=== PATIENT | male | born 1940 | race Caucasian/White ===

== ENCOUNTER 2018-01-20 12:30 | Outpatient (RCR) | payer MEDICARE, OTHER, SELFPAY ==
--- NOTE | 2018-01-05 12:58 | HP.PTEVAL_ITS ---
Patient's Visit Information REBECCA BAUTISTA is a 77 year old M referred to Physical Therapy by Suha Mujica MD with a diagnosis of Gait abnormality, Parkinsonism,. Date of Evaluation: 01/05/18 Physical Therapist: Priyanka Garcia - Visit Plan Frequency: 2x /Week Duration: 6 Weeks Plan: 2X/ week for 4-6 weeks for BIG movements, high level balance activities, LE strengthening, functional activities with HEP to do at home during PT. - Subjective Subjective: Pt reports that he is showing signs of PD and Dr thinks that PT might help. His signs of PD are trembling in R hand and sometimes in the L hand. He is wobbly on his feet. He also has LB discomfort and they have tried some approaches on that and have not worked and gives him trouble standing or sitting for long periods of time. The gait prevents him doing long walking. He had a broken ankle and sirgery on the L foot a few years ago and feels that interferes with his gait and hip limps on that side and anticipation of it hurting. No falls. Stairs: gets SOB but does ok with a railing and alternating. He might have some trouble getting out of low chairs. He feels more out of shape and weak in general. He has age related macular degeneration (always a dark shadow over L shoulder....sometimes he can read and some times he can not read). tHEY HAVE NOT NOTICED A DIFFERENCE WITH SINEMENT. He is more sleepy on the meds. - Objective Gait: Walks with a normal gait pattern with decreased arm swing on the R. Normal stride length with some veering to the R with gait. Stairs: up and down stairs recip with 1 handrail ascending and 2 hand rails descending. LE MMT : B hip flex 4/5, B knee ext 4/5, B knee flexion 4/5, B hip abd 4/5, 1/2 normal ROM bridge. FGA: 22. Tight gastroc complex B - Balance Scores Functional Gait Assessment Score: 22 % Disability: 26.6700 - Goals Goal 1:: I HEP and check into Silver Sneakers. Goal Time Frame: 4-6 Weeks Goal 2:: Increase FGA by 5 points to decrease fall risk (at eval score was 22). Goal Time Frame: 4-6 Weeks Goal 3:: Be able to sit to stand X 10 with no UE support and no LOB Goal Time Frame: 4-6 Weeks - Rehabilitation Potential Rehabilitation Potential: Good - Anticipated Interventions Patient/Client Instruction: Educate patient on: Condition For the Purpose of:: To improve muscle performance and motor function, To improve ability to perform ADL's, To increase tolerance to activity/condition/ position, To improve performance and independence with ADL's, To improve ability of physical actions for home/community/work/leisure, To improve gait and locomotor functions, To improve health of tissue, To improve endurance, To improve balance, To improve safety with gait Therapeutic Exercise to Include: Strength training, Endurance training, Balance training, Postural training, Gait and locomotor training, Active ROM, Dynamic Lumbar Stabilization For the Purpose of:: To improve nutrient delivery to tissue, To improve muscle performance and motor function, To improve ability to perform ADL's, To increase tolerance to activity/condition/position, To improve performance and independence with ADL's, To decrease level of supervision to perform tasks, To improve ability of physical actions for home/community/work/leisure, To improve gait and locomotor functions, To improve endurance, To improve balance, To improve safety with gait Functional Training to Include: Gait training For the Purpose of:: To improve gait and locomotor functions, To improve safety with gait Thank you for the opportunity to evaluate your patient. For Medicare and Medicare HMO plans, please review the plan of care and approve it. It will need to be FAXED BACK to us at [phone] for Medicare purposes. Please let me know if there are questions or concerns regarding this plan of care. Physician Signature: Date:
--- NOTE | 2018-03-25 08:09 | HP.PTDCNRP_ITS ---
HP - Discharge Summary (1) - Patient Information REBECCA BAUTISTA was seen in my office for initial evaluation on 01/05/18. The following Plan of Care was established for this patient: Initial Frequency: 2x /Week Initial Duration: 6 Weeks - Anticipated Interventions Patient/Client Instruction: Educate patient on: Condition For the Purpose of:: To improve muscle performance and motor function, To improve ability to perform ADL's, To increase tolerance to activity/condition/ position, To improve performance and independence with ADL's, To improve ability of physical actions for home/community/work/leisure, To improve gait and locomotor functions, To improve health of tissue, To improve endurance, To improve balance, To improve safety with gait Therapeutic Exercise to Include: Strength training, Endurance training, Balance training, Postural training, Gait and locomotor training, Active ROM, Dynamic Lumbar Stabilization For the Purpose of:: To improve nutrient delivery to tissue, To improve muscle performance and motor function, To improve ability to perform ADL's, To increase tolerance to activity/condition/position, To improve performance and independence with ADL's, To decrease level of supervision to perform tasks, To improve ability of physical actions for home/community/work/leisure, To improve gait and locomotor functions, To improve endurance, To improve balance, To improve safety with gait Functional Training to Include: Gait training For the Purpose of:: To improve gait and locomotor functions, To improve safety with gait This patient was last seen in our office 01/20/18. Pertinent comments regarding their Physical therapy will appear below: Pt's stopped in and said that pt is now home bound and will need home health and would like his chart to be discharged. DC PT. At this point I will be discontinuing this patient from physical therapy. I would be happy to see this patient again in the future if found appropriate by the physician. Thank you! Priyanka Garcia
== END 2018-01-20 19:00 | disposition home or self-care (01) ==
LOC: PT 12:30
PROVIDERS: Family Provider Internal Medicine; PCP Internal Medicine; Visit Provider Psychiatry & Neurology Neurology
DX: G20 Parkinson's disease (principal); R26.9 Unspecified abnormalities of gait and mobility
CPT/HCPCS: 97110; 97161

== ENCOUNTER 2018-09-07 18:23 | Emergency (ER) | payer MEDICARE, OTHER, SELFPAY ==
[2018-09-07 18:28] VITALS: BP 202/120; PULSE 66; RESP 14; TEMP 36.8; O2SAT 97; BMI 32.8
[2018-09-07 19:49] LABS: Absolute Lymphocyte Count 2.03 X10^3/ul (0.83-4.51); Absolute Neutrophil Count 3.1 X10^3/uL (2.0-7.7); Basophil# 0.03 X10^3/uL; Basophil% 0.5 % (0-1); Eosinophil# 0.19 X10^3/uL; Eosinophils% 3.2 % (0-5); Hemoglobin 13.6 g/dl (13.0-16.5); Lymphocyte # 2.03 X10^3/ul (4.0); Lymphocyte % 33.8 % (19-41); Mean Corp Hgb Conc 33.2 g/gl (32-36); Mean Corpuscular Hgb 28.5 pg (27.0-32.0); Mean Corpuscular Volume 85.8 fL (80-94); Mean Platelet Vol. 10.2 fl (6.2-12.0); Monocyte# 0.64 X10^3/uL; Monocyte% 10.6 % (0-10); Neutrophil # 3.12 X10^3/uL (2.7-7.7); Neutrophil % 51.9 % (47-70); Platelet Count 126 K/mm3 (150-450); RBC Distribution Width CV 12.3 % (11.6-14.6); RBC Distribution Width SD 38.7 fl (35.1-43.9); Red Blood Count 4.78 M/mm3 (4.6-6.2)
[2018-09-07 19:50] LABS: POSITIVE COUNT NO; POSITIVE DIFFERENTIAL NO; POSITIVE MORPHOLOGY NO
[2018-09-07] MEDS: 0.9% Normal Saline 1,000 ML 150 ML IV (19:50)
[2018-09-07] MEDS: cloNIDine HCl 0.1 MG Tablet PO (19:55)
[2018-09-07 19:57] LABS: Anion Gap 6 (5-15); BUN 32 mg/dL (7-18); BUN/Creat Ratio 39.8 RATIO (10-20); Calcium,Total 8.6 mg/dL (8.5-10.1); Chloride 108 mmol/L (98-107); EST Glomerular Filtration Rate 98 mL/min (>60); Est Glom Filt Rate - Afr Amer 119 mL/min (>60); Estimated Creatinine Clearance 68.85 ml/min; Glucose 76 mg/dL (74-106); Sodium Level 143 mmol/L (136-145)
[2018-09-07 20:30] VITALS: BP 172/99; PULSE 61; RESP 14; O2SAT 96
--- NOTE | 2018-09-07 21:12 | ED.RN ---
PT WITH CONTINUED HYPERTENSION. DR. MICHEL INFORMED. PER DR. MICHEL PT TO BE OBSERVED. PT AND FAMILY INFORMED. WILL CONTINUE TO MONITOR. NO NEW ORDERS AT THIS TIME.
[2018-09-07 21:19] VITALS: BP 170/88; PULSE 61; RESP 18; O2SAT 97
--- NOTE | 2018-09-07 21:34 | ED.DCSUM_ITS ---
- ER Visit Summary Date of Service: 09/07/18 Chief Complaint: Swelling to the face and hand History of Present Illness: The patient is a 78 M who states he had the above symptoms that started an hour ago. He states they are now gone. His blood pressure was elevated at home. This happened after he took his afternoon medications which includes his Sinemet. He states his tongue felt swollen and that affected his speech. He started no new medications. He had no new foods. He denies chest pain or shortness of breath. He takes atenolol for his blood pressure. He had no weakness of his arms or legs. Physical Examination: Vital signs reviewed. HEENT exam unremarkable. Heart is regular rate and rhythm without murmurs. Lungs are clear to auscultation. Abdomen is soft and nontender. Extremities reveal no edema. Skin exam normal. Neurologic exam normal. He does have a parkinsonian twitch. NIH is 0 Test Results: Laboratory studies unremarkable. Emergency Department Course and Treatment: Patient was given oral clonidine. Repeat blood pressure was 140/80 at 2133. He has no signs of allergic reaction at this point. It is definitely possible that he did have an allergic reaction. However, it is unknown what this was caused by. He has no signs of a stroke. I do not feel that this is a TIA as he felt that everything was swollen. He is now back to his baseline. Family is comfortable taking him home. They do have Benadryl if this returns. He will take his nightly medications and will follow up with his PCP. He will continue to monitor his blood pressure. Treatment Plan: [] Disposition: Discharge Impression: Allergic reaction, etiology unknown Hypertension This note was generated with [employer] software. It may contain incorrect words, spelling, and punctuation that were not noted in review of the chart prior to signing ED Disposition - Plan for ED Patient: Disposition: Home or Assisted Living Chief Complaint: General Illness Instructions: ED HTN Established Referrals: Scotty Hernández MD [Primary Care Provider] -
--- NOTE | 2018-09-07 21:34 | ED.DEP ---
ED Disposition - Plan for ED Patient: Disposition: Home or Assisted Living Chief Complaint: General Illness Instructions: ED Allergic Reaction General Other Referrals: Scotty Hernández MD [Primary Care Provider] -
[2018-09-07 22:11] VITALS: BP 181/96; PULSE 60; RESP 13; O2SAT 97
== END 2018-09-07 22:13 | disposition home or self-care (01) ==
PROVIDERS: Emergency Provider Emergency Medicine; Family Provider Internal Medicine; PCP Internal Medicine
DX: T78.40XA Allergy, unspecified, initial encounter (principal); X58.XXXA Exposure to other specified factors, initial encounter; I10 Essential (primary) hypertension; G20 Parkinson's disease; Z79.82 Long term (current) use of aspirin; Z79.899 Other long term (current) drug therapy
CPT/HCPCS: 80048; 85025; 96360; 96361; 99285; J7030; A4216

== ENCOUNTER → 2019-01-13 10:00 | Outpatient (CLI) | payer MEDICARE, OTHER, SELFPAY | PROVIDERS: Family Provider Internal Medicine; PCP Internal Medicine; Referring Provider Internal Medicine; Visit Provider Internal Medicine | DX: R03.0 Elevated blood-pressure reading, without diagnosis of hypertension (principal); G90.3 Multi-system degeneration of the autonomic nervous system; I95.1 Orthostatic hypotension; G20 Parkinson's disease; R42 Dizziness and giddiness; R55 Syncope and collapse | CPT/HCPCS: 93788 ==

== ENCOUNTER → 2019-03-21 | Outpatient (CLI) | payer MEDICARE, OTHER, SELFPAY | END | disposition home or self-care (01) | PROVIDERS: Family Provider Internal Medicine; PCP Internal Medicine; Referring Provider Internal Medicine; Visit Provider Internal Medicine | DX: R03.0 Elevated blood-pressure reading, without diagnosis of hypertension (principal) | CPT/HCPCS: 93788 ==

== ENCOUNTER 2020-10-03 11:00 | Outpatient (RCR) | payer MEDICARE, SELFPAY | END 2020-10-03 23:59 | LOC: IMMUN 11:00 | PROVIDERS: PCP Internal Medicine; Visit Provider Family Medicine | DX: Z23 Encounter for immunization (principal) | CPT/HCPCS: 0011A; 0012A; 91301 ==

== ENCOUNTER → 2021-05-16 08:15 | Outpatient (REF) | payer MEDICARE, SELFPAY ==
[2021-05-17 10:09] LABS: Color, Urine Yellow (Yellow); Glucose, Dipstick Normal (Normal); Ketone-Dipstick Negative (Negative); Leukocyte Esterase-Dipstick 100 /ul (Negative); Nitrite-Dipstick Negative (Negative); Occult Blood-Urine 250 /ul (Negative); Protein-Dipstick 30 mg/dl (Negative); Specific Gravity, Urine 1.015 (1.002-1.030); Urine Bilirubin Dipstick Negative (Negative); Urine Clarity Sl. Cloudy (Clear); Urine Urobilinogen Normal (Normal)
== END ==
LOC: OLS.DANBUR 08:15
PROVIDERS: PCP Internal Medicine; Visit Provider Internal Medicine
DX: R35.0 Frequency of micturition (principal)
CPT/HCPCS: 81002; 87086

== ENCOUNTER → 2021-07-03 05:00 | Outpatient (REF) | payer MEDICARE, SELFPAY ==
[2021-07-03 08:50] LABS: Absolute Lymphocyte Count 1.37 X10^3/uL (0.83-4.51); Basophil# 0.03 X10^3/uL; Basophil% 0.6 % (0-1); Eosinophil# 0.18 X10^3/uL; Eosinophils% 3.5 % (0-5); Hematocrit 33.3 % (40-54); Hemoglobin 10.6 g/dL (13.0-16.5); Lymphocyte # 1.37 X10^3/ul (0.83-4.51); Lymphocyte % 26.3 % (19-41); Mean Corp Hgb Conc 31.8 g/dL (32-36); Mean Corpuscular Hgb 29.3 pg (27.0-32.0); Mean Platelet Vol. 10.7 fl (6.2-12.0); Monocyte# 0.62 X10^3/uL; Monocyte% 11.9 % (0-10); NRBC Flagged by Analyzer 0 % (0-5); Neutrophil # 2.98 X10^3/uL (2.7-7.7); Neutrophil % 57.3 % (47-70); Platelet Count 174 K/mm3 (150-450); RBC Distribution Width CV 12.7 % (11.6-14.6); Red Blood Count 3.62 M/mm3 (4.6-6.2); White Blood Count 5.2 K/mm3 (4.4-11.0)
[2021-07-03 09:10] LABS: AST(SGOT) 28 U/L (15-37); Alanine Aminotransfer ALT/SGPT 17 U/L (16-61); Albumin, Serum 2.9 g/dL (3.2-5.0); Alkaline Phosphatase 50 U/L (45-117); Anion Gap 5 (5-15); BUN 26 mg/dL (7-18); BUN/Creat Ratio 32.5 RATIO (10-20); Calcium,Total 8.7 mg/dL (8.5-10.1); Chloride 109 mmol/L (98-107); Cholesterol 93 mg/dL (200); EST Glomerular Filtration Rate 98 mL/min (>60); Est Glom Filt Rate - Afr Amer 119 mL/min (>60); Globulin 2.9 g/dL (2.2-4.2); Glucose 88 mg/dL (74-106); High Density Lipoprotein 45 mg/dL; Potassium 3.8 mmol/L (3.5-5.1); Protein, Total 5.8 g/dL (6.4-8.2); Sodium Level 142 mmol/L (136-145); Triglycerides 61 mg/dL; Very Low Density Lipoprotein 12 mg/dL (5-40)
== END ==
LOC: OLS.DANBUR 05:00
PROVIDERS: PCP Internal Medicine; Visit Provider Internal Medicine
DX: F03.90 Unspecified dementia, unspecified severity, without behavioral disturbance, psychotic disturbance, mood disturbance, and anxiety (principal); I10 Essential (primary) hypertension; E78.5 Hyperlipidemia, unspecified; E03.9 Hypothyroidism, unspecified; G20 Parkinson's disease; I25.10 Atherosclerotic heart disease of native coronary artery without angina pectoris
CPT/HCPCS: 36415; 80053; 80061; 85025

== ENCOUNTER → 2021-07-31 05:00 | Outpatient (REF) | payer MEDICARE, SELFPAY ==
[2021-07-31 09:18] LABS: Hemoglobin 11.9 g/dL (13.0-16.5); Mean Corp Hgb Conc 31.3 g/dL (32-36); Mean Corpuscular Hgb 28.5 pg (27.0-32.0); Mean Corpuscular Volume 90.9 fL (80-94); Mean Platelet Vol. 10.6 fl (6.2-12.0); Platelet Count 156 K/mm3 (150-450); RBC Distribution Width CV 12.5 % (11.6-14.6); RBC Distribution Width SD 41.2 fl (35.1-43.9); Red Blood Count 4.18 M/mm3 (4.6-6.2); White Blood Count 5.1 K/mm3 (4.4-11.0)
== END ==
LOC: OLS.DANBUR 05:00
PROVIDERS: PCP Internal Medicine; Visit Provider Internal Medicine
DX: I10 Essential (primary) hypertension (principal); E78.5 Hyperlipidemia, unspecified
CPT/HCPCS: 36415; 85027

== ENCOUNTER 2021-08-27 23:23 | Emergency (ER) | payer MEDICARE, SELFPAY ==
[2021-08-27 23:23] VITALS: BP 252/151; PULSE 78; RESP 10; TEMP 36.5; O2SAT 100; BMI 26.7
--- NOTE | 2021-08-27 23:55 | EKG12_ITS ---
Test Reason : Blood Pressure : / mmHG Vent. Rate : 073 BPM Atrial Rate : 073 BPM P-R Int : 156 ms QRS Dur : 104 ms QT Int : 408 ms P-R-T Axes : 055 -07 039 degrees QTc Int : 449 ms Normal sinus rhythm Normal ECG Confirmed by THANH MELCHOR, MARY JO ([id number]), website/blog editor CATHY ANDERSON ([id number]) on 08/29/2021 10:44:37 AM Referred By: BRIAN Confirmed By:MARY JO LAW MD
[2021-08-28 00:04] LABS: Absolute Lymphocyte Count 1.94 X10^3/uL (0.83-4.51); Absolute Neutrophil Count 2.4 X10^3/uL (2.0-7.7); Basophil# 0.05 X10^3/uL; Basophil% 0.9 % (0-1); Eosinophils% 3.8 % (0-5); Hematocrit 39.6 % (40-54); Hemoglobin 12.7 g/dL (13.0-16.5); Lymphocyte # 1.94 X10^3/ul (0.83-4.51); Lymphocyte % 36.5 % (19-41); Mean Corp Hgb Conc 32.1 g/dL (32-36); Mean Corpuscular Hgb 28.7 pg (27.0-32.0); Mean Corpuscular Volume 89.4 fL (80-94); Mean Platelet Vol. 10.7 fl (6.2-12.0); Monocyte% 13.2 % (0-10); NRBC Flagged by Analyzer 0 % (0-5); Neutrophil # 2.42 X10^3/uL (2.7-7.7); Neutrophil % 45.4 % (47-70); Platelet Count 153 K/mm3 (150-450); RBC Distribution Width SD 39.3 fl (35.1-43.9); Red Blood Count 4.43 M/mm3 (4.6-6.2); White Blood Count 5.3 K/mm3 (4.4-11.0)
[2021-08-28] MEDS: cloNIDine HCl 0.2 MG Tablet PO (00:10)
[2021-08-28] MEDS: Labetalol (Prefilled) 20 MG/4 ML IV (00:10)
[2021-08-28 00:16] LABS: Anion Gap 2 (5-15); BUN 33 mg/dL (7-18); BUN/Creat Ratio 30.3 RATIO (10-20); Calcium,Total 9.4 mg/dL (8.5-10.1); Chloride 109 mmol/L (98-107); Creatinine, Serum 1.09 mg/dL (0.70-1.30); EST Glomerular Filtration Rate 69 mL/min (>60); Est Glom Filt Rate - Afr Amer 83 mL/min (>60); Estimated Creatinine Clearance 48.01 ml/min; Glucose 88 mg/dL (74-106); Potassium 3.9 mmol/L (3.5-5.1); Sodium Level 141 mmol/L (136-145); Troponin-I HS 6 pg/mL (3.0-78.0)
[2021-08-28 00:54] VITALS: BP 198/115; PULSE 70; RESP 12; O2SAT 98
[2021-08-28 01:31] VITALS: BP 177/98
--- NOTE | 2021-08-28 01:38 | EDS_ITS ---
HPI History of Present Illness Chief Complaint: Hypertension Narrative Narrative: Patient is a 81-year-old male with past medical history of Parkinson's. He has previous history of hypertension and nursing reports that they took his blood pressure this evening and it was elevated and secondary to this sent the patient to the hospital. The patient denies any complaints at this time such as headache or change in vision chest pain or shortness of breath. He does state that his Myrbetriq was recently doubled in dose to 50 mg but otherwise denies any new or different medications or stimulant use. However based on the high blood pressure the skilled nursing was concerned and sent him to the hospital for evaluation [facility] Medical History (Updated 08/28/21 @ 01:[address] Shine Garcia, DO) Actinic keratosis Atherosclerotic heart disease of lime coronary artery without angina pectoris Basal cell carcinoma of skin, unspecified Dementia in other diseases classified elsewhere without behavioral disturbance Eczema intertrigo Essential (primary) hypertension Hyperlipidemia, unspecified Impaired fasting glucose Orthostatic hypotension Parkinson's disease Personal history of colonic polyps Spondylosis without myelopathy or radiculopathy, lumbar region Thrombocytopenia, unspecified Unspecified abnormalities of gait and mobility Unspecified urinary incontinence Home Medications aspirin 81 mg PO DAILY 09/07/18 [History Last Taken Unknown] carbidopa-levodopa 1.5 tab PO TIDAC 09/07/18 [History Last Taken Unknown] meloxicam [Mobic] 15 mg PO DAILY PRN 09/07/18 [History Last Taken Unknown] pravastatin 40 mg PO QHS 09/07/18 [History Last Taken Unknown] vitamins A,C,V-ldwr-[id number] [Preservision Areds Tablet] 1 ea PO BID 09/07/18 [History Last Taken Unknown] cholecalciferol (vitamin D3) [Vitamin D3] 25 mcg PO DAILY 08/27/21 [History Last Taken Unknown] docusate sodium 100 mg PO BID 08/27/21 [History Last Taken Unknown] gabapentin 100 mg PO DAILY 08/27/21 [History Last Taken Unknown] menthol-zinc oxide [Calmoseptine] 1 applic TOPICAL DAILY 08/27/21 [History Last Taken Unknown] metoprolol tartrate 12.5 mg PO DAILY 08/27/21 [History Last Taken Unknown] mirabegron [Myrbetriq] 50 mg PO DAILY 08/27/21 [History Last Taken Unknown] mometasone [Elocon] 1 applic TOPICAL DAILY 08/27/21 [History Last Taken Unknown] nitroglycerin 0.4 mg SUBLINGUAL PRN PRN 08/27/21 [History Last Taken Unknown] Allergy/AdvReac Type Severity Reaction Status Date / Time Penicillins Allergy Hives Verified 08/27/21 23:26 Social History Smoking Status: Former smoker ROS ROS ED Constitutional Constitutional ED: Denies chills or fever(s) ENT ENT ED: Denies sore throat Cardiovascular Cardiovascular: Denies chest pain Respiratory/Chest Respiratory/Chest: Denies cough or dyspnea Gastrointestinal Gastrointestinal: Denies abdominal pain, diarrhea, nausea or vomiting Genitourinary Genitourinary ED: Denies dysuria Musculoskeletal Musculoskeletal: Denies myalgias Integumentary Denies rash Neurologic Neurologic: Denies headache(s) Hematologic/Lymphatic Hematologic/Lymphatic: Denies easy bleeding or easy bruising EXAM Physical Exam Const Vital Signs: 08/27/21 23:23 08/28/21 00:15 08/28/21 00:54 Temperature 97.7 F L Temperature Source Temporal Pulse Rate 78 70 Respiratory Rate 10 L 12 Respiratory Effort Normal Respiratory Pattern Normal Blood Pressure 252/151 H 198/115 H Blood Pressure Mean 184 142 Pulse Ox 100 98 Oxygen Delivery Method Room Air Room Air 08/28/21 01:31 Temperature Temperature Source Pulse Rate Respiratory Rate Respiratory Effort Respiratory Pattern Blood Pressure 177/98 H Blood Pressure Mean 124 Pulse Ox Oxygen Delivery Method Positive well nourished and well developed General Appearance ED: well developed HEENT Reports moist mucous membranes Eyes PERRL and EOMs intact bilaterally Neck supple Resp normal respiratory effort and clear to auscultation bilaterally Cardio regular rate and regular rhythm Cardio Narrative: Radial pulses are +2-4 bilaterally they are equal and symmetric GI non-tender and non-distended GI Narrative: No voluntary guarding or rigidity no pulsatile mass Auscultation: normoactive bowel sounds Palpation: soft Extremity normal to inspection Neuro oriented x3, CN's II-XII intact bilaterally and moves all extremities Sensorium / Orientation: alert Psych mental status grossly normal Skin no rashes or lesions noted MDM MDM MDM Narrative Medical decision making narrative: Patient presented to the ER hypertensive but otherwise was awake and alert with normal neurologic exam no chest pain shortness of breath or abdominal pain. By exam he has no signs of endorgan damage and his history is consistent with the increased dose of Myrbetriq leading to the hypertension. Chart review does confirm that approximately 10% of people with underlying hypertension will have worsening blood pressure issues with the medication. As the patient had a normal neurologic exam and no headache I felt no need for a CT of his head but did elect to perform EKG and basic blood work. EKG was sinus rhythm and blood work revealed no clinically significant findings. Patient was treated in the ER with labetalol and clonidine and did have a reduction of approximately 25% and his blood pressure. On reevaluation he remains awake and alert with no focal neurologic deficit. Therefore at this time with no signs of endorgan damage by exam or work-up and improvement of his blood pressure he does not need to be kept in the hospital and will be discharged back to the skilled nursing. Lab Data Attestation: I reviewed the patient's lab results. Labs: Laboratory Results - last 24 hr 08/27/21 08/27/21 23:12 23:12 WBC 5.3 RBC 4.43 L Hgb 12.7 L Hct 39.6 L MCV 89.4 MCH 28.7 MCHC 32.1 RDW Std Deviation 39.3 RDW Coeff of Buck 12.0 Plt Count 153 MPV 10.7 Immature Gran % (Auto) 0.200 Neut % (Auto) 45.4 L Lymph % (Auto) 36.5 [place] % (Auto) 13.2 H Eos % (Auto) 3.8 Baso % (Auto) 0.9 Absolute Neuts (auto) 2.4 Absolute Lymphs (auto) 1.94 Nucleated RBC % 0 Sodium 141 Potassium 3.9 Chloride 109 H Carbon Dioxide 30.0 Anion Gap 2 L BUN 33 H Creatinine 1.09 Estim Creat Clear Calc 48.01 Est GFR (MDRD) Af Amer 83 Est GFR (MDRD) Non-Af 69 BUN/Creatinine Ratio 30.3 H Glucose 88 Calcium 9.4 Troponin I High Sens 6 Discharge Plan Triage Chief Complaint: Hypertension ED Provider: Shine Garcia Dx/Rx/DC Orders Clinical Impression: Accelerated hypertension Instructions: Hypertension Dc Prescriptions: No Action meloxicam [Mobic] 15 MG tablet 15 mg PO DAILY PRN (Reason: arthritis ) RF: 0 pravastatin 80 MG tablet 40 mg PO QHS RF: 0 aspirin 81 MG tablet,chewable 81 mg PO DAILY RF: 0 carbidopa-levodopa 1 TABLET tablet 1.5 tab PO TIDAC RF: 0 PreserVision AREDS 1 EACH tablet 1 ea PO BID RF: 0 nitroglycerin 0.4 mg tablet, sublingual 0.4 mg sublingual PRN PRN (Reason: Chest Pain) RF: 0 docusate sodium 100 mg Capsule 100 mg PO BID RF: 0 gabapentin 100 mg capsule 100 mg PO DAILY RF: 0 mometasone [Elocon] 0.1 % Cream 1 applic TOPICAL DAILY RF: 0 cholecalciferol (vitamin D3) [Vitamin D3] 25 mcg (1,000 unit) Capsule 25 mcg PO DAILY RF: 0 metoprolol tartrate 25 mg Tablet 12.5 mg PO DAILY RF: 0 menthol-zinc oxide [Calmoseptine] 0.44-20.6 % Ointment 1 applic TOPICAL DAILY RF: 0 Myrbetriq 25 mg Tablet Extended Release 24 Hr 50 mg PO DAILY RF: 0 Primary Care Provider: Scotty Hernández Referrals: Scotty Hernández MD [Primary Care Provider] - Activity Restrictions/Additional Instructions: Please discuss with your doctor returning to the 25 mg of Myrbetriq because I believe the double dose is contributing to your hypertension Disposition Disposition: Home, Self Care
[2021-08-28 02:28] VITALS: BP 164/92; PULSE 64; RESP 13; O2SAT 96
--- NOTE | 2021-08-28 02:29 | ED.RN ---
Verbal report given to Rosalie at [facility] who took report from Sandra.
== END 2021-08-28 02:29 | disposition home or self-care (01) ==
PROVIDERS: Emergency Provider Emergency Medicine; PCP Internal Medicine
DX: I10 Essential (primary) hypertension (principal); G20 Parkinson's disease; E78.5 Hyperlipidemia, unspecified; I25.10 Atherosclerotic heart disease of native coronary artery without angina pectoris; M47.816 Spondylosis without myelopathy or radiculopathy, lumbar region; Z79.82 Long term (current) use of aspirin; Z79.899 Other long term (current) drug therapy; Z87.891 Personal history of nicotine dependence
CPT/HCPCS: 80048; 84484; 85025; 93005; 96374; 99285

== ENCOUNTER 2021-09-03 07:18 | Emergency (ER) | payer MEDICARE, SELFPAY ==
[2021-09-03 07:19] VITALS: BP 187/102; PULSE 63; RESP 17; TEMP 36.5; O2SAT 98; BMI 26.1
--- NOTE | 2021-09-03 07:27 | EDS_ITS ---
HPI History of Present Illness Chief Complaint: Hypertension Detail of Chief Complaint: Elevated blood pressure reading at nursing facility Informant: patient and SNF (Collin inform me that his blood pressure reading was too high for him to stay at the facility) Onset/Context/Timing Onset: Today and - (He was seen approximate 2 weeks ago for elevated blood pressure of 252 systolic) Context: Sudden Onset (Presumed) Timing: Intermittent Quality: Patient is asymptomatic Location: Cardiovascular Current Severity: Elevated blood pressure reading this morning at nursing facility Maximum Severity: Mild Associated Symptoms Associated Symptoms: None Narrative Narrative: Patient is an elderly male who is alert oriented who has absolutely no complaints. He states he was sent here because his blood pressure reading was elevated. He was seen earlier this month. That note was reviewed. He is on a bladder medication that has an 11% incident of elevated blood pressure. Apparently his blood pressure readings became elevated after the dose was doubled. He denies headache, double vision, blurred vision loss of vision. He denies ringing his ears or decreased hearing. He denies trouble with speech or swallowing. He denies chest pain or back pain. He denies shortness of breath. He denies abdominal pain, nausea, vomiting or any abdominal symptoms. He denies paresthesia, anesthesia or motor works. He denies problems with balance from baseline. He does have history of Parkinson's disease. Prior similar symptoms: Yes Recent Illness/Hospitalization: Yes Tetanus Immunization: Unknown [facility] Medical History Actinic keratosis Atherosclerotic heart disease of [place] coronary artery without angina pectoris Basal cell carcinoma of skin, unspecified Dementia in other diseases classified elsewhere without behavioral disturbance Eczema intertrigo Essential (primary) hypertension Hyperlipidemia, unspecified Impaired fasting glucose Orthostatic hypotension Parkinson's disease Personal history of colonic polyps Spondylosis without myelopathy or radiculopathy, lumbar region Thrombocytopenia, unspecified Unspecified abnormalities of gait and mobility Unspecified urinary incontinence Home Medications aspirin 81 mg PO DAILY 09/07/18 [History Last Taken Unknown] carbidopa-levodopa 1.5 tab PO TIDAC 09/07/18 [History Last Taken Unknown] meloxicam [Mobic] 15 mg PO DAILY PRN 09/07/18 [History Last Taken Unknown] pravastatin 40 mg PO QHS 09/07/18 [History Last Taken Unknown] vitamins A,C,T-puga-[id number] [Preservision Areds Tablet] 1 ea PO BID 09/07/18 [History Last Taken Unknown] cholecalciferol (vitamin D3) [Vitamin D3] 25 mcg PO DAILY 08/27/21 [History Last Taken Unknown] docusate sodium 100 mg PO BID 08/27/21 [History Last Taken Unknown] gabapentin 100 mg PO DAILY 08/27/21 [History Last Taken Unknown] menthol-zinc oxide [Calmoseptine] 1 applic TOPICAL DAILY 08/27/21 [History Last Taken Unknown] metoprolol tartrate 12.5 mg PO DAILY 08/27/21 [History Last Taken Unknown] mirabegron [Myrbetriq] 25 mg PO DAILY 08/27/21 [History Last Taken Unknown] mometasone [Elocon] 1 applic TOPICAL DAILY 08/27/21 [History Last Taken Unknown] nitroglycerin 0.4 mg SUBLINGUAL PRN PRN 08/27/21 [History Last Taken Unknown] hydrochlorothiazide 12.5 mg PO DAILY #30 tab 09/03/21 [Rx Last Taken Unknown] Allergy/AdvReac Type Severity Reaction Status Date / Time Penicillins Allergy Hives Verified 09/03/21 07:18 Social History (Updated 09/03/21 @ 09:[address] Jr Segundo MD) household members: spouse housing: group home Smoking Status: Former smoker substance use type: does not use ROS ROS ED Constitutional Constitutional ED: Reports as per HPI Eyes Eyes: Denies acute decrease in peripheral vision, bloody eye, blurry vision, floaters, loss of central vision, loss of vision, nystagmus or other visual disturbances ENT ENT ED: Denies abnormal hearing, bleeding gums, bloody eye, change in voice, disequillibrium, dizziness, dysphagia, headache(s), neck pain or sore throat Cardiovascular Cardiovascular: Reports none; Denies abdominal bloating, chest pain, chest pain at rest, chest pain with activity, diaphoresis, dizziness, dyspnea, edema, fatigue, orthopnea, racing heartbeat or weakness in extremities Respiratory/Chest Respiratory/Chest: Reports none; Denies change in mental status, chest congestion, chest tightness, cough, dyspnea on exertion, hoarseness or orthopnea Gastrointestinal Gastrointestinal: Reports none; Denies abdominal pain, anorexia, coffee ground emesis, dyspepsia, dysphagia or heartburn Genitourinary Genitourinary ED: Reports none; Denies burning urination, dysuria or hematuria Musculoskeletal Musculoskeletal: Reports none and tremors; Denies abnormal gait, arthralgias, extremity pain, joint pain, muscle cramps, muscle weakness or numbness Integumentary Reports none; Denies changing lesions, jaundice, rash or sores Neurologic Neurologic: Reports none and abnormal movements; Denies abnormal gait, abnormal hearing, abnormal speech, burning sensations, disequilibrium, frequent falls, headache(s), loss of vision, numbness or paresthesias Psychiatric Psychiatric: Reports none; Denies abnormal sleep pattern, anxiety, behavioral changes or depression Endocrine Endocrinology: Reports none; Denies deepening of the voice, fatigue, polydipsia or polyphagia Hematologic/Lymphatic Hematologic/Lymphatic: Reports none; Denies anemia or easy bleeding Allergic/Immunologic Allergic/Immunologic ED: Denies itchy eyes, lip swelling, mouth swelling or urticaria EXAM Physical Exam Const Vital Signs: 09/03/21 07:19 09/03/21 07:22 09/03/21 08:25 Temperature 97.7 F L Temperature Source Oral Pulse Rate 63 60 Respiratory Rate 17 17 Respiratory Effort Normal Non-Labored Respiratory Pattern Normal Blood Pressure 187/102 H 189/100 H Blood Pressure Mean 130 129 Pulse Ox 98 97 Oxygen Delivery Method Room Air Room Air 09/03/21 09:23 Temperature Temperature Source Pulse Rate 56 L Respiratory Rate 17 Respiratory Effort Respiratory Pattern Blood Pressure 181/98 H Blood Pressure Mean 125 Pulse Ox 98 Oxygen Delivery Method Room Air Positive well nourished, well developed, alert, oriented x3, no apparent distress, average body habitus and no limitations General Appearance ED: active, cooperative, well kempt and well developed Orientation / Consciousness: awake, oriented to person, oriented to place and oriented to time Exam Limitations: no limitations Nutritional Appearance: overweight HEENT Reports normocephalic, EAC's normal, external nose normal and nasal mucous membranes and turbinates normal normocephalic, normal to inspection and atraumatic Nose: external nose normal, nares normal and nasal mucous membranes and turbinates normal External Ear: external ears normal Throat: posterior oropharynx normal Eyes PERRL, EOMs intact bilaterally, conjunctivae normal, no scleral icterus, no papilledema and normal visual dave by confrontation General Eye ED: Yes normal appearance of both eyes and normal light reflex; Negative for pale conjunctiva or scleral icterus Neck full ROM, no lymphadenopathy, supple, no meningeal signs and no JVD General: normal visual inspection, trachea midline and anterior neck swelling Lymph Lymphatic: no lymphadenopathy noted and no lymphedema noted Chest Wall inspection of chest normal and palpation of chest normal Resp Effort and Inspection: able to speak in complete sentences, symmetric chest movement and abnormal respiratory pattern Auscultation: clear to auscultation bilaterally Cardio regular rate, regular rhythm, S1 normal heart sound, S2 normal heart sound and no murmurs GI normal to inspection, nondistended, normoactive bowel sounds, soft to palpation, non-tender, non-distended, no masses and no bruits; Negative for hepatosplenomegaly no CVA tenderness Back/Spine no CVA tenderness, normal to inspection and thoracic and lumbar spine normal to inspection Extremity normal to inspection, full ROM, normal capillary refill and no joint enlargement General Extremety ED: Yes normal exam except as noted General Extremity: normal exam except as noted Neuro oriented x3, CN's II-XII intact bilaterally, moves all extremities, no focal motor deficits, no sensory deficits noted and deep tendon reflexes 2+ bilaterally Martina Coma Scale: document GCS findings Spontaneous Obeys Commands Oriented 15 Sensorium / Orientation: awake and alert Coordination / Balance: [id number] test normal Speech: speech normal Psych mental status grossly normal and thought process normal Appearance: grossly normal Attitude: calm Speech: normal speech Mood & Affect: blunted affect Thought Process: normal thought process Thought Content: normal thought content Skin no rashes or lesions noted, no wounds, No no jaundice and no petechiae General Skin Exam: no breakdown MDM MDM MDM Narrative Medical decision making narrative: Patient presents with asymptomatic hypertension. This may be related to his bladder spasm medication. Since patient had significant work-up earlier this month and no abnormalities noted i.e. endorgan injury and blood pressure is 187/100 there is no need for urgent or emergent lowering. Will observe and start hydrochlorothiazide 12.5 mg. Patient's blood pressure is 181/95. He is asymptomatic. Suspect his elevated blood pressure is due to his bladder medicine. This was discussed with patient and . He was started on hydrochlorothiazide. Since he had blood work most recent visit with no evidence of endorgan injury and his blood pressure was markedly elevated at that time compared to today and he is asymptomatic no additional testing was done. He is to continue taking his metoprolol and will add hydrochlorothiazide to control his blood pressure. Also recommend discontinuing his bladder medication. Discharge Plan Triage Chief Complaint: Hypertension ED Provider: Jr Segundo Dx/Rx/DC Orders Clinical Impression: Asymptomatic hypertension Instructions: ED Hypertension, Established Prescriptions: New hydrochlorothiazide 12.5 mg tablet 12.5 mg PO DAILY Qty: 30 RF: 2 No Action meloxicam [Mobic] 15 MG tablet 15 mg PO DAILY PRN (Reason: arthritis ) RF: 0 pravastatin 80 MG tablet 40 mg PO QHS RF: 0 aspirin 81 MG tablet,chewable 81 mg PO DAILY RF: 0 carbidopa-levodopa 1 TABLET tablet 1.5 tab PO TIDAC RF: 0 PreserVision AREDS 1 EACH tablet 1 ea PO BID RF: 0 nitroglycerin 0.4 mg tablet, sublingual 0.4 mg sublingual PRN PRN (Reason: Chest Pain) RF: 0 docusate sodium 100 mg Capsule 100 mg PO BID RF: 0 gabapentin 100 mg capsule 100 mg PO DAILY RF: 0 mometasone [Elocon] 0.1 % Cream 1 applic TOPICAL DAILY RF: 0 cholecalciferol (vitamin D3) [Vitamin D3] 25 mcg (1,000 unit) Capsule 25 mcg PO DAILY RF: 0 metoprolol tartrate 25 mg Tablet 12.5 mg PO DAILY RF: 0 menthol-zinc oxide [Calmoseptine] 0.44-20.6 % Ointment 1 applic TOPICAL DAILY RF: 0 Myrbetriq 25 mg Tablet Extended Release 24 Hr 25 mg PO DAILY RF: 0 Primary Care Provider: Scotty Hernández Referrals: Scotty Hernández MD [Primary Care Provider] - 1-2 Weeks Activity Restrictions/Additional Instructions: There is a 7.4 to 11% incidence of elevation of blood pressure in patients with hypertension who are taking Myrbetriq. Patient to start taking hydrochlorothiazide 12.5 mg in the morning and recommend blood pressure check in 1 to 2 weeks since he is asymptomatic Recommend discontinuing the Myrbetriq and treating his bladder issues with a different medication Disposition Disposition: Home, Self Care
[2021-09-03] MEDS: hydroCHLOROthiazide 12.5mg 12.5 MG PO (08:02)
[2021-09-03 08:25] VITALS: BP 189/100; PULSE 60; RESP 17; O2SAT 97
[2021-09-03 09:23] VITALS: BP 181/98; PULSE 56; RESP 17; O2SAT 98
[2021-09-03 09:43] VITALS: BP 193/118
== END 2021-09-03 09:44 | disposition home or self-care (01) ==
PROVIDERS: Emergency Provider Emergency Medicine; PCP Internal Medicine
DX: I10 Essential (primary) hypertension (principal); E66.3 Overweight; Z68.26 Body mass index [BMI] 26.0-26.9, adult; G20 Parkinson's disease; E78.5 Hyperlipidemia, unspecified; I25.10 Atherosclerotic heart disease of native coronary artery without angina pectoris; F03.90 Unspecified dementia, unspecified severity, without behavioral disturbance, psychotic disturbance, mood disturbance, and anxiety; M47.816 Spondylosis without myelopathy or radiculopathy, lumbar region; Z86.2 Personal history of diseases of the blood and blood-forming organs and certain disorders involving the immune mechanism; Z85.828 Personal history of other malignant neoplasm of skin; Z86.010 Personal history of colon polyps; Z79.82 Long term (current) use of aspirin; Z79.899 Other long term (current) drug therapy; Z87.891 Personal history of nicotine dependence
CPT/HCPCS: 99284

== ENCOUNTER → 2021-09-11 05:00 | Outpatient (REF) | payer MEDICARE, SELFPAY ==
[2021-09-11 09:08] LABS: Thyroid Stim Hormone (TSH) 2.33 uIU/mL (0.358-3.74)
[2021-09-11 09:13] LABS: Vitamin B12 249 pg/mL (211-911)
== END ==
LOC: OLS.DANBUR 05:00
PROVIDERS: PCP Internal Medicine; Visit Provider Internal Medicine
DX: I10 Essential (primary) hypertension (principal); E78.5 Hyperlipidemia, unspecified; I25.10 Atherosclerotic heart disease of native coronary artery without angina pectoris; D69.6 Thrombocytopenia, unspecified; G20 Parkinson's disease; F02.80 Dementia in other diseases classified elsewhere, unspecified severity, without behavioral disturbance, psychotic disturbance, mood disturbance, and anxiety; R73.01 Impaired fasting glucose; E55.9 Vitamin D deficiency, unspecified
CPT/HCPCS: 36415; 82306; 82607; 82746; 84443

== ENCOUNTER 2021-10-06 06:40 | Outpatient (REF) | payer MEDICARE, SELFPAY ==
[2021-10-06 09:21] LABS: Bacteria 0 SEEN /hpf (None Seen); Mucous, Urine 0 SEEN /hpf (<or=2+); Squamous Epithelial Cells - UA 0 SEEN /hpf (0-5)
[2021-10-06 09:32] LABS: Color, Urine Red (Yellow); Glucose, Dipstick Normal (Normal); Ketone-Dipstick Negative (Negative); Leukocyte Esterase-Dipstick 25 /ul (Negative); Nitrite-Dipstick Negative (Negative); Occult Blood-Urine 250 /ul (Negative); Protein-Dipstick 100 mg/dl (Negative); Urine Bilirubin Dipstick Negative (Negative); Urine Clarity Cloudy (Clear); Urine Urobilinogen Normal (Normal)
[2021-10-06 09:54] LABS: Red Blood Cells-Urine > 100 SEEN /hpf (0-5)
[2021-10-06 09:55] LABS: White Blood Cells 0-5 SEEN /hpf (0-5)
== END 2021-10-06 23:59 | disposition home or self-care (01) ==
LOC: OLS.DANBUR 06:40
PROVIDERS: PCP Internal Medicine; Visit Provider Internal Medicine
DX: N39.0 Urinary tract infection, site not specified (principal)
CPT/HCPCS: 81001; 87086; 87088

== ENCOUNTER 2021-10-08 18:18 | Emergency (ER) | payer MEDICARE, SELFPAY ==
[2021-10-08 18:19] VITALS: BP 109/70; PULSE 62; RESP 15; TEMP 35.7; O2SAT 100; BMI 25.8
--- NOTE | 2021-10-08 18:45 | CT_ITS ---
STUDY: CT ABDOMEN AND PELVIS WITH CONTRAST REASON FOR EXAM: Male, 81 years old. Painless gross hematuria RADIATION DOSAGE (If Supplied By Facility): CTDIvol = ( 13.89 ) mGy, DLP = ( 1128.77 ) mGycm TECHNIQUE: Transaxial images were obtained from the dome of the diaphragm to the symphysis pubis without oral contrast. IV 100mL Isovue-300 was administered. Sagittal and coronal images were reconstructed. Individualized dose optimization techniques were used for this CT. COMPARISON: None. FINDINGS: The visualized lung bases are unremarkable. The visualized portions of the heart are within normal limits. Normal liver. Normal gallbladder and extrahepatic biliary system. Normal spleen. Normal pancreas. Normal bilateral adrenal glands. 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 Normal visualized stomach. Normal small intestine. Normal colon. The appendix is visualized and appears normal. There is diffuse atherosclerotic calcification of the abdominal aorta with elongation and tortuosity, but without a demonstrated aneurysm. Normal inferior vena cava. Normal retroperitoneum. Heterogeneous high attenuation material at the posterior inferior bladder. Questionable bladder wall thickening There is enlargement of the prostate gland. Normal abdominal wall. There are diffuse degenerative changes of the visualized lumbar spine. CT/Abdomen/Pelvis W IV Cont ONLY IMPRESSION: Horseshoe kidney. Heterogeneous increased attenuation within the bladder dependently which may be partially attributable to an enlarged prostate. Consider follow-up bladder ultrasound to help exclude mass lesion. Electronically Signed: Dex Whiting MD at 21:09 EST ,
[2021-10-08 19:48] LABS: Absolute Lymphocyte Count 1.78 X10^3/uL (0.83-4.51); Absolute Neutrophil Count 3.4 X10^3/uL (2.0-7.7); Basophil# 0.04 X10^3/uL; Basophil% 0.7 % (0-1); Eosinophil# 0.17 X10^3/uL; Eosinophils% 2.8 % (0-5); Hematocrit 36.9 % (40-54); Hemoglobin 11.9 g/dL (13.0-16.5); Lymphocyte # 1.78 X10^3/ul (0.83-4.51); Lymphocyte % 29.4 % (19-41); Mean Corp Hgb Conc 32.2 g/dL (32-36); Mean Corpuscular Hgb 28.5 pg (27.0-32.0); Mean Corpuscular Volume 88.5 fL (80-94); Mean Platelet Vol. 10.4 fl (6.2-12.0); Monocyte% 11.6 % (0-10); NRBC Flagged by Analyzer 0 % (0-5); Neutrophil # 3.35 X10^3/uL (2.7-7.7); Neutrophil % 55.2 % (47-70); Platelet Count 139 K/mm3 (150-450); RBC Distribution Width CV 12.6 % (11.6-14.6); RBC Distribution Width SD 41.1 fl (35.1-43.9); Red Blood Count 4.17 M/mm3 (4.6-6.2); White Blood Count 6.1 K/mm3 (4.4-11.0)
--- NOTE | 2021-10-08 19:59 | EX.ED.DYSGE1 ---
HPI History of Present Illness Chief Complaint: GI Bleed Detail of Chief Complaint: Painless gross hematuria Informant: patient and spouse/S.O. Onset/Context/Timing Onset: Days (Onset Wednesday) Context: Sudden Onset Timing: Continuous Quality: Gross painless hematuria Location: Current Severity: Moderate Maximum Severity: Moderate Worsened by: Nothing Relieved by: Nothing Associated Symptoms Associated Symptoms: No symptoms and urine culture reportedly is negative Narrative Narrative: Patient is an elderly male who presents with painless gross hematuria. He had history of prostate cancer 25 years ago. He is on a baby aspirin a day. He is not on an anticoagulant. He does report intermittent lightheadedness and intermittent dyspnea with exertion. He was unaware that he appears pale. He denies fever, chills night sweats. Denies weight gain or weight loss. Denies ocular, visual auditory symptoms. He denies black or maroon-colored stool. He denies bruising easily. He does have history of Parkinson's and has a visible tremor. Prior similar symptoms: No Recent Illness/Hospitalization: No [facility] Medical History (Updated 10/08/21 @ 20:[address] Jr Segundo MD) Actinic keratosis Atherosclerotic heart disease of [place] coronary artery without angina pectoris Basal cell carcinoma of skin, unspecified Dementia in other diseases classified elsewhere without behavioral disturbance Eczema intertrigo Essential (primary) hypertension Hyperlipidemia, unspecified Impaired fasting glucose Orthostatic hypotension Parkinson's disease Personal history of colonic polyps Prostate cancer Spondylosis without myelopathy or radiculopathy, lumbar region Thrombocytopenia, unspecified Unspecified abnormalities of gait and mobility Unspecified urinary incontinence Home Medications aspirin 81 mg PO DAILY 09/07/18 [History Last Taken Unknown] carbidopa-levodopa 1.5 tab PO TIDAC 09/07/18 [History Last Taken Unknown] meloxicam [Mobic] 15 mg PO DAILY PRN 09/07/18 [History Last Taken Unknown] pravastatin 40 mg PO QHS 09/07/18 [History Last Taken Unknown] vitamins A,C,U-sigy-pnxkib [Preservision Areds Tablet] 1 ea PO BID 09/07/18 [History Last Taken Unknown] cholecalciferol (vitamin D3) [Vitamin D3] 25 mcg PO DAILY 08/27/21 [History Last Taken Unknown] docusate sodium 100 mg PO BID 08/27/21 [History Last Taken Unknown] gabapentin 100 mg PO DAILY 08/27/21 [History Last Taken Unknown] menthol-zinc oxide [Calmoseptine] 1 applic TOPICAL DAILY 08/27/21 [History Last Taken Unknown] metoprolol tartrate 12.5 mg PO DAILY 08/27/21 [History Last Taken Unknown] nitroglycerin 0.4 mg SUBLINGUAL PRN PRN 08/27/21 [History Last Taken Unknown] acetaminophen [Tylenol Ex Str Arthritis Pain] 1,000 mg PO TID 10/08/21 [History Last Taken Unknown] amlodipine 2.5 mg PO DAILY 10/08/21 [History Last Taken Unknown] Allergy/AdvReac Type Severity Reaction Status Date / Time Penicillins Allergy Hives Verified 09/03/21 07:18 Social History household members: spouse housing: jail Smoking Status: Former smoker substance use type: does not use ROS ROS ED Constitutional Constitutional ED: Denies chills, fever(s), subjective, sweats or weight loss Eyes Eyes: Denies blurry vision, change in vision or diplopia ENT ENT ED: Denies ear pain, rhinorrhea or sore throat Cardiovascular Cardiovascular: Denies chest pain, orthopnea, palpitations or racing heartbeat Respiratory/Chest Respiratory/Chest: Reports dyspnea and dyspnea on exertion; Denies cough, orthopnea or sputum Gastrointestinal Gastrointestinal: Denies abdominal pain, diarrhea, nausea or vomiting Genitourinary Genitourinary ED: Reports hematuria; Denies dysuria or urinary frequency Musculoskeletal Musculoskeletal: Reports arthralgias, back pain, myalgias and neck pain Integumentary Denies Abrasions or rash Neurologic Neurologic: Denies headache(s) or weakness Endocrine Endocrinology: Denies polydipsia, polyphagia or polyuria Allergic/Immunologic Allergic/Immunologic ED: Reports mouth swelling and urticaria EXAM Physical Exam Const Vital Signs: 10/08/21 18:19 10/08/21 20:04 Temperature 96.2 F L Temperature Source Temporal Pulse Rate 62 55 L Respiratory Rate 15 16 Blood Pressure 109/70 173/93 H Blood Pressure Mean 83 119 Pulse Ox 100 100 Oxygen Delivery Method Room Air Room Air Positive well nourished and well developed General Appearance ED: well developed and pallor HEENT Reports TM's clear and moist mucous membranes Negative for trauma or tenderness Tympanic Membrane ED: Yes TM's clear Eyes PERRL and EOMs intact bilaterally General Eye ED: Yes pale conjunctiva; Negative for scleral icterus Neck no lymphadenopathy, supple and no JVD Chest Wall inspection of chest normal Resp normal respiratory effort and clear to auscultation bilaterally GI normal to inspection, nondistended, normoactive bowel sounds, non-tender and non-distended Palpation: soft Back/Spine no CVA tenderness Cervical Spine: Negative for cervical spine tenderness Thoracic Spine / Upper Back: Negative for thoracic spinal tenderness or paraspinal muscle tenderness Extremity normal to inspection General Extremety ED: Negative for tenderness Neuro oriented x3, CN's II-XII intact bilaterally and no sensory deficits noted Sensorium / Orientation: alert Motor Exam: strength 5/5 throughout Psych Appearance: other Patient has a masked face appearance due to Parkinson. Skin no rashes or lesions noted and no wounds General Skin Exam: pallor; Negative for jaundice MDM MDM MDM Narrative Medical decision making narrative: With history of prostate cancer painless gross hematuria need to rule out for malignancy. CBC was obtained to assess H&H since he appears pale. BMP to assess elect to lites and renal function since IV contrast is warranted to evaluate his painless gross hematuria. Lab Data Attestation: I reviewed the patient's lab results. Lab results narrative: View when to creatinine ratio was elevated, 29.8-1. H&H is baseline. White count and differential are normal. Labs: Laboratory Results - last 24 hr 10/08/21 10/08/21 10/08/21 19:40 19:40 19:40 WBC 6.1 RBC 4.17 L Hgb 11.9 L Hct 36.9 L MCV 88.5 MCH 28.5 MCHC 32.2 RDW Std Deviation 41.1 RDW Coeff of Buck 12.6 Plt Count 139 L MPV 10.4 Immature Gran % (Auto) 0.300 Neut % (Auto) 55.2 Lymph % (Auto) 29.4 Reagan % (Auto) 11.6 H Eos % (Auto) 2.8 Baso % (Auto) 0.7 Absolute Neuts (auto) 3.4 Absolute Lymphs (auto) 1.78 Nucleated RBC % 0 PT 14.5 INR 1.2 APTT 35.1 Sodium 141 Potassium 4.2 Chloride 106 Carbon Dioxide 28.0 Anion Gap 7 BUN 34 H Creatinine 1.14 Estim Creat Clear Calc 44.31 Est GFR (MDRD) Af Amer 79 Est GFR (MDRD) Non-Af 65 BUN/Creatinine Ratio 29.8 H Glucose 116 H Calcium 8.6 Urine Color Urine Clarity Urine pH Ur Specific [place] Urine Protein Urine Glucose (UA) Urine Ketones Urine Occult Blood Urine Nitrite Urine Bilirubin Urine Urobilinogen Ur Leukocyte Esterase Urine RBC Urine WBC Ur Squamous Epith Cells Urine Bacteria Urine Mucus 10/08/21 20:51 WBC RBC Hgb Hct MCV MCH MCHC RDW Std Deviation RDW Coeff of Buck Plt Count MPV Immature Gran % (Auto) Neut % (Auto) Lymph % (Auto) Reagan % (Auto) Eos % (Auto) Baso % (Auto) Absolute Neuts (auto) Absolute Lymphs (auto) Nucleated RBC % PT INR APTT Sodium Potassium Chloride Carbon Dioxide Anion Gap BUN Creatinine Estim Creat Clear Calc Est GFR (MDRD) Af Amer Est GFR (MDRD) Non-Af BUN/Creatinine Ratio Glucose Calcium Urine Color Kacie Urine Clarity Turbid Urine pH 7.0 Ur Specific [place] 1.010 Urine Protein 100 H Urine Glucose (UA) Normal Urine Ketones 5 H Urine Occult Blood 250 H Urine Nitrite Negative Urine Bilirubin Negative Urine Urobilinogen 1 H Ur Leukocyte Esterase 100 H Urine RBC > 100 SEEN Urine WBC 0-5 SEEN Ur Squamous Epith Cells 0 SEEN Urine Bacteria 0 SEEN Urine Mucus 0 SEEN Radiography Diagnostic Testing: Clinical Impression(s) from Imaging Studies Abdomen/Pelvis CT 10/08/21 18:45 IMPRESSION: Horseshoe kidney. Heterogeneous increased attenuation within the bladder dependently which may be partially attributable to an enlarged prostate. Consider follow-up bladder ultrasound to help exclude mass lesion. Electronically Signed: Dex Whiting MD at 21:09 EST , Will obtain ultrasound of bladder per recommendation of radiologist to exclude mass lesion. Discharge Plan Triage Chief Complaint: GI Bleed ED Provider: Jr Segundo Dx/Rx/DC Orders Prescriptions: No Action meloxicam [Mobic] 15 MG tablet 15 mg PO DAILY PRN (Reason: arthritis ) RF: 0 pravastatin 80 MG tablet 40 mg PO QHS RF: 0 aspirin 81 MG tablet,chewable 81 mg PO QHS RF: 0 carbidopa-levodopa 1 TABLET tablet 1.5 tab PO TIDAC RF: 0 PreserVision AREDS 1 EACH tablet 1 ea PO BID RF: 0 nitroglycerin 0.4 mg tablet, sublingual 0.4 mg sublingual PRN PRN (Reason: Chest Pain) RF: 0 docusate sodium 100 mg Capsule 100 mg PO TID RF: 0 gabapentin 100 mg capsule 100 mg PO QHS RF: 0 cholecalciferol (vitamin D3) [Vitamin D3] 25 mcg (1,000 unit) Capsule 25 mcg PO DAILY RF: 0 metoprolol tartrate 25 mg Tablet 12.5 mg PO DINNER RF: 0 menthol-zinc oxide [Calmoseptine] 0.44-20.6 % Ointment 1 applic TOPICAL DAILY RF: 0 amlodipine 2.5 mg tablet 2.5 mg PO DAILY RF: 0 acetaminophen [Tylenol Ex Str Arthritis Pain] 500 mg Tablet 1,000 mg PO TID RF: 0 Primary Care Provider: Scotty Hernández
[2021-10-08 20:02] LABS: Anion Gap 7 (5-15); BUN 34 mg/dL (7-18); BUN/Creat Ratio 29.8 RATIO (10-20); Calcium,Total 8.6 mg/dL (8.5-10.1); Chloride 106 mmol/L (98-107); Creatinine, Serum 1.14 mg/dL (0.70-1.30); EST Glomerular Filtration Rate 65 mL/min (>60); Est Glom Filt Rate - Afr Amer 79 mL/min (>60); Estimated Creatinine Clearance 44.31 ml/min; Glucose 116 mg/dL (74-106); Potassium 4.2 mmol/L (3.5-5.1); Sodium Level 141 mmol/L (136-145)
[2021-10-08 20:04] VITALS: BP 173/93; PULSE 55; RESP 16; O2SAT 100
[2021-10-08 20:57] LABS: Bacteria 0 SEEN /hpf (None Seen); Mucous, Urine 0 SEEN /hpf (<or=2+); Squamous Epithelial Cells - UA 0 SEEN /hpf (0-5)
[2021-10-08 21:01] LABS: Color, Urine Amber (Yellow); Glucose, Dipstick Normal (Normal); Ketone-Dipstick 5 mg/dl (Negative); Leukocyte Esterase-Dipstick 100 /ul (Negative); Nitrite-Dipstick Negative (Negative); Occult Blood-Urine 250 /ul (Negative); Protein-Dipstick 100 mg/dl (Negative); Urine Bilirubin Dipstick Negative (Negative); Urine Clarity Turbid (Clear); Urine Urobilinogen 1 mg/dl (Normal)
[2021-10-08 21:05] LABS: International Normalized Ratio 1.2; Prothrombin Time (Protime)PT. 14.5 SECONDS (11.7-14.9)
[2021-10-08 21:12] LABS: Partial Thromboplast Time 35.1 Seconds (24.1-36.2)
[2021-10-08 21:17] LABS: Red Blood Cells-Urine > 100 SEEN /hpf (0-5); White Blood Cells 0-5 SEEN /hpf (0-5)
--- NOTE | 2021-10-08 21:49 | US_ITS ---
STUDY: RENAL ULTRASOUND - limited. REASON FOR EXAM: Male, 81 years old. Hematuria. TECHNIQUE: Ultrasound evaluation of the kidneys was performed with real-time and static powell-scale imaging. COMPARISON: CT abdomen pelvis same date. FINDINGS: Horseshoe kidney. Both moieties have normal size and cortical thickness. No shadowing stone or hydronephrosis or concerning renal mass is evident. Small bilateral renal pelvic cysts. Right moiety 10.0 x 3.3 x 3.8 cm, cortical thickness 1.5 cm. Left moiety 11.5 x 3.7 x 4.6 cm, cortical thickness 1.2 cm. Again demonstrated is a 9 mm nodular lesion extending into the urinary bladder lumen off the base. This has soft tissue echogenicity. No other filling defects are evident. US/Kidney and Bladder IMPRESSION: 9 mm nodular lesion extending into the posterior inferior urinary bladder lumen. This could represent an exophytic nodule off the prostate gland or a urinary bladder neoplasm. Recommend urology evaluation for cystoscopy. 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 No concerning renal lesions. Electronically Signed: Tommy Shah MD at 23:06 EST Reading Location ID and State: [facility] [place] Tel , Service support ,
[2021-10-08 23:04] VITALS: BP 207/101; PULSE 65; RESP 16; O2SAT 99
[2021-10-08 23:25] VITALS: BP 189/109; PULSE 64; RESP 16; O2SAT 100
[2021-10-08] MEDS: Gabapentin 100 MG Capsule PO (23:56)
[2021-10-09 00:03] VITALS: BP 143/88; PULSE 65; RESP 16; O2SAT 100
== END 2021-10-09 00:27 | disposition home or self-care (01) ==
PROVIDERS: Emergency Provider Emergency Medicine; PCP Internal Medicine; Visit Provider Emergency Medicine
DX: R31.0 Gross hematuria (principal); G20 Parkinson's disease; F02.80 Dementia in other diseases classified elsewhere, unspecified severity, without behavioral disturbance, psychotic disturbance, mood disturbance, and anxiety; E78.5 Hyperlipidemia, unspecified; I10 Essential (primary) hypertension; I25.10 Atherosclerotic heart disease of native coronary artery without angina pectoris; Z87.891 Personal history of nicotine dependence; Z85.828 Personal history of other malignant neoplasm of skin; Z86.010 Personal history of colon polyps; Z85.46 Personal history of malignant neoplasm of prostate; Z86.2 Personal history of diseases of the blood and blood-forming organs and certain disorders involving the immune mechanism; Z79.82 Long term (current) use of aspirin; Z79.899 Other long term (current) drug therapy; M47.816 Spondylosis without myelopathy or radiculopathy, lumbar region; Q63.1 Lobulated, fused and horseshoe kidney
CPT/HCPCS: 74177; 76770; 80048; 81001; 85025; 85610; 85730; 99284; Q9967; A4216

== ENCOUNTER 2021-10-12 09:15 | Outpatient (REF) | payer MEDICARE, SELFPAY ==
[2021-10-12 09:40] LABS: Hematocrit 40.7 % (40-54); Hemoglobin 13.1 g/dL (13.0-16.5); Mean Corp Hgb Conc 32.2 g/dL (32-36); Mean Corpuscular Hgb 28.4 pg (27.0-32.0); Mean Corpuscular Volume 88.3 fL (80-94); Mean Platelet Vol. 10.5 fl (6.2-12.0); Platelet Count 149 K/mm3 (150-450); RBC Distribution Width CV 12.8 % (11.6-14.6); RBC Distribution Width SD 41.3 fl (35.1-43.9); Red Blood Count 4.61 M/mm3 (4.6-6.2); White Blood Count 5.6 K/mm3 (4.4-11.0)
== END 2021-10-12 23:59 | disposition home or self-care (01) ==
LOC: OLS.DANBUR 09:15
PROVIDERS: PCP Internal Medicine; Visit Provider Internal Medicine
DX: K13.79 Other lesions of oral mucosa (principal)
CPT/HCPCS: 36415; 85027

== ENCOUNTER 2021-10-24 13:50 | Day surgery (SDC) | payer MEDICARE, SELFPAY ==
[2021-10-24] VITALS (11 sets, daily range): BP systolic 131–204; BP diastolic 79–109; PULSE 57–84; RESP 14–18; TEMP 36.1–37.5; O2SAT 97–100; BMI 26.3; BMI 26.9
[2021-10-24] MEDS: Lactated Ringers 1,000 ML 15 ML IV (14:44)
--- NOTE | 2021-10-24 16:13 | HP.PCM_ITS ---
HPI - General HPI Narrative REBECCA BAUTISTA, is a 81 M who presents for resection of a large bladder mass in the trigone and base of the bladder and occupying the trigone and bladder neck and posterior wall and left lateral wall PFSH Medical History (Updated 10/17/21 @ 12:17 by Yoana Palacios) Actinic keratosis Anemia Arthritis Atherosclerotic heart disease of [place] coronary artery without angina pectoris Back pain Basal cell carcinoma of skin, unspecified Blood disorder Cardiology follow-up encounter Dementia in other diseases classified elsewhere without behavioral disturbance Discoloration of skin Easy bruising Eczema intertrigo Essential (primary) hypertension Former smoker History of ankle fracture History of echocardiogram History of hallucinations History of Holter monitoring History of stress test Hyperlipidemia, unspecified Impaired fasting glucose Leg cramps Legally blind Migraine headache Orthostatic hypotension Parkinson's disease Personal history of colonic polyps Prostate cancer Redness of skin Schizophrenia Spondylosis without myelopathy or radiculopathy, lumbar region Syncope Thrombocytopenia, unspecified Unspecified abnormalities of gait and mobility Unspecified urinary incontinence Uses wheelchair Home Medications PreserVision AREDS 1 ea PO BID 09/07/18 [History Last Taken Unknown] carbidopa-levodopa 1.5 tab PO TIDAC 09/07/18 [History Last Taken 10/24/21 06:00] pravastatin 40 mg PO QHS 09/07/18 [History Last Taken Unknown] cholecalciferol (vitamin D3) [Vitamin D3] 50 mcg PO 1300 08/27/21 [History Last Taken Unknown] docusate sodium 100 mg PO TID 08/27/21 [History Last Taken Unknown] gabapentin 100 mg PO QHS 08/27/21 [History Last Taken Unknown] metoprolol tartrate 12.5 mg PO 1700 08/27/21 [History Last Taken Unknown] nitroglycerin 0.4 mg SUBLINGUAL PRN PRN 08/27/21 [History Last Taken Unknown] acetaminophen 1,000 mg PO TID 10/08/21 [History Last Taken Unknown] amlodipine 2.5 mg PO DAILY 10/08/21 [History Last Taken 10/24/21 06:00] Allergy/AdvReac Type Severity Reaction Status Date / Time Penicillins Allergy Hives Verified 10/17/21 11:25 Surgical History (Updated 10/17/21 @ 12:16 by Yoana Palacios) History of cardiac catheterization Hx of colonoscopy Hx of hernia repair Hx of inguinal hernia repair Hx of inguinal hernia repair Hx of left cataract extraction Hx of right cataract extraction Social History household members: spouse housing: intermediate Smoking Status: Former smoker substance use type: does not use Vital Signs Vital Signs Vital Signs: 10/24/21 14:15 10/24/21 14:20 Temperature 99.5 F H Temperature Source Temporal Pulse Rate 60 Respiratory Rate 16 Respiratory Pattern Normal Blood Pressure 166/101 H Blood Pressure Mean 122 Blood Pressure Source Monitor Blood Pressure Position Semi-Fowlers Blood Pressure Location Right Arm Pulse Ox 97 Oxygen Delivery Method Room Air Weight Weight: 73.936 kg Body Mass Index (BMI) 26.3
--- NOTE | 2021-10-24 16:14 | PCM.DC ---
Discharge Instructions Diet Discharge Diet: No restrictions Activity Discharge Activity: Return to Normal Activity and May Not Drive (while taking narcotic pain medications.) Dressing / Incision Call your doctor if you observe: Fever of 101 or Higher Follow Up Care Please Follow Up With: Octavio Murrieta MD When: Call [phone] for an appointment Test Results: Test results from this visit will be discussed in further detail at your follow-up appointment, if applicable. Discharge Plan Admission Primary Reason for Your Visit: resection of large bladder tumor Attending Provider: Octavio Murrieta Primary Care Provider: Scotty Hernández Instructions Patient Instructions: Discharge Instructions for ... Discharge Orders/Prescriptions Prescriptions: Continued pravastatin 80 MG tablet 40 mg PO QHS RF: 0 carbidopa-levodopa 1 TABLET tablet 1.5 tab PO TIDAC RF: 0 PreserVision AREDS 1 EACH tablet 1 ea PO BID RF: 0 nitroglycerin 0.4 mg tablet, sublingual 0.4 mg sublingual PRN PRN (Reason: Chest Pain) RF: 0 docusate sodium 100 mg Capsule 100 mg PO TID RF: 0 gabapentin 100 mg capsule 100 mg PO QHS RF: 0 cholecalciferol (vitamin D3) [Vitamin D3] 25 mcg (1,000 unit) Capsule 50 mcg PO 1300 RF: 0 metoprolol tartrate 25 mg Tablet 12.5 mg PO 1700 RF: 0 amlodipine 2.5 mg tablet 2.5 mg PO DAILY RF: 0 acetaminophen 500 mg Tablet 1,000 mg PO TID RF: 0 Discontinued aspirin 81 MG tablet,chewable 81 mg PO QHS RF: 0 Referrals / Follow Up: Octavio Murrieta MD [STAFF PHYSICIAN] - Scotty Hernández MD [Primary Care Provider] - Disposition Disposition (needs filled in before D/C Order can be placed): Home, Self Care
--- NOTE | 2021-10-24 16:14 | PCM.OPRPT ---
Report of Operation Date of Procedure: 10/24/21 Pre-Operative Diagnosis: Large about bladder mass in multiple locations Post-Operative Diagnosis: Same Surgery/Procedure Performed:: Transurethral resection of a large bladder tumor Description of Surgical Findings:: 81-year-old male had gross hematuria and cystoscopy was found to have a tumor in multiple location of the bladder presents today for resection of these tumors and initial diagnosis of bladder tumor cancer Patient was taken back to the operating room at the smooth duction of general anesthesia, the penis and testicles were prepped and draped in usual sterile fashion, went in the bladder with a 24 Serbian noncontinuous flow bipolar resectoscope I first got into the bladder there was multiple tumors within the bladder involving the bladder neck involving the trigone involving the posterior wall and involving some of the right lateral wall after all the tumors were identified then I was switched over to the resectoscope with a large loop I resected all these tumors this was a fairly large tumor greater than 5 cm in area was resected after the large tumor was removed then there was a lot of bleeding mostly from the bladder neck so because of this I put a 22 Serbian catheter in the bladder and continuous bladder irrigation, the left and right ureteral orifice were not injured during the resection or involved with tumor, all visible tumors were resected patient anesthetic was reversed and we remove the specimen and they were sent off and little tiny pieces. And the patient want to stay in the hospital from the bleeding from the bladder neck. Surgeon: ryan Type of Anesthesia: General Drains: 22fr 3 way Admit VTE Documentation VTE Present on Admission: No VTE Mechan Device Prophylaxis: SCD's VTE Pharm Prophylaxis ordered?: No
[2021-10-24] MEDS: Metoprolol Tartrate 25 MG Tablet 12.5 MG PO (21:43)
[2021-10-24] MEDS: Gabapentin 100 MG Capsule PO (21:43)
[2021-10-24] MEDS: Acetaminophen 500 MG Tablet 1000 MG PO (21:43)
[2021-10-24] MEDS: Pravastatin 40 MG Tablet PO (21:43)
[2021-10-25 02:02] VITALS: BP 124/75; PULSE 63; RESP 14; TEMP 36.9; O2SAT 96
[2021-10-25 05:26] VITALS: BP 147/90; PULSE 70; RESP 18; TEMP 36.7; O2SAT 96
[2021-10-25] MEDS: Acetaminophen 500 MG Tablet 1000 MG PO ×3 (06:50→22:00)
[2021-10-25] MEDS: Docusate Sodium 100 MG Capsule PO ×2 (06:50→13:50)
--- NOTE | 2021-10-25 08:10 | PCM.PN.GU ---
Subjective Subjective Status post resection of a large bladder tumor at the bladder neck still has bleeding irrigation still going were at the continue with irrigation hopefully the bleeding will stop by tomorrow and we may remove the catheter tomorrow for voiding trial Objective Data Objective Data Vital Signs: Vital Signs Temp Pulse Resp BP Pulse Ox 98.1 F 70 18 147/90 H 96 10/25/21 05:26 10/25/21 05:26 10/25/21 05:26 10/25/21 05:26 10/25/21 05:26 Oxygen Delivery Method Room Air Weight: 75.75 kg Body Mass Index (BMI) 26.9 Intake & Output: Intake and Output for Last 24 Hours 10/23/21 10/24/21 10/25/21 23:59 23:59 23:59 Intake Total 960 / 960 400 / 400 Output Total 7600 / 7600 550 / 550 Balance -6640 / -6640 -150 / -150
[2021-10-25 08:16] VITALS: BP 105/56; PULSE 65; RESP 18; TEMP 37.2; O2SAT 97
[2021-10-25] MEDS: Carbidopa/Levodopa 25/100 Tablet PO ×3 (08:18→16:50)
[2021-10-25] MEDS: Multivitamin (Healthy Eyes) Capsule 1 CAP PO ×2 (08:18→16:50)
[2021-10-25] MEDS: Cholecalciferol (VIT D3) 25 MCG TABLET (1,000 UNITS) 50 MCG PO (13:50)
[2021-10-25 14:39] VITALS: BP 138/75; PULSE 74; RESP 16; TEMP 36.5; O2SAT 97
[2021-10-25 16:51] VITALS: PULSE 77
[2021-10-25] MEDS: Metoprolol Tartrate 25 MG Tablet 12.5 MG PO (16:51)
[2021-10-25 20:40] VITALS: BP 174/102; PULSE 76; RESP 18; TEMP 37.2; O2SAT 96
[2021-10-25] MEDS: Pravastatin 40 MG Tablet PO (22:00)
[2021-10-25] MEDS: Gabapentin 100 MG Capsule PO (22:00)
[2021-10-26] VITALS: BP 158/94; PULSE 72; RESP 18; TEMP 37.1; O2SAT 96
--- NOTE | 2021-10-26 | BLB_PTH ---
PATIENT: REBECCA BAUTISTA LOC: [facility] [place] U#:[id number] AGE/SX: 81/M ROOM: RE10/24/[address]: Dr. Octavio Murrieta MD : [id number] BED: DIS: 10/26/2021 SPEC #: [id number] RECD: 10/27/21 07:37 STATUS: GREGG SANDOVAL #: [id number] JUANA: 10/26/21 00:[address]: Octavio Murrieta DEPT: SURGICAL PATHOLOGY RECD BY: Max Cao ENTERED: 10/27/21 11:26 SP TYPE: TURB OTHR DR: Dr. Scotty Hernández MD Tissues: Urinary bladder, NOS Procedures: Surgery Specimen Level V HEADER OPERATION: Cysto, transurethral resection bladder tumor PRE-OP DIAGNOSIS: Neoplasm of bladder, urge incontinence TISSUE SUBMITTED: Bladder tumor MICROSCOPIC DIAGNOSIS Bladder tumor, TUR: Invasive papillary urothelial carcinoma. See cancer summary in the comment section. LENA:timo 10/28/2021 COMMENT BLADDER CANCER (TUR) SUMMARY Procedure: Transurethral resection of bladder (TURBT) Tumor site: Not specified Histologic type: Papillary urothelial carcinoma, invasive Histologic grade: High grade (2-3) Tumor configuration: Papillary and invasive Muscularis propria presence: Muscularis propria (detrusor muscle) present and involved by tumor. Lymphvascular invasion: Not identified Tumor extension: Tumor invades muscularis propria. Additional pathologic findings: Chronic inflammation. The above summary is in compliance with [employer] [place] [employer] (CAP) Cancer Protocols Checklist and [place] [employer] Committee on Cancer (AJCC), Staging Manual, 8th Ed. Case has been reviewed in consultation with Dr. Ricardo who concurs with the above diagnosis. IDC:AM MICROSCOPIC DESCRIPTION Slides are reviewed. GROSS DESCRIPTION Received in fixative is one container labeled with the patient's name and designated bladder tumor. The specimen consists of multiple irregular fragments of bowens, indurated tissue mixed with blood clot that in aggregate measure 5 x 3 x 0.3 cm. The entire specimen is submitted in two cassettes. / LENA:rg 10/27/2021 TC:0 CPT: 82117 ADDENDUM ADDENDUM ADDENDUM ADDENDUM ADDENDUM ADDENDUM ADDENDUM ADDENDUM ADDENDUM ADDENDUM ADDENDUM ADDENDUM ADDENDUM 12/10/2021 10:09 ADDENDUM 12/10/2021 10:09 ADDENDUM 12/10/2021 10:09 ADDENDUM 12/10/2021 10:09 ADDENDUM 12/10/2021 10:09 This addendum is added to incorporate an outside pathology consultation report. The case was examined at [facility] (#[id number]) and the following diagnosis was rendered. 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 The neoplasm invades into the muscularis propria. Angiolymphatic invasion is not present. Please see complete above mentioned consultation report in EMR
[2021-10-26 06:00] VITALS: BP 156/98; PULSE 68; RESP 18; TEMP 37; O2SAT 96
[2021-10-26] MEDS: Carbidopa/Levodopa 25/100 Tablet PO ×3 (06:58→16:19)
[2021-10-26] MEDS: Docusate Sodium 100 MG Capsule PO ×2 (06:58→15:00)
[2021-10-26] MEDS: Acetaminophen 500 MG Tablet 1000 MG PO ×2 (06:58→15:00)
[2021-10-26 09:18] VITALS: BP 173/101; PULSE 72; RESP 18; TEMP 36.9; O2SAT 97
[2021-10-26] MEDS: amLODIPine 2.5 MG Tablet PO (09:21)
[2021-10-26] MEDS: Multivitamin (Healthy Eyes) Capsule 1 CAP PO ×2 (09:21→16:19)
--- NOTE | 2021-10-26 10:22 | NURSING ---
Pressley removed at 0900.
--- NOTE | 2021-10-26 11:23 | NURSING ---
Message left for Jos to call this RN back regarding patient and whether or not he can come back with a castro catheter or not.
[2021-10-26] MEDS: Cholecalciferol (VIT D3) 25 MCG TABLET (1,000 UNITS) 50 MCG PO (11:37)
--- NOTE | 2021-10-26 14:16 | NURSING ---
Patient was found sitting on EOB and was agitated with staff stating that he is in an embarrassing situation and he wants to get out of the restaurant. This RN attempted to reorient patient. BOWL TOPPER called to bedside to help assist patient back to bed. He was incontinent of urine and a blood clot was noticed in his brief. Dr. Murrieta paged to notify of urine results and patient's mentation.
[2021-10-26 14:57] VITALS: BP 118/73; PULSE 80; RESP 18; TEMP 37.4; O2SAT 97
[2021-10-26 16:20] VITALS: PULSE 80
[2021-10-26] MEDS: Metoprolol Tartrate 25 MG Tablet 12.5 MG PO (16:20)
--- NOTE | 2021-10-26 17:00 | NURSING ---
This RN called [facility] and spoke with the nurse Paola regarding Andre. Informed her that the patient seemed a bit agitated and confused this afternoon. He also was needing assistance of two people to get out of the chair or the bed but after he got standing he was able to ambulate pretty good on his own. He was able to hold is own weight and had his typical slow/shuffling gait. She was also informed that the patient has been voiding on his own, however he has been incontinent. His urine is pink/red. There was a small clot noted in his brief. This RN asked her if she would be comfortable with the patient returning to [facility] and she states she is ok with this. The patient's (Yelitza) was also involved with the POC for the patient and also made aware of all of the above. Yelitza states she thinks it would be best for the patient to get back into his own environment and she feel he will return to his baseline once he gets to a familiar place.
== END 2021-10-26 18:10 | disposition home or self-care (01) ==
LOC: SDC 13:58 → AC 14:00 → MS3 10-26 14:52
PROVIDERS: PCP Internal Medicine; Referring Provider Urology; Visit Provider Urology
PROC: 0TBB8ZZ Excision of Bladder, Via Natural or Artificial Opening Endoscopic (ICD-10-PCS; CPT 52240; principal; 2021-10-24 15:40)
DX: C67.9 Malignant neoplasm of bladder, unspecified (principal); G20 Parkinson's disease; F20.9 Schizophrenia, unspecified; F02.80 Dementia in other diseases classified elsewhere, unspecified severity, without behavioral disturbance, psychotic disturbance, mood disturbance, and anxiety; I25.10 Atherosclerotic heart disease of native coronary artery without angina pectoris; E78.5 Hyperlipidemia, unspecified; I10 Essential (primary) hypertension; Z87.891 Personal history of nicotine dependence; Z85.828 Personal history of other malignant neoplasm of skin; M19.90 Unspecified osteoarthritis, unspecified site; Z85.46 Personal history of malignant neoplasm of prostate; Z86.010 Personal history of colon polyps; Z86.2 Personal history of diseases of the blood and blood-forming organs and certain disorders involving the immune mechanism; H54.8 Legal blindness, as defined in USA; Z79.899 Other long term (current) drug therapy
CPT/HCPCS: 52240; 88307; J7120; J2405

== ENCOUNTER 2021-10-29 20:09 | Observation (INO) | payer MEDICARE, SELFPAY ==
[2021-10-29 20:11] VITALS: BP 160/57; PULSE 64; RESP 18; TEMP 37; O2SAT 99; BMI 25.8
[2021-10-29 21:56] LABS: Absolute Lymphocyte Count 1.32 X10^3/uL (0.83-4.51); Absolute Neutrophil Count 4.9 X10^3/uL (2.0-7.7); Basophil# 0.04 X10^3/uL; Basophil% 0.5 % (0-1); Eosinophil# 0.21 X10^3/uL; Eosinophils% 2.8 % (0-5); Hematocrit 31.1 % (40-54); Hemoglobin 10.7 g/dL (13.0-16.5); Lymphocyte # 1.32 X10^3/ul (0.83-4.51); Lymphocyte % 17.6 % (19-41); Mean Corp Hgb Conc 34.4 g/dL (32-36); Mean Corpuscular Hgb 29.1 pg (27.0-32.0); Mean Corpuscular Volume 84.5 fL (80-94); Mean Platelet Vol. 10.2 fl (6.2-12.0); Monocyte# 0.99 X10^3/uL; Monocyte% 13.2 % (0-10); NRBC Flagged by Analyzer 0 % (0-5); Neutrophil # 4.92 X10^3/uL (2.7-7.7); Neutrophil % 65.6 % (47-70); Platelet Count 161 K/mm3 (150-450); RBC Distribution Width CV 12.6 % (11.6-14.6); RBC Distribution Width SD 38.6 fl (35.1-43.9); Red Blood Count 3.68 M/mm3 (4.6-6.2); White Blood Count 7.5 K/mm3 (4.4-11.0)
--- NOTE | 2021-10-29 22:00 | ED.RN ---
Pt. castro is draining and Dr. Best said bladder does not need irrigated.
[2021-10-29 22:09] LABS: Anion Gap 3 (5-15); BUN 27 mg/dL (7-18); BUN/Creat Ratio 23.9 RATIO (10-20); Calcium,Total 8.5 mg/dL (8.5-10.1); Chloride 105 mmol/L (98-107); Creatinine, Serum 1.13 mg/dL (0.70-1.30); EST Glomerular Filtration Rate 66 mL/min (>60); Est Glom Filt Rate - Afr Amer 80 mL/min (>60); Glucose 109 mg/dL (74-106); Potassium 3.7 mmol/L (3.5-5.1); Sodium Level 140 mmol/L (136-145)
[2021-10-29 22:11] LABS: Mucous, Urine 0 SEEN /hpf (<or=2+); Squamous Epithelial Cells - UA 0 SEEN /hpf (0-5)
[2021-10-29 22:25] LABS: Color, Urine Red (Yellow); Glucose, Dipstick Normal (Normal); Ketone-Dipstick 5 mg/dl (Negative); Leukocyte Esterase-Dipstick 500 /ul (Negative); Nitrite-Dipstick Negative (Negative); Occult Blood-Urine 250 /ul (Negative); Protein-Dipstick 100 mg/dl (Negative); Urine Bilirubin Dipstick Negative (Negative); Urine Clarity Cloudy (Clear); Urine Urobilinogen Normal (Normal)
[2021-10-29 22:33] LABS: Red Blood Cells-Urine > 100 SEEN /hpf (0-5)
[2021-10-29 22:34] LABS: White Blood Cells 10-25 SEEN /hpf (0-5)
[2021-10-29 22:35] LABS: Bacteria 1+ /hpf (None Seen)
--- NOTE | 2021-10-29 22:35 | EX.ED.GUMALE ---
HPI History of Present Illness Chief Complaint: Complaint Narrative Narrative: 81-year-old male presenting with intermittent bladder spasms as well as hematuria. Patient had surgery on his bladder on Wednesday by Dr. Murrieta and apparently had a tumor removed. He states initially he did not have any problem but developed bladder spasms today. He was noted to not be able to urinate at the [facility]. Apparently Dr. Chavira had been called multiple times and eventually patient was sent to the emergency room to have him evaluated. Here he has blood in the Pressley catheter bag. There is pinkish urine in the tubing and there are no clots appreciated. Patient had complained of pain in his bladder and his penis earlier but was not having any pain currently. He denied fever, chills. He has no constipation or diarrhea. Patient not anticoagulated. [facility] Medical History Actinic keratosis Anemia Arthritis Atherosclerotic heart disease of [place] coronary artery without angina pectoris Back pain Basal cell carcinoma of skin, unspecified Blood disorder Cardiology follow-up encounter Dementia in other diseases classified elsewhere without behavioral disturbance Discoloration of skin Easy bruising Eczema intertrigo Essential (primary) hypertension Former smoker History of ankle fracture History of echocardiogram History of hallucinations History of Holter monitoring History of stress test Hyperlipidemia, unspecified Impaired fasting glucose Leg cramps Legally blind Migraine headache Orthostatic hypotension Parkinson's disease Personal history of colonic polyps Prostate cancer Redness of skin Schizophrenia Spondylosis without myelopathy or radiculopathy, lumbar region Syncope Thrombocytopenia, unspecified Unspecified abnormalities of gait and mobility Unspecified urinary incontinence Uses wheelchair Home Medications PreserVision AREDS 1 ea PO BID 09/07/18 [History Last Taken Unknown] carbidopa-levodopa 1.5 tab PO TIDAC 09/07/18 [History Last Taken 10/24/21 06:00] pravastatin 40 mg PO QHS 09/07/18 [History Last Taken Unknown] cholecalciferol (vitamin D3) [Vitamin D3] 50 mcg PO 1300 08/27/21 [History Last Taken Unknown] docusate sodium 100 mg PO TID 08/27/21 [History Last Taken Unknown] gabapentin 100 mg PO QHS 08/27/21 [History Last Taken Unknown] metoprolol tartrate 12.5 mg PO 1700 08/27/21 [History Last Taken Unknown] nitroglycerin 0.4 mg SUBLINGUAL PRN PRN 08/27/21 [History Last Taken Unknown] acetaminophen 1,000 mg PO TID 10/08/21 [History Last Taken Unknown] amlodipine 2.5 mg PO DAILY 10/08/21 [History Last Taken 10/24/21 06:00] ciprofloxacin HCl [Cipro] 500 mg PO BID #10 tab 10/24/21 [Rx Last Taken Unknown] Allergy/AdvReac Type Severity Reaction Status Date / Time Penicillins Allergy Hives Verified 10/29/21 20:16 Surgical History History of cardiac catheterization Hx of colonoscopy Hx of hernia repair Hx of inguinal hernia repair Hx of inguinal hernia repair Hx of left cataract extraction Hx of right cataract extraction Social History household members: spouse housing: [facility] Smoking Status: Former smoker substance use type: does not use ROS ROS ED Constitutional Constitutional ED: Denies chills or fever(s) Eyes Eyes: Denies blurry vision or other ENT ENT ED: Denies rhinorrhea or sore throat Cardiovascular Cardiovascular: Denies chest pain or palpitations Respiratory/Chest Respiratory/Chest: Denies cough or dyspnea Gastrointestinal Gastrointestinal: Reports abdominal pain; Denies diarrhea, nausea or vomiting Genitourinary Genitourinary ED: Reports hematuria and other Details: Inability to urinate Musculoskeletal Musculoskeletal: Denies arthralgias or myalgias Integumentary Denies rash Neurologic Neurologic: Denies headache(s) EXAM Physical Exam Const Vital Signs: 10/29/21 20:11 Temperature 98.6 F Temperature Source Temporal Pulse Rate 64 Respiratory Rate 18 Blood Pressure 160/57 H Blood Pressure Mean 91 Pulse Ox 99 Oxygen Delivery Method Room Air Positive well nourished General Appearance ED: NAD; Negative for pallor HEENT Reports moist mucous membranes normocephalic and atraumatic Eyes PERRL and EOMs intact bilaterally General Eye ED: Negative for pale conjunctiva Resp normal respiratory effort and clear to auscultation bilaterally Cardio regular rate and regular rhythm GI non-tender and non-distended Palpation: soft no CVA tenderness Penis: normal penis; Negative for edematous, erythema or mass Scrotum: testes descended bilaterally Testes: testicular lie normal Neuro oriented x3 and CN's II-XII intact bilaterally Sensorium / Orientation: alert Psych mental status grossly normal Skin General Skin Exam: Negative for jaundice or pallor MDM MDM MDM Narrative Medical decision making narrative: Patient presenting with intermittent bladder spasms and pain that he states is in his penis that is not currently present on examination. His urine is becoming more clear over time although he does have some blood in the Pressley catheter bag. Urinalysis does not appear to be consistent with infection. CBC shows a slight drop in his hemoglobin to 10.7 however he just recently had surgery and does have hematuria. He is not hypotensive or tachycardic. Platelets are normal at 161. Renal function and electrolytes are unremarkable. Patient was discussed with Dr. Murrieta. Patient's biggest concern is that he has the bladder spasms which are not controlled. Dr. Murrieta agreed to admit the patient for observation. Impression: 1. Hematuria 2. Urinary outlet obstruction 3. Anemia Lab Data Attestation: I reviewed the patient's lab results. Labs: Laboratory Results - last 24 hr 10/29/21 10/29/21 10/29/21 21:50 21:50 22:05 WBC 7.5 RBC 3.68 L Hgb 10.7 L Hct 31.1 L MCV 84.5 MCH 29.1 MCHC 34.4 RDW Std Deviation 38.6 RDW Coeff of Buck 12.6 Plt Count 161 MPV 10.2 Immature Gran % (Auto) 0.300 Neut % (Auto) 65.6 Lymph % (Auto) 17.6 L [place] % (Auto) 13.2 H Eos % (Auto) 2.8 Baso % (Auto) 0.5 Absolute Neuts (auto) 4.9 Absolute Lymphs (auto) 1.32 Nucleated RBC % 0 Sodium 140 Potassium 3.7 Chloride 105 Carbon Dioxide 32.0 Anion Gap 3 L BUN 27 H Creatinine 1.13 Estim Creat Clear Calc 44.70 Est GFR (MDRD) Af Amer 80 Est GFR (MDRD) Non-Af 66 BUN/Creatinine Ratio 23.9 H Glucose 109 H Calcium 8.5 Urine Color Red Urine Clarity Cloudy Urine pH 7.0 Ur Specific [place] 1.010 Urine Protein 100 H Urine Glucose (UA) Normal Urine Ketones 5 H Urine Occult Blood 250 H Urine Nitrite Negative Urine Bilirubin Negative Urine Urobilinogen Normal Ur Leukocyte Esterase 500 H Urine RBC > 100 SEEN Urine WBC 10-25 SEEN Ur Squamous Epith Cells 0 SEEN Urine Bacteria 1+ Urine Mucus 0 SEEN Discharge Plan Triage Chief Complaint: Complaint ED Provider: Alexander Best Dx/Rx/DC Orders Prescriptions: No Action pravastatin 80 MG tablet 40 mg PO QHS RF: 0 carbidopa-levodopa 1 TABLET tablet 1.5 tab PO TIDAC RF: 0 PreserVision AREDS 1 EACH tablet 1 ea PO BID RF: 0 nitroglycerin 0.4 mg tablet, sublingual 0.4 mg sublingual PRN PRN (Reason: Chest Pain) RF: 0 docusate sodium 100 mg Capsule 100 mg PO TID RF: 0 gabapentin 100 mg capsule 100 mg PO QHS RF: 0 cholecalciferol (vitamin D3) [Vitamin D3] 25 mcg (1,000 unit) Capsule 50 mcg PO 1300 RF: 0 metoprolol tartrate 25 mg Tablet 12.5 mg PO 1700 RF: 0 amlodipine 2.5 mg tablet 2.5 mg PO DAILY RF: 0 acetaminophen 500 mg Tablet 1,000 mg PO TID RF: 0 ciprofloxacin HCl [Cipro] 500 mg tablet 500 mg PO BID Qty: 10 RF: 0 Primary Care Provider: Scotty Hernández Referrals: Scotty Hernández MD [Primary Care Provider] -
[2021-10-29 22:49] VITALS: BP 175/100; PULSE 78; RESP 18; TEMP 36.1; O2SAT 98
[2021-10-29 23:08] VITALS: BP 175/110; PULSE 79; RESP 18; TEMP 36.7; O2SAT 100; BMI 26.2
[2021-10-29] MEDS: 0.9% Normal Saline 1,000 ML 150 ML IV (23:25)
[2021-10-29] MEDS: 0.9% Saline Lock 10 ML Syringe IV (23:25)
[2021-10-30] MEDS: Cefazolin 1 GM/50 ML BAG IV ×2 (00:28→05:22)
[2021-10-30 00:30] VITALS: BP 145/89; PULSE 72; RESP 18; TEMP 36.8; O2SAT 99
[2021-10-30] MEDS: 0.9% Normal Saline 1,000 ML 150 ML IV ×2 (05:22→12:45)
[2021-10-30 05:26] VITALS: BP 156/98; PULSE 77; RESP 18; TEMP 36.4; O2SAT 96
--- NOTE | 2021-10-30 07:35 | PCM.HP.STD ---
HPI - General General Date of Admission: 10/29/21 HPI Narrative REBECCA BAUTISTA, is a 81 M who presents For gross hematuria and retention of urine last night Pressley catheter was placed in the emergency room and we kept him overnight the urine now is draining crystal-clear urine patient is at his baseline confusion he does know where he is he does not know where he lives he will be discharged back to the detention for further care [facility] Medical History Actinic keratosis Anemia Arthritis Atherosclerotic heart disease of [place] coronary artery without angina pectoris Back pain Basal cell carcinoma of skin, unspecified Blood disorder Cardiology follow-up encounter Dementia in other diseases classified elsewhere without behavioral disturbance Discoloration of skin Easy bruising Eczema intertrigo Essential (primary) hypertension Former smoker History of ankle fracture History of echocardiogram History of hallucinations History of Holter monitoring History of stress test Hyperlipidemia, unspecified Impaired fasting glucose Leg cramps Legally blind Migraine headache Orthostatic hypotension Parkinson's disease Personal history of colonic polyps Prostate cancer Redness of skin Schizophrenia Spondylosis without myelopathy or radiculopathy, lumbar region Syncope Thrombocytopenia, unspecified Unspecified abnormalities of gait and mobility Unspecified urinary incontinence Uses wheelchair Home Medications PreserVision AREDS 1 ea PO BID 09/07/18 [History Last Taken Unknown] carbidopa-levodopa 1.5 tab PO TIDAC 09/07/18 [History Last Taken 10/24/21 06:00] pravastatin 40 mg PO QHS 09/07/18 [History Last Taken Unknown] cholecalciferol (vitamin D3) [Vitamin D3] 50 mcg PO 1300 08/27/21 [History Last Taken Unknown] docusate sodium 100 mg PO TID 08/27/21 [History Last Taken Unknown] gabapentin 100 mg PO QHS 08/27/21 [History Last Taken Unknown] metoprolol tartrate 12.5 mg PO 1700 08/27/21 [History Last Taken Unknown] nitroglycerin 0.4 mg SUBLINGUAL PRN PRN 08/27/21 [History Last Taken Unknown] acetaminophen 1,000 mg PO TID 10/08/21 [History Last Taken Unknown] amlodipine 2.5 mg PO DAILY 10/08/21 [History Last Taken 10/24/21 06:00] ciprofloxacin HCl [Cipro] 500 mg PO BID #10 tab 10/24/21 [Rx Last Taken Unknown] Allergy/AdvReac Type Severity Reaction Status Date / Time Penicillins Allergy Hives Verified 10/29/21 20:16 Surgical History History of cardiac catheterization Hx of colonoscopy Hx of hernia repair Hx of inguinal hernia repair Hx of inguinal hernia repair Hx of left cataract extraction Hx of right cataract extraction Social History household members: spouse housing: detention Smoking Status: Former smoker substance use type: does not use ROS Constitutional Constitutional: Denies chills, fever(s) or malaise Eyes Eyes: Denies blurry vision or change in vision ENT HEENT: Reports none Cardiovascular Cardiovascular: Denies chest pain or palpitations Respiratory/Chest Respiratory/Chest: Denies cough or shortness of breath with exertion Gastrointestinal Gastrointestinal: Denies abdominal pain, constipation or diarrhea Musculoskeletal Musculoskeletal: Denies back pain, joint stiffness or joint swelling Integumentary Integumentary: Denies dry skin, jaundice, lesions or rash Neurologic Neurologic: Denies confusion, syncope or weakness Psychiatric Psychiatric: Reports none; Denies anxiety or depression Endocrine Endocrinology: Denies excessive sweating, fatigue or flushing Hematologic/Lymphatic Hematologic/Lymphatic: Denies anemia, easy bleeding or easy bruising Vital Signs Vital Signs Vital Signs: 10/29/21 20:11 10/29/21 22:49 10/29/21 23:08 Temperature 98.6 F 97.0 F L 98.0 F Temperature Source Temporal Temporal Oral Pulse Rate 64 78 79 Respiratory Rate 18 18 18 Blood Pressure 160/57 H 175/100 H 175/110 H Blood Pressure Mean 91 125 131 Blood Pressure Source Monitor Blood Pressure Position Semi-Fowlers Blood Pressure Location Left Arm Pulse Ox 99 98 100 Oxygen Delivery Method Room Air Room Air Room Air 10/30/21 00:30 10/30/21 05:08 10/30/21 05:26 Temperature 98.2 F 97.6 F L Temperature Source Oral Oral Pulse Rate 72 77 Respiratory Rate 18 18 Blood Pressure 145/89 H 156/98 H Blood Pressure Mean 107 117 Blood Pressure Source Monitor Monitor Blood Pressure Position Semi-Fowlers Semi-Fowlers Blood Pressure Location Left Arm Left Arm Pulse Ox 99 96 Oxygen Delivery Method Room Air Room Air Room Air Weight Weight: 73.799 kg Body Mass Index (BMI) 26.2 Physical Exam Const alert and oriented x3 General Appearance: cooperative HEENT normocephalic, head/scalp atraumatic, EAC's normal and TM's normal bilaterally Eyes PERRL and EOMs intact bilaterally Pupil: sluggish Neck no lymphadenopathy, supple and no JVD General: trachea midline Lymph Lymphatic: no lymphadenopathy noted, lymphedema and lymphadenopathy Resp normal respiratory effort, normal air movement and clear to auscultation bilaterally Cardio regular rate, regular rhythm and peripheral pulses 2+ throughout GI soft to palpation, non-tender and non-distended Extremity normal capillary refill and no clubbing, cyanosis or edema General Extremity: no tenderness to palpation of joints or extremities Skin no rashes or lesions noted General Skin Exam: turgor normal Lesions: no lesions Rashes: no rashes Neuro CN's II-XII intact bilaterally Speech: speech normal Motor Exam: strength 5/5 throughout; Negative for general weakness Psych thought process normal, cooperative and affect normal Appearance: appropriate Results Lab / Micro Data Result Diagrams: 10/29/21 21:50 10/29/21 21:50 Labs: Laboratory Results - last 24 hr 10/29/21 21:50: WBC 7.5, RBC 3.68 L, Hgb 10.7 L, Hct 31.1 L, MCV 84.5, MCH 29.1, MCHC 34.4, RDW Std Deviation 38.6, RDW Coeff of Buck 12.6, Plt Count 161, MPV 10.2, Immature Gran % (Auto) 0.300, Neut % (Auto) 65.6, Lymph % (Auto) 17.6 L, [place] % (Auto) 13.2 H, Eos % (Auto) 2.8, Baso % (Auto) 0.5, Absolute Neuts (auto) 4.9, Absolute Lymphs (auto) 1.32, Nucleated RBC % 0 10/29/21 21:50: Sodium 140, Potassium 3.7, Chloride 105, Carbon Dioxide 32.0, Anion Gap 3 L, BUN 27 H, Creatinine 1.13, Estim Creat Clear Calc 44.70, Est GFR (MDRD) Af Amer 80, Est GFR (MDRD) Non-Af 66, BUN/Creatinine Ratio 23.9 H, Glucose 109 H, Calcium 8.5 10/29/21 22:05: Urine Color Red, Urine Clarity Cloudy, Urine pH 7.0, Ur Specific [place] 1.010, Urine Protein 100 H, Urine Glucose (UA) Normal, Urine Ketones 5 H, Urine Occult Blood 250 H, Urine Nitrite Negative, Urine Bilirubin Negative, Urine Urobilinogen Normal, Ur Leukocyte Esterase 500 H, Urine RBC > 100 SEEN, Urine WBC 10-25 SEEN, Ur Squamous Epith Cells 0 SEEN, Urine Bacteria 1+, Urine Mucus 0 SEEN Assessment & Plan Assessment/Plan (1) Bladder cancer:
--- NOTE | 2021-10-30 07:37 | DCINST_ITS ---
Discharge Instructions Diet Discharge Diet: No restrictions Activity Discharge Activity: Return to Normal Activity and May Not Drive (while taking narcotic pain medications.) Dressing / Incision Call your doctor if you observe: Fever of 101 or Higher Catheter: Pressley to leg bag and Pressley to large bag Drain: [place] Follow Up Care Please Follow Up With: Octavio Murrieta MD When: Call [phone] for an appointment Test Results: Test results from this visit will be discussed in further detail at your follow-up appointment, if applicable. Discharge Plan Admission Admit Date/Time: 10/29/21 22:26 Attending Provider: Octavio Murrieta Primary Care Provider: Scotty Hernández Discharge Orders/Prescriptions Prescriptions: No Action pravastatin 80 MG tablet 40 mg PO QHS RF: 0 carbidopa-levodopa 1 TABLET tablet 1.5 tab PO TIDAC RF: 0 PreserVision AREDS 1 EACH tablet 1 ea PO BID RF: 0 nitroglycerin 0.4 mg tablet, sublingual 0.4 mg sublingual PRN PRN (Reason: Chest Pain) RF: 0 docusate sodium 100 mg Capsule 100 mg PO TID RF: 0 gabapentin 100 mg capsule 100 mg PO QHS RF: 0 cholecalciferol (vitamin D3) [Vitamin D3] 25 mcg (1,000 unit) Capsule 50 mcg PO 1300 RF: 0 metoprolol tartrate 25 mg Tablet 12.5 mg PO 1700 RF: 0 amlodipine 2.5 mg tablet 2.5 mg PO DAILY RF: 0 acetaminophen 500 mg Tablet 1,000 mg PO TID RF: 0 ciprofloxacin HCl [Cipro] 500 mg tablet 500 mg PO BID Qty: 10 RF: 0 Referrals / Follow Up: Scotty Hernández MD [Primary Care Provider] -
[2021-10-30 08:14] VITALS: BP 168/97; PULSE 72; RESP 16; TEMP 36.7; O2SAT 96
[2021-10-30] MEDS: Docusate Sodium 100 MG Capsule PO (10:05)
--- NOTE | 2021-10-30 11:46 | CASEMGMT ---
Social Work Note CHINEDU reviewed chart. Pt is from [facility]. SW in to speak with pt. Pt is alert and orientated to person only. Pt doesn't know time or place. Pt does confirm that he came from [facility] and plan is to return. SW asked pt if this worker could call his Yelitza and pt gave permission. SW placed a call to pt's Yelitza. SW introduced self and role at [facility]. Yelitza states she is not sure why a SW is involved in pt's case. CHINEDU informed Yelitza that since pt is from [facility] then this worker works with pt while he is at [facility]. Yelitza states that pt was just at [facility] over the weekend and no SW was involved in his case then. SW informed Yelitza that a SW should've seen pt Wednesday but no SW are at [facility] on Wednesday. SW informed Yelitza that this worker just wants to make sure the plan is for pt to return to [facility]. Yelitza with many medical questions wanting to know what caused pt the pain he was having, what medications he is on, what medications he will be on for pain, what they need to do if something like this happens again, etc. SW informed Yelitza that this worker cannot discuss medical questions as it is not in this worker's scope of practice. SW informed Yelitza that medical questions need to be directed towards pt's RN. SW informed Yelitza that this worker will update pt's RN to call her for medical update. Yelitza again with continued medical questions and also about discharge instructions. SW informed Yelitza that this worker will ask RN to call her. SW asked Yelitza about transportation back to [place]. Yelitza states that over the weekend her and her daughter transported pt back to [place]. SW infrommed Yelitza that they can transport pt again back to [place] or transportation can be arranged via cot or w/c van but informed Yelitza that pt may get a bill if transportation is arranged. Yelitza states understanding. Yelitza states she would like to speak to RN regarding medical update and then states her daughter doesn't get off work until 5:30pm and can then transport pt back to [facility]. CHINEDU updated RN. RN states pt can safely transport via private vehicle. SW faxed discharge paperwork to [facility]. Plan: Return to [facility] today Nga Gonzalez PRODUCT DEVELOPER, DECOMMISSIONING WELL SITE MANAGER
--- NOTE | 2021-10-30 12:40 | CASEMGMT ---
Social Work Note CHINEDU received call from pt's Yelitza stating she will be at [facility] between 2:00-3:00pm to transport pt. Yelitza states she has not heard from RN yet. CHINEDU handed RN phone to talk with pt's Yelitza. CHINEDU overheard RN stating pt will discharge back to [place] with a castro. CHINEDU placed a call to [facility] and spoke with Aster. Aster states that [facility] can accommodate castro. CHINEDU informed Aster that pt will be discharged back to [facility] today with pt's family transporting pt between 2:00-3:00pm. Aster states understanding. CHINEDU placed another call to [facility] and spoke with Johanna who states pt doesn't need COVID test to return. CHINEDU updated RN. Plan: Return to [facility] today with pt's family transporting pt between 2:00-3:00pm Nga Gonzalez SENIOR HARDWARE DESIGN ENGINEER, GROUP LEADER SEMICONDUCTOR PROCESSING
[2021-10-30 14:04] VITALS: BP 155/86; PULSE 74; RESP 18; TEMP 37.3; O2SAT 95
[2021-10-30] MEDS: Carbidopa/Levodopa 25/100 Tablet PO (14:08)
[2021-10-30] MEDS: Acetaminophen 500 MG Tablet 1000 MG PO (14:09)
[2021-10-30] MEDS: Cholecalciferol (VIT D3) 25 MCG TABLET (1,000 UNITS) 50 MCG PO (14:09)
[2021-10-30] MEDS: amLODIPine 2.5 MG Tablet PO (14:09)
== END 2021-10-30 14:50 | disposition home or self-care (01) ==
LOC: ED 21:18 → MS3 22:55
PROVIDERS: Admitting Provider Urology; Emergency Provider Student in an Organized Health Care Education/Training Program; PCP Internal Medicine; Referring Provider Urology; Visit Provider Urology
DX: C67.9 Malignant neoplasm of bladder, unspecified (principal); G20 Parkinson's disease; F02.80 Dementia in other diseases classified elsewhere, unspecified severity, without behavioral disturbance, psychotic disturbance, mood disturbance, and anxiety; D69.6 Thrombocytopenia, unspecified; R31.9 Hematuria, unspecified; I25.10 Atherosclerotic heart disease of native coronary artery without angina pectoris; N32.89 Other specified disorders of bladder; D64.9 Anemia, unspecified; I10 Essential (primary) hypertension; N13.9 Obstructive and reflux uropathy, unspecified; E78.5 Hyperlipidemia, unspecified; N48.89 Other specified disorders of penis; Z87.891 Personal history of nicotine dependence; Z79.899 Other long term (current) drug therapy; Z98.890 Other specified postprocedural states
CPT/HCPCS: 80048; 81001; 85025; 96361; 96365; 96366; 99218; 99283; J7030; A4216; G0378

== ENCOUNTER 2021-11-01 15:03 | Outpatient (REF) | payer MEDICARE, SELFPAY | END 2021-11-01 23:59 | disposition home or self-care (01) | LOC: OLS.DANBUR 15:03 | PROVIDERS: PCP Internal Medicine; Referring Provider Internal Medicine; Visit Provider Internal Medicine | DX: N40.0 Benign prostatic hyperplasia without lower urinary tract symptoms (principal); N39.0 Urinary tract infection, site not specified | CPT/HCPCS: 87086 ==

== ENCOUNTER → 2022-01-29 | Outpatient (REF) | payer MEDICARE, SELFPAY ==
[2022-01-29 08:46] LABS: Hematocrit 39.6 % (40-54); Hemoglobin 12.8 g/dL (13.0-16.5); Mean Corp Hgb Conc 32.3 g/dL (32-36); Mean Corpuscular Hgb 29.2 pg (27.0-32.0); Mean Corpuscular Volume 90.4 fL (80-94); Mean Platelet Vol. 11.4 fl (6.2-12.0); Platelet Count 158 K/mm3 (150-450); RBC Distribution Width CV 12.8 % (11.6-14.6); RBC Distribution Width SD 42.5 fl (35.1-43.9); Red Blood Count 4.38 M/mm3 (4.6-6.2); White Blood Count 6.2 K/mm3 (4.4-11.0)
[2022-01-29 09:01] LABS: Anion Gap 6 (5-15); BUN 27 mg/dL (7-18); BUN/Creat Ratio 29.8 RATIO (10-20); Calcium,Total 9.3 mg/dL (8.5-10.1); Chloride 108 mmol/L (98-107); Cholesterol 121 mg/dL (200); Creatinine, Serum 0.91 mg/dL (0.70-1.30); EST Glomerular Filtration Rate 85 mL/min (>60); Est Glom Filt Rate - Afr Amer 103 mL/min (>60); Glucose 80 mg/dL (74-106); High Density Lipoprotein 54 mg/dL; Potassium 3.9 mmol/L (3.5-5.1); Sodium Level 141 mmol/L (136-145); Triglycerides 87 mg/dL; Very Low Density Lipoprotein 17 mg/dL (5-40)
== END | disposition home or self-care (01) ==
LOC: OLS.DANBUR 05:00
PROVIDERS: PCP Internal Medicine; Referring Provider Internal Medicine; Visit Provider Internal Medicine
DX: I10 Essential (primary) hypertension (principal); E78.5 Hyperlipidemia, unspecified
CPT/HCPCS: 36415; 80048; 80061; 85027

== ENCOUNTER → 2022-02-13 | Outpatient (REF) | payer MEDICARE, SELFPAY ==
[2022-02-15 19:50] LABS: Mucous, Urine 0 SEEN /hpf (<or=2+); Squamous Epithelial Cells - UA 0 SEEN /hpf (0-5)
[2022-02-15 19:55] LABS: Color, Urine Amber (Yellow); Glucose, Dipstick Normal (Normal); Ketone-Dipstick 15 mg/dl (Negative); Leukocyte Esterase-Dipstick 500 /ul (Negative); Nitrite-Dipstick Positive (Negative); Occult Blood-Urine 150 /ul (Negative); Protein-Dipstick 100 mg/dl (Negative); Urine Clarity Cloudy (Clear); Urine Urobilinogen 4 mg/dl (Normal)
[2022-02-15 20:18] LABS: Urine Bilirubin Dipstick 3 mg/dL (Negative)
[2022-02-15 20:19] LABS: Bacteria 1+ /hpf (None Seen); Calcium Oxalate Crystals Ur 1+ /hpf (<or=2+); Red Blood Cells-Urine 10-25 SEEN /hpf (0-5); White Blood Cells 25-50 SEEN /hpf (0-5)
== END | disposition home or self-care (01) ==
LOC: OLS.DANBUR 17:30
PROVIDERS: PCP Internal Medicine; Referring Provider Internal Medicine; Visit Provider Internal Medicine
DX: R30.9 Painful micturition, unspecified (principal); R41.82 Altered mental status, unspecified; R35.0 Frequency of micturition
CPT/HCPCS: 81001; 87086; 87088

== ENCOUNTER → 2022-02-15 | Outpatient (CLI) | payer MEDICARE, SELFPAY | END | disposition home or self-care (01) | LOC: LABSPEC 19:45 | PROVIDERS: PCP Internal Medicine; Visit Provider Internal Medicine | DX: Z00.00 Encounter for general adult medical examination without abnormal findings (principal) ==

== ENCOUNTER → 2022-03-05 | Outpatient (REF) | payer MEDICARE, SELFPAY ==
[2022-03-05 07:43] LABS: Bacteria 0 SEEN /hpf (None Seen); Mucous, Urine 0 SEEN /hpf (<or=2+); Red Blood Cells-Urine 0 SEEN /hpf (0-5); Squamous Epithelial Cells - UA 0 SEEN /hpf (0-5); White Blood Cells 0 SEEN /hpf (0-5)
[2022-03-05 08:55] LABS: Color, Urine Yellow (Yellow); Glucose, Dipstick Normal (Normal); Ketone-Dipstick Negative (Negative); Leukocyte Esterase-Dipstick Negative /ul (Negative); Nitrite-Dipstick Negative (Negative); Occult Blood-Urine Negative /ul (Negative); Protein-Dipstick Negative (Negative); Specific Gravity, Urine 1.005 (1.002-1.030); Urine Bilirubin Dipstick Negative (Negative); Urine Clarity Clear (Clear); Urine Urobilinogen Normal (Normal)
== END | disposition home or self-care (01) ==
LOC: OLS.DANBUR 03:00
PROVIDERS: PCP Internal Medicine; Visit Provider Internal Medicine
DX: N39.0 Urinary tract infection, site not specified (principal)
CPT/HCPCS: 81001; 87086; 87088

== ENCOUNTER 2022-04-09 20:55 | Observation (INO) | payer MEDICARE, SELFPAY ==
[2022-04-09 20:56] VITALS: BP 172/107; PULSE 93; RESP 16; TEMP 37.4; O2SAT 97; BMI 26.4
[2022-04-09 21:33] VITALS: TEMP 38.5
--- NOTE | 2022-04-09 21:33 | EKG12_ITS ---
Test Reason : DYSRHYTHMIA Blood Pressure : / mmHG Vent. Rate : 091 BPM Atrial Rate : 091 BPM P-R Int : 128 ms QRS Dur : 096 ms QT Int : 376 ms P-R-T Axes : 047 -02 032 degrees QTc Int : 462 ms Normal sinus rhythm Normal ECG Confirmed by MELISSA MELCHOR, AUBRIE ([id number]), commissioning editor CATHY ANDERSON ([id number]) on 04/13/2022 11:28:39 AM Referred By: RANJITH Confirmed By:MARCELLO TORRES MD
--- NOTE | 2022-04-09 21:33 | RAD_ITS ---
INDICATION: Trauma EXAMINATION/TECHNIQUE: X-RAY - RIGHT XR Forearm 2 Views 2 VIEWS COMPARISON: None. FINDINGS: SOFT TISSUES: No soft tissue swelling or gas. No radiopaque foreign body. Abnormal soft tissue calcification distal to the distal ulna. Soft tissue calcification anterior to the scaphoid. BONES/JOINTS: Questionable osseous fragment dorsal proximal wrist. No appreciable donor site. Preservation of the elbow joint space and no degenerative bony proliferative changes. There is decreased radiocarpal joint space. Lytic lesion seen in the base of the fifth metacarpal, 3 mm in diameter. RAD/Forearm 2 Views IMPRESSION: Intact radius and ulna. Abnormal appearance of the wrist with soft tissue calcifications questionable dorsal wrist fracture fragment. 3 mm lytic lesion is of the fifth metacarpal. Correlation with wrist x-rays is recommended. Electronically Signed: Xu Patricia DO at 22:56 EDT ,
--- NOTE | 2022-04-09 21:35 | CT_ITS ---
INDICATION: Mental Status Change EXAMINATION: CT BRAIN - CT Head or Brain W/O Contrast Injection TECHNIQUE: Multiple axial images were obtained of the head without intravenous contrast. A radiation dose optimization technique was used for this scan. IV Contrast dosage and agent: None. COMPARISON: None. FINDINGS: BRAIN PARENCHYMA: No intra- or extra-axial hemorrhage. No intracranial mass or mass effect. Vázquez/white matter differentiation is maintained and there is no blurring of the basal ganglia. There is no hyperdense vessel. Posterior fossa structures are unremarkable. CSF SPACES: Appropriate for age. No hydrocephalus. Basal cisterns are patent. CALVARIUM, SKULL BASE, PARANASAL SINUSES AND MASTOID AIR CELLS: Clear. No discrete lytic or blastic abnormalities. ORBITS: Both globes, extraocular muscles, optic nerves and retrobulbar fat appear unremarkable. ASPECTS Score for Acute Strokes: 10 CT/Brain/Head without Contrast IMPRESSION: Negative Brain CT without contrast. Electronically Signed: Xu Patricia DO at 22:33 EDT ,
--- NOTE | 2022-04-09 21:36 | EX.ED.DYSGE1 ---
HPI History of Present Illness Chief Complaint: Fever Narrative Narrative: History and physical is limited secondary to Parkinson's and mild dementia. According to the patient's daughter, patient lives at [facility]. He had a fall on Wednesday, approximately 6 days ago. He had redness to his right forearm which seems to be getting worse. She states that he does not take blood thinners, and his condition was improving. He had appeared slightly confused after his fall. They did a urine dipstick on Wednesday which was negative for infection. He was visited by his family a few times this week, but today, he appeared more confused. It was reported by EMS that he had a temperature elevated at 103?F. He did not receive any antipyretics. Daughter is concerned regarding the patient's increased confusion. She states that while he may have mild dementia with his Parkinson's, he has never this confused and he always knows his name but does not today. [facility] Medical History Actinic keratosis Anemia Arthritis Atherosclerotic heart disease of [place] coronary artery without angina pectoris Back pain Basal cell carcinoma of skin, unspecified Blood disorder Cardiology follow-up encounter Dementia in other diseases classified elsewhere without behavioral disturbance Discoloration of skin Easy bruising Eczema intertrigo Essential (primary) hypertension Former smoker History of ankle fracture History of echocardiogram History of hallucinations History of Holter monitoring History of stress test Hyperlipidemia, unspecified Impaired fasting glucose Leg cramps Legally blind Migraine headache Orthostatic hypotension Parkinson's disease Personal history of colonic polyps Prostate cancer Redness of skin Schizophrenia Spondylosis without myelopathy or radiculopathy, lumbar region Syncope Thrombocytopenia, unspecified Unspecified abnormalities of gait and mobility Unspecified urinary incontinence Uses wheelchair Home Medications carbidopa 25 mg-levodopa 100 mg tablet 1.5 tab PO TIDAC 09/07/18 [History Last Taken 10/24/21 06:00] pravastatin 80 mg tablet 40 mg PO QHS 09/07/18 [History Last Taken Unknown] vitamins A,C,[id number]-[id number] 2,148 mcg-113 mg-45 mg-17.4 mg tablet (PreserVision AREDS) 1 ea PO BID 09/07/18 [History Last Taken Unknown] cholecalciferol (vitamin D3) 25 mcg (1,000 unit) capsule (Vitamin D3) 50 mcg PO 1300 08/27/21 [History Last Taken Unknown] docusate sodium 100 mg capsule 100 mg PO TID 08/27/21 [History Last Taken Unknown] gabapentin 100 mg capsule 100 mg PO QHS 08/27/21 [History Last Taken Unknown] metoprolol tartrate 25 mg tablet 12.5 mg PO 1700 08/27/21 [History Last Taken Unknown] nitroglycerin 0.4 mg sublingual tablet 0.4 mg sublingual PRN PRN Chest Pain 08/27/21 [History Last Taken Unknown] acetaminophen 500 mg tablet 1,000 mg PO TID 10/08/21 [History Last Taken Unknown] Allergy/AdvReac Type Severity Reaction Status Date / Time Penicillins Allergy Hives Verified 10/29/21 20:16 Surgical History History of cardiac catheterization Hx of colonoscopy Hx of hernia repair Hx of inguinal hernia repair Hx of inguinal hernia repair Hx of left cataract extraction Hx of right cataract extraction Social History household members: spouse housing: skilled nursing Smoking Status: Former smoker substance use type: does not use ROS ROS ED ROS Narrative Mildly limited secondary to dementia/Parkinson's Constitutional: Positive fever, no chills. HEENT: No sore throat. No neck pain. No loss of vision. No rhinorrhea. Cardiovascular: No chest pain. No palpitations. No pedal edema. Respiratory: No cough, no shortness of breath. Abdominal: No abdominal pain. No nausea. No vomiting. Genitourinary: No dysuria. No hematuria. Musculoskeletal: No myalgias. No arthralgias. Neurologic: No headaches. No dizziness. No lightheadedness. Positive mental status change. Skin: No rash. No change in color. Psychiatric: No depression. No anxiety. Increased confusion. EXAM Physical Exam Narrative Exam Narrative: Afebrile. Temperature 99.3 ?F. Vital signs noted. HEENT: Normocephalic. Atraumatic. PERRL, EOMI. Neck soft and supple. No point tenderness or step off. Cardiovascular: Regular rate and rhythm. No murmurs, rubs, or gallops appreciated. Respiratory: No tachypnea. Lungs clear to auscultation bilaterally. Gastrointestinal: Abdomen soft, nontender, with normoactive bowel sounds. No rebound or guarding. Neurological: Awake. Alert. Nonfocal, nonlateralizing. Appears mildly confused. Skin: No rash. Normal color. No pallor. Musculoskeletal: No pedal edema. Full range of motion extremities. Generalized weakness of lower extremities. Positive erythema and tenderness with mild swelling of right proximal forearm. Full range of motion of joints at wrist and elbow. Const Vital Signs: 04/09/22 20:56 04/09/22 21:33 04/09/22 21:33 Temperature 99.3 F H 101.3 F H Temperature Source Oral Oral Pulse Rate 93 Respiratory Rate 16 Blood Pressure 172/107 H Blood Pressure Mean 128 Pulse Ox 97 Oxygen Delivery Method Room Air Room Air 04/09/22 22:33 04/09/22 22:33 04/09/22 23:51 Temperature 100.6 F H Temperature Source Oral Pulse Rate 92 Respiratory Rate 25 H Blood Pressure 186/167 H 178/103 H Blood Pressure Mean 173 128 Pulse Ox 96 Oxygen Delivery Method Room Air MDM MDM MDM Narrative Medical decision making narrative: Sepsis work-up was pursued. He is not febrile here currently, but I will repeat his temperature and make sure that he does not spike a fever here. It did rise above 100.4 degrees, so he was administered Tylenol orally. He has normal white count of 8.9, hemoglobin stable 11.9, platelet count low at 135 consistent with thrombocytopenia. He has had this intermittently in the past. His coagulation studies are negative. Electrolyte panel is grossly unremarkable except for BUN of 29 with creatinine 1.09. Glucose elevated appropriately at 130 with a normal anion gap of 6. High-sensitivity troponin normal at 8. My interpretation of his EKG demonstrates normal sinus rhythm at 91 bpm without ectopy or acute ST changes. Lactic acid is normal at 1.2. Urinalysis is negative for infection although there are 10-20 RBCs. Blood and urine cultures are currently pending. CT of the brain shows no acute process, no hemorrhage or mass. My interpretation of his chest x-ray shows no acute process, no pneumonia or pneumothorax. My interpretation of his right forearm x-ray shows soft tissue swelling but no evidence of fracture. Radiology did read questionable lytic lesion of the fifth metacarpal, and possible dorsal distal radius fragments because of soft tissue calcifications. They requested wrist x-rays which are pending. However, given the patient's redness and tenderness of his right proximal forearm, he will be treated as a cellulitis. I do feel that this may be the source of his fever. I did swab him for COVID and influenza. The swab was negative. He was started on Levaquin given a severe allergy of hives to penicillins documented in his chart. This will cover any urinary pathogens also. At this point in time, I will discuss the patient with the hospitalist, Dr. Richardson, for admission for his febrile illness and cellulitis along with alteration in his mental status. Lab Data Attestation: I reviewed the patient's lab results. Labs: Laboratory Results - last 24 hr 04/09/22 04/09/22 04/09/22 22:00 22:00 22:00 WBC 8.9 RBC 4.11 L Hgb 11.9 L Hct 35.8 L MCV 87.1 MCH 29.0 MCHC 33.2 RDW Std Deviation 42.5 RDW Coeff of Buck 13.4 Plt Count 135 L MPV 10.5 Immature Gran % (Auto) 0.500 Neut % (Auto) 89.0 H Lymph % (Auto) 3.9 L [place] % (Auto) 6.4 Eos % (Auto) 0.1 Baso % (Auto) 0.1 Absolute Neuts (auto) 7.9 H Absolute Lymphs (auto) 0.35 L Nucleated RBC % 0 Differential Comment SCANNED PT 14.1 INR 1.1 APTT 35.2 Sodium 137 Potassium 4.0 Chloride 105 Carbon Dioxide 26.0 Anion Gap 6 BUN 29 H Creatinine 1.09 Estim Creat Clear Calc 46.34 Est GFR (MDRD) Af Amer 83 Est GFR (MDRD) Non-Af 69 BUN/Creatinine Ratio 26.6 H Glucose 130 H Lactic Acid Calcium 8.7 Total Bilirubin 0.50 AST 14 L ALT 12 L Alkaline Phosphatase 65 Troponin I High Sens 8 Total Protein 6.9 Albumin 3.8 Globulin 3.1 Albumin/Globulin Ratio 1.2 Urine Color Urine Clarity Urine pH Ur Specific [place] Urine Protein Urine Glucose (UA) Urine Ketones Urine Occult Blood Urine Nitrite Urine Bilirubin Urine Urobilinogen Ur Leukocyte Esterase Urine RBC Urine WBC Ur Squamous Epith Cells Urine Bacteria Urine Mucus 04/09/22 04/09/22 22:00 23:10 WBC RBC Hgb Hct MCV MCH MCHC RDW Std Deviation RDW Coeff of Buck Plt Count MPV Immature Gran % (Auto) Neut % (Auto) Lymph % (Auto) [place] % (Auto) Eos % (Auto) Baso % (Auto) Absolute Neuts (auto) Absolute Lymphs (auto) Nucleated RBC % Differential Comment PT INR APTT Sodium Potassium Chloride Carbon Dioxide Anion Gap BUN Creatinine Estim Creat Clear Calc Est GFR (MDRD) Af Amer Est GFR (MDRD) Non-Af BUN/Creatinine Ratio Glucose Lactic Acid 1.2 Calcium Total Bilirubin AST ALT Alkaline Phosphatase Troponin I High Sens Total Protein Albumin Globulin Albumin/Globulin Ratio Urine Color Yellow Urine Clarity Clear Urine pH 6.0 Ur Specific [place] 1.010 Urine Protein 30 H Urine Glucose (UA) Normal Urine Ketones 5 H Urine Occult Blood 150 H Urine Nitrite Negative Urine Bilirubin Negative Urine Urobilinogen Normal Ur Leukocyte Esterase Negative Urine RBC 10-25 SEEN Urine WBC 0-5 SEEN Ur Squamous Epith Cells 0-5 SEEN Urine Bacteria 0 SEEN Urine Mucus 0 SEEN Radiography Diagnostic Testing: Clinical Impression(s) from Imaging Studies Forearm X-Ray 04/09/22 21:33 IMPRESSION: Intact radius and ulna. Abnormal appearance of the wrist with soft tissue calcifications questionable dorsal wrist fracture fragment. 3 mm lytic lesion is of the fifth metacarpal. Correlation with wrist x-rays is recommended. Electronically Signed: Xu Patricia DO at 22:56 EDT , Brain CT 04/09/22 21:35 IMPRESSION: Negative Brain CT without contrast. Electronically Signed: Xu Patricia DO at 22:33 EDT , Chest X-Ray 04/09/22 22:20 IMPRESSION: 1. No radiographic evidence of acute cardiopulmonary disease. Electronically Signed: Xu Patricia DO at 22:53 EDT , Discharge Plan Dx/Rx/DC Orders Clinical Impression: Fever, Acute alteration in mental status, Cellulitis of right forearm, Thrombocytopenia, Parkinson disease Disposition Disposition: Acute Care Hospital [facility]
[2022-04-09] MEDS: 0.9% Normal Saline 1,000 ML 999 ML IV (22:09)
--- NOTE | 2022-04-09 22:20 | RAD_ITS ---
INDICATION: Fever EXAMINATION/TECHNIQUE: X-RAY - XR Chest 1 View COMPARISON: None. FINDINGS: LINES/DEVICES: None. LUNGS: Symmetric normal lung volumes. No airspace opacity or abnormal interstitial pattern. No nodule or mass. No pleural effusion or pneumothorax. MEDIASTINUM AND CARDIOVASCULAR STRUCTURES: Normal size and contour of the cardiomediastinal silhouette. No evidence of pulmonary vascular congestion. BONES AND SOFT TISSUES: No fracture or focal osseous lesion. RAD/Chest 1 View (Portable) IMPRESSION: 1. No radiographic evidence of acute cardiopulmonary disease. Electronically Signed: Xu Patricia DO at 22:53 EDT ,
[2022-04-09 22:29] LABS: Absolute Lymphocyte Count 0.35 X10^3/uL (0.83-4.51); Absolute Neutrophil Count 7.9 X10^3/uL (2.0-7.7); Basophil# 0.01 X10^3/uL; Basophil% 0.1 % (0-1); Eosinophil# 0.01 X10^3/uL; Eosinophils% 0.1 % (0-5); Hematocrit 35.8 % (40-54); Hemoglobin 11.9 g/dL (13.0-16.5); Lymphocyte # 0.35 X10^3/ul (0.83-4.51); Lymphocyte % 3.9 % (19-41); Mean Corp Hgb Conc 33.2 g/dL (32-36); Mean Corpuscular Volume 87.1 fL (80-94); Mean Platelet Vol. 10.5 fl (6.2-12.0); Monocyte# 0.57 X10^3/uL; Monocyte% 6.4 % (0-10); NRBC Flagged by Analyzer 0 % (0-5); POSITIVE DIFFERENTIAL YES; Platelet Count 135 K/mm3 (150-450); RBC Distribution Width CV 13.4 % (11.6-14.6); RBC Distribution Width SD 42.5 fl (35.1-43.9); Red Blood Count 4.11 M/mm3 (4.6-6.2); White Blood Count 8.9 K/mm3 (4.4-11.0)
[2022-04-09 22:30] LABS: Differential Indicated SCAN CRITERIA MET
[2022-04-09 22:33] VITALS: BP 186/167; TEMP 38.1
[2022-04-09 22:39] LABS: International Normalized Ratio 1.1; Prothrombin Time (Protime)PT. 14.1 SECONDS (11.7-14.9)
[2022-04-09 22:40] LABS: Partial Thromboplast Time 35.2 Seconds (24.1-36.2)
[2022-04-09 22:48] LABS: Lactic Acid 1.2 mmol/L (0.4-1.9)
[2022-04-09 22:49] LABS: ALB/GLOB Ratio 1.2 RATIO (0.9-2.4); AST(SGOT) 14 U/L (15-37); Alanine Aminotransfer ALT/SGPT 12 U/L (16-61); Albumin, Serum 3.8 g/dL (3.2-5.0); Alkaline Phosphatase 65 U/L (45-117); Anion Gap 6 (5-15); BUN 29 mg/dL (7-18); BUN/Creat Ratio 26.6 RATIO (10-20); Calcium,Total 8.7 mg/dL (8.5-10.1); Chloride 105 mmol/L (98-107); Creatinine, Serum 1.09 mg/dL (0.70-1.30); EST Glomerular Filtration Rate 69 mL/min (>60); Est Glom Filt Rate - Afr Amer 83 mL/min (>60); Estimated Creatinine Clearance 46.34 ml/min; Globulin 3.1 g/dL (2.2-4.2); Glucose 130 mg/dL (74-106); Protein, Total 6.9 g/dL (6.4-8.2); Sodium Level 137 mmol/L (136-145); Troponin-I HS 8 pg/mL (3.0-78.0)
[2022-04-09 22:59] LABS: Differential Comment SCANNED
[2022-04-09 23:18] LABS: Bacteria 0 SEEN /hpf (None Seen); Mucous, Urine 0 SEEN /hpf (<or=2+)
[2022-04-09] MEDS: Acetaminophen 325 MG Tablet 650 MG PO (23:21)
[2022-04-09] MEDS: levoFLOXacin IV 750 MG/150 ML BAG 100 MG IV (23:23)
--- NOTE | 2022-04-09 23:34 | RAD_ITS ---
EXAM: XR Wrist Min 3 Views RIGHT HISTORY: Trauma. TECHNIQUE: XR Wrist Min 3 Views RIGHT COMPARISON: X-ray of the right forearm from the same day. LIMITATIONS: None. FINDINGS: No definite acute fracture. No dislocation. Radiocarpal joint space narrowing with subchondral sclerosis. Chondrocalcinosis is identified. 3 mm lucency at the base of the fifth metacarpal is better visualized on the frontal view of the forearm is nonspecific, but could represent benign cystic change. RAD/Wrist min 3 Views IMPRESSION: No definite acute fracture identified. If clinical suspicion for fracture persists, CT or MRI is recommended. Electronically Signed: Dionicio Gr MD at 0:34 EDT ,
[2022-04-09 23:46] LABS: Color, Urine Yellow (Yellow); Glucose, Dipstick Normal (Normal); Ketone-Dipstick 5 mg/dl (Negative); Leukocyte Esterase-Dipstick Negative /ul (Negative); Nitrite-Dipstick Negative (Negative); Occult Blood-Urine 150 /ul (Negative); Protein-Dipstick 30 mg/dl (Negative); Urine Bilirubin Dipstick Negative (Negative); Urine Clarity Clear (Clear); Urine Urobilinogen Normal (Normal)
[2022-04-09 23:51] VITALS: BP 178/103; PULSE 92; RESP 25; O2SAT 96
[2022-04-09 23:59] LABS: Red Blood Cells-Urine 10-25 SEEN /hpf (0-5); Squamous Epithelial Cells - UA 0-5 SEEN /hpf (0-5); White Blood Cells 0-5 SEEN /hpf (0-5)
[2022-04-10] VITALS (13 sets, daily range): BP systolic 101–179; BP diastolic 71–105; PULSE 68–92; RESP 18–24; TEMP 36.6–37.4; O2SAT 96–100; BMI 25.5
--- NOTE | 2022-04-10 00:19 | HP.PCM.HOS_ITS ---
HPI - General General Date of Admission: 04/10/22 Date of Service: 04/10/22 Chief Complaint: Confusion, recent fall with RUE redness, edema. HPI Narrative The patient is an 81 y/o M w/ PMHx: Hx Bladder CA, HTN, HLD, CAD, Former tobacco use, Chronic anemia, Schizophrenia, Parkinson's disease with associate dementia with no behavioral disturbance history, Orthostatic hypotension who presents to the [facility] ED on 04/10/22 with history of residing in [facility] assisted living with history of fall on Wednesday approximately 6 days prior with redness to his right forearm which appears to be worsening with recent facility urinalysis negative for any infection with increased confusion noted on day of presentation by family with EMS reported temperature 103 with no recent antipyretic regimen or any antibiotics with family noted concern for possible skin infection as noted RUE forearm edema, redness and discomfort prompting ED evaluation. Family reports that patient does have baseline confusion however he normally knows at least his name and is able to interact which is not the case today. Work-up in the ED included T99.3 With T increased up to 101.3, heart rate 93, BP 172/107, respiratory rate 16, 97% on room air, CBC with WC 8.9, hemoglobin 11.9, platelet 135 with left shift and lymphopenia, blood culture x2 and urine culture pending per ED, CT of the brain with no acute intracranial findings, CMP with BUN/creat 29/1.09, glucose 130, lactic acid 1.2, hepatic profile unremarkable, troponin 8, chest x-ray with no acute cardiopulmonary findings, plain film of the right forearm with an intact radius and ulna, and normal appearance of the wrist with soft tissue calcifications with questionable dorsal wrist fracture fragment, 3 mm lytic lesion of the fifth metacarpal with recommended correlate of wrist x- ray which was obtained and final read pending upon evaluation, COVID antigen negative, urinalysis with no obvious evidence of UTI. In the ED patient ministered normal saline bolus as well as Tylenol 650 mg p.o. x1, normal saline 1 L bolus as well as Levaquin 750 mg IV x1. [facility] Medical History Actinic keratosis Anemia Arthritis Atherosclerotic heart disease of [place] coronary artery without angina pectoris Back pain Basal cell carcinoma of skin, unspecified Blood disorder Cardiology follow-up encounter Dementia in other diseases classified elsewhere without behavioral disturbance Discoloration of skin Easy bruising Eczema intertrigo Essential (primary) hypertension Former smoker History of ankle fracture History of echocardiogram History of hallucinations History of Holter monitoring History of stress test Hyperlipidemia, unspecified Impaired fasting glucose Leg cramps Legally blind Migraine headache Orthostatic hypotension Parkinson's disease Personal history of colonic polyps Prostate cancer Redness of skin Schizophrenia Spondylosis without myelopathy or radiculopathy, lumbar region Syncope Thrombocytopenia, unspecified Unspecified abnormalities of gait and mobility Unspecified urinary incontinence Uses wheelchair Home Medications carbidopa 25 mg-levodopa 100 mg tablet 1.5 tab PO TIDAC 09/07/18 [History Last Taken 10/24/21 06:00] pravastatin 80 mg tablet 40 mg PO QHS 09/07/18 [History Last Taken Unknown] vitamins A,C,Z-giif-hedefe 2,148 mcg-113 mg-45 mg-17.4 mg tablet (PreserVision AREDS) 1 ea PO BID 09/07/18 [History Last Taken Unknown] cholecalciferol (vitamin D3) 25 mcg (1,000 unit) capsule (Vitamin D3) 50 mcg PO 1300 08/27/21 [History Last Taken Unknown] docusate sodium 100 mg capsule 100 mg PO TID 08/27/21 [History Last Taken Unknown] gabapentin 100 mg capsule 100 mg PO QHS 08/27/21 [History Last Taken Unknown] metoprolol tartrate 25 mg tablet 12.5 mg PO 1700 08/27/21 [History Last Taken Unknown] nitroglycerin 0.4 mg sublingual tablet 0.4 mg sublingual PRN PRN Chest Pain 08/27/21 [History Last Taken Unknown] acetaminophen 500 mg tablet 1,000 mg PO TID 10/08/21 [History Last Taken Unknown] Allergy/AdvReac Type Severity Reaction Status Date / Time Penicillins Allergy Hives Verified 10/29/21 20:16 Surgical History History of cardiac catheterization Hx of colonoscopy Hx of hernia repair Hx of inguinal hernia repair Hx of inguinal hernia repair Hx of left cataract extraction Hx of right cataract extraction Social History household members: spouse housing: intermediate Smoking Status: Former smoker substance use type: does not use ROS ROS Narrative Admission Review of Systems: CONSTITUTIONAL: No weight loss, fever, chills, + weakness or fatigue. HEENT: Eyes: No visual loss, blurred vision, double vision or yellow sclerae. Ears, Nose, Throat: No hearing loss, sneezing, congestion, runny nose or sore throat. SKIN: + RUE erythema, increased warm. CARDIOVASCULAR: No chest pain, chest pressure or chest discomfort, palpitations, edema, orthopnea, syncopal events. RESPIRATORY: No shortness of breath, cough or sputum, wheezing, hemoptysis. GASTROINTESTINAL: No anorexia, nausea, vomiting or diarrhea, abdominal pain, melena, BRBPR. GENITOURINARY: No dysuria, frequency, urgency or retention. NEUROLOGICAL: + Increased confusion above baseline, Parkinson's disease, No headache, dizziness, syncope, paralysis, numbness or tingling in the extremities, focal weakness, change in bowel or bladder control, seizure. MUSCULOSKELETAL: + muscle, back pain, joint pain or stiffness. HEMATOLOGIC: + anemia, bleeding or bruising. LYMPHATICS: No enlarged nodes. No history of splenectomy. PSYCHIATRIC: No history of depression or anxiety. ENDOCRINOLOGIC: No reports of sweating, cold or heat intolerance. No polyuria or polydipsia. ALLERGIES: No history of asthma, hives, eczema or rhinitis. Vital Signs Vital Signs Vital Signs: 04/09/22 20:56 04/09/22 21:33 04/09/22 21:33 Temperature 99.3 F H 101.3 F H Temperature Source Oral Oral Pulse Rate 93 Respiratory Rate 16 Blood Pressure 172/107 H Blood Pressure Mean 128 Pulse Ox 97 Oxygen Delivery Method Room Air Room Air 04/09/22 22:33 04/09/22 22:33 04/09/22 23:51 Temperature 100.6 F H Temperature Source Oral Pulse Rate 92 Respiratory Rate 25 H Blood Pressure 186/167 H 178/103 H Blood Pressure Mean 173 128 Pulse Ox 96 Oxygen Delivery Method Room Air Weight Weight: 164 lb 7.437 oz Body Mass Index (BMI) 26.4 Physical Exam Narrative physical Examination: General: Awake, alert, oriented to self currently, answering questions but orientation questions limited, remains cooperative and follows commands, seated upright in ED bed, fatigued. Skin: Normal color, normal turgor, no icterus, no cyanosis except occasional staged ecchymoses/abrasion and significant right upper extremity forearm near circumferential erythema with increased warmth, edema with streaking up the arm. HEENT: AT/NC, EOMI, PERRLA, moderately dry MM, no carotid bruits or JVD noted. Lungs: Mildly diminished, greater bases, appropriate effort, no rales, ronchi or wheezing. Heart: Currently regular rate and rhythm; no gallop, rub audible. Abdomen: Soft, overweight, NTTP, ND, normal BS, no HSM. Extremities: No cyanosis, no clubbing, mild bilateral ankle edema not markedly pitting, right upper extremity edematous with comparison to left upper extremity, see skin for description erythema. Neurological: Patient awake, alert, oriented as noted, cognitive function improving but still not baseline intact with underlying Parkinson's disease in the setting of acute infection as noted; pupils equally reactive to light and accommodation, cranial nerves II-XII grossly normal, moving all 4 extremities, no focal deficits, strength severely global decrease secondary to acute presentation compounded by underlying Parkinson's history. Psychiatric: Affect appears flat, fatigued, no acute evidence of depressive or anxiety feelings. Results Lab / Micro Data Result Diagrams: 04/09/22 22:00 04/09/22 22:00 Labs: Laboratory Results - last 24 hr 04/09/22 22:00: WBC 8.9, RBC 4.11 L, Hgb 11.9 L, Hct 35.8 L, MCV 87.1, MCH 29.0, MCHC 33.2, RDW Std Deviation 42.5, RDW Coeff of Buck 13.4, Plt Count 135 L, MPV 10.5, Immature Gran % (Auto) 0.500, Neut % (Auto) 89.0 H, Lymph % (Auto) 3.9 L, [place] % (Auto) 6.4, Eos % (Auto) 0.1, Baso % (Auto) 0.1, Absolute Neuts (auto) 7.9 H, Absolute Lymphs (auto) 0.35 L, Nucleated RBC % 0, Differential Comment SC ANNED 04/09/22 22:00: PT 14.1, INR 1.1, APTT 35.2 04/09/22 22:00: Sodium 137, Potassium 4.0, Chloride 105, Carbon Dioxide 26.0, Anion Gap 6, BUN 29 H, Creatinine 1.09, Estim Creat Clear Calc 46.34, Est GFR (MDRD) Af Amer 83, Est GFR (MDRD) Non-Af 69, BUN/Creatinine Ratio 26.6 H, Glucose 130 H, Calcium 8.7, Total Bilirubin 0.50, AST 14 L, ALT 12 L, Alkaline Phosphatase 65, Troponin I High Sens 8, Total Protein 6.9, Albumin 3.8, Globulin 3.1, Albumin/Globulin Ratio 1.2 04/09/22 22:00: Lactic Acid 1.2 04/09/22 23:10: Urine Color Yellow, Urine Clarity Clear, Urine pH 6.0, Ur Specific [place] 1.010, Urine Protein 30 H, Urine Glucose (UA) Normal, Urine Ket ones 5 H, Urine Occult Blood 150 H, Urine Nitrite Negative, Urine Bilirubin Negative, Urine Urobilinogen Normal, Ur Leukocyte Esterase Negative, Urine RBC 10-25 SEEN, Urine WBC 0-5 SEEN, Ur Squamous Epith Cells 0-5 SEEN, Urine Bacteria 0 SEEN, Urine Mucus 0 SEEN Micro: Microbiology 04/09/22 23:36 Nasal Secretion SARS-CoV-2 & FLU Antigen (Rapid) - Final Radiology Impression Forearm X-Ray 04/09/22 21:33 IMPRESSION: Intact radius and ulna. Abnormal appearance of the wrist with soft tissue calcifications questionable dorsal wrist fracture fragment. 3 mm lytic lesion is of the fifth metacarpal. Correlation with wrist x-rays is recommended. Electronically Signed: Xu Patricia DO at 22:56 EDT , Brain CT 04/09/22 21:35 IMPRESSION: Negative Brain CT without contrast. Electronically Signed: Xu Patricia DO at 22:33 EDT , Chest X-Ray 04/09/22 22:20 IMPRESSION: 1. No radiographic evidence of acute cardiopulmonary disease. Electronically Signed: Xu Patricia DO at 22:53 EDT , Assessment & Plan Assessment/Plan (1) Cellulitis of right forearm: PLAN: Plan The patient is an 81 y/o M w/ PMHx: Hx Bladder CA, HTN, HLD, CAD, Former tobacco use, Chronic anemia, Schizophrenia, Parkinson's disease with associate dementia with no behavioral disturbance history, Orthostatic hypotension who presents to the [facility] ED on 04/10/22 with history of residing in [facility] living with history of fall on Wednesday approximately 6 days prior with redness to his right forearm which appears to be worsening with recent facility urinalysis negative for any infection with increased confusion noted on day of presentation by family with EMS reported temperature 103 with no recent antipyretic regimen or any antibiotics with family noted concern for possible skin infection as noted RUE forearm edema, redness and discomfort prompting ED evaluation. #1. Acute Encephalopathy secondary to Acute RUE Extremity Cellulitis with mecha nical fall: Likely from abrasion with recent fall, admit to [facility], maintain on IV levaquin given allergy history, plan repeat CBC in AM, continue affected extremity elevation above heart when seated and in bed, monitor erythema outline with VS checks. PT/OT/case management consultations for discharge planning. Plain film of the right forearm with an intact radius and ulna, and normal appearance of the wrist with soft tissue calcifications with questionable dorsal wrist fracture fragment, 3 mm lytic lesion of the fifth metacarpal with recommended correlate of wrist x-ray with is pending upon evaluation therefore will maintain in sling with NWB status until obtained results. Due to duplex ultrasound right upper extremity also requested. #2. History of bladder cancer: Status post 10/24/2021 transurethral resection of large bladder tumor, following Dr. Murrieta, encourage continued outpatient follow-up. #3. Hypertension: Continue home regimen including metoprolol, amlodipine with hold parameters as needed, PRN hydralazine. #4. Hyperlipidemia: Continue home statin regimen. #5. Parkinson's disease with associated dementia with no behavioral disturbance history: Complicates presentation, maintain on fall precautions, continue patient home Sinemet regimen. #6. Schizophrenia: Noted in history, not on any medications, encourage continued close follow-up and if any concerning hallucinations that would result any self or other harm may necessitate medication addition. #7. History orthostatic hypotension: Closely monitor, encourage slow positional changes, hydrate judiciously, low threshold to hold beta-kenyon therapy as noted above. #8. CAD: We will continue patient home aspirin, statin, metoprolol regimen, not on MARIA INES inhibitor or ARB. #9. Chronic normocytic anemia: Admission hemoglobin 11.9, baseline hemoglobin primarily 11-12, continue to trend. #10. Former tobacco use: Encourage continued tobacco cessation. #11. DVT prophylaxis: SCDs, Lovenox however if duplex ultrasound with DVT confirmation would transition to therapeutic regimen. #12. CODE status: Patient HCPOA is his and living will is currently in place. Patient's daughter is currently with him upon ED presentation and notes that his is her stepmother. Discussed CODE status at length including difference between FULL code, DNR-CCA and DNR-CC status. Following discussions about the differences in these status, requested continuation Full Code but noted intention to discuss with her step-mother given his advanced age and notable comorbidities. Advanced Care Planning Face to Face Time: 16 minutes. Charges/Coding Visit Charges Inpatient E&M: 53427 Init Hosp L3 Procedures Hospitalists Procedures: 59339 Advncd Care Plan 30 Min
[2022-04-10] MEDS: 0.9% Normal Saline 1,000 ML 100 ML IV (01:42)
[2022-04-10] MEDS: hydrALAZINE 20 MG/ML Vial 10 MG IV ×2 (01:42→06:08)
[2022-04-10] MEDS: 0.9% Saline Lock 10 ML Syringe IV ×4 (01:42→23:45)
--- NOTE | 2022-04-10 05:55 | VDUE_ITS ---
Reason For Study: Pain Right Proximal Right jugular vein is spontaneous, widely patent, phasic, with no intraluminal echogenicity noted. Right subclavian vein is spontaneous, widely patent, phasic, with no intraluminal echogenicity noted. Right Lower Arm Right radial vein is compressible. Right ulnar vein is compressible. Right Arm Right axillary vein is spontaneous, patent, phasic, competent, compressible and demonstrates augmentation. Right brachial vein is compressible. Right cephalic vein is compressible. Right basilic vein is compressible. Patient Safety Preliminary report given to MS3 RN. VL/Venous Duplex US, Unilateral Interpretation Summary No evidence for acute deep venous thrombosis[right] upper extremity with patent and compressible cephalic and basilic veins. Ordering Physician: Ashley Richardson Referring Physician: Scotty Hernández M.D. Performed By: Nga Gonzalez RVT ?
[2022-04-10 05:58] LABS: Absolute Lymphocyte Count 0.67 X10^3/uL (0.83-4.51); Absolute Neutrophil Count 8.2 X10^3/uL (2.0-7.7); Basophil# 0.02 X10^3/uL; Basophil% 0.2 % (0-1); Eosinophil# 0.01 X10^3/uL; Eosinophils% 0.1 % (0-5); Hematocrit 34.8 % (40-54); Hemoglobin 11.5 g/dL (13.0-16.5); Lymphocyte # 0.67 X10^3/ul (0.83-4.51); Lymphocyte % 6.9 % (19-41); Mean Corpuscular Hgb 28.9 pg (27.0-32.0); Mean Corpuscular Volume 87.4 fL (80-94); Mean Platelet Vol. 10.4 fl (6.2-12.0); Monocyte# 0.76 X10^3/uL; Monocyte% 7.8 % (0-10); NRBC Flagged by Analyzer 0 % (0-5); Neutrophil # 8.18 X10^3/uL (2.7-7.7); Neutrophil % 84.3 % (47-70); Platelet Count 121 K/mm3 (150-450); RBC Distribution Width CV 13.2 % (11.6-14.6); Red Blood Count 3.98 M/mm3 (4.6-6.2); White Blood Count 9.7 K/mm3 (4.4-11.0)
[2022-04-10] MEDS: Menthol/Lanolin/Calamine/Znox 113 GM Tube 1 APPLIC TOPICAL ×2 (06:08→23:28)
[2022-04-10] MEDS: Docusate Sodium 100 MG Capsule PO ×2 (06:08→23:29)
[2022-04-10] MEDS: Acetaminophen 325 MG Tablet 650 MG PO ×3 (06:08→19:25)
[2022-04-10] MEDS: Carbidopa/Levodopa 25/100 Tablet PO ×3 (06:08→15:51)
[2022-04-10 06:30] LABS: ALB/GLOB Ratio 1.1 RATIO (0.9-2.4); AST(SGOT) 15 U/L (15-37); Alanine Aminotransfer ALT/SGPT 16 U/L (16-61); Albumin, Serum 3.3 g/dL (3.2-5.0); Alkaline Phosphatase 52 U/L (45-117); Anion Gap 7 (5-15); BUN 21 mg/dL (7-18); BUN/Creat Ratio 24.9 RATIO (10-20); Calcium,Total 8.7 mg/dL (8.5-10.1); Chloride 109 mmol/L (98-107); Creatinine, Serum 0.84 mg/dL (0.70-1.30); EST Glomerular Filtration Rate 92 mL/min (>60); Est Glom Filt Rate - Afr Amer 112 mL/min (>60); Estimated Creatinine Clearance 60.13 ml/min; Glucose 113 mg/dL (74-106); Potassium 3.7 mmol/L (3.5-5.1); Protein, Total 6.3 g/dL (6.4-8.2); Sodium Level 139 mmol/L (136-145)
[2022-04-10] MEDS: levoFLOXacin IV 750 MG/150 ML BAG 100 MG IV (11:05)
[2022-04-10] MEDS: Multivitamin (Healthy Eyes) Capsule 1 CAP PO ×2 (11:05→23:30)
[2022-04-10] MEDS: Enoxaparin 40 MG/0.4 ML Syringe SC (11:05)
--- NOTE | 2022-04-10 12:08 | CASEMGMT ---
Addendum entered by Nga Gonzalez 04/10/22 12:31: SW received call from pt's Yelitza. Yelitza confirms that pt is from [facility] and the plan is to return. Yelitza asked for pt's room number and nurses station number. CHINEDU provided the numbers. Addendum entered by Nga Gonzalez 04/10/22 12:22: SW has not received a call back from pt's so SW placed a call to pt's daughter Laura. Laura confirms the plan is for pt to discharge back to [facility]. CHINEDU faxed updated clinicals to [facility]. CHINEDU placed Green sheet, transportation forms, COVID tool on pt's chart. Plan: Return to [facility] when medically cleared. Original Note: Social Work Note CHINEDU reviewed chart, pt is listed as being from [facility]. CHINEDU placed a call to pt's Yelitza, both numbers listed, and left message regarding pt. SW waiting for call back. CHINEDU placed a call to [facility] and spoke with Laura. Laura confirms pt is able to return to [facility] at discharge and will need a COVID test on day of discharge. Plan: Return to [facility] when medically cleared Nga Gonzalez TAIL BOARD WORKER, PARENT TRAINER
[2022-04-10] MEDS: Finasteride 5 MG Tablet PO (12:10)
[2022-04-10] MEDS: Cholecalciferol (VIT D3) 25 MCG TABLET (1,000 UNITS) 50 MCG PO (13:54)
--- NOTE | 2022-04-10 15:49 | PN.HOSP_ITS ---
Hospitalist Note Patient was seen and examined briefly today, he underwent a venous duplex scan of his right arm which was negative for thrombus. Patient remains confused but he is not agitated. According to case management, physical therapy is recommending the patient have additional skilled therapy, he will not be able to return to [facility] living and he will need to be placed in a fpc facility at least short-term. Continue PT and OT at this point, I have decided to administer 1 dose of Ancef to the patient to see if he can tolerate a cephalosporin for his cellulitis. I have made pharmacy aware of my order for the Ancef.
[2022-04-10] MEDS: Metoprolol Tartrate 25 MG Tablet 12.5 MG PO (15:58)
[2022-04-10] MEDS: Cefazolin 1 GM/50 ML BAG IV (16:22)
--- NOTE | 2022-04-10 18:43 | CASEMGMT ---
Addendum entered by Nga Gonzalez 04/10/22 20:12: Green sheet was taken off pt's chart as the plan is now TCU pending pre-cert. Original Note: Social Work Note PT/OT spoke with this worker and asked about pt going to Rehab Unit at discharge. PT/OT states pt is able to follow commands and has required more assistance lately and would benefit from RU. CHINEDU reviewed chart, pt has [employer] insurance which will not approve RU. CHINEDU asked PT/OT if pt could return to [facility] with [facility] and PT/OT states pt would benefit from SNF. SW in to speak with pt's daughter Laura. Patient was provided a list of SNF providers including quality and resource use data and consistent with the patient?s preferred geographic region, medical needs, and insurance network. Laura states she would prefer [facility] but states she will call pt's Yelitza to confirm. CHINEDU informed Laura that this worker will go ahead and call TCU and provide referral. Laura states understanding. CHINEDU placed a call to Katherine with TCU and provided referral. TCU is able to accept pt and will submit for pre-cert. Laura requesting to speak to this worker. CHINEDU in to speak with Laura. Laura states she spoke with Yelitza and all are in agreement to pt going to [facility]. CHINEDU informed Laura that TCU is able to accept pt and will submit for pre-cert. Pt will be at [facility] through the weekend for pre-cert. Laura states understanding. CHINEDU placed a call to pt's Yelitza and updated her that the plan is [facility] pending pre-cert. Yelitza states she is aware of the plan and is agreeable. SW answered many of Yelitza's questions. CHINEDU informed Yelitza that pt will be at [facility] through the weekend waiting for pre-cert. Yelitza states understanding. Plan: TCU pending pre-cert Nga Gonzalez SHIP LINER, WINDOWS DEPLOYMENT TECHNICIAN
[2022-04-10] MEDS: Pravastatin 40 MG Tablet PO (23:30)
[2022-04-10] MEDS: Tamsulosin HCl 0.4 MG Capsule PO (23:31)
[2022-04-10] MEDS: Gabapentin 100 MG Capsule PO (23:35)
[2022-04-11] VITALS (7 sets, daily range): BP systolic 134–182; BP diastolic 72–109; PULSE 64–92; RESP 18–20; TEMP 36.6–37; O2SAT 94–99
[2022-04-11] MEDS: hydrALAZINE 20 MG/ML Vial 10 MG IV (03:50)
[2022-04-11] MEDS: 0.9% Saline Lock 10 ML Syringe IV ×2 (03:55→13:40)
[2022-04-11] MEDS: Carbidopa/Levodopa 25/100 Tablet PO ×3 (06:14→17:18)
[2022-04-11] MEDS: Cefazolin 1 GM/50 ML BAG IV ×3 (06:14→21:16)
--- NOTE | 2022-04-11 07:39 | PCM.PN.HOSP ---
Subjective Subjective Patient was seen and examined today, I changed his antibiotics yesterday to Ancef, he does not appear to have a reaction from Ancef. Patient answers simple questions appropriately Objective Data Objective Data Vital Signs: Vital Signs Temp Pulse Resp BP Pulse Ox O2 Del Method 98.1 F 92 20 H 182/100 H 94 Room Air 04/11/22 03:42 04/11/22 03:50 04/11/22 03:42 04/11/22 03:50 04/11/22 03:42 04/11/22 03:42 Oxygen Delivery Method Room Air Weight: 74.1 kg Body Mass Index (BMI) 25.5 Intake & Output: Intake and Output for Last 24 Hours 04/09/22 04/10/22 04/11/22 23:59 23:59 23:59 Intake Total 3116.67 / 3116.67 Balance 3116.67 / 3116.67 Lab / Micro Data Result Diagrams: 04/10/22 05:48 04/10/22 05:48 Micro: Microbiology 04/09/22 23:36 Nasal Secretion SARS-CoV-2 & FLU Antigen (Rapid) - Final Radiography Diagnostic Testing: Radiology Impression Venous Doppler Study 04/10/22 05:55 Interpretation Summary No evidence for acute deep venous thrombosis[right] upper extremity with patent and compressible cephalic and basilic veins. Ordering Physician: Ashley Richardson Referring Physician: Scotty Hernández M.D. Performed By: Nga Gonzalez RVT ? Physical Exam Const alert and no apparent distress General Appearance: cooperative, well kempt and well developed Orientation / Consciousness: awake HEENT normocephalic, head/scalp atraumatic and moist oral mucous membranes Eyes PERRL, EOMs intact bilaterally and conjunctivae normal Neck supple, no JVD and thyroid normal General: trachea midline Resp normal respiratory effort, no retractions, no use of accessory muscles and clear to auscultation bilaterally Auscultation: Negative for rales, rhonchi or wheezes Cardio regular rate, regular rhythm, S1 normal heart sound, S2 normal heart sound, no murmurs, no rub and no gallops GI normal to inspection, nondistended, normoactive bowel sounds, soft to palpation, non-tender and non-distended Extremity Extremity Narrative: There are some redness to the right arm around the elbow area along with some mild edema of the right lower arm. Skin Skin Narrative: There is some redness noted over the area near the elbow on the right arm General Skin Exam: no breakdown Neuro CN's II-XII intact bilaterally, moves all extremities, no focal motor deficits and no sensory deficits noted Sensorium / Orientation: awake and alert Speech: speech normal Psych Psych Narrative: Flat affect Assessment & Plan Assessment/Plan (1) Cellulitis of right forearm: PLAN: Plan 1. Cellulitis of the right forearm and elbow area-continue Ancef for now, patient appears to be improving medically #2 acute debility-he continues to be seen by PT and OT, he will need at least temporary placement in a detention facility. #3 Parkinson's disease-patient will remain on his current medications #4 hyperlipidemia-patient is on a statin #5 BPH-patient is on Flomax and Proscar #6 Dementia-complicates recovery, care, and management Charges/Coding Visit Charges Inpatient E&M: 98786 Subs Hosp L2
[2022-04-11] MEDS: Docusate Sodium 100 MG Capsule PO ×2 (10:05→21:17)
[2022-04-11] MEDS: Enoxaparin 40 MG/0.4 ML Syringe SC (10:06)
[2022-04-11] MEDS: Finasteride 5 MG Tablet PO (10:06)
[2022-04-11] MEDS: Menthol/Lanolin/Calamine/Znox 113 GM Tube 1 APPLIC TOPICAL ×2 (10:06→21:15)
[2022-04-11] MEDS: Multivitamin (Healthy Eyes) Capsule 1 CAP PO ×2 (10:07→21:17)
[2022-04-11] MEDS: Acetaminophen 325 MG Tablet 650 MG PO (13:36)
[2022-04-11] MEDS: Cholecalciferol (VIT D3) 25 MCG TABLET (1,000 UNITS) 50 MCG PO (13:40)
[2022-04-11] MEDS: Metoprolol Tartrate 25 MG Tablet 12.5 MG PO (17:18)
[2022-04-11] MEDS: Pravastatin 40 MG Tablet PO (21:17)
[2022-04-11] MEDS: Gabapentin 100 MG Capsule PO (21:17)
[2022-04-11] MEDS: MELATONIN 3 MG TABLET PO (21:18)
[2022-04-11] MEDS: Tamsulosin HCl 0.4 MG Capsule PO (21:18)
[2022-04-12] VITALS (8 sets, daily range): BP systolic 105–185; BP diastolic 64–102; PULSE 68–79; RESP 18–20; TEMP 36.6–37; O2SAT 97–100
[2022-04-12] MEDS: hydrALAZINE 20 MG/ML Vial 10 MG IV (03:20)
[2022-04-12] MEDS: 0.9% Saline Lock 10 ML Syringe IV (03:20)
[2022-04-12] MEDS: Cefazolin 1 GM/50 ML BAG IV ×3 (05:05→21:21)
[2022-04-12 06:08] LABS: Absolute Lymphocyte Count 0.39 X10^3/uL (0.83-4.51); Absolute Neutrophil Count 6.5 X10^3/uL (2.0-7.7); Basophil# 0.02 X10^3/uL; Basophil% 0.3 % (0-1); Eosinophil# 0.19 X10^3/uL; Eosinophils% 2.4 % (0-5); Hemoglobin 10.4 g/dL (13.0-16.5); Lymphocyte # 0.39 X10^3/ul (0.83-4.51); Mean Corp Hgb Conc 33.5 g/dL (32-36); Mean Corpuscular Hgb 29.5 pg (27.0-32.0); Mean Corpuscular Volume 88.1 fL (80-94); Mean Platelet Vol. 10.4 fl (6.2-12.0); Monocyte# 0.67 X10^3/uL; Monocyte% 8.6 % (0-10); NRBC Flagged by Analyzer 0 % (0-5); Neutrophil # 6.48 X10^3/uL (2.7-7.7); Neutrophil % 83.3 % (47-70); POSITIVE DIFFERENTIAL YES; Platelet Count 111 K/mm3 (150-450); RBC Distribution Width CV 13.4 % (11.6-14.6); RBC Distribution Width SD 43.5 fl (35.1-43.9); Red Blood Count 3.52 M/mm3 (4.6-6.2); White Blood Count 7.8 K/mm3 (4.4-11.0)
[2022-04-12 06:12] LABS: Differential Indicated SCAN CRITERIA MET
[2022-04-12 06:49] LABS: Platelet Estimate SLT DEC (ADEQ)
[2022-04-12] MEDS: Carbidopa/Levodopa 25/100 Tablet PO ×3 (07:01→18:03)
[2022-04-12] MEDS: Finasteride 5 MG Tablet PO (09:56)
[2022-04-12] MEDS: Acetaminophen 325 MG Tablet 650 MG PO (09:56)
[2022-04-12] MEDS: Menthol/Lanolin/Calamine/Znox 113 GM Tube 1 APPLIC TOPICAL ×2 (09:56→21:21)
[2022-04-12] MEDS: Enoxaparin 40 MG/0.4 ML Syringe SC (09:57)
[2022-04-12] MEDS: Docusate Sodium 100 MG Capsule PO ×2 (09:57→21:22)
[2022-04-12] MEDS: Multivitamin (Healthy Eyes) Capsule 1 CAP PO ×2 (09:58→21:21)
--- NOTE | 2022-04-12 10:42 | PN.HOSP_ITS ---
Subjective Subjective Patient was seen and examined today, he remains confused but directable at times, patient still has redness in the right elbow area and right forearm extending part way into the right upper arm. This does not appear to be any worse than yesterday, there is also edema associated with this redness which was present yesterday. Patient has been afebrile, his white count remains normal today at 7.8. Objective Data Objective Data Vital Signs: Vital Signs Temp Pulse Resp BP Pulse Ox O2 Del Method 98.2 F 76 18 105/70 97 Room Air 04/12/22 09:50 04/12/22 09:50 04/12/22 09:50 04/12/22 09:50 04/12/22 09:50 04/12/22 10:05 Oxygen Delivery Method Room Air Weight: 74.1 kg Body Mass Index (BMI) 25.5 Intake & Output: Intake and Output for Last 24 Hours 04/10/22 04/11/22 04/12/22 23:59 23:59 23:59 Intake Total 3116.67 / 3116.67 1050 / 1050 250 / 250 Balance 3116.67 / 3116.67 1050 / 1050 250 / 250 Lab / Micro Data Result Diagrams: 04/12/22 06:00 04/10/22 05:48 Labs: Laboratory Results - last 24 hr 04/12/22 06:00: WBC 7.8, RBC 3.52 L, Hgb 10.4 L, Hct 31.0 L, MCV 88.1, MCH 29.5, MCHC 33.5, RDW Std Deviation 43.5, RDW Coeff of Buck 13.4, Plt Count 111 L, MPV 10.4, Immature Gran % (Auto) 0.400, Neut % (Auto) 83.3 H, Lymph % (Auto) 5.0 L, [place] % (Auto) 8.6, Eos % (Auto) 2.4, Baso % (Auto) 0.3, Absolute Neuts (auto) 6.5, Absolute Lymphs (auto) 0.39 L, Nucleated RBC % 0, Platelet Estimate SLT DEC Micro: Microbiology 04/09/22 23:10 Urine Catheter - Catheter Urine Culture - Preliminary Alpha Hemolytic Streptococcus 04/09/22 23:36 Nasal Secretion SARS-CoV-2 & FLU Antigen (Rapid) - Final Physical Exam Narrative alert and no apparent distress General Appearance: cooperative, well kempt and well developed Orientation / Consciousness: awake, confused, patient knows he is in the hospital HEENT normocephalic, head/scalp atraumatic and moist oral mucous membranes Eyes PERRL, EOMs intact bilaterally and conjunctivae normal Neck supple, no JVD and thyroid normal General: trachea midline Resp normal respiratory effort, no retractions, no use of accessory muscles and clear to auscultation bilaterally Auscultation: Negative for rales, rhonchi or wheezes Cardio regular rate, regular rhythm, S1 normal heart sound, S2 normal heart sound, no murmurs, no rub and no gallops GI normal to inspection, nondistended, normoactive bowel sounds, soft to palpation, non-tender and non-distended Extremity Extremity Narrative: There are some redness to the right arm around the elbow area along with some mild edema of the right lower arm. Skin Skin Narrative: There is some redness noted over the area near the elbow on the right arm, there is also some redness and swelling in the right upper forearm and right upper arm. This area is also slightly tender to palpation. General Skin Exam: no breakdown Neuro CN's II-XII intact bilaterally, moves all extremities, no focal motor deficits and no sensory deficits noted Sensorium / Orientation: awake and alert Speech: speech normal, patient is confused Psych Psych Narrative: Flat affect, confused Const alert and no apparent distress General Appearance: cooperative, well kempt and well developed Orientation / Consciousness: awake HEENT normocephalic, head/scalp atraumatic and moist oral mucous membranes Eyes PERRL, EOMs intact bilaterally and conjunctivae normal Neck supple, no JVD and thyroid normal General: trachea midline Resp normal respiratory effort, no retractions, no use of accessory muscles and clear to auscultation bilaterally Auscultation: Negative for rales, rhonchi or wheezes Cardio regular rate, regular rhythm, S1 normal heart sound, S2 normal heart sound, no murmurs, no rub and no gallops GI normal to inspection, nondistended, normoactive bowel sounds, soft to palpation, non-tender and non-distended Extremity Extremity Narrative: There are some redness to the right arm around the elbow area along with some mi ld edema of the right lower arm. Skin Skin Narrative: There is some redness noted over the area near the elbow on the right arm General Skin Exam: no breakdown Neuro CN's II-XII intact bilaterally, moves all extremities, no focal motor deficits and no sensory deficits noted Sensorium / Orientation: awake and alert Speech: speech normal Psych Psych Narrative: Flat affect Assessment & Plan Assessment/Plan (1) Cellulitis of right forearm: PLAN: Plan 1. Cellulitis of the right forearm and elbow area-continue Ancef for now, patient appears to be improving medically although slowly #2 acute debility-he continues to be seen by PT and OT, he will need at least temporary placement in a group home facility. #3 Parkinson's disease-patient will remain on his current medications #4 hyperlipidemia-patient is on a statin #5 BPH-patient is on Flomax and Proscar #6 Dementia-complicates recovery, care, and management Charges/Coding Visit Charges Inpatient E&M: 53924 Subs Hosp L2
[2022-04-12] MEDS: Cholecalciferol (VIT D3) 25 MCG TABLET (1,000 UNITS) 50 MCG PO (12:50)
[2022-04-12] MEDS: Metoprolol Tartrate 25 MG Tablet 12.5 MG PO (18:14)
[2022-04-12] MEDS: MELATONIN 3 MG TABLET PO (21:21)
[2022-04-12] MEDS: Pravastatin 40 MG Tablet PO (21:21)
[2022-04-12] MEDS: Gabapentin 100 MG Capsule PO (21:21)
[2022-04-12] MEDS: Tamsulosin HCl 0.4 MG Capsule PO (21:21)
[2022-04-13] VITALS (9 sets, daily range): BP systolic 112–161; BP diastolic 71–98; PULSE 68–82; RESP 18; TEMP 36.8–37.7; O2SAT 95–99
[2022-04-13] MEDS: 0.9% Saline Lock 10 ML Syringe IV (03:42)
[2022-04-13] MEDS: hydrALAZINE 20 MG/ML Vial 10 MG IV (03:42)
[2022-04-13] MEDS: Carbidopa/Levodopa 25/100 Tablet PO ×3 (05:57→15:53)
[2022-04-13] MEDS: Cefazolin 1 GM/50 ML BAG IV (05:57)
[2022-04-13] MEDS: Multivitamin (Healthy Eyes) Capsule 1 CAP PO ×2 (09:31→22:07)
[2022-04-13] MEDS: Docusate Sodium 100 MG Capsule PO ×2 (09:31→22:07)
[2022-04-13] MEDS: Finasteride 5 MG Tablet PO (09:31)
[2022-04-13] MEDS: Menthol/Lanolin/Calamine/Znox 113 GM Tube 1 APPLIC TOPICAL ×2 (09:31→22:12)
[2022-04-13] MEDS: Enoxaparin 40 MG/0.4 ML Syringe SC (09:32)
--- NOTE | 2022-04-13 10:17 | PCM.PN.HOSP ---
Subjective Subjective Doing well, feels little better than yesterday. Still has some redness and an area of fluctuance on his right elbow Objective Data Objective Data Vital Signs: Vital Signs Temp Pulse Resp BP Pulse Ox O2 Del Method 98.8 F 82 18 131/71 H 96 Room Air 04/13/22 07:50 04/13/22 07:50 04/13/22 07:50 04/13/22 07:50 04/13/22 07:57 04/13/22 07:57 Oxygen Delivery Method Room Air Weight: 161 lb 9.581 oz Body Mass Index (BMI) 25.5 Intake & Output: Intake and Output for Last 24 Hours 04/12/22 04/13/22 04/14/22 03:59 03:59 03:59 Intake Total 1050 / 1050 1100 / 1100 50 / 50 Output Total 350 / 350 Balance 1050 / 1050 750 / 750 50 / 50 Lab / Micro Data Result Diagrams: 04/12/22 06:00 04/10/22 05:48 Micro: Microbiology 04/09/22 22:15 Blood Culture (Wb) - Arm Left Blood Culture - Preliminary No growth in 48 hours. 04/09/22 22:00 Blood Culture (Wb) - Arm Left Blood Culture - Preliminary No growth in 48 hours. 04/09/22 23:10 Urine Catheter - Catheter Urine Culture - Preliminary Alpha Hemolytic Streptococcus 04/09/22 23:36 Nasal Secretion SARS-CoV-2 & FLU Antigen (Rapid) - Final Physical Exam Narrative General: Alert, Oriented x2, he thinks he is in [place], Cooperative, No apparent distress HEENT: Atraumatic, PERRLA, EOMI, Normocephalic Oral: Moist Mucosa Neck: Supple, No JVD Lungs: Clear to auscultation, Normal air movement, No rhonchi, No wheeze, No rales Cardiovascular: Regular rate, Regular Rhythm, Normal S1, Normal S2, No murmurs Abdomen: Soft, Non Tender, Non-Distended, No Hepato-splenomegaly Extremities: No edema, Capillary Refill Less than 3 Seconds Skin: Redness from his right wrist to a little bit past his elbow. There is also an area of fluctuance on the lateral aspect of his right elbow, with edema Musculoskeletal: No Tenderness to Palpation of Joints or Extremities Neurological: Cranial nerves II-XII grossly intact, Motor Exam 5/5 strength throughout, Sensory exam intact to light touch and pain Psych/Mental Status: Normal Affect, Appropriate Assessment & Plan Assessment/Plan (1) Cellulitis of right forearm: PLAN: Plan 1. Right forearm and elbow area with an area of fluctuance/debility/Parkinson's disease ? Given the fact that he has been on 3 days of IV antibiotics and he still has some redness, and given the fluctuance we will transition him from Keflex to clindamycin ? We will repeat CBC and BMP in the morning ? PT/OT for his debility and possible placement ? We will continue with his home Parkinson's medications 2. HTN/HLD ? Blood pressures are stable ? Continue with his metoprolol and his Ativan 3. BPH ? Stable ? Continue with Proscar and Flomax 4. Dementia ? Complicates care DVT: Lovenox Charges/Coding Visit Charges Inpatient E&M: 22108 Subs Hosp L2
[2022-04-13] MEDS: Cholecalciferol (VIT D3) 25 MCG TABLET (1,000 UNITS) 50 MCG PO (13:45)
[2022-04-13] MEDS: Clindamycin 600 MG/50 ML BAG 100 MG IV ×2 (13:49→22:07)
--- NOTE | 2022-04-13 14:53 | CASEMGMT ---
Addendum entered by Linette Kincaid 04/13/22 14:56: Call placed to Federica at [facility] [place] informing that pt will not be coming back at discharge but will be going to TCU prior to return to [facility] [place]. ROBERT Reece Original Note: Social Work Precert has been obtained for pt to go to TCU. Precert is good through 04/15. Physician updated and pt is not ready for discharge today. SW met with pt and informed that TCU can accept and pt is agreeable. Phone call to pt Yelitza and informed of the same. Questions answered and Yelitza agreeable to TCU. Plan: TCU, when medically ready ROBERT Reece
[2022-04-13] MEDS: Metoprolol Tartrate 25 MG Tablet 12.5 MG PO (17:01)
[2022-04-13] MEDS: Acetaminophen 325 MG Tablet 650 MG PO (22:06)
[2022-04-13] MEDS: Gabapentin 100 MG Capsule PO (22:07)
[2022-04-13] MEDS: MELATONIN 3 MG TABLET PO (22:07)
[2022-04-13] MEDS: Tamsulosin HCl 0.4 MG Capsule PO (22:07)
[2022-04-13] MEDS: Pravastatin 40 MG Tablet PO (22:08)
[2022-04-14 04:18] VITALS: BP 132/68; PULSE 75; RESP 16; TEMP 37.2; O2SAT 98
[2022-04-14 05:50] LABS: Absolute Neutrophil Count 3.9 X10^3/uL (2.0-7.7); Basophil# 0.02 X10^3/uL; Basophil% 0.4 % (0-1); Differential Indicated SCAN CRITERIA MET; Eosinophil# 0.25 X10^3/uL; Eosinophils% 4.6 % (0-5); Hematocrit 29.8 % (40-54); Lymphocyte % 9.1 % (19-41); Mean Corp Hgb Conc 33.6 g/dL (32-36); Mean Corpuscular Hgb 29.7 pg (27.0-32.0); Mean Corpuscular Volume 88.4 fL (80-94); Mean Platelet Vol. 10.3 fl (6.2-12.0); Monocyte# 0.77 X10^3/uL; NRBC Flagged by Analyzer 0 % (0-5); Neutrophil # 3.92 X10^3/uL (2.7-7.7); Neutrophil % 71.4 % (47-70); POSITIVE DIFFERENTIAL YES; Platelet Count 135 K/mm3 (150-450); RBC Distribution Width CV 13.5 % (11.6-14.6); RBC Distribution Width SD 43.8 fl (35.1-43.9); Red Blood Count 3.37 M/mm3 (4.6-6.2); White Blood Count 5.5 K/mm3 (4.4-11.0)
[2022-04-14] MEDS: Clindamycin 600 MG/50 ML BAG 100 MG IV (05:55)
[2022-04-14] MEDS: Carbidopa/Levodopa 25/100 Tablet PO ×2 (05:57→14:13)
[2022-04-14 06:07] LABS: Differential Comment SCANNED
[2022-04-14 06:09] LABS: Anion Gap 1 (5-15); BUN 25 mg/dL (7-18); BUN/Creat Ratio 33.9 RATIO (10-20); Calcium,Total 8.8 mg/dL (8.5-10.1); Chloride 109 mmol/L (98-107); Creatinine, Serum 0.74 mg/dL (0.70-1.30); EST Glomerular Filtration Rate 108 mL/min (>60); Est Glom Filt Rate - Afr Amer 130 mL/min (>60); Estimated Creatinine Clearance 50.51 ml/min; Glucose 105 mg/dL (74-106); Potassium 3.8 mmol/L (3.5-5.1); Sodium Level 140 mmol/L (136-145)
[2022-04-14 07:18] VITALS: BP 151/84; PULSE 68; RESP 18; TEMP 36.8; O2SAT 96
[2022-04-14 07:26] VITALS: O2SAT 97
[2022-04-14] MEDS: Menthol/Lanolin/Calamine/Znox 113 GM Tube 1 APPLIC TOPICAL (09:38)
[2022-04-14] MEDS: Finasteride 5 MG Tablet PO (09:39)
[2022-04-14] MEDS: Multivitamin (Healthy Eyes) Capsule 1 CAP PO (09:39)
[2022-04-14] MEDS: Enoxaparin 40 MG/0.4 ML Syringe SC (09:39)
[2022-04-14] MEDS: Docusate Sodium 100 MG Capsule PO (09:39)
--- NOTE | 2022-04-14 10:27 | TREXTCAR_ITS ---
Diet Diet Order/Speech Therapy: 04/10/22 13:35 Diet: Regular - General Is pt able to select menu?: No Wound(s) right elbow: Wound Type: Abrasion Therapies Weight Bearing: Non weight bearing Physical Therapy: Eval and Treat Occupational Therapy: Eval and Treat Problem/Diagnosis (1) Cellulitis of right forearm: Status: Acute Code(s): L03.113 - Cellulitis of right upper limb Plan 1. Right forearm and elbow area with an area of fluctuance/debility/Parkinson's disease ? Given the fact that he has been on 3 days of IV antibiotics and he still has some redness, and given the fluctuance we will transition him from Keflex to clindamycin ? We will repeat CBC and BMP in the morning ? PT/OT for his debility and possible placement ? We will continue with his home Parkinson's medications 2. HTN/HLD ? Blood pressures are stable ? Continue with his metoprolol and his Ativan 3. BPH ? Stable ? Continue with Proscar and Flomax 4. Dementia ? Complicates care DVT: Lovenox Allergies/Procedures Done in Hospital Allergies Penicillins Allergy (Verified 10/29/21 20:16) Hives Procedures: None Type of Care/Length of Stay Estimated LOS: Convalescent Care Less Than 30 days Type of Care Needed: Skilled Rehab Potential: Good Prognosis: Good Additional Orders/Day of Discharge Day of Discharge: 04/14/22 Dietary and Speech Recommendations Dietitian Recommendations/Changes: Will liberalize diet to Regular per pt/family request Will order ensure enlive 4x/day w/ medpass Discharge Plan Admission Admit Date/Time: 04/10/22 00:13 Attending Provider: Abdulaziz Spann Primary Care Provider: Scotty Hernández Consulting Providers: Ashley Richardson ; Marquis Rose Discharge Orders/Prescriptions Prescriptions: New clindamycin HCl 300 mg capsule 600 mg PO Q8H Qty: 60 0RF Continued pravastatin 80 MG tablet 40 mg PO QHS carbidopa-levodopa 1 TABLET tablet 1.5 tab PO TIDAC Rx Instructions: 25/100 PreserVision AREDS 1 EACH tablet 1 ea PO BID nitroglycerin 0.4 mg tablet, sublingual 0.4 mg sublingual PRN PRN (Reason: Chest Pain) docusate sodium 100 mg Capsule 100 mg PO BID gabapentin 100 mg capsule 100 mg PO QHS cholecalciferol (vitamin D3) [Vitamin D3] 25 mcg (1,000 unit) Capsule 50 mcg PO 1300 metoprolol tartrate 25 mg Tablet 12.5 mg PO 1700 Rx Instructions: hold if sbp<100 acetaminophen 500 mg Tablet 1,000 mg PO TID tamsulosin [Flomax] 0.4 mg Capsule 0.4 mg PO QHS finasteride 5 mg Tablet 5 mg PO 0900 Referrals / Follow Up: Scotty Hernández MD [Primary Care Provider] - Disposition Disposition (needs filled in before D/C Order can be placed): Assisted Facility
--- NOTE | 2022-04-14 10:36 | DS.PCM_ITS ---
Providers Date of Admission: 04/10/22 Primary Care Physician: Dr. Scotty Hernández MD Reason For Visit: ENCEPHALOPATHY, CELLULITIS Diagnosis Discharge Diagnosis (1) Cellulitis of right forearm: Status: Acute Code(s): L03.113 - Cellulitis of right upper limb Plan 1. Right forearm and elbow area with an area of fluctuance/debility/Parkinson's disease ? Given the fact that he has been on 3 days of IV antibiotics and he still has some redness, and given the fluctuance we will transition him from Keflex to clindamycin ? We will repeat CBC and BMP in the morning ? PT/OT for his debility and possible placement ? We will continue with his home Parkinson's medications 2. HTN/HLD ? Blood pressures are stable ? Continue with his metoprolol and his Ativan 3. BPH ? Stable ? Continue with Proscar and Flomax 4. Dementia ? Complicates care DVT: Lovenox Medications at Discharge Home Medications carbidopa 25 mg-levodopa 100 mg tablet 1.5 tab PO TIDAC 09/07/18 pravastatin 80 mg tablet 40 mg PO QHS 09/07/18 vitamins A,C,B-ffgf-bmfahf 2,148 mcg-113 mg-45 mg-17.4 mg tablet (PreserVision AREDS) 1 ea PO BID 09/07/18 cholecalciferol (vitamin D3) 25 mcg (1,000 unit) capsule (Vitamin D3) 50 mcg PO 1300 08/27/21 docusate sodium 100 mg capsule 100 mg PO BID stool softener 08/27/21 gabapentin 100 mg capsule 100 mg PO QHS 08/27/21 metoprolol tartrate 25 mg tablet 12.5 mg PO 1700 08/27/21 nitroglycerin 0.4 mg sublingual tablet 0.4 mg sublingual PRN PRN Chest Pain 08/27/21 acetaminophen 500 mg tablet 1,000 mg PO TID 10/08/21 finasteride 5 mg tablet 5 mg PO 0900 prostate 04/10/22 tamsulosin 0.4 mg capsule (Flomax) 0.4 mg PO QHS prostate 04/10/22 clindamycin HCl 300 mg capsule 600 mg PO Q8H #60 caps 04/14/22 Hospital Course Operations None Procedures None Summary of Care Provided Minutes Spent on Discharge: 38 Hospital Course: Per HPI: The patient is an 81 y/o M w/ PMHx: Hx Bladder CA, HTN, HLD, CAD, Former tobacco use, Chronic anemia, Schizophrenia, Parkinson's disease with associate dementia with no behavioral disturbance history, Orthostatic hypot ension who presents to the [facility] ED on 04/10/22 with history of residing in [place] assisted living with history of fall on Wednesday approximately 6 days prior with redness to his right forearm which appears to be worsening with recent facility urinalysis negative for any infection with increased confusion noted on day of presentation by family with EMS reported temperature 103 with no recent antipyr etic regimen or any antibiotics with family noted concern for possible skin infection as noted RUE forearm edema, redness and discomfort prompting ED evaluation.? Family reports that patient does have baseline confusion however he normally knows at least his name and is able to interact which is not the case today. Work-up in the ED included T99.3 With T increased up to 101.3, heart rate 93, BP 172/107, respiratory rate 16, 97% on room air, CBC with WC 8.9, hemoglobin 11.9, platelet 135 with left shift and lymphopenia, blood culture x2 and urine culture pending per ED, CT of the brain with no acute intracranial findings, CMP with BUN/creat 29/1.09, glucose 130, lactic acid 1.2, hepatic profile unremarkable, troponin 8, chest x-ray with no acute cardiopulmonary findings, plain film of the right forearm with an intact radius and ulna, and normal appearance of the wrist with soft tissue calcifications with questionable dorsal wrist fracture fragment, 3 mm lytic lesion of the fifth metacarpal with recommended correlate of wrist x-ray which was obtained and final read pending upon evaluation, COVID antigen negative, urinalysis with no obvious evidence of UTI.? In the ED patient ministered normal saline bolus as well as Tylenol 650 mg p.o. x1, normal saline 1 L bolus as well as Levaquin 750 mg IV x1.? Hospital Course: 1. Right forearm and elbow area with an area of fluctuance and cellulitis/debility/Parkinson's disease?81-year-old [facility] metabolic encephalopathy versus delirium in the setting of his chronic dementia. Did have some redness in his right elbow and was started on Ancef, he had a slow improvement so he was transitioned to clindamycin and has had much better improvement now. We will continue with discharge to the transitional care unit to continue with therapy and to complete a course of his oral clindamycin 600 mg p.o.3 times daily for another 10 days. I discussed with him the plan for discharge today and he did state that he is okay with going and feels a little bit better today. 2. Hypertension, hyperlipidemia, BPH, dementia are all chronic medical conditions which complicate his care. His home medications were continued where appropriate Physical Exam Narrative General: Alert, Oriented x2, he thinks he is in [place], Cooperative, No apparent distress HEENT: Atraumatic, PERRLA, EOMI, Normocephalic Oral: Moist Mucosa Neck: Supple, No JVD Lungs: Clear to auscultation, Normal air movement, No rhonchi, No wheeze, No rales Cardiovascular: Regular rate, Regular Rhythm, Normal S1, Normal S2, No murmurs Abdomen: Soft, Non Tender, Non-Distended, No Hepato-splenomegaly Extremities: No edema, Capillary Refill Less than 3 Seconds Skin: Redness from his right wrist to a little bit past his elbow.? There is also an area of fluctuance on the lateral aspect of his right elbow, with edema Musculoskeletal: No Tenderness to Palpation of Joints or Extremities Neurological: Cranial nerves II-XII grossly intact, Motor Exam 5/5 strength throughout, Sensory exam intact to light touch and pain Psych/Mental Status: Normal Affect, Appropriate Weight / BMI Weight Weight: 165 lb 5.547 oz Body Mass Index (BMI) 25.5 ABG / Lab / Microbiology Data Result Diagrams: 04/14/22 05:24 04/14/22 05:24 Laboratory: Laboratory Results - last 24 hr 04/14/22 05:24: WBC 5.5, RBC 3.37 L, Hgb 10.0 L, Hct 29.8 L, MCV 88.4, MCH 29.7, MCHC 33.6, RDW Std Deviation 43.8, RDW Coeff of Buck 13.5, Plt Count 135 L, MPV 10.3, Immature Gran % (Auto) 0.500, Neut % (Auto) 71.4 H, Lymph % (Auto) 9.1 L, [place] % (Auto) 14.0 H, Eos % (Auto) 4.6, Baso % (Auto) 0.4, Absolute Neuts (auto) 3.9, Absolute Lymphs (auto) 0.50 L, Nucleated RBC % 0, Differential Comment SCANNED 04/14/22 05:24: Sodium 140, Potassium 3.8, Chloride 109 H, Carbon Dioxide 30.0, Anion Gap 1 L, BUN 25 H, Creatinine 0.74, Estim Creat Clear Calc 50.51, Est GFR (MDRD) Af Amer 130, Est GFR (MDRD) Non-Af 108, BUN/Creatinine Ratio 33.9 H, Glucose 105, Calcium 8.8 Microbiology: Microbiology 04/09/22 23:10 Urine Catheter - Catheter Urine Culture - Final Aerococcus urinae 04/09/22 22:15 Blood Culture (Wb) - Arm Left Blood Culture - Preliminary No growth in 48 hours. 04/09/22 22:00 Blood Culture (Wb) - Arm Left Blood Culture - Preliminary No growth in 48 hours. 04/09/22 23:36 Nasal Secretion SARS-CoV-2 & FLU Antigen (Rapid) - Final Meaningful Use Info Meaningful Use Diagnoses (Choose all that apply): None applicable Discharge Plan Admission Admit Date/Time: 04/10/22 00:13 Attending Provider: Abdulaziz Spann Primary Care Provider: Scotty Hernández Consulting Providers: Ashley Richardson ; Marquis Rose Discharge Orders/Prescriptions Prescriptions: New clindamycin HCl 300 mg capsule 600 mg PO Q8H Qty: 60 0RF Continued pravastatin 80 MG tablet 40 mg PO QHS carbidopa-levodopa 1 TABLET tablet 1.5 tab PO TIDAC Rx Instructions: 25/100 PreserVision AREDS 1 EACH tablet 1 ea PO BID nitroglycerin 0.4 mg tablet, sublingual 0.4 mg sublingual PRN PRN (Reason: Chest Pain) docusate sodium 100 mg Capsule 100 mg PO BID gabapentin 100 mg capsule 100 mg PO QHS cholecalciferol (vitamin D3) [Vitamin D3] 25 mcg (1,000 unit) Capsule 50 mcg PO 1300 metoprolol tartrate 25 mg Tablet 12.5 mg PO 1700 Rx Instructions: hold if sbp<100 acetaminophen 500 mg Tablet 1,000 mg PO TID tamsulosin [Flomax] 0.4 mg Capsule 0.4 mg PO QHS finasteride 5 mg Tablet 5 mg PO 0900 Referrals / Follow Up: Scotty Hernández MD [Primary Care Provider] - Disposition Disposition (needs filled in before D/C Order can be placed): [facility] Facility Charges/Coding Visit Charges Inpatient E&M: 75369 Disch Hosp
--- NOTE | 2022-04-14 11:29 | PHA.DC.MR ---
Pharmacy Service has performed discharge medication reconciliation for this patient. The patient's discharge medication list was reviewed for discrepancies and discrepancies were resolved. Home Medications carbidopa 25 mg-levodopa 100 mg tablet 1.5 tab PO TIDAC 09/07/18 pravastatin 80 mg tablet 40 mg PO QHS 09/07/18 vitamins A,C,E-hnvs-ldawlx 2,148 mcg-113 mg-45 mg-17.4 mg tablet (PreserVision AREDS) 1 ea PO BID 09/07/18 cholecalciferol (vitamin D3) 25 mcg (1,000 unit) capsule (Vitamin D3) 50 mcg PO 1300 08/27/21 docusate sodium 100 mg capsule 100 mg PO BID stool softener 08/27/21 gabapentin 100 mg capsule 100 mg PO QHS 08/27/21 metoprolol tartrate 25 mg tablet 12.5 mg PO 1700 08/27/21 nitroglycerin 0.4 mg sublingual tablet 0.4 mg sublingual PRN PRN Chest Pain 08/27/21 acetaminophen 500 mg tablet 1,000 mg PO TID 10/08/21 finasteride 5 mg tablet 5 mg PO 0900 prostate 04/10/22 tamsulosin 0.4 mg capsule (Flomax) 0.4 mg PO QHS prostate 04/10/22 clindamycin HCl 300 mg capsule 600 mg PO Q8H #60 caps 04/14/22
--- NOTE | 2022-04-14 11:56 | CASEMGMT ---
Social Work SW faxed transfer/discharge orders to TCU, notified pt and pt's that he will be discharging to TCU today following a negative covid test. Pt and his both voiced understanding. Pt asking questions about laundry and items she needs to bring for pt while he is at TCU. SW informed her that she needs to bring clothing and shoes for pt and that she would be responsible for pt's laundry needs. discussed concerns with pt incontinence. SW assured her pt would be provided adult diapers/depends as needed. , Yelitza, understands. ROBERT Meyer
[2022-04-14] MEDS: Cholecalciferol (VIT D3) 25 MCG TABLET (1,000 UNITS) 50 MCG PO (14:13)
[2022-04-14 14:24] VITALS: BP 103/59; PULSE 78; RESP 18; TEMP 37.1; O2SAT 98
== END 2022-04-14 16:02 | disposition skilled nursing facility (03) | DRG 602 ==
LOC: ED 04-10 00:02 → MS3 04-10 06:35
PROVIDERS: Internal Medicine; Admitting Provider Family Medicine; Emergency Provider Emergency Medicine; PCP Internal Medicine; Visit Provider Family Medicine
DX: L03.113 Cellulitis of right upper limb (principal); G20 Parkinson's disease; F20.9 Schizophrenia, unspecified; F02.80 Dementia in other diseases classified elsewhere, unspecified severity, without behavioral disturbance, psychotic disturbance, mood disturbance, and anxiety; D69.6 Thrombocytopenia, unspecified; G93.41 Metabolic encephalopathy; E78.5 Hyperlipidemia, unspecified; S40.811A Abrasion of right upper arm, initial encounter; D64.9 Anemia, unspecified; I10 Essential (primary) hypertension; I25.10 Atherosclerotic heart disease of native coronary artery without angina pectoris; I95.1 Orthostatic hypotension; W19.XXXA Unspecified fall, initial encounter; Z85.828 Personal history of other malignant neoplasm of skin; Z87.891 Personal history of nicotine dependence; Z86.010 Personal history of colon polyps; Z85.46 Personal history of malignant neoplasm of prostate; Z79.899 Other long term (current) drug therapy; Z85.51 Personal history of malignant neoplasm of bladder; H54.8 Legal blindness, as defined in USA; Y92.099 Unspecified place in other non-institutional residence as the place of occurrence of the external cause; Z91.81 History of falling; N40.0 Benign prostatic hyperplasia without lower urinary tract symptoms; R53.81 Other malaise; M79.631 Pain in right forearm
CPT/HCPCS: 36415; 70450; 71045; 73090; 73110; 80048; 80053; 81001; 83605; 84484; 85025; 85610; 85730; 87040; 87077; 87086; 87088; 87426; 87428; 92526; 92610; 93005; 93971; 96361; 96365; 96366; 96367; 96372; 96375; 96376; 97110; 97162; 97166; 97530; 97535; 99221; 99285; J7030; J7050; P9612; A4216; G0378

== ENCOUNTER 2022-04-14 16:10 | Inpatient (IN) | payer MEDICARE, SELFPAY ==
[2022-04-14 16:25] VITALS: BP 137/79; PULSE 62; RESP 16; TEMP 36.2; O2SAT 97; BMI 26.5
[2022-04-14 18:04] VITALS: PULSE 62
[2022-04-14] MEDS: Metoprolol Tartrate 25 MG Tablet 12.5 MG PO (18:04)
[2022-04-14] MEDS: Docusate Sodium 100 MG Capsule PO (18:05)
--- NOTE | 2022-04-14 18:20 | NURSING ---
Called Jos REID, Patient has only been vaccinated 3x not four.
[2022-04-14] MEDS: Bisacodyl 10 MG Suppository RC (21:13)
[2022-04-14] MEDS: Gabapentin 100 MG Capsule PO (21:13)
[2022-04-14] MEDS: Tamsulosin HCl 0.4 MG Capsule PO (21:14)
[2022-04-14] MEDS: Clindamycin HCl 150 MG Capsule 600 MG PO (21:14)
[2022-04-14] MEDS: Pravastatin 40 MG Tablet PO (21:14)
[2022-04-14] MEDS: Acetaminophen 500 MG Tablet 1000 MG PO (21:14)
[2022-04-14 22:00] VITALS: PULSE 73; RESP 18; O2SAT 98
[2022-04-15] MEDS: Menthol/Lanolin/Calamine/Znox 113 GM Tube 1 APPLIC TOPICAL ×2 (04:43→16:16)
[2022-04-15] MEDS: Acetaminophen 500 MG Tablet 1000 MG PO ×3 (04:44→21:03)
[2022-04-15] MEDS: Clindamycin HCl 150 MG Capsule 600 MG PO ×3 (04:44→21:03)
[2022-04-15] MEDS: Docusate Sodium 100 MG Capsule PO ×2 (04:45→16:13)
[2022-04-15] MEDS: Carbidopa/Levodopa 25/100 Tablet PO ×3 (04:45→16:12)
[2022-04-15 05:42] LABS: Absolute Neutrophil Count 3.9 X10^3/uL (2.0-7.7); Basophil# 0.04 X10^3/uL; Basophil% 0.7 % (0-1); Eosinophil# 0.28 X10^3/uL; Eosinophils% 4.7 % (0-5); Hematocrit 29.8 % (40-54); Hemoglobin 9.5 g/dL (13.0-16.5); Lymphocyte % 11.9 % (19-41); Mean Corp Hgb Conc 31.9 g/dL (32-36); Mean Corpuscular Hgb 28.7 pg (27.0-32.0); Mean Platelet Vol. 10.1 fl (6.2-12.0); Monocyte% 15.3 % (0-10); NRBC Flagged by Analyzer 0 % (0-5); Neutrophil # 3.92 X10^3/uL (2.7-7.7); Neutrophil % 66.4 % (47-70); Platelet Count 137 K/mm3 (150-450); RBC Distribution Width CV 13.4 % (11.6-14.6); RBC Distribution Width SD 44.4 fl (35.1-43.9); Red Blood Count 3.31 M/mm3 (4.6-6.2); White Blood Count 5.9 K/mm3 (4.4-11.0)
[2022-04-15 06:17] LABS: Anion Gap 4 (5-15); BUN 25 mg/dL (7-18); BUN/Creat Ratio 32.9 RATIO (10-20); Calcium,Total 8.5 mg/dL (8.5-10.1); Chloride 105 mmol/L (98-107); Creatinine, Serum 0.76 mg/dL (0.70-1.30); EST Glomerular Filtration Rate 104 mL/min (>60); Est Glom Filt Rate - Afr Amer 126 mL/min (>60); Estimated Creatinine Clearance 50.51 ml/min; Glucose 97 mg/dL (74-106); Potassium 3.8 mmol/L (3.5-5.1); Sodium Level 138 mmol/L (136-145)
--- NOTE | 2022-04-15 06:22 | NURSING ---
Patient pleasant and cooperative. Able to answer orientation questions. Meds taken without difficulty. Patient forgot when he needed to use restroom and got up without calling. Reminded to call for help. Patient had a small very hard stool at beginning of shift. Requesting a suppository. Suppository given without difficulty, no results as of yet.
[2022-04-15] MEDS: Multivitamin (Healthy Eyes) Capsule 1 CAP PO ×2 (08:14→16:13)
[2022-04-15] MEDS: Finasteride 5 MG Tablet PO (08:15)
[2022-04-15] MEDS: Tuberculin,Purif.prot.deriv. 50 TU/ML Vial 0.1 ML ID (11:05)
--- NOTE | 2022-04-15 12:56 | PCM.HP.STD ---
[facility] - General General Date of Admission: 04/14/22 Date of Service: 04/15/22 Chief Complaint: Debility secondary to generalized weakness/Parkinson's disease/dementia. HPI Narrative REBECCA BAUTISTA, is a 81 YO M with a past medical history of bladder cancer, hypertension, hyperlipidemia, orthostatic hypotension, coronary artery disease, tobacco dependence in remission, chronic anemia, schizophrenia and Parkinson's disease with associated dementia and hx of hallucinations who presented to the ED at [facility] on 04/10/2022 with complaints of confusion and a recent fall that caused right arm redness and swelling. He resides at [facility]. He had a fall approximately 6 days prior to presenting to the emergency department. EMS reported they found his temperature to be 103 ?F. Temp in the emergency department was 101.3. WBC count was 8.9 but he had a left shift. Platelets were mildly decreased at 135,000. Plain film of the right forearm showed a questionable dorsal wrist fracture fragment and a 3 mm lytic lesion of the fifth metacarpal. He was started on Levaquin in the emergency department and then admitted to the hospitalist service. He was treated with antibiotics in the hospital but, the notes state he still has erythema and swelling of the R forearm. He was transitioned to Clindamycin from Levaquin at [place] from the hospital. Family requested SNF admission and he was transferred to TCU on 04/14/22 for strengthening and ongoing tx of cellulitis. All lab from today was personally reviewed. The white blood cell count has decreased from 9.7 on the -5.9 today. Hemoglobin is down from 1.9 at admission to 9.5 currently. Platelet count is currently 137,000 and he has had thrombocytopenia intermittently in the past. He still has a mild left shift. Sodium and potassium are within normal limits. The BUN is elevated at 25 and the creatinine is stable at 0.76. The estimated creatinine clearance is 50.51. Blood cultures were negative. [facility] Medical History (Updated 04/18/22 @ 12:[address] Aletha Soliman DO) Actinic keratosis Anemia Arthritis Atherosclerotic heart disease of [place] coronary artery without angina pectoris Back pain Basal cell carcinoma of skin, unspecified Blood disorder Cardiology follow-up encounter Discoloration of skin Easy bruising Eczema intertrigo Essential (primary) hypertension Former smoker History of ankle fracture History of echocardiogram History of hallucinations History of Holter monitoring History of stress test Hyperlipidemia, unspecified Impaired fasting glucose Leg cramps Legally blind Migraine headache Orthostatic hypotension Parkinson's disease Personal history of colonic polyps Prostate cancer Redness of skin Schizophrenia Spondylosis without myelopathy or radiculopathy, lumbar region Syncope Thrombocytopenia, unspecified Unspecified abnormalities of gait and mobility Unspecified urinary incontinence Uses wheelchair Home Medications carbidopa 25 mg-levodopa 100 mg tablet 1.5 tab PO TIDAC Check with primary doctor 09/07/18 [History Last Taken 10/24/21 06:00] pravastatin 80 mg tablet 40 mg PO QHS cholesterol 09/07/18 [History Last Taken Unknown] vitamins A,C,C-oddm-kaywcl 2,148 mcg-113 mg-45 mg-17.4 mg tablet (PreserVision AREDS) 1 ea PO BID vitamin 09/07/18 [History Last Taken Unknown] cholecalciferol (vitamin D3) 25 mcg (1,000 unit) capsule (Vitamin D3) 50 mcg PO 1300 supplement 08/27/21 [History Last Taken Unknown] docusate sodium 100 mg capsule 100 mg PO BID stool softener 08/27/21 [History Last Taken Unknown] gabapentin 100 mg capsule 100 mg PO QHS Check with primary doctor 08/27/21 [History Last Taken Unknown] metoprolol tartrate 25 mg tablet 12.5 mg PO 1700 BP 08/27/21 [History Last Taken Unknown] nitroglycerin 0.4 mg sublingual tablet 0.4 mg sublingual PRN PRN Chest Pain 08/27/21 [History Last Taken Unknown] acetaminophen 500 mg tablet 1,000 mg PO TID pain 10/08/21 [History Last Taken Unknown] finasteride 5 mg tablet 5 mg PO 0900 prostate 04/10/22 [History Last Taken Unknown] tamsulosin 0.4 mg capsule (Flomax) 0.4 mg PO QHS prostate 04/10/22 [History Last Taken Unknown] clindamycin HCl 300 mg capsule 600 mg PO Q8H Check with primary doctor 04/14/22 [History Last Taken Unknown] Allergy/AdvReac Type Severity Reaction Status Date / Time Penicillins Allergy Hives Verified 10/29/21 20:16 Family History Mother Cancer Surgical History History of cardiac catheterization Hx of colonoscopy Hx of hernia repair Hx of inguinal hernia repair Hx of inguinal hernia repair Hx of left cataract extraction Hx of right cataract extraction Social History household members: spouse housing: group home Smoking Status: Former smoker substance use type: does not use ROS Review of Systems ROS Unobtainable: other Details: limited due to dementia ; Denies due to encephalopathy, due to endotracheal tube, due to mental condition or due to mental status Constitutional Constitutional: Reports weakness Eyes Eyes: Denies blurry vision, change in vision, eye pain or loss of vision ENT HEENT: Denies headache(s), sinus pain or sore throat Cardiovascular Cardiovascular: Reports syncope; Denies chest pain, dyspnea at rest or dyspnea on exertion Respiratory/Chest Respiratory/Chest: Denies cough or dyspnea Gastrointestinal Gastrointestinal: Denies abdominal pain Genitourinary Genitourinary: Denies dysuria Musculoskeletal Musculoskeletal: Denies back pain Neurologic Neurologic: Reports confusion; Denies dizziness, headache(s) or tremor(s) Psychiatric Psychiatric: Reports other Details: He has schizophrenia and dementia with behavioral disturbances but, he denies Vital Signs Vital Signs Vital Signs: 04/14/22 16:25 04/14/22 18:04 04/14/22 22:00 Temperature 97.1 F L Temperature Source Temporal Pulse Rate 62 62 73 Pulse Rhythm Regular Pulse Strength Normal (2+) Respiratory Rate 16 18 Respiratory Effort Normal Non-Labored Respiratory Depth Normal Respiratory Pattern Normal Blood Pressure 137/79 H Blood Pressure Mean 98 Blood Pressure Source Monitor Blood Pressure Position Semi-Fowlers Blood Pressure Location Left Arm Pulse Ox 97 98 Oxygen Delivery Method Room Air Room Air Weight Weight: 164 lb 5 oz Body Mass Index (BMI) 26.5 Physical Exam Const alert and no apparent distress Constitutional Narrative: Oriented to self today. Able to follow simple commands. General Appearance: cooperative HEENT normocephalic and head/scalp atraumatic HEENT Narrative: Mucous membranes are dry. No buccal lesions. Eyes PERRL, EOMs intact bilaterally, conjunctivae normal and no scleral icterus Neck supple and no carotid bruits General: trachea midline Chest Chest: symmetrical chest wall rise Resp normal respiratory effort and clear to auscultation bilaterally Resp Narrative: Breath sounds are diminished in the bases. No crackles, wheezes or rhonchi. Cardio regular rate, regular rhythm, no gallops and no JVD GI normal to inspection, nondistended, normoactive bowel sounds, soft to palpation and non-tender GI Narrative: No guarding to palpation. Extremity no calf tenderness Extremity Narrative: Mild bilateral ankle edema Results Lab / Micro Data Result Diagrams: 04/15/22 05:26 04/15/22 05:26 Labs: Laboratory Results - last 24 hr 04/15/22 05:26: WBC 5.9, RBC 3.31 L, Hgb 9.5 L, Hct 29.8 L, MCV 90.0, MCH 28.7, MCHC 31.9 L D, RDW Std Deviation 44.4 H, RDW Coeff of Buck 13.4, Plt Count 137 L, MPV 10.1, Immature Gran % (Auto) 1.000 H, Neut % (Auto) 66.4, Lymph % (Auto) 11.9 L, Polk % (Auto) 15.3 H, Eos % (Auto) 4.7, Baso % (Auto) 0.7, Absolute Neuts (auto) 3.9, Absolute Lymphs (auto) 0.70 L, Nucleated RBC % 0 04/15/22 05:26: Sodium 138, Potassium 3.8, Chloride 105, Carbon Dioxide 29.0, Anion Gap 4 L, BUN 25 H, Creatinine 0.76, Estim Creat Clear Calc 50.51, Est GFR (MDRD) Af Amer 126, Est GFR (MDRD) Non-Af 104, BUN/Creatinine Ratio 32.9 H, Glucose 97, Calcium 8.5 Assessment & Plan Assessment/Plan (1) Dementia with behavioral disturbance: (2) History of hallucinations: (3) Bladder cancer: (4) Schizophrenia: (5) Cellulitis of right forearm: (6) Thrombocytopenia: (7) Parkinson disease: PLAN: Plan PLAN PT for gait stability OT for ADL's ST for evaluation Analgesics as needed Bowel protocol Fall precautions Assess for Anxiety/Depression GI prophylaxis-not at this time. Has no nausea, heartburn, epigastric pain or history of peptic ulcer disease. DVT prophylaxis with SCD's Follow up with PCP following DC from [facility] All lab from the hospital admission personally reviewed Start Low dose Seroquel to control behavior. He is aggressive with nursing and up at night trying to get out of bed. Charges/Coding Visit Charges Inpatient E&M: 82736 SNF Init L2
[2022-04-15] MEDS: Cholecalciferol (VIT D3) 25 MCG TABLET (1,000 UNITS) 50 MCG PO (13:06)
[2022-04-15 16:00] VITALS: BP 147/86; PULSE 56; RESP 16; TEMP 36.6; O2SAT 97
[2022-04-15 16:13] VITALS: BP 167/96; PULSE 64
[2022-04-15] MEDS: Metoprolol Tartrate 25 MG Tablet 12.5 MG PO (16:13)
--- NOTE | 2022-04-15 16:29 | CASEMGMT ---
Social Work See attached assessment for complete details. This child protective services social worker introduced self and child protective services social worker role. Patient agreeable to speak with this child protective services social worker. Patient plans to return to [facility] at time of discharge. This child protective services social worker going over MOLST form with patient, patient declining to complete MOLST form or to discuss code status. Nursing has confirmed patient code status. This child protective services social worker educated patient on insurance benefits with first update due on 04/16/2022. This child protective services social worker communicating to patient that there is no guarantee of continued stay approval and that insurance will provide a three day notice when continued stay is denied. Patient reports that spouse, Yelitza is main contact. Patient is agreeable to this child protective services social worker calling Yelitza to update on insurance information. Telephone call to Yelitza, this child protective services social worker updated Yelitza on insurance update process and no guarantee of continued stay approval. Yelitza voiced understanding. Yelitza confirms patient current code status of DNRCC-A No Intubation. Nursing staff updated. Social Work to continue to follow. Yulisa Aldana MSW, ORALIA
[2022-04-15] MEDS: Gabapentin 100 MG Capsule PO (21:03)
[2022-04-15] MEDS: Pravastatin 40 MG Tablet PO (21:03)
[2022-04-15] MEDS: Tamsulosin HCl 0.4 MG Capsule PO (21:03)
[2022-04-15 22:00] VITALS: PULSE 99; RESP 16; O2SAT 92
[2022-04-16] MEDS: Docusate Sodium 100 MG Capsule PO ×2 (06:21→17:59)
[2022-04-16] MEDS: Clindamycin HCl 150 MG Capsule 600 MG PO ×3 (06:21→21:36)
[2022-04-16] MEDS: Carbidopa/Levodopa 25/100 Tablet PO ×3 (06:22→17:53)
[2022-04-16] MEDS: Acetaminophen 500 MG Tablet 1000 MG PO ×3 (06:22→21:35)
[2022-04-16] MEDS: Menthol/Lanolin/Calamine/Znox 113 GM Tube 1 APPLIC TOPICAL ×2 (06:33→17:58)
[2022-04-16] MEDS: Multivitamin (Healthy Eyes) Capsule 1 CAP PO ×2 (08:58→17:52)
[2022-04-16] MEDS: Finasteride 5 MG Tablet PO (08:58)
--- NOTE | 2022-04-16 10:56 | CASEMGMT ---
Social Work This renal social worker speaking with patient spouse, Yelitza. Yelitza with multiple questions about self-pay if continued stay approval is denied by insurance prior to Yelitza or the team recommending discharge for patient. This renal social worker provided Yelitza with daily rate for TCU of $660 and that TCU policy is that 21 days are paid in full and if the full 21 days are not used then the remaining are reimbursed. Yelitza voiced understanding and thanked this renal social worker for the information. Yulisa WEBBER, ORALIA
[2022-04-16] MEDS: Cholecalciferol (VIT D3) 25 MCG TABLET (1,000 UNITS) 50 MCG PO (13:05)
[2022-04-16 15:20] VITALS: BP 129/75; PULSE 63; RESP 16; TEMP 35.8; O2SAT 98
[2022-04-16 17:57] VITALS: BP 129/75; PULSE 63
[2022-04-16] MEDS: Metoprolol Tartrate 25 MG Tablet 12.5 MG PO (17:57)
[2022-04-16 18:02] VITALS: PULSE 83; RESP 18; O2SAT 93
[2022-04-16] MEDS: Tamsulosin HCl 0.4 MG Capsule PO (21:36)
[2022-04-16] MEDS: Pravastatin 40 MG Tablet PO (21:36)
[2022-04-16] MEDS: Gabapentin 100 MG Capsule PO (21:36)
[2022-04-16] MEDS: QUEtiapine 25 MG Tablet PO (21:36)
[2022-04-17] MEDS: Acetaminophen 500 MG Tablet 1000 MG PO ×2 (06:52→20:47)
[2022-04-17] MEDS: Docusate Sodium 100 MG Capsule PO ×2 (06:52→16:43)
[2022-04-17] MEDS: Carbidopa/Levodopa 25/100 Tablet PO ×3 (06:52→16:42)
[2022-04-17] MEDS: Clindamycin HCl 150 MG Capsule 600 MG PO ×3 (06:53→20:47)
[2022-04-17] MEDS: Menthol/Lanolin/Calamine/Znox 113 GM Tube 1 APPLIC TOPICAL ×2 (06:53→16:52)
[2022-04-17] MEDS: Finasteride 5 MG Tablet PO (10:11)
[2022-04-17] MEDS: QUEtiapine 25 MG Tablet 12.5 MG PO (10:11)
[2022-04-17] MEDS: Multivitamin (Healthy Eyes) Capsule 1 CAP PO ×2 (10:11→16:43)
[2022-04-17] MEDS: Cholecalciferol (VIT D3) 25 MCG TABLET (1,000 UNITS) 50 MCG PO (12:47)
--- NOTE | 2022-04-17 15:18 | NURSING ---
Attempted to return call to pt's daughter Laura. No answer at this time and VM full.
[2022-04-17 15:25] VITALS: BP 98/67; PULSE 57; RESP 16; TEMP 35.9; O2SAT 96
[2022-04-17 16:40] VITALS: PULSE 57
[2022-04-17 17:01] LABS: Bedside Glucose 107 mg/dL (74-106)
--- NOTE | 2022-04-17 18:31 | NURSING ---
daughter, Laura here and requesting that pt not get Seroquel tonight, feels pt behavior is worse. note left for Dr Soliman to call daugther to discuss other options.
[2022-04-17] MEDS: Gabapentin 100 MG Capsule PO (20:47)
[2022-04-17] MEDS: Tamsulosin HCl 0.4 MG Capsule PO (20:48)
[2022-04-17] MEDS: Pravastatin 40 MG Tablet PO (20:49)
[2022-04-18] MEDS: Clindamycin HCl 150 MG Capsule 600 MG PO ×3 (06:25→21:26)
[2022-04-18] MEDS: Docusate Sodium 100 MG Capsule PO ×2 (06:25→16:45)
[2022-04-18] MEDS: Carbidopa/Levodopa 25/100 Tablet PO ×3 (06:25→16:46)
[2022-04-18] MEDS: Menthol/Lanolin/Calamine/Znox 113 GM Tube 1 APPLIC TOPICAL ×2 (06:26→16:48)
[2022-04-18] MEDS: Acetaminophen 500 MG Tablet 1000 MG PO ×3 (06:26→21:27)
[2022-04-18] MEDS: Multivitamin (Healthy Eyes) Capsule 1 CAP PO ×2 (08:45→16:45)
[2022-04-18] MEDS: Finasteride 5 MG Tablet PO (08:45)
[2022-04-18 10:00] VITALS: PULSE 64; RESP 18; O2SAT 94
[2022-04-18] MEDS: Cholecalciferol (VIT D3) 25 MCG TABLET (1,000 UNITS) 50 MCG PO (11:24)
[2022-04-18 16:00] VITALS: BP 124/70; PULSE 64; RESP 18; TEMP 36.4; O2SAT 94
[2022-04-18 16:45] VITALS: BP 124/70; PULSE 64
[2022-04-18] MEDS: Metoprolol Tartrate 25 MG Tablet 12.5 MG PO (16:45)
[2022-04-18] MEDS: Gabapentin 100 MG Capsule PO (21:26)
[2022-04-18] MEDS: Tamsulosin HCl 0.4 MG Capsule PO (21:27)
[2022-04-18] MEDS: QUEtiapine 25 MG Tablet PO (21:28)
[2022-04-18] MEDS: Pravastatin 40 MG Tablet PO (21:29)
[2022-04-19] MEDS: Docusate Sodium 100 MG Capsule PO ×2 (04:47→17:04)
[2022-04-19] MEDS: Clindamycin HCl 150 MG Capsule 600 MG PO ×3 (04:47→19:47)
[2022-04-19] MEDS: Acetaminophen 500 MG Tablet 1000 MG PO ×3 (04:47→19:46)
[2022-04-19] MEDS: Menthol/Lanolin/Calamine/Znox 113 GM Tube 1 APPLIC TOPICAL ×2 (04:47→17:08)
[2022-04-19] MEDS: Carbidopa/Levodopa 25/100 Tablet PO ×3 (04:48→17:05)
--- NOTE | 2022-04-19 06:35 | NURSING ---
patient slept through night, difficult to awaken for morning meds. One awake meds taken without difficulty and pt used urinal. No s/s of other effects noted.
[2022-04-19] MEDS: Multivitamin (Healthy Eyes) Capsule 1 CAP PO ×2 (09:10→17:05)
[2022-04-19] MEDS: QUEtiapine 25 MG Tablet 12.5 MG PO (09:10)
[2022-04-19] MEDS: Finasteride 5 MG Tablet PO (09:12)
[2022-04-19] MEDS: Cholecalciferol (VIT D3) 25 MCG TABLET (1,000 UNITS) 50 MCG PO (12:32)
[2022-04-19 15:51] VITALS: BP 126/79; PULSE 63; RESP 14; TEMP 36.8; O2SAT 93
[2022-04-19 17:04] VITALS: BP 109/61; PULSE 68
[2022-04-19] MEDS: Metoprolol Tartrate 25 MG Tablet 12.5 MG PO (17:04)
[2022-04-19] MEDS: Gabapentin 100 MG Capsule PO (19:47)
[2022-04-19] MEDS: Pravastatin 40 MG Tablet PO (19:47)
[2022-04-19] MEDS: Tamsulosin HCl 0.4 MG Capsule PO (19:47)
[2022-04-19] MEDS: QUEtiapine 25 MG Tablet PO (19:47)
[2022-04-20] MEDS: Docusate Sodium 100 MG Capsule PO ×2 (05:35→17:37)
[2022-04-20] MEDS: Clindamycin HCl 150 MG Capsule 600 MG PO ×3 (05:35→21:21)
[2022-04-20] MEDS: Carbidopa/Levodopa 25/100 Tablet PO ×3 (05:36→17:34)
[2022-04-20] MEDS: Acetaminophen 500 MG Tablet 1000 MG PO ×3 (05:36→21:22)
[2022-04-20] MEDS: Menthol/Lanolin/Calamine/Znox 113 GM Tube 1 APPLIC TOPICAL ×2 (05:36→17:36)
[2022-04-20] MEDS: Multivitamin (Healthy Eyes) Capsule 1 CAP PO ×2 (09:22→17:35)
[2022-04-20] MEDS: QUEtiapine 25 MG Tablet 12.5 MG PO (09:22)
[2022-04-20] MEDS: Finasteride 5 MG Tablet PO (09:22)
--- NOTE | 2022-04-20 09:56 | CASEMGMT ---
Social Work Brief interview for mental status (BIMS) and resident mood interview (PHQ-9) completed on this day. BIMS score . PHQ-9 score 12/07. Yulisa WEBBER, ENRICOS
[2022-04-20] MEDS: Cholecalciferol (VIT D3) 25 MCG TABLET (1,000 UNITS) 50 MCG PO (13:14)
[2022-04-20 15:26] VITALS: BP 118/70; PULSE 62; RESP 16; TEMP 36.3; O2SAT 94
[2022-04-20 17:35] VITALS: BP 118/70; PULSE 62
[2022-04-20] MEDS: Metoprolol Tartrate 25 MG Tablet 12.5 MG PO (17:35)
[2022-04-20] MEDS: Tamsulosin HCl 0.4 MG Capsule PO (21:21)
[2022-04-20] MEDS: QUEtiapine 25 MG Tablet PO (21:21)
[2022-04-20] MEDS: Pravastatin 40 MG Tablet PO (21:22)
[2022-04-20] MEDS: Gabapentin 100 MG Capsule PO (21:25)
[2022-04-21] MEDS: Docusate Sodium 100 MG Capsule PO ×2 (05:10→17:28)
[2022-04-21] MEDS: Acetaminophen 500 MG Tablet 1000 MG PO ×3 (05:10→20:40)
[2022-04-21] MEDS: Menthol/Lanolin/Calamine/Znox 113 GM Tube 1 APPLIC TOPICAL ×2 (05:10→17:29)
[2022-04-21] MEDS: Clindamycin HCl 150 MG Capsule 600 MG PO ×3 (05:10→20:41)
[2022-04-21] MEDS: Carbidopa/Levodopa 25/100 Tablet PO ×3 (05:11→17:29)
[2022-04-21] MEDS: QUEtiapine 25 MG Tablet 12.5 MG PO (08:57)
[2022-04-21] MEDS: Finasteride 5 MG Tablet PO (08:57)
[2022-04-21] MEDS: Multivitamin (Healthy Eyes) Capsule 1 CAP PO ×2 (08:58→17:29)
--- NOTE | 2022-04-21 13:30 | NURSING ---
pt with questions regarding code status and intubation vs no intubation with DNRCC-arrest option. wants to speak with Dr Muñiz regarding her thoughts on pt. Message left with dr muñiz
[2022-04-21 14:32] VITALS: BP 110/63; PULSE 65; RESP 16; TEMP 36.7; O2SAT 97
[2022-04-21] MEDS: Cholecalciferol (VIT D3) 25 MCG TABLET (1,000 UNITS) 50 MCG PO (15:15)
[2022-04-21 17:28] VITALS: PULSE 65
[2022-04-21] MEDS: Metoprolol Tartrate 25 MG Tablet 12.5 MG PO (17:28)
[2022-04-21] MEDS: Tamsulosin HCl 0.4 MG Capsule PO (20:40)
[2022-04-21] MEDS: Gabapentin 100 MG Capsule PO (20:40)
[2022-04-21] MEDS: QUEtiapine 25 MG Tablet PO (20:40)
[2022-04-21] MEDS: Pravastatin 40 MG Tablet PO (20:41)
[2022-04-21 20:51] VITALS: PULSE 67; RESP 16; O2SAT 96
[2022-04-22 05:53] LABS: Absolute Lymphocyte Count 1.27 X10^3/uL (0.83-4.51); Absolute Neutrophil Count 4.6 X10^3/uL (2.0-7.7); Basophil# 0.06 X10^3/uL; Basophil% 0.8 % (0-1); Eosinophil# 0.23 X10^3/uL; Eosinophils% 3.3 % (0-5); Hematocrit 32.2 % (40-54); Hemoglobin 10.4 g/dL (13.0-16.5); Lymphocyte # 1.27 X10^3/ul (0.83-4.51); Mean Corp Hgb Conc 32.3 g/dL (32-36); Mean Corpuscular Hgb 29.4 pg (27.0-32.0); Mean Platelet Vol. 9.8 fl (6.2-12.0); Monocyte# 0.82 X10^3/uL; Monocyte% 11.6 % (0-10); NRBC Flagged by Analyzer 0 % (0-5); Neutrophil # 4.59 X10^3/uL (2.7-7.7); Platelet Count 220 K/mm3 (150-450); RBC Distribution Width CV 13.9 % (11.6-14.6); RBC Distribution Width SD 46.2 fl (35.1-43.9); Red Blood Count 3.54 M/mm3 (4.6-6.2); White Blood Count 7.1 K/mm3 (4.4-11.0)
[2022-04-22 06:23] LABS: Anion Gap 2 (5-15); BUN 34 mg/dL (7-18); Calcium,Total 8.7 mg/dL (8.5-10.1); Chloride 109 mmol/L (98-107); EST Glomerular Filtration Rate 76 mL/min (>60); Est Glom Filt Rate - Afr Amer 92 mL/min (>60); Estimated Creatinine Clearance 50.51 ml/min; Glucose 91 mg/dL (74-106); Potassium 4.4 mmol/L (3.5-5.1); Sodium Level 142 mmol/L (136-145)
[2022-04-22] MEDS: Clindamycin HCl 150 MG Capsule 600 MG PO ×3 (06:27→19:44)
[2022-04-22] MEDS: Docusate Sodium 100 MG Capsule PO ×2 (06:28→17:28)
[2022-04-22] MEDS: Carbidopa/Levodopa 25/100 Tablet PO ×3 (06:28→17:07)
[2022-04-22] MEDS: Acetaminophen 500 MG Tablet 1000 MG PO ×3 (06:28→19:45)
[2022-04-22] MEDS: Menthol/Lanolin/Calamine/Znox 113 GM Tube 1 APPLIC TOPICAL ×2 (06:28→17:07)
[2022-04-22] MEDS: Multivitamin (Healthy Eyes) Capsule 1 CAP PO ×2 (08:35→17:08)
[2022-04-22] MEDS: Finasteride 5 MG Tablet PO (08:35)
[2022-04-22] MEDS: QUEtiapine 25 MG Tablet 12.5 MG PO (08:35)
[2022-04-22] MEDS: Tuberculin,Purif.prot.deriv. 50 TU/ML Vial 0.1 ML ID (09:38)
--- NOTE | 2022-04-22 09:38 | PHA.CONS_ITS ---
TCU RX Drug Regimen Review Subjective: TCU Admission. Presented to the ER with confusion and right arm redness/swelling secondary to fall. Admitted to hospital and treated for cellulitis. Admitted to TCU with debility for strengthening and rehabilitation. Objective: Allergies Penicillins Allergy (Verified 10/29/21 20:16) Hives Current Medications Generic Name Dose Route Start Last Admin Trade Name Freq PRN Reason Stop Dose Admin Acetaminophen 1,000 mg 04/14/22 22:00 04/22/22 06:28 Acetaminophen 500 Mg Tablet PO 1,000 mg TID MINO Administration Bisacodyl 10 mg 04/14/22 19:38 04/14/22 21:13 Bisacodyl 10 Mg Suppository RC 10 mg DAILY PRN Administration Constipation Calamine/Phenol 1 applic 04/15/22 06:00 04/22/22 06:28 Menthol/Lanolin/Calamine/Znox 113 Gm Tube TOPICAL 1 applic BID MINO Administration Protocol Carbidopa/Levodopa 1.5 tablet 04/15/22 06:45 04/22/22 06:28 Carbidopa/Levodopa 25/100 Tablet PO 1.5 tablet TIDAC MINO Administration Cholecalciferol 50 mcg 04/15/22 13:00 04/21/22 15:15 Cholecalciferol (Vit D3) 25 Mcg Tablet (1,000 Units) PO 50 mcg 1300 MINO Administration Clindamycin HCl 600 mg 04/14/22 22:00 04/22/22 06:27 Clindamycin Hcl 150 Mg Capsule PO 05/04/22 14:01 600 mg Q8 MINO Administration Docusate Sodium 100 mg 04/14/22 18:00 04/22/22 06:28 Docusate Sodium 100 Mg Capsule PO 100 mg BID MINO Administration Finasteride 5 mg 04/15/22 09:00 04/22/22 08:35 Finasteride 5 Mg Tablet PO 5 mg 0900 MINO Administration Gabapentin 100 mg 04/14/22 22:00 04/21/22 20:40 Gabapentin 100 Mg Capsule PO 100 mg QHS MINO Administration Metoprolol Tartrate 12.5 mg 04/14/22 17:00 04/21/22 17:28 Metoprolol Tartrate 25 Mg Tablet PO 12.5 mg 1700 MINO Administration Multivitamins/Minerals 1 capsule 04/15/22 08:00 04/22/22 08:35 Multivitamin (Healthy Eyes) Capsule PO 1 capsule BIDCM MINO Administration Nitroglycerin 0.4 mg 04/14/22 17:09 Nitroglycerin (Inpatient Use) 0.4 Mg Tab.Subl SL Q5M PRN Chest Pain Nutritional Formula (Lactose Free) 120 ml 04/15/22 22:00 04/22/22 06:27 Ensure Enlive 120 Ml Liquid PO 120 ml TID MINO Administration Pravastatin Sodium 40 mg 04/14/22 22:00 04/21/22 20:41 Pravastatin 40 Mg Tablet PO 40 mg QHS MINO Administration Quetiapine Fumarate 12.5 mg 04/17/22 08:00 04/22/22 08:35 Quetiapine 25 Mg Tablet PO 12.5 mg 0800 MINO Administration Quetiapine Fumarate 25 mg 04/16/22 21:00 04/21/22 20:40 Quetiapine 25 Mg Tablet PO 25 mg 2000 MINO Administration Tamsulosin HCl 0.4 mg 04/14/22 22:00 04/21/22 20:40 Tamsulosin Hcl 0.4 Mg Capsule PO 0.4 mg QHS MINO Administration Tuberculin PPD 0.1 ml 04/22/22 10:00 Tuberculin,Purif.Prot.Deriv. 50 Tu/Ml Vial ID 04/22/22 10:01 X1 ONE Problem List (Last Updated 04/18/22 @ 12:[address] Aletha Soliman DO) Schizophrenia (Chronic) Dementia with behavioral disturbance (Acute) History of hallucinations (Acute) Bladder cancer (Acute) Cellulitis of right forearm (Acute) Thrombocytopenia (Chronic) Vital Signs Temp Pulse Resp BP Pulse Ox O2 Del Method 98.0 F 67 16 110/63 96 Room Air 04/21/22 14:32 04/21/22 20:51 04/21/22 20:51 04/21/22 14:32 04/21/22 20:51 04/21/22 20:51 Oxygen Delivery Method Room Air Weight: 74.531 kg Body Mass Index (BMI) 26.5 Sodium 142 mmol/L (136-145) 04/22/22 05:34 Potassium 4.4 mmol/L (3.5-5.1) 04/22/22 05:34 Chloride 109 mmol/L (98-107) H 04/22/22 05:34 Carbon Dioxide 31.0 mmol/L (21.0-32.0) 04/22/22 05:34 Anion Gap 2 (5-15) L 04/22/22 05:34 BUN 34 mg/dL (7-18) H 04/22/22 05:34 Creatinine 1.00 mg/dL (0.70-1.30) 04/22/22 05:34 Est GFR (MDRD) Af Amer 92 mL/min (>60) 04/22/22 05:34 Est GFR (MDRD) Non-Af 76 mL/min (>60) 04/22/22 05:34 BUN/Creatinine Ratio 34.0 RATIO (10-20) H 04/22/22 05:34 Glucose 91 mg/dL (74-106) 04/22/22 05:34 Assessment/Plan: 1. Pain: acetaminophen 1000mg PO TID. Please continue to monitor for increased pain. 2. Bowel: docusate 100mg PO BID and bisacodyl 10mg RC daily PRN constipation. Resident has had 1 dose of bisacodyl and has had 1 documented bowel movement (04/16). Please continue to monitor for constipation and PRN usage. 3. Cellulitis: clindamycin 600mg PO Q8 thru 05/04/22. Typical dose for cellulitis is 300-450mg Q6. Please consider changing dose if clinically appropriate. Thanks. Please continue to monitor for S/S of worsening infection and diarrhea. 4. CAD/hypertension: metoprolol tartrate 12.5mg PO daily and nitroglycerin 0.4mg SL Q5M PRN chest pain. Please continue to monitor HR (last 67), BP (last 110/63) and for chest pain. Resident hasn't received any doses of nitroglycerin. 5. Hyperlipidemia: pravastatin 40mg PO QHS. Please continue to monitor lipid panel at least annually (last 01/29/22), AST/ALT (last 04/10/22) and for muscle pain. 6. Parkinson disease: Sinemet 25/100mg 1.5T PO TIDAC. Please continue to monitor for S/S of Parkinsons, dyskinesias and GI side effects. 7. Bladder cancer: finasteride 5mg PO daily and tamsulosin 0.4mg PO daily. Please continue to monitor BP and GI side effects. 8. Eye health: healthy eyes multivitamin 1T PO BIDCM. Please continue to monitor. Assessment/Plan for indications treated with psychotropic medications: 1. Dementia with behavioral disturbance: quetiapine 12.5mg PO 0800 and 25mg PO 2000. Please continue to monitor for dementia, drowsiness, headache. GDR not appropriate as resident was just started on these medications. Medical chart and medication regimen reviewed. The following medication irregularities or issues were identified: *1. Clindamycin 600mg PO Q8 thru 05/04/22. Typical dose for cellulitis is 300- 450mg Q6. Please consider changing dose if clinically appropriate. Thanks. *2. Gabapentin 100mg PO QHS. I did not see a documented indication for this medicaiton. Please consider adding the indication or stopping the medication if it is not indicated. Thanks. Please continue to monitor renal function, confusion and falls (BEERs criteria medication). *3. Cholecalciferol 50mcg PO 1300. I did not see a documented indication for this medicaiton. Please consider adding the indication or stopping the medication if it is not indicated. Thanks. Last vitamin D level was 09/11/21. Date of Note:: 04/22/22
[2022-04-22 10:49] VITALS: PULSE 78; RESP 14; O2SAT 96
--- NOTE | 2022-04-22 11:00 | CASEMGMT ---
Social Work IDT met with patient, , dtr and RAJESH for care plan meeting. Discussed patient's progress in PT/OT/ST/SN and dietary. Explained [employer] insurance with [employer]D 04/27 and continued stay is not guaranteed with each review. The goal is for pt to return to [facility] continuing getting their assistance. Answered questions for pt and family. expressed great appreciation for care pt is receiving and high praises for TCU staff's professionalism and high standards of care. SW thanked for praises. SW to continue to follow for DC planning. Kathryn Astudillo, CULINARY WORKER PROJECT MANAGER PROCESS DEVELOPMENT
[2022-04-22] MEDS: Cholecalciferol (VIT D3) 25 MCG TABLET (1,000 UNITS) 50 MCG PO (14:14)
[2022-04-22 15:02] VITALS: BP 90/62; PULSE 78; RESP 14; TEMP 36.7; O2SAT 92
[2022-04-22 17:08] VITALS: BP 132/77; PULSE 67
[2022-04-22] MEDS: Metoprolol Tartrate 25 MG Tablet 12.5 MG PO (17:08)
[2022-04-22] MEDS: QUEtiapine 25 MG Tablet PO (19:43)
[2022-04-22] MEDS: Pravastatin 40 MG Tablet PO (19:44)
[2022-04-22] MEDS: Tamsulosin HCl 0.4 MG Capsule PO (19:44)
[2022-04-22] MEDS: Gabapentin 100 MG Capsule PO (19:48)
[2022-04-23] MEDS: Menthol/Lanolin/Calamine/Znox 113 GM Tube 1 APPLIC TOPICAL ×2 (05:11→17:45)
[2022-04-23] MEDS: Acetaminophen 500 MG Tablet 1000 MG PO ×3 (05:11→19:41)
[2022-04-23] MEDS: Clindamycin HCl 150 MG Capsule 600 MG PO ×3 (05:11→19:39)
[2022-04-23] MEDS: Carbidopa/Levodopa 25/100 Tablet PO ×3 (05:12→17:45)
[2022-04-23] MEDS: Docusate Sodium 100 MG Capsule PO ×2 (05:12→17:45)
[2022-04-23] MEDS: Multivitamin (Healthy Eyes) Capsule 1 CAP PO ×2 (09:30→17:45)
[2022-04-23] MEDS: QUEtiapine 25 MG Tablet 12.5 MG PO (09:30)
[2022-04-23] MEDS: Finasteride 5 MG Tablet PO (09:30)
[2022-04-23] MEDS: Cholecalciferol (VIT D3) 25 MCG TABLET (1,000 UNITS) 50 MCG PO (13:53)
[2022-04-23 14:33] VITALS: BP 96/57; PULSE 67; RESP 18; TEMP 36.4; O2SAT 96
[2022-04-23 17:45] VITALS: BP 126/85; PULSE 69
[2022-04-23] MEDS: Metoprolol Tartrate 25 MG Tablet 12.5 MG PO (17:45)
[2022-04-23] MEDS: Gabapentin 100 MG Capsule PO (19:39)
[2022-04-23] MEDS: QUEtiapine 25 MG Tablet PO (19:40)
[2022-04-23] MEDS: Tamsulosin HCl 0.4 MG Capsule PO (19:40)
[2022-04-23] MEDS: Pravastatin 40 MG Tablet PO (19:41)
[2022-04-23 22:00] VITALS: PULSE 72; RESP 16; O2SAT 96
[2022-04-24] MEDS: Menthol/Lanolin/Calamine/Znox 113 GM Tube 1 APPLIC TOPICAL ×2 (05:22→17:20)
[2022-04-24] MEDS: Clindamycin HCl 150 MG Capsule 600 MG PO ×3 (05:22→22:19)
[2022-04-24] MEDS: Acetaminophen 500 MG Tablet 1000 MG PO ×3 (05:23→22:19)
[2022-04-24] MEDS: Docusate Sodium 100 MG Capsule PO ×2 (05:23→17:18)
[2022-04-24] MEDS: Carbidopa/Levodopa 25/100 Tablet PO ×3 (05:24→17:18)
[2022-04-24] MEDS: QUEtiapine 25 MG Tablet 12.5 MG PO (07:23)
[2022-04-24] MEDS: Multivitamin (Healthy Eyes) Capsule 1 CAP PO ×2 (07:24→17:18)
[2022-04-24] MEDS: Finasteride 5 MG Tablet PO (09:54)
--- NOTE | 2022-04-24 12:35 | CASEMGMT ---
Social Work Faxed updated clinicals to [place] to ensure return once insurance issues DC. Kathryn Astudillo, COPY CHASER NEW AUTOS DELIVERY DRIVER
[2022-04-24] MEDS: Cholecalciferol (VIT D3) 25 MCG TABLET (1,000 UNITS) 50 MCG PO (13:20)
[2022-04-24 15:11] VITALS: BP 121/78; PULSE 64; RESP 14; TEMP 36.3; O2SAT 96
[2022-04-24 17:18] VITALS: PULSE 64
[2022-04-24] MEDS: Metoprolol Tartrate 25 MG Tablet 12.5 MG PO (17:18)
[2022-04-24 22:00] VITALS: PULSE 73; RESP 16; O2SAT 96
[2022-04-24] MEDS: Pravastatin 40 MG Tablet PO (22:19)
[2022-04-24] MEDS: Gabapentin 100 MG Capsule PO (22:19)
[2022-04-24] MEDS: Tamsulosin HCl 0.4 MG Capsule PO (22:20)
[2022-04-24] MEDS: QUEtiapine 25 MG Tablet PO (22:20)
[2022-04-25] MEDS: Menthol/Lanolin/Calamine/Znox 113 GM Tube 1 APPLIC TOPICAL ×2 (06:41→17:27)
[2022-04-25] MEDS: Clindamycin HCl 150 MG Capsule 600 MG PO ×3 (06:42→21:26)
[2022-04-25] MEDS: Acetaminophen 500 MG Tablet 1000 MG PO ×3 (06:42→21:33)
[2022-04-25] MEDS: Docusate Sodium 100 MG Capsule PO ×2 (06:42→17:24)
[2022-04-25] MEDS: Carbidopa/Levodopa 25/100 Tablet PO ×3 (06:43→17:22)
[2022-04-25] MEDS: Multivitamin (Healthy Eyes) Capsule 1 CAP PO ×2 (08:52→17:23)
[2022-04-25] MEDS: QUEtiapine 25 MG Tablet 12.5 MG PO (08:52)
[2022-04-25] MEDS: Finasteride 5 MG Tablet PO (08:53)
[2022-04-25] MEDS: Cholecalciferol (VIT D3) 25 MCG TABLET (1,000 UNITS) 50 MCG PO (13:48)
[2022-04-25 16:00] VITALS: BP 117/64; PULSE 64; RESP 16; TEMP 37.6; O2SAT 96
[2022-04-25 17:23] VITALS: BP 117/64; PULSE 64
[2022-04-25] MEDS: Metoprolol Tartrate 25 MG Tablet 12.5 MG PO (17:23)
[2022-04-25] MEDS: Gabapentin 100 MG Capsule PO (21:26)
[2022-04-25] MEDS: QUEtiapine 25 MG Tablet PO (21:33)
[2022-04-25] MEDS: Pravastatin 40 MG Tablet PO (21:34)
[2022-04-25] MEDS: Tamsulosin HCl 0.4 MG Capsule PO (21:34)
[2022-04-26] MEDS: Acetaminophen 500 MG Tablet 1000 MG PO ×3 (06:34→21:55)
[2022-04-26] MEDS: Clindamycin HCl 150 MG Capsule 600 MG PO ×3 (06:34→21:55)
[2022-04-26] MEDS: Carbidopa/Levodopa 25/100 Tablet PO ×3 (06:34→17:07)
[2022-04-26] MEDS: Docusate Sodium 100 MG Capsule PO ×2 (06:40→17:09)
[2022-04-26] MEDS: Menthol/Lanolin/Calamine/Znox 113 GM Tube 1 APPLIC TOPICAL ×2 (06:42→17:09)
[2022-04-26] MEDS: Multivitamin (Healthy Eyes) Capsule 1 CAP PO ×2 (08:10→17:08)
[2022-04-26] MEDS: Finasteride 5 MG Tablet PO (08:10)
[2022-04-26] MEDS: Cholecalciferol (VIT D3) 25 MCG TABLET (1,000 UNITS) 50 MCG PO (12:27)
--- NOTE | 2022-04-26 12:39 | NURSING ---
pt with increased lethargy last couple days, dr chilel updated. new order to DC morning seroquel.
[2022-04-26 16:00] VITALS: BP 158/79; PULSE 58; RESP 21; TEMP 35.8; O2SAT 98
[2022-04-26 17:08] VITALS: BP 158/79; PULSE 62
[2022-04-26] MEDS: Metoprolol Tartrate 25 MG Tablet 12.5 MG PO (17:08)
--- NOTE | 2022-04-26 20:03 | NURSING ---
Patient refusing any care, medications at this time. Will attempt to administer medications later in evening.
[2022-04-26] MEDS: QUEtiapine 25 MG Tablet PO (21:54)
[2022-04-26] MEDS: Gabapentin 100 MG Capsule PO (21:55)
[2022-04-26] MEDS: Pravastatin 40 MG Tablet PO (21:57)
[2022-04-26] MEDS: Tamsulosin HCl 0.4 MG Capsule PO (21:57)
[2022-04-26 22:32] VITALS: PULSE 67; RESP 18; O2SAT 95
--- NOTE | 2022-04-26 22:40 | NURSING ---
Patient cooperative with medication administration later in evening. All Medications administered without difficulty.
[2022-04-27] MEDS: Docusate Sodium 100 MG Capsule PO ×2 (06:32→17:13)
[2022-04-27] MEDS: Clindamycin HCl 150 MG Capsule 600 MG PO ×3 (06:32→21:15)
[2022-04-27] MEDS: Carbidopa/Levodopa 25/100 Tablet PO ×3 (06:33→17:13)
[2022-04-27] MEDS: Acetaminophen 500 MG Tablet 1000 MG PO ×3 (06:33→21:17)
[2022-04-27] MEDS: Multivitamin (Healthy Eyes) Capsule 1 CAP PO ×2 (08:26→17:13)
[2022-04-27] MEDS: Finasteride 5 MG Tablet PO (08:27)
[2022-04-27 10:33] VITALS: PULSE 68; RESP 16; O2SAT 96
--- NOTE | 2022-04-27 10:51 | NURSING ---
Machine Design Teacher Note: Interview and Section F of MDS complete.
[2022-04-27] MEDS: Menthol/Lanolin/Calamine/Znox 113 GM Tube 1 APPLIC TOPICAL ×2 (10:52→17:16)
--- NOTE | 2022-04-27 10:56 | NURSING ---
Patient resistive to care at times. Transferring in room without assistance. Let staff know to check patient's room frequently for patient safety.
[2022-04-27] MEDS: Cholecalciferol (VIT D3) 25 MCG TABLET (1,000 UNITS) 50 MCG PO (12:38)
--- NOTE | 2022-04-27 12:49 | MDS.RN ---
Information for the mds was obtained from review of the clinical record, interview of resident, staff, and direct observation of resident's care.
[2022-04-27 16:00] VITALS: BP 114/63; PULSE 68; RESP 16; TEMP 36.8; O2SAT 96
[2022-04-27 17:15] VITALS: BP 114/63; PULSE 68
[2022-04-27] MEDS: Metoprolol Tartrate 25 MG Tablet 12.5 MG PO (17:15)
--- NOTE | 2022-04-27 20:29 | PCA ---
Addendum entered by Portillo Chou 04/28/22 03:54: When rounding KITCHEN HELP HANDYMAN went to check on patient and they were incontinent. patient had removed brief and sheets were wet. KITCHEN HELP HANDYMAN helped patient into the shower to get washed and shaved. bed sheets changed and patient back to bed. Original Note: KITCHEN HELP HANDYMAN got in report that family would like patient to be shaved. KITCHEN HELP HANDYMAN approached patient to help with ADLs and HS care. Offered to help patient get in the shower and shaved before bed. Patient stated I haven't been sleeping very well the past few night and i think i would like to wait until the morning. I would just like to wash my face and go to bed KITCHEN HELP HANDYMAN asked what time in the morning they would like to get showered and they said between 8 and 9 Will pass along to day shift patients preference.
[2022-04-27] MEDS: Gabapentin 100 MG Capsule PO (21:13)
[2022-04-27] MEDS: Tamsulosin HCl 0.4 MG Capsule PO (21:16)
[2022-04-27] MEDS: QUEtiapine 25 MG Tablet PO (21:17)
[2022-04-27] MEDS: Pravastatin 40 MG Tablet PO (21:17)
[2022-04-28] MEDS: Menthol/Lanolin/Calamine/Znox 113 GM Tube 1 APPLIC TOPICAL ×2 (05:13→19:49)
[2022-04-28 06:53] VITALS: BP 163/94; PULSE 69; RESP 14; TEMP 36; O2SAT 97
[2022-04-28] MEDS: Clindamycin HCl 150 MG Capsule 600 MG PO ×3 (09:07→19:55)
[2022-04-28] MEDS: Carbidopa/Levodopa 25/100 Tablet PO ×3 (09:08→19:48)
[2022-04-28] MEDS: Acetaminophen 500 MG Tablet 1000 MG PO ×3 (09:08→19:56)
[2022-04-28] MEDS: Multivitamin (Healthy Eyes) Capsule 1 CAP PO ×2 (09:09→19:49)
[2022-04-28] MEDS: Finasteride 5 MG Tablet PO (09:09)
[2022-04-28] MEDS: Docusate Sodium 100 MG Capsule PO ×2 (09:37→19:49)
[2022-04-28 10:00] VITALS: PULSE 72; RESP 19; O2SAT 95
[2022-04-28] MEDS: Cholecalciferol (VIT D3) 25 MCG TABLET (1,000 UNITS) 50 MCG PO (12:38)
--- NOTE | 2022-04-28 13:04 | CASEMGMT ---
Addendum entered by Kathryn Astudillo 04/29/22 15:48: Faxed DC paperwork to [place]. Received call from stating she has coordinated DC transport from [place] and requesting pt be at main entrance for supervisor opening and picking at 1330. SW notified IDT and contacted nurse's station to inform staff as well. Original Note: Social Work Received return fax correspondence from [place] accepting pts return at [place]. Insurance issued LCD 04/30, DC 05/01. SW spoke with to update. Explained appeal rights. denies - agrees to transport at [place]. SW explained HHC will be ordered at [place] [facility]. Offered to leave skilled HHC list with providers that are in-network with pt's insurance and can provide services at [place] [facility]. denies and prefers [facility]. SW referral made via phone to [facility] for PT/OT/ST. No DME needs. SW spoke with pt about DC date - pt agreeable and agreeable to [facility]. Plan: DC to [place] 05/01, [facility] PT/OT/ST Kathryn Astudillo, AKBAR ARCEW
[2022-04-28 14:55] VITALS: BP 114/67; PULSE 62; RESP 14; TEMP 36.6; O2SAT 98
--- NOTE | 2022-04-28 15:21 | NURSING ---
Late entry. Updated next of kin, Yelitza, that a staff member tested positive for COVID.
[2022-04-28 19:54] VITALS: BP 149/105; PULSE 69
[2022-04-28] MEDS: Metoprolol Tartrate 25 MG Tablet 12.5 MG PO (19:54)
[2022-04-28] MEDS: QUEtiapine 25 MG Tablet PO (19:55)
[2022-04-28] MEDS: Tamsulosin HCl 0.4 MG Capsule PO (19:55)
[2022-04-28] MEDS: Pravastatin 40 MG Tablet PO (19:56)
[2022-04-28] MEDS: Gabapentin 100 MG Capsule PO (19:59)
[2022-04-28 22:00] VITALS: PULSE 69; RESP 16; O2SAT 97
[2022-04-29] MEDS: Acetaminophen 500 MG Tablet 1000 MG PO ×3 (05:21→19:58)
[2022-04-29] MEDS: Menthol/Lanolin/Calamine/Znox 113 GM Tube 1 APPLIC TOPICAL ×2 (05:21→16:56)
[2022-04-29] MEDS: Carbidopa/Levodopa 25/100 Tablet PO ×3 (05:22→16:55)
[2022-04-29] MEDS: Docusate Sodium 100 MG Capsule PO ×2 (05:22→16:57)
[2022-04-29] MEDS: Clindamycin HCl 150 MG Capsule 600 MG PO ×3 (05:22→19:58)
[2022-04-29 05:30] LABS: Absolute Lymphocyte Count 1.39 X10^3/uL (0.83-4.51); Absolute Neutrophil Count 2.7 X10^3/uL (2.0-7.7); Basophil# 0.06 X10^3/uL; Basophil% 1.2 % (0-1); Eosinophil# 0.23 X10^3/uL; Eosinophils% 4.6 % (0-5); Hematocrit 32.8 % (40-54); Hemoglobin 10.4 g/dL (13.0-16.5); Lymphocyte # 1.39 X10^3/ul (0.83-4.51); Lymphocyte % 27.7 % (19-41); Mean Corp Hgb Conc 31.7 g/dL (32-36); Mean Corpuscular Hgb 28.8 pg (27.0-32.0); Mean Corpuscular Volume 90.9 fL (80-94); Monocyte# 0.65 X10^3/uL; Monocyte% 12.9 % (0-10); NRBC Flagged by Analyzer 0 % (0-5); Neutrophil # 2.67 X10^3/uL (2.7-7.7); Neutrophil % 53.2 % (47-70); Platelet Count 170 K/mm3 (150-450); RBC Distribution Width CV 13.8 % (11.6-14.6); RBC Distribution Width SD 46.5 fl (35.1-43.9); Red Blood Count 3.61 M/mm3 (4.6-6.2)
[2022-04-29 05:56] LABS: Anion Gap 2 (5-15); BUN 34 mg/dL (7-18); BUN/Creat Ratio 42.6 RATIO (10-20); Calcium,Total 8.5 mg/dL (8.5-10.1); Chloride 106 mmol/L (98-107); EST Glomerular Filtration Rate 98 mL/min (>60); Est Glom Filt Rate - Afr Amer 119 mL/min (>60); Estimated Creatinine Clearance 63.14 ml/min; Glucose 82 mg/dL (74-106); Potassium 3.9 mmol/L (3.5-5.1); Sodium Level 139 mmol/L (136-145)
--- NOTE | 2022-04-29 07:54 | PCM.DC.SUM ---
Providers Date of Admission: 04/14/22 Primary Care Physician: Dr. Scotty Hernández MD Reason For Visit: ENCEPHELOPATHY/CELLULITIS Diagnosis Discharge Diagnosis (1) Dementia with behavioral disturbance: Status: Acute Code(s): F03.91 - Unspecified dementia with behavioral disturbance (2) History of hallucinations: Status: Acute Code(s): Z87.898 - Personal history of other specified conditions (3) Bladder cancer: Status: Acute Code(s): C67.9 - Malignant neoplasm of bladder, unspecified (4) Schizophrenia: Status: Chronic Code(s): F20.9 - Schizophrenia, unspecified (5) Cellulitis of right forearm: Status: Acute Code(s): L03.113 - Cellulitis of right upper limb (6) Thrombocytopenia: Status: Chronic Code(s): D69.6 - Thrombocytopenia, unspecified (7) Parkinson disease: Status: Inactive Code(s): G20 - Parkinson's disease Medications at Discharge Home Medications carbidopa 25 mg-levodopa 100 mg tablet 1.5 tab PO TIDAC Check with primary doctor 09/07/18 pravastatin 80 mg tablet 40 mg PO QHS cholesterol 09/07/18 vitamins A,C,H-vydw-bhrfbd 2,148 mcg-113 mg-45 mg-17.4 mg tablet (PreserVision AREDS) 1 ea PO BID vitamin 09/07/18 cholecalciferol (vitamin D3) 25 mcg (1,000 unit) capsule (Vitamin D3) 50 mcg PO 1300 supplement 08/27/21 docusate sodium 100 mg capsule 100 mg PO BID stool softener 08/27/21 gabapentin 100 mg capsule 100 mg PO QHS Check with primary doctor 08/27/21 metoprolol tartrate 25 mg tablet 12.5 mg PO 1700 BP 08/27/21 nitroglycerin 0.4 mg sublingual tablet 0.4 mg sublingual PRN PRN Chest Pain 08/27/21 acetaminophen 500 mg tablet 1,000 mg PO TID pain 10/08/21 finasteride 5 mg tablet 5 mg PO 0900 prostate 04/10/22 tamsulosin 0.4 mg capsule (Flomax) 0.4 mg PO QHS prostate 04/10/22 clindamycin HCl 300 mg capsule 600 mg PO Q8H Check with primary doctor 3 days #9 caps 04/29/22 quetiapine 25 mg tablet 25 mg PO 2000 #0 tabs 04/29/22 Hospital Course Operations None Procedures None Summary of Care Provided Minutes Spent on Discharge: 35 Hospital Course: 81 year old male with below past medical history hospitalized for fall, right upper extremity cellulitis, admitted to TCU with debility, here for rehabilitation, strengthening, prior to disposition determination. On discharge, resident needs 9 more doses of Clindamycin 600mg to complete course. Discharge to [facility] 05/01/2022, [facility] PT/OT/ST. Physical Exam Const alert General Appearance: cooperative HEENT normocephalic Eyes PERRL and EOMs intact bilaterally Neck supple, no JVD and no carotid bruits Resp normal respiratory effort, normal air movement and clear to auscultation bilaterally Cardio regular rate and regular rhythm GI normal to inspection, nondistended, normoactive bowel sounds, non-tender and non-distended Extremity normal capillary refill General Extremity: Negative for edema Skin no rashes or lesions noted General Skin Exam: no breakdown Psych affect normal Appearance: appropriate Weight / BMI Weight Weight: 72.938 kg Body Mass Index (BMI) 26.5 ABG / Lab / Microbiology Data Result Diagrams: 04/29/22 05:19 04/29/22 05:19 Laboratory: Laboratory Results - last 24 hr 04/29/22 05:19: WBC 5.0, RBC 3.61 L, Hgb 10.4 L, Hct 32.8 L, MCV 90.9, MCH 28.8, MCHC 31.7 L, RDW Std Deviation 46.5 H, RDW Coeff of Buck 13.8, Plt Count 170, MPV 10.0, Immature Gran % (Auto) 0.400, Neut % (Auto) 53.2, Lymph % (Auto) 27.7, Giles % (Auto) 12.9 H, Eos % (Auto) 4.6, Baso % (Auto) 1.2 H, Absolute Neuts (auto) 2.7, Absolute Lymphs (auto) 1.39, Nucleated RBC % 0 04/29/22 05:19: Sodium 139, Potassium 3.9, Chloride 106, Carbon Dioxide 31.0, Anion Gap 2 L, BUN 34 H, Creatinine 0.80, Estim Creat Clear Calc 63.14, Est GFR (MDRD) Af Amer 119, Est GFR (MDRD) Non-Af 98, BUN/Creatinine Ratio 42.6 H, Glucose 82, Calcium 8.5 Microbiology: Microbiology 04/23/22 11:00 Nasal Secretion SARS-CoV-2 Antigen (Rapid) - Final D/C Instructions Discharge Diet: No restrictions Discharge Activity: Return to Normal Activity, May Shower and Use Walker Weight Bearing Status: Weight bearing as tolerated Call your doctor if you observe: Fever of 101 or Higher, Inability to urinate, Inability to have a bowel movement, Shortness of breath, Dizziness, Fainting spells, Swelling in the ankles, Chest pain and Uncontrolled pain Additional Instructions: Discharge to [facility] 05/01/2022, [facility] PT/OT/ST. Meaningful Use Info Meaningful Use Diagnoses (Choose all that apply): None applicable Discharge Plan Admission Admit Date/Time: 04/14/22 16:10 Primary Reason for Your Visit: Debility. Attending Provider: Aletha Soliman Primary Care Provider: Scotty Hernández Instructions Additional Instructions / Restrictions: Discharge to [facility] 05/01/2022, [facility] PT/OT/ST. Discharge Orders/Prescriptions Prescriptions: New quetiapine 25 mg Tablet 25 mg PO 1999 Qty: 0 0RF Continued pravastatin 80 MG tablet 40 mg PO QHS carbidopa-levodopa 1 TABLET tablet 1.5 tab PO TIDAC Rx Instructions: 25/100 PreserVision AREDS 1 EACH tablet 1 ea PO BID nitroglycerin 0.4 mg tablet, sublingual 0.4 mg sublingual PRN PRN (Reason: Chest Pain) docusate sodium 100 mg Capsule 100 mg PO BID gabapentin 100 mg capsule 100 mg PO QHS cholecalciferol (vitamin D3) [Vitamin D3] 25 mcg (1,000 unit) Capsule 50 mcg PO 1300 metoprolol tartrate 25 mg Tablet 12.5 mg PO 1700 Rx Instructions: hold if sbp<100 acetaminophen 500 mg Tablet 1,000 mg PO TID tamsulosin [Flomax] 0.4 mg Capsule 0.4 mg PO QHS finasteride 5 mg Tablet 5 mg PO 0900 clindamycin HCl 300 mg capsule 600 mg PO Q8H 3 Days Qty: 9 0RF Referrals / Follow Up: Scotty Hernández MD [Primary Care Provider] - Disposition Disposition (needs filled in before D/C Order can be placed): Home Health Service
[2022-04-29] MEDS: Multivitamin (Healthy Eyes) Capsule 1 CAP PO ×2 (08:13→16:55)
[2022-04-29] MEDS: Finasteride 5 MG Tablet PO (08:13)
[2022-04-29 13:42] VITALS: BP 132/61; PULSE 70; RESP 16; TEMP 36.2; O2SAT 97
[2022-04-29] MEDS: Cholecalciferol (VIT D3) 25 MCG TABLET (1,000 UNITS) 50 MCG PO (13:48)
[2022-04-29 16:55] VITALS: BP 132/61; PULSE 70
[2022-04-29] MEDS: Metoprolol Tartrate 25 MG Tablet 12.5 MG PO (16:55)
[2022-04-29] MEDS: Gabapentin 100 MG Capsule PO (19:57)
[2022-04-29] MEDS: QUEtiapine 25 MG Tablet PO (19:58)
[2022-04-29] MEDS: Pravastatin 40 MG Tablet PO (19:58)
[2022-04-29] MEDS: Tamsulosin HCl 0.4 MG Capsule PO (19:58)
[2022-04-30] MEDS: Menthol/Lanolin/Calamine/Znox 113 GM Tube 1 APPLIC TOPICAL ×2 (05:55→16:36)
[2022-04-30] MEDS: Clindamycin HCl 150 MG Capsule 600 MG PO ×3 (05:55→20:44)
[2022-04-30] MEDS: Docusate Sodium 100 MG Capsule PO ×2 (05:55→16:39)
[2022-04-30] MEDS: Acetaminophen 500 MG Tablet 1000 MG PO ×3 (05:55→20:45)
[2022-04-30] MEDS: Carbidopa/Levodopa 25/100 Tablet PO ×3 (05:56→16:38)
[2022-04-30] MEDS: Finasteride 5 MG Tablet PO (08:42)
[2022-04-30] MEDS: Multivitamin (Healthy Eyes) Capsule 1 CAP PO ×2 (08:42→16:40)
--- NOTE | 2022-04-30 10:04 | NURSING ---
Called daughter to notify of a patient on unit with positive covid test.
[2022-04-30] MEDS: Cholecalciferol (VIT D3) 25 MCG TABLET (1,000 UNITS) 50 MCG PO (11:07)
--- NOTE | 2022-04-30 11:13 | CASEMGMT ---
Social Work BIMS () and PHQ-9 (02/06) completed for MDS assessment. Score indicates mild depression. SW explored positive responses with pt. Pt reports to symptoms being related to reason for admission; denies depression or after care resources. Kathryn Astudillo, PERFORMANCE ENGINEER [employer]ATIVE [employer]S MUSIC THERAPIST
[2022-04-30 13:45] VITALS: BP 139/66; PULSE 68; RESP 16; TEMP 36.3; O2SAT 98
[2022-04-30 16:37] VITALS: PULSE 68
[2022-04-30] MEDS: Metoprolol Tartrate 25 MG Tablet 12.5 MG PO (16:37)
[2022-04-30] MEDS: Tamsulosin HCl 0.4 MG Capsule PO (20:45)
[2022-04-30] MEDS: Pravastatin 40 MG Tablet PO (20:45)
[2022-04-30] MEDS: QUEtiapine 25 MG Tablet 12.5 MG PO (20:45)
[2022-04-30 20:50] VITALS: PULSE 76; RESP 16; O2SAT 97
[2022-05-01] MEDS: Docusate Sodium 100 MG Capsule PO (06:16)
[2022-05-01] MEDS: Carbidopa/Levodopa 25/100 Tablet PO ×2 (06:16→11:21)
[2022-05-01] MEDS: Clindamycin HCl 150 MG Capsule 600 MG PO ×2 (06:16→13:06)
[2022-05-01] MEDS: Acetaminophen 500 MG Tablet 1000 MG PO ×2 (06:17→13:06)
[2022-05-01] MEDS: Menthol/Lanolin/Calamine/Znox 113 GM Tube 1 APPLIC TOPICAL (06:19)
[2022-05-01] MEDS: Multivitamin (Healthy Eyes) Capsule 1 CAP PO (09:02)
[2022-05-01] MEDS: Finasteride 5 MG Tablet PO (09:02)
[2022-05-01] MEDS: Cholecalciferol (VIT D3) 25 MCG TABLET (1,000 UNITS) 50 MCG PO (11:23)
[2022-05-01 12:44] VITALS: PULSE 64; RESP 18; O2SAT 94
[2022-05-01 13:42] VITALS: BP 70/50; PULSE 64; RESP 18; TEMP 36.5; O2SAT 94
== END 2022-05-01 13:25 | disposition home health service (06) | DRG 57 ==
PROVIDERS: Admitting Provider Internal Medicine; PCP Internal Medicine; Visit Provider Internal Medicine
DX: G20 Parkinson's disease (principal); F02.81 Dementia in other diseases classified elsewhere, unspecified severity, with behavioral disturbance; L03.113 Cellulitis of right upper limb; D69.6 Thrombocytopenia, unspecified; C67.9 Malignant neoplasm of bladder, unspecified; E78.5 Hyperlipidemia, unspecified; F02.80 Dementia in other diseases classified elsewhere, unspecified severity, without behavioral disturbance, psychotic disturbance, mood disturbance, and anxiety; F20.9 Schizophrenia, unspecified; I25.10 Atherosclerotic heart disease of native coronary artery without angina pectoris; I10 Essential (primary) hypertension; M19.90 Unspecified osteoarthritis, unspecified site; Z87.891 Personal history of nicotine dependence; Z79.899 Other long term (current) drug therapy
CPT/HCPCS: 36415; 80048; 82962; 85025; 87811; 92507; 92523; 97110; 97116; 97162; 97166; 97530; 97535; 97802

== ENCOUNTER 2022-05-24 08:19 | Emergency (ER) | payer MEDICARE, SELFPAY ==
[2022-05-24 08:21] VITALS: BP 156/83; PULSE 75; RESP 18; TEMP 36.6; O2SAT 98; BMI 25.6
--- NOTE | 2022-05-24 08:42 | EX.ED.UPPERE ---
HPI History of Present Illness HPI Narrative: Patient presents with right forearm pain that began after a fall today. Patient states she tripped while trying to ambulate today. Patient states she normally walks with a walker. Patient states she landed on his right wrist and forearm. Patient states he has pain from his wrist to his elbow. Patient describes it as a pressure. Patient states nothing makes it better nothing makes it worse. Patient denies any head injury or loss of consciousness. Patient denies any lacerations. Patient denies any other injuries. Chief Complaint: Fall Informant: patient Occured/Mechanism Mechanism/Context: Yes fall Onset/Context/Timing Onset: Today Context: Sudden Onset Timing: Continuous Quality of Pain: - (Pressure) Location: Right wrist, forearm, and elbow Worsened by: Movement Relieved by: Nothing Associated Symptoms Associated Symptoms: Negative for Parasthesia, Weakness or Loss of Funtion [facility] Medical History Actinic keratosis Anemia Arthritis Atherosclerotic heart disease of [place] coronary artery without angina pectoris Back pain Basal cell carcinoma of skin, unspecified Blood disorder Cardiology follow-up encounter Discoloration of skin Easy bruising Eczema intertrigo Essential (primary) hypertension Former smoker History of ankle fracture History of echocardiogram History of hallucinations History of Holter monitoring History of stress test Hyperlipidemia, unspecified Impaired fasting glucose Leg cramps Legally blind Migraine headache Orthostatic hypotension Parkinson disease Parkinson's disease Personal history of colonic polyps Prostate cancer Redness of skin Schizophrenia Spondylosis without myelopathy or radiculopathy, lumbar region Syncope Thrombocytopenia, unspecified Unspecified abnormalities of gait and mobility Unspecified urinary incontinence Uses wheelchair Home Medications carbidopa 25 mg-levodopa 100 mg tablet 1.5 tab PO TIDAC Check with primary doctor 09/07/18 [History Last Taken 10/24/21 06:00] pravastatin 80 mg tablet 40 mg PO QHS cholesterol 09/07/18 [History Last Taken Unknown] vitamins A,C,W-gmvv-nwpkww 2,148 mcg-113 mg-45 mg-17.4 mg tablet (PreserVision AREDS) 1 ea PO BID vitamin 09/07/18 [History Last Taken Unknown] cholecalciferol (vitamin D3) 25 mcg (1,000 unit) capsule (Vitamin D3) 50 mcg PO 1300 supplement 08/27/21 [History Last Taken Unknown] docusate sodium 100 mg capsule 100 mg PO BID stool softener 08/27/21 [History Last Taken Unknown] gabapentin 100 mg capsule 100 mg PO QHS Check with primary doctor 08/27/21 [History Last Taken Unknown] metoprolol tartrate 25 mg tablet 12.5 mg PO 1700 BP 08/27/21 [History Last Taken Unknown] nitroglycerin 0.4 mg sublingual tablet 0.4 mg sublingual PRN PRN Chest Pain 08/27/21 [History Last Taken Unknown] acetaminophen 500 mg tablet 1,000 mg PO TID pain 10/08/21 [History Last Taken Unknown] finasteride 5 mg tablet 5 mg PO 0900 prostate 04/10/22 [History Last Taken Unknown] tamsulosin 0.4 mg capsule (Flomax) 0.4 mg PO QHS prostate 04/10/22 [History Last Taken Unknown] meloxicam 15 mg tablet 15 mg PO DAILY PRN PRN Pain 05/24/22 [History Last Taken Unknown] quetiapine 25 mg tablet 12.5 mg PO QHS 05/24/22 [History Last Taken Unknown] tramadol 50 mg tablet 50 mg PO Q8H PRN Pain 05/24/22 [History Last Taken Unknown] Allergy/AdvReac Type Severity Reaction Status Date / Time Penicillins Allergy Hives Verified 05/24/22 08:29 Family History Mother Cancer Surgical History History of cardiac catheterization Hx of colonoscopy Hx of hernia repair Hx of inguinal hernia repair Hx of inguinal hernia repair Hx of left cataract extraction Hx of right cataract extraction Social History household members: spouse housing: alf Smoking Status: Former smoker substance use type: does not use ROS ROS ED Constitutional Constitutional ED: Denies chills or fever(s) Eyes Eyes: Denies blurry vision or change in vision ENT ENT ED: Denies rhinorrhea or sore throat Cardiovascular Cardiovascular: Denies chest pain or palpitations Respiratory/Chest Respiratory/Chest: Denies cough or dyspnea Gastrointestinal Gastrointestinal: Denies nausea or vomiting Genitourinary Genitourinary ED: Denies dysuria or hematuria Musculoskeletal Musculoskeletal: Denies back pain or neck pain Integumentary Denies abscess or rash Neurologic Neurologic: Denies headache(s) or weakness Allergic/Immunologic Allergic/Immunologic ED: Denies mouth swelling or urticaria EXAM Physical Exam Const Vital Signs: 05/24/22 08:21 Temperature 97.8 F Temperature Source Oral Pulse Rate 75 Respiratory Rate 18 Blood Pressure 156/83 H Blood Pressure Mean 107 Pulse Ox 98 Oxygen Delivery Method Room Air Positive well nourished and well developed General Appearance ED: well developed and NAD HEENT Reports moist mucous membranes atraumatic Eyes PERRL and EOMs intact bilaterally Neck full ROM and supple Extremity Extremity Narrative: There is tenderness over the right elbow area. There is mild tenderness over the right wrist area. There is no obvious deformity noted. Range of motion was limited in all motions of the right elbow and wrist secondary to pain. Sensation was intact to light touch in the radial, median, and ulnar areas. Strength is 5/5 in the radial, median, and ulnar areas. Radial pulses are equal bilaterally. Neuro CN's II-XII intact bilaterally, moves all extremities, no focal motor deficits and no sensory deficits noted Sensorium / Orientation: alert Motor Exam: strength 5/5 throughout Psych mental status grossly normal MDM MDM MDM Narrative Medical decision making narrative: X-rays of the right elbow were obtained. There are 3 views. On my interpretation, there is no acute fracture. There is no dislocation. There is no soft tissue swelling. Radiologist also interpreted the x-rays and agrees. X-rays of the right forearm were obtained. There are 2 views. On my interpretation, there is no acute fracture. There is no dislocation. There is no soft tissue swelling. Radiologist also interpreted the x-rays and agrees. X-rays of the right wrist were obtained. There are 3 views. On my interpretation, there is no acute fracture. There is no dislocation. There is no soft tissue swelling. Radiologist also interpreted the x-rays and agrees. Patient was advised of his findings. Patient was instructed to continue using ice to the area. Patient was instructed to take Tylenol or ibuprofen as needed for pain. Patient was instructed to follow-up with his primary care physician in 3 to 5 days. Patient understood and was agreeable with the plan. All questions were answered. Discharge Plan Triage Chief Complaint: Fall ED Provider: Abilio Lo Dx/Rx/DC Orders Clinical Impression: Contusion of right elbow and forearm, Contusion of right wrist, initial encounter Instructions: ED Contusion, Upper Extremity, ED Fall Prevention Prescriptions: No Action pravastatin 80 MG tablet 40 mg PO QHS carbidopa-levodopa 1 TABLET tablet 1.5 tab PO TIDAC Rx Instructions: PreserVision AREDS 1 EACH tablet 1 ea PO BID nitroglycerin 0.4 mg tablet, sublingual 0.4 mg sublingual PRN PRN (Reason: Chest Pain) docusate sodium 100 mg Capsule 100 mg PO BID gabapentin 100 mg capsule 100 mg PO QHS cholecalciferol (vitamin D3) [Vitamin D3] 25 mcg (1,000 unit) Capsule 50 mcg PO 1300 metoprolol tartrate 25 mg Tablet 12.5 mg PO 1700 Rx Instructions: hold if sbp<100 acetaminophen 500 mg Tablet 1,000 mg PO TID tamsulosin [Flomax] 0.4 mg Capsule 0.4 mg PO QHS finasteride 5 mg Tablet 5 mg PO 0900 meloxicam 15 mg Tablet 15 mg PO DAILY PRN PRN (Reason: Pain) tramadol 50 mg Tablet 50 mg PO Q8H PRN (Reason: Pain) quetiapine 25 mg tablet 12.5 mg PO QHS Primary Care Provider: Scotty Hernández Referrals: Scotty Hernández MD [Primary Care Provider] - 3-5 Days Disposition Disposition: Home, Self Care
--- NOTE | 2022-05-24 08:45 | RAD_ITS ---
STUDY: X-RAY - RIGHT WRIST REASON FOR EXAM: Male, 82 years old. Injury/Pain TECHNIQUE: 3 view(s) of the wrist were obtained. COMPARISON: None. FINDINGS: There is demineralization of the radius and ulna. There is degenerative arthrosis of the radiocarpal articulation. Normal distal radioulnar articulation. Normal carpal bones. There is degenerative arthrosis of the carpal articulations. Chondrocalcinosis noted in the TFCC There is degenerative arthrosis of the carpometacarpal articulation of the thumb. Normal second through fifth carpometacarpal articulations. Normal visualized metacarpal bones. The soft tissue structures are unremarkable. RAD/Wrist min 3 Views IMPRESSION: Osteopenia with degenerative arthrosis and chondrocalcinosis. No evidence of fracture. However, wrist fractures in patients of this age can be subtle, if there is strong clinical suspicion of a fracture, recommend further evaluation with CT Electronically Signed: Brandon Munson MD at 9:14 EDT ,
--- NOTE | 2022-05-24 08:45 | RAD_ITS ---
STUDY: X-RAY - RIGHT ELBOW REASON FOR EXAM: Male, 82 years old. Injury/Pain TECHNIQUE: 3 view(s) of the elbow. COMPARISON: None. FINDINGS: Normal visualized humerus, radius and ulna. Normal radiocapitellar and ulnotrochlear articulations. The soft tissue structures are unremarkable. RAD/Elbow min 3 Views IMPRESSION: Normal x-ray examination of the elbow. Electronically Signed: Brandon Munson MD at 9:13 EDT ,
--- NOTE | 2022-05-24 08:45 | RAD_ITS ---
STUDY: X-RAY - RIGHT RADIUS AND ULNA REASON FOR EXAM: Male, 82 years old. Injury/Pain TECHNIQUE: 2 view(s) of the forearm. COMPARISON: None. FINDINGS: There is no demonstrated soft tissue swelling. There is demineralization of the radius. There is demineralization of the ulna. RAD/Forearm 2 Views IMPRESSION: Osteopenic, no demonstrated fracture or suspicious osseous lesion Electronically Signed: Brandon Munson MD at 9:12 EDT ,
--- NOTE | 2022-05-24 10:09 | NURSING ---
CALLED FOR WHEELCHAIR. ETA IS 20 BY COT
[2022-05-24 10:33] VITALS: BP 186/105; PULSE 65; RESP 18; O2SAT 99
--- NOTE | 2022-05-24 10:33 | ED.RN ---
THIS RN ATTEMPTED TO CALL REPORT TO [facility] TO INFORM OF PT D/C AND TEST RESULTS. SPOKE WITH COMBATANT DIVER QUALIFIED, TRANSFERRED TO UNIT. NO ANSWER, UNABLE TO LEAVE A MESSAGE.
== END 2022-05-24 11:02 | disposition skilled nursing facility (03) ==
PROVIDERS: Emergency Provider Emergency Medicine; PCP Internal Medicine; Visit Provider Emergency Medicine
DX: S50.11XA Contusion of right forearm, initial encounter (principal); G20 Parkinson's disease; F20.9 Schizophrenia, unspecified; I25.10 Atherosclerotic heart disease of native coronary artery without angina pectoris; Z87.891 Personal history of nicotine dependence; S60.211A Contusion of right wrist, initial encounter; S50.01XA Contusion of right elbow, initial encounter; E78.5 Hyperlipidemia, unspecified; I10 Essential (primary) hypertension; W01.0XXA Fall on same level from slipping, tripping and stumbling without subsequent striking against object, initial encounter; Z85.46 Personal history of malignant neoplasm of prostate; Z86.2 Personal history of diseases of the blood and blood-forming organs and certain disorders involving the immune mechanism; Z86.010 Personal history of colon polyps; Z85.828 Personal history of other malignant neoplasm of skin; Z79.899 Other long term (current) drug therapy
CPT/HCPCS: 73080; 73090; 73110; 99284

== ENCOUNTER 2022-05-26 18:14 | Emergency (ER) | payer MEDICARE, SELFPAY ==
[2022-05-26 18:16] VITALS: BP 189/125; PULSE 81; RESP 19; TEMP 36.6; O2SAT 97; BMI 25.8
--- NOTE | 2022-05-26 18:44 | EKG12_ITS ---
Test Reason : DYSRHYTHMIA Blood Pressure : / mmHG Vent. Rate : 077 BPM Atrial Rate : 077 BPM P-R Int : 148 ms QRS Dur : 092 ms QT Int : 410 ms P-R-T Axes : 044 -13 038 degrees QTc Int : 463 ms Normal sinus rhythm Normal ECG Confirmed by DORIAN MELCHOR, ANJU ([id number]), senior editor CATHY ANDERSON ([id number]) on 05/27/2022 2:01:09 PM Referred By: PRIMITIVO Confirmed By:ANJU ALARCON MD
--- NOTE | 2022-05-26 18:44 | CT_ITS ---
STUDY: CT BRAIN WITHOUT CONTRAST REASON FOR EXAM: Male, 82 years old. confusion Individualized dose optimization techniques were used for this CT. TECHNIQUE: Transaxial CT imaging of the brain was performed without administration of intravenous contrast material. COMPARISON: None FINDINGS: There are calcifications around the carotid artery. These are noted in the cavernous carotid arteries. Normal calvarium. Normal soft tissues. There is mild cerebral atrophy with widening of the extra-axial spaces and ventricular dilatation. There are areas of decreased attenuation within the white matter tracts of the supratentorial brain, consistent with microvascular disease changes. Normal basal ganglia and thalami. Normal brainstem. There is mild cerebellar atrophy. There is no intracranial hemorrhage. There are no findings of an acute ischemic infarction. Normal visualized paranasal sinuses. ASPECTS Score for Acute Strokes: 06/22 CT/Brain/Head without Contrast IMPRESSION: There are no acute findings. Chronic involutional changes of the brain. Electronically Signed: Lico Carrillo MD at 19:19 EDT ,
--- NOTE | 2022-05-26 18:44 | CT_ITS ---
EXAM: CT SPINE - CERVICAL WITHOUT IV REASON FOR EXAM: Male, 82 years old. NECK PAIN polytrauma HISTORY: NECK PAIN polytrauma Individualized dose optimization techniques were used for this CT. TECHNIQUE: Multiplanar images were obtained of the cervical spine. IV contrast was not utilized. COMPARISON: None. FINDINGS: The vertebral bodies do maintain their height. The odontoid process is intact. No pre-vertebral soft tissue swelling is seen. The intravertebral disc height is lost. There are scattered lymph nodes in the neck. There are degenerative changes of the osseous structures. There is bilateral facet arthropathy. There are scattered levels of foraminal stenosis. There are vascular calcifications. CT/Spine Cervical without Contras IMPRESSION: Degenerative changes of the cervical spine. There are no acute findings. Electronically Signed: Lico Carrillo MD at 19:20 EDT ,
--- NOTE | 2022-05-26 18:46 | EX.ED.DYSGE1 ---
HPI History of Present Illness Chief Complaint: Confusion Informant: patient and family Narrative Narrative: Patient sent in from [facility] for evaluation concern increasing confusion. Daughter said while currently present. Patient's been there for the last 13 months ambulates with a walker. History of Parkinson's and bladder cancer. Last treatment was this past January. He was seen 2 days ago in the ED for fall right elbow injury he denied any head injuries at that time. Daughter took him to the doctor's visit that was scheduled routine yesterday. More fatigue. Denies cough denies urine symptoms denies vomiting or diarrhea. Today daughter was called reported he is more unresponsive. Currently in the room he is back to his normal baseline. He just more fatigued. He is COVID vaccinated. No COVID infections in the past. Reported did not eat all day. He is not a diabetic. [facility] Medical History Actinic keratosis Anemia Arthritis Atherosclerotic heart disease of [place] coronary artery without angina pectoris Back pain Basal cell carcinoma of skin, unspecified Blood disorder Cardiology follow-up encounter Discoloration of skin Easy bruising Eczema intertrigo Essential (primary) hypertension Former smoker History of ankle fracture History of echocardiogram History of hallucinations History of Holter monitoring History of stress test Hyperlipidemia, unspecified Impaired fasting glucose Leg cramps Legally blind Migraine headache Orthostatic hypotension Parkinson disease Parkinson's disease Personal history of colonic polyps Prostate cancer Redness of skin Schizophrenia Spondylosis without myelopathy or radiculopathy, lumbar region Syncope Thrombocytopenia, unspecified Unspecified abnormalities of gait and mobility Unspecified urinary incontinence Uses wheelchair Home Medications carbidopa 25 mg-levodopa 100 mg tablet 1.5 tab PO TIDAC Check with primary doctor 09/07/18 [History Last Taken 10/24/21 06:00] pravastatin 80 mg tablet 40 mg PO QHS cholesterol 09/07/18 [History Last Taken Unknown] vitamins A,C,N-esvf-kpysbj 2,148 mcg-113 mg-45 mg-17.4 mg tablet (PreserVision AREDS) 1 ea PO BID vitamin 09/07/18 [History Last Taken Unknown] cholecalciferol (vitamin D3) 25 mcg (1,000 unit) capsule (Vitamin D3) 50 mcg PO 1300 supplement 08/27/21 [History Last Taken Unknown] docusate sodium 100 mg capsule 100 mg PO BID stool softener 08/27/21 [History Last Taken Unknown] gabapentin 100 mg capsule 100 mg PO QHS Check with primary doctor 08/27/21 [History Last Taken Unknown] metoprolol tartrate 25 mg tablet 12.5 mg PO 1700 BP 08/27/21 [History Last Taken Unknown] nitroglycerin 0.4 mg sublingual tablet 0.4 mg sublingual PRN PRN Chest Pain 08/27/21 [History Last Taken Unknown] acetaminophen 500 mg tablet 1,000 mg PO TID pain 10/08/21 [History Last Taken Unknown] finasteride 5 mg tablet 5 mg PO 0900 prostate 04/10/22 [History Last Taken Unknown] tamsulosin 0.4 mg capsule (Flomax) 0.4 mg PO QHS prostate 04/10/22 [History Last Taken Unknown] meloxicam 15 mg tablet 15 mg PO DAILY PRN PRN Pain 05/24/22 [History Last Taken Unknown] quetiapine 25 mg tablet 12.5 mg PO QHS 05/24/22 [History Last Taken Unknown] tramadol 50 mg tablet 50 mg PO Q8H PRN Pain 05/24/22 [History Last Taken Unknown] Allergy/AdvReac Type Severity Reaction Status Date / Time Penicillins Allergy Hives Verified 05/24/22 08:29 Family History Mother Cancer Surgical History History of cardiac catheterization Hx of colonoscopy Hx of hernia repair Hx of inguinal hernia repair Hx of inguinal hernia repair Hx of left cataract extraction Hx of right cataract extraction Social History household members: spouse housing: alf Smoking Status: Former smoker substance use type: does not use ROS ROS ED Constitutional Constitutional ED: Denies chills, fever(s) or sweats Eyes Eyes: Denies change in vision ENT ENT ED: Denies dysphagia or sore throat Cardiovascular Cardiovascular: Denies chest pain, leg edema, palpitations or racing heartbeat Respiratory/Chest Respiratory/Chest: Denies cough, dyspnea or dyspnea on exertion Gastrointestinal Gastrointestinal: Denies abdominal pain, diarrhea, nausea or vomiting Genitourinary Genitourinary ED: Denies dysuria, hematuria or urinary frequency Musculoskeletal Musculoskeletal: Denies back pain, extremity pain or neck pain Integumentary Denies rash or wounds Neurologic Neurologic: Denies headache(s), paresthesias or weakness EXAM Physical Exam Const Vital Signs: 05/26/22 18:16 05/26/22 19:27 05/26/22 20:24 Temperature 97.8 F 97.6 F L Temperature Source Temporal Temporal Pulse Rate 81 81 86 Respiratory Rate 19 H 26 H Blood Pressure 189/125 H 205/119 H Blood Pressure Mean 146 147 Pulse Ox 97 98 Oxygen Delivery Method Room Air Room Air 05/26/22 21:33 Temperature Temperature Source Pulse Rate 85 Respiratory Rate 19 H Blood Pressure 185/110 H Blood Pressure Mean Pulse Ox 95 Oxygen Delivery Method Positive well nourished and well developed General Appearance ED: well developed and NAD HEENT HEENT Narrative: Mild dry mucosal membranes normocephalic and atraumatic Eyes PERRL, EOMs intact bilaterally and conjunctivae normal General Eye ED: Yes normal appearance of both eyes Neck no lymphadenopathy and supple General: Negative for tenderness Chest Wall Chest: Negative for tenderness Resp normal respiratory effort and normal air movement Effort and Inspection: symmetric chest movement; Negative for respiratory distress Cardio regular rate, regular rhythm and no murmurs Peripheral Pulses: pulses 2+ throughout GI normal to inspection, nondistended, normoactive bowel sounds and non-tender Palpation: Negative for guarding or rebound tenderness present Back/Spine no CVA tenderness and no thoracic nor lumbar tenderness Extremity normal to inspection General Extremety ED: Negative for edema or tenderness General Extremity: Negative for edema Neuro oriented x3 and no sensory deficits noted Neuro Narrative: Dyskinesia upper extremities primarily right upper extremity. Sensorium / Orientation: awake and alert Skin no rashes or lesions noted and no wounds MDM MDM MDM Narrative Medical decision making narrative: Patient currently back to baseline. Reports fatigue since yesterday. He had a fall 2 days ago. Obtain head and neck scans which were normal. Chest x-ray 2 views reviewed myself and read by radiology shows no acute process COVID-negative labs are all stable urine without infection. Patient remained stable. Family is reassured. He will be discharged back to facility. Blood pressure is elevated asymptomatic they state he is always elevated. Discharged back to facility with family. Lab Data Attestation: I reviewed the patient's lab results. Labs: Laboratory Results - last 24 hr 05/26/22 05/26/22 05/26/22 19:24 19:24 20:10 WBC 11.9 H RBC 4.56 L Hgb 13.2 Hct 40.2 MCV 88.2 MCH 28.9 MCHC 32.8 RDW Std Deviation 39.7 RDW Coeff of Buck 12.4 Plt Count 153 MPV 10.6 Immature Gran % (Auto) 0.500 Neut % (Auto) 84.5 H Lymph % (Auto) 6.5 L [place] % (Auto) 8.3 Eos % (Auto) 0.0 Baso % (Auto) 0.2 Absolute Neuts (auto) 10.1 H Absolute Lymphs (auto) 0.77 L Nucleated RBC % 0 Sodium 139 Potassium 4.5 Chloride 105 Carbon Dioxide 28.0 Anion Gap 6 BUN 27 H Creatinine 0.86 Estim Creat Clear Calc 57.70 Est GFR (MDRD) Af Amer 109 Est GFR (MDRD) Non-Af 90 BUN/Creatinine Ratio 31.5 H Glucose 131 H Calcium 9.5 Total Bilirubin 1.10 H AST 22 ALT 18 Alkaline Phosphatase 56 Total Protein 7.5 Albumin 3.9 Globulin 3.6 Albumin/Globulin Ratio 1.1 Urine Color Yellow Urine Clarity Clear Urine pH 6.0 Ur Specific [place] 1.020 Urine Protein 100 H Urine Glucose (UA) 50 H Urine Ketones 5 H Urine Occult Blood 50 H Urine Nitrite Negative Urine Bilirubin Negative Urine Urobilinogen Normal Ur Leukocyte Esterase Negative Urine RBC 0-5 SEEN Urine WBC 0-5 SEEN Ur Squamous Epith Cells 0 SEEN Urine Bacteria RARE Urine Mucus 0 SEEN Radiography Diagnostic Testing: Clinical Impression(s) from Imaging Studies Brain CT 05/26/22 18:44 IMPRESSION: There are no acute findings. Chronic involutional changes of the brain. Electronically Signed: Lico Carrillo MD at 19:19 EDT , Cervical Spine CT 05/26/22 18:44 IMPRESSION: Degenerative changes of the cervical spine. There are no acute findings. Electronically Signed: Lico Carrillo MD at 19:20 EDT , Chest X-Ray 05/26/22 19:00 IMPRESSION: There are no acute findings. Electronically Signed: Lico Carrillo MD at 19:16 EDT Reading Location ID and State: [facility]– [place] / [place] , Service support , EKG Initial EKG: Attestation: I personally reviewed and interpreted this EKG as follows: Comments: Sinus rate of 77, no ST changes. T wave flattening lead III. Nonspecific. Discharge Plan Triage Chief Complaint: Confusion ED Provider: Wili Mosquera Dx/Rx/DC Orders Clinical Impression: Confusion, Dementia with behavioral disturbance, Bladder cancer, Elevated blood pressure reading with diagnosis of hypertension Instructions: ED Confusion Prescriptions: No Action pravastatin 80 MG tablet 40 mg PO QHS carbidopa-levodopa 1 TABLET tablet 1.5 tab PO TIDAC Rx Instructions: 25/100 PreserVision AREDS 1 EACH tablet 1 ea PO BID nitroglycerin 0.4 mg tablet, sublingual 0.4 mg sublingual PRN PRN (Reason: Chest Pain) docusate sodium 100 mg Capsule 100 mg PO BID gabapentin 100 mg capsule 100 mg PO QHS cholecalciferol (vitamin D3) [Vitamin D3] 25 mcg (1,000 unit) Capsule 50 mcg PO 1300 metoprolol tartrate 25 mg Tablet 12.5 mg PO 1700 Rx Instructions: hold if sbp<100 acetaminophen 500 mg Tablet 1,000 mg PO TID tamsulosin [Flomax] 0.4 mg Capsule 0.4 mg PO QHS finasteride 5 mg Tablet 5 mg PO 0900 meloxicam 15 mg Tablet 15 mg PO DAILY PRN PRN (Reason: Pain) tramadol 50 mg Tablet 50 mg PO Q8H PRN (Reason: Pain) quetiapine 25 mg tablet 12.5 mg PO QHS Primary Care Provider: Scotty Hernández Referrals: Scotty Hernández MD [Primary Care Provider] - 2 Days Activity Restrictions/Additional Instructions: CT scan negative. Chest x-ray negative. Urine negative. Labs stable COVID-negative. Back to baseline mentally per family. Disposition Disposition: Home, Self Care Discharge Date/Time: 05/26/22 21:34
--- NOTE | 2022-05-26 19:00 | RAD_ITS ---
STUDY: X-RAY CHEST REASON FOR EXAM: Male, 82 years old. confusion TECHNIQUE: XR Chest 2 Views COMPARISON: Prior comparison studies are not available for review at this time. FINDINGS: There is no demonstrated pleural abnormality. Normal size heart. Normal mediastinum and loco. Normal visualized pulmonary arteries. There is atherosclerotic calcification of the aortic arch with tortuosity. There are diffuse degenerative changes of the visualized thoracic spine. There is degenerative osteoarthritis of the bilateral shoulders. There is no demonstrated abnormality of the visualized soft tissue structures of the upper abdomen. RAD/Chest PA and Lateral IMPRESSION: There are no acute findings. Electronically Signed: Lico Carrillo MD at 19:16 EDT ,
[2022-05-26 19:27] VITALS: BP 205/119; PULSE 81; RESP 26; TEMP 36.4; O2SAT 98
[2022-05-26] MEDS: 0.9% Normal Saline 1,000 ML 1000 ML IV (19:27)
[2022-05-26 19:34] LABS: Absolute Lymphocyte Count 0.77 X10^3/uL (0.83-4.51); Absolute Neutrophil Count 10.1 X10^3/uL (2.0-7.7); Basophil# 0.02 X10^3/uL; Basophil% 0.2 % (0-1); Hematocrit 40.2 % (40-54); Hemoglobin 13.2 g/dL (13.0-16.5); Lymphocyte # 0.77 X10^3/ul (0.83-4.51); Lymphocyte % 6.5 % (19-41); Mean Corp Hgb Conc 32.8 g/dL (32-36); Mean Corpuscular Hgb 28.9 pg (27.0-32.0); Mean Corpuscular Volume 88.2 fL (80-94); Mean Platelet Vol. 10.6 fl (6.2-12.0); Monocyte# 0.99 X10^3/uL; Monocyte% 8.3 % (0-10); NRBC Flagged by Analyzer 0 % (0-5); Neutrophil # 10.08 X10^3/uL (2.7-7.7); Neutrophil % 84.5 % (47-70); Platelet Count 153 K/mm3 (150-450); RBC Distribution Width CV 12.4 % (11.6-14.6); RBC Distribution Width SD 39.7 fl (35.1-43.9); Red Blood Count 4.56 M/mm3 (4.6-6.2); White Blood Count 11.9 K/mm3 (4.4-11.0)
[2022-05-26 19:56] LABS: ALB/GLOB Ratio 1.1 RATIO (0.9-2.4); AST(SGOT) 22 U/L (15-37); Alanine Aminotransfer ALT/SGPT 18 U/L (16-61); Albumin, Serum 3.9 g/dL (3.2-5.0); Alkaline Phosphatase 56 U/L (45-117); Anion Gap 6 (5-15); BUN 27 mg/dL (7-18); BUN/Creat Ratio 31.5 RATIO (10-20); Calcium,Total 9.5 mg/dL (8.5-10.1); Chloride 105 mmol/L (98-107); Creatinine, Serum 0.86 mg/dL (0.70-1.30); EST Glomerular Filtration Rate 90 mL/min (>60); Est Glom Filt Rate - Afr Amer 109 mL/min (>60); Globulin 3.6 g/dL (2.2-4.2); Glucose 131 mg/dL (74-106); Potassium 4.5 mmol/L (3.5-5.1); Protein, Total 7.5 g/dL (6.4-8.2); Sodium Level 139 mmol/L (136-145)
[2022-05-26 20:19] LABS: Mucous, Urine 0 SEEN /hpf (<or=2+); Squamous Epithelial Cells - UA 0 SEEN /hpf (0-5)
[2022-05-26 20:22] LABS: Color, Urine Yellow (Yellow); Glucose, Dipstick 50 mg/dl (Normal); Ketone-Dipstick 5 mg/dl (Negative); Leukocyte Esterase-Dipstick Negative /ul (Negative); Nitrite-Dipstick Negative (Negative); Occult Blood-Urine 50 /ul (Negative); Protein-Dipstick 100 mg/dl (Negative); Urine Bilirubin Dipstick Negative (Negative); Urine Clarity Clear (Clear); Urine Urobilinogen Normal (Normal)
[2022-05-26 20:24] VITALS: PULSE 86
[2022-05-26 20:31] LABS: Bacteria RARE /hpf (None Seen); Red Blood Cells-Urine 0-5 SEEN /hpf (0-5); White Blood Cells 0-5 SEEN /hpf (0-5)
[2022-05-26 21:33] VITALS: BP 185/110; PULSE 85; RESP 19; O2SAT 95
== END 2022-05-26 21:34 | disposition home or self-care (01) ==
PROVIDERS: Emergency Provider Emergency Medicine; PCP Internal Medicine; Visit Provider Emergency Medicine
DX: F03.91 Unspecified dementia, unspecified severity, with behavioral disturbance (principal); G20 Parkinson's disease; F20.9 Schizophrenia, unspecified; C67.9 Malignant neoplasm of bladder, unspecified; I25.10 Atherosclerotic heart disease of native coronary artery without angina pectoris; Z85.828 Personal history of other malignant neoplasm of skin; R03.0 Elevated blood-pressure reading, without diagnosis of hypertension; Z87.891 Personal history of nicotine dependence; E78.5 Hyperlipidemia, unspecified; Z85.46 Personal history of malignant neoplasm of prostate; H54.8 Legal blindness, as defined in USA; Z79.899 Other long term (current) drug therapy
CPT/HCPCS: 70450; 71046; 72125; 80053; 81001; 85025; 87811; 93005; 99285

== ENCOUNTER 2022-06-13 13:06 | Emergency (ER) | payer MEDICARE, SELFPAY ==
[2022-06-13 13:06] VITALS: BP 190/97; PULSE 74; RESP 22; TEMP 36.2; O2SAT 98; BMI 27.1
[2022-06-13 13:10] VITALS: O2SAT 96
--- NOTE | 2022-06-13 13:38 | EDS_ITS ---
HPI HPI - Fall History of Present Illness Chief Complaint: Fall Informant: patient Occured/Mechanism Occurred: Today Mechanism/Context: Yes same level fall Narrative: Patient presents after a fall that occurred today. Patient states he was using his walker when the wheels slipped out from under him. Patient states he fell forward and hit his head. Patient also complains of pain in his left wrist. Patient denies any loss of consciousness. Patient states his immunizations are up-to-date. Patient states his pain is aching and feels worse with movement of his wrist. Patient denies any paresthesias or weakness. Patient denies any other injuries. Usually ambulates: Walker Pain/Injury Pain Location: head and upper extremity (Bilateral wrists, left worse than right) Quality of Pain: Aching Worsened by: Movement Relieved by: Rest Associated Symptoms Associated Symptoms: Negative for Parasthesias, Weakness, Loss of function, Inability to ambulate, Loss of consciousness or Amnesia PFSH [facility] Medical History Actinic keratosis Anemia Arthritis Atherosclerotic heart disease of [place] coronary artery without angina pectoris Back pain Basal cell carcinoma of skin, unspecified Blood disorder Cardiology follow-up encounter Discoloration of skin Easy bruising Eczema intertrigo Essential (primary) hypertension Former smoker History of ankle fracture History of echocardiogram History of hallucinations History of Holter monitoring History of stress test Hyperlipidemia, unspecified Impaired fasting glucose Leg cramps Legally blind Migraine headache Orthostatic hypotension Parkinson disease Parkinson's disease Personal history of colonic polyps Prostate cancer Redness of skin Schizophrenia Spondylosis without myelopathy or radiculopathy, lumbar region Syncope Thrombocytopenia, unspecified Unspecified abnormalities of gait and mobility Unspecified urinary incontinence Uses wheelchair Home Medications carbidopa 25 mg-levodopa 100 mg tablet 1.5 tab PO TIDAC Check with primary doctor 09/07/18 [History Last Taken 10/24/21 06:00] pravastatin 80 mg tablet 40 mg PO QHS cholesterol 09/07/18 [History Last Taken Unknown] vitamins A,C,R-juzo-lqtrsu 2,148 mcg-113 mg-45 mg-17.4 mg tablet (PreserVision AREDS) 1 ea PO BID vitamin 09/07/18 [History Last Taken Unknown] cholecalciferol (vitamin D3) 25 mcg (1,000 unit) capsule (Vitamin D3) 50 mcg PO 1300 supplement 08/27/21 [History Last Taken Unknown] gabapentin 100 mg capsule 100 mg PO QHS Check with primary doctor 08/27/21 [History Last Taken Unknown] metoprolol tartrate 25 mg tablet 12.5 mg PO 1700 BP 08/27/21 [History Last Taken Unknown] nitroglycerin 0.4 mg sublingual tablet 0.4 mg sublingual PRN PRN Chest Pain 08/27/21 [History Last Taken Unknown] acetaminophen 500 mg tablet 1,000 mg PO TID pain 10/08/21 [History Last Taken Unknown] finasteride 5 mg tablet 5 mg PO 0900 prostate 04/10/22 [History Last Taken Unknown] tamsulosin 0.4 mg capsule (Flomax) 0.4 mg PO QHS prostate 04/10/22 [History Last Taken Unknown] meloxicam 15 mg tablet 15 mg PO DAILY PRN PRN Pain 05/24/22 [History Last Taken Unknown] quetiapine 25 mg tablet 12.5 mg PO QHS 05/24/22 [History Last Taken Unknown] tramadol 50 mg tablet 50 mg PO Q8H PRN Pain 05/24/22 [History Last Taken Unknown] Allergy/AdvReac Type Severity Reaction Status Date / Time Penicillins Allergy Hives Verified 05/24/22 08:29 Family History Mother Cancer Surgical History History of cardiac catheterization Hx of colonoscopy Hx of hernia repair Hx of inguinal hernia repair Hx of inguinal hernia repair Hx of left cataract extraction Hx of right cataract extraction Social History household members: spouse housing: half-way Smoking Status: Former smoker substance use type: does not use ROS ROS ED Constitutional Constitutional ED: Denies chills or fever(s) Eyes Eyes: Denies blurry vision or change in vision ENT ENT ED: Denies rhinorrhea or sore throat Cardiovascular Cardiovascular: Denies chest pain or palpitations Respiratory/Chest Respiratory/Chest: Denies cough or dyspnea Gastrointestinal Gastrointestinal: Denies nausea or vomiting Genitourinary Genitourinary ED: Denies dysuria or hematuria Musculoskeletal Musculoskeletal: Reports back pain; Denies neck pain Integumentary Denies abscess or rash Neurologic Neurologic: Denies headache(s) or weakness Allergic/Immunologic Allergic/Immunologic ED: Denies mouth swelling or urticaria EXAM Physical Exam Const Vital Signs: 06/13/22 13:06 06/13/22 13:10 06/13/22 15:09 Temperature 97.1 F L Temperature Source Temporal Pulse Rate 74 75 Respiratory Rate 22 H Respiratory Depth Normal Blood Pressure 190/97 H 185/82 H Blood Pressure Mean 128 116 Pulse Ox 98 96 Oxygen Delivery Method Room Air Room Air Positive well nourished and well developed General Appearance ED: well developed and NAD HEENT Reports normocephalic atraumatic Eyes PERRL and EOMs intact bilaterally Neck full ROM and supple Chest Wall inspection of chest normal and palpation of chest normal Resp normal respiratory effort and clear to auscultation bilaterally Cardio regular rate and regular rhythm GI non-tender and non-distended Palpation: soft Extremity Extremity Narrative: There is tenderness and edema over the left distal radius. There is no obvious deformity. There is mild tenderness over the right wrist area. There is no edema or ecchymosis over this area. Radial pulses are equal bilateral. Sensation was intact to light touch in the radial, median, and ulnar areas bilaterally. Strength is 5/5 in the radial, median, and ulnar areas bilaterally. Neuro oriented x3, CN's II-XII intact bilaterally, moves all extremities, no focal motor deficits and no sensory deficits noted Sensorium / Orientation: alert Motor Exam: strength 5/5 throughout Psych mental status grossly normal MDM MDM MDM Narrative Medical decision making narrative: CT scan of the brain was obtained. There is no acute intracranial abnormality. This was interpreted by the radiologist and reviewed by myself. X-rays of the right wrist were obtained. There are 3 views. On my interpretation, there is no acute fracture. There is no dislocation. There is no soft tissue swelling. Radiologist also interpreted the x-rays and agrees. X-rays of the left wrist were obtained. There are 3 views. On my interpretation, there is a nondisplaced fracture of the distal radius. There is no dislocation. There is some mild soft tissue swelling. Radiologist also interpreted the x-rays and agrees. Patient was placed in a well-padded custom made volar splint using Ortho-Glass. Neurovascular exam was intact before and after the procedure. Patient tolerated the procedure well. Patient was instructed to follow-up with his primary care physician in 5 to 7 days. Patient is also given referral for orthopedics. Patient and family understand and are agreeable with the plan. All questions were answered. Radiography Diagnostic Testing: Clinical Impression(s) from Imaging Studies Brain CT 06/13/22 13:42 IMPRESSION: 1. No acute intracranial abnormality. There has been no significant change from the reference examination. 2. Stable underlying senescent change with small vessel ischemia. Electronically Signed: Charan Henley MD at 14:25 EDT , Wrist X-Ray 06/13/22 13:42 IMPRESSION: Degenerative changes with mild narrowing of the radiocarpal joint space. There is no acute osseous abnormality. Electronically Signed: Charan Henley MD at 14:35 EDT , Wrist X-Ray 06/13/22 13:42 IMPRESSION: Nondisplaced fracture through the distal radius. Electronically Signed: Charan Henley MD at 14:35 EDT , Discharge Plan Triage Chief Complaint: Fall ED Provider: Abilio Lo Dx/Rx/DC Orders Clinical Impression: Closed head injury, Distal radius fracture, left Instructions: ED Head Injury (Adult) Prescriptions: No Action pravastatin 80 MG tablet 40 mg PO QHS carbidopa-levodopa 1 TABLET tablet 1.5 tab PO TIDAC Rx Instructions: 25/100 PreserVision AREDS 1 EACH tablet 1 ea PO BID nitroglycerin 0.4 mg tablet, sublingual 0.4 mg sublingual PRN PRN (Reason: Chest Pain) gabapentin 100 mg capsule 100 mg PO QHS cholecalciferol (vitamin D3) [Vitamin D3] 25 mcg (1,000 unit) Capsule 50 mcg PO 1300 metoprolol tartrate 25 mg Tablet 12.5 mg PO 1700 Rx Instructions: hold if sbp<100 acetaminophen 500 mg Tablet 1,000 mg PO TID tamsulosin [Flomax] 0.4 mg Capsule 0.4 mg PO QHS finasteride 5 mg Tablet 5 mg PO 0900 meloxicam 15 mg Tablet 15 mg PO DAILY PRN PRN (Reason: Pain) tramadol 50 mg Tablet 50 mg PO Q8H PRN (Reason: Pain) quetiapine 25 mg tablet 12.5 mg PO QHS Primary Care Provider: Scotty Hernández Referrals: Jordan Tellez MD [Med Staff - Active Staff] - 5-7 Days Scotty Hernández MD [Primary Care Provider] - 5-7 Days Disposition Disposition: [facility]it[facility] Facility Discharge Location: [facility]
--- NOTE | 2022-06-13 13:42 | RAD_ITS ---
EXAM: XR LEFT WRIST COMPLETE, 3 OR MORE VIEWS CLINICAL INDICATION: Injury/Pain TECHNIQUE: Frontal, lateral and oblique views of the left wrist. This report was created using [employer] report generation technology. COMPARISON: None. FINDINGS: BONES/JOINTS: There is a fracture through the distal radius. The carpal bones are intact. Preservation of the joint space. No sclerotic or destructive changes observed. SOFT TISSUES: Unremarkable. No soft tissue swelling or gas. No radiopaque foreign body. RAD/Wrist min 3 Views IMPRESSION: Nondisplaced fracture through the distal radius. Electronically Signed: Charan Henley MD at 14:35 EDT ,
--- NOTE | 2022-06-13 13:42 | RAD_ITS ---
EXAM: XR RIGHT WRIST COMPLETE, 3 OR MORE VIEWS CLINICAL INDICATION: Injury/Pain TECHNIQUE: Frontal, lateral and oblique views of the right wrist. This report was created using [employer] report generation technology. COMPARISON: None. FINDINGS: BONES/JOINTS: There is mild narrowing of the radiocarpal joint space. No acute fracture. No subluxation. Normal alignment. No sclerotic or destructive changes observed. SOFT TISSUES: Unremarkable. No soft tissue swelling or gas. No radiopaque foreign body. RAD/Wrist min 3 Views IMPRESSION: Degenerative changes with mild narrowing of the radiocarpal joint space. There is no acute osseous abnormality. Electronically Signed: Charan Henley MD at 14:35 EDT ,
--- NOTE | 2022-06-13 13:42 | CT_ITS ---
EXAM: CT HEAD WITHOUT INTRAVENOUS CONTRAST CLINICAL INDICATION: Injury/Pain TECHNIQUE: Multiple axial images were obtained of the head without intravenous contrast. This CT exam was performed using one or more of the following dose reduction techniques: automated exposure control, adjustment of the mA and/or kV according to patient size, and/or use of iterative reconstruction technique. This report was created using [email or web address] report generation technology. COMPARISON: 05/26/2022 FINDINGS: BRAIN AND EXTRA-AXIAL SPACES: There is enlargement of the ventricular system and cortical sulci. There is hypoattenuation in the periventricular white matter. No intra- or extra-axial hemorrhage. No evidence of acute infarct. No intracranial mass or mass effect. There is preservation of the landrum/white matter interface. Posterior fossa structures are unremarkable. Basal cisterns are patent. BONES/JOINTS: Unremarkable. No discrete lytic or blastic abnormalities. SINUSES: Unremarkable as visualized. Clear. MASTOID AIR CELLS: Unremarkable. Clear. ORBITS: Visualized globes, extraocular muscles, optic nerves and retrobulbar fat appear unremarkable. CT/Brain/Head without Contrast IMPRESSION: 1. No acute intracranial abnormality. There has been no significant change from the reference examination. 2. Stable underlying senescent change with small vessel ischemia. Electronically Signed: Charan Henley MD at 14:25 EDT ,
[2022-06-13 15:09] VITALS: BP 185/82; PULSE 75
--- NOTE | 2022-06-13 16:04 | NURSING ---
CALLED SQUAD, WITH IN THE HOUR
[2022-06-13] MEDS: traMADol 50 MG Tablet PO (16:35)
== END 2022-06-13 17:05 | disposition skilled nursing facility (03) ==
PROVIDERS: Emergency Provider Emergency Medicine; PCP Internal Medicine; Visit Provider Emergency Medicine
DX: S52.502A Unspecified fracture of the lower end of left radius, initial encounter for closed fracture (principal); G20 Parkinson's disease; F20.9 Schizophrenia, unspecified; S09.90XA Unspecified injury of head, initial encounter; W19.XXXA Unspecified fall, initial encounter; I25.10 Atherosclerotic heart disease of native coronary artery without angina pectoris; Z85.828 Personal history of other malignant neoplasm of skin; I10 Essential (primary) hypertension; Z87.891 Personal history of nicotine dependence; E78.5 Hyperlipidemia, unspecified; H54.8 Legal blindness, as defined in USA; Z85.46 Personal history of malignant neoplasm of prostate; Z79.899 Other long term (current) drug therapy
CPT/HCPCS: 29125; 70450; 73110; 99284

== ENCOUNTER → 2022-08-20 | Outpatient (REF) | payer MEDICARE, SELFPAY ==
[2022-08-20 08:03] LABS: Absolute Lymphocyte Count 1.41 X10^3/uL (0.83-4.51); Absolute Neutrophil Count 3.1 X10^3/uL (2.0-7.7); Basophil# 0.04 X10^3/uL; Basophil% 0.8 % (0-1); Eosinophil# 0.16 X10^3/uL; Hematocrit 37.5 % (40-54); Hemoglobin 11.7 g/dL (13.0-16.5); Lymphocyte # 1.41 X10^3/ul (0.83-4.51); Lymphocyte % 26.7 % (19-41); Mean Corp Hgb Conc 31.2 g/dL (32-36); Mean Corpuscular Hgb 28.3 pg (27.0-32.0); Mean Corpuscular Volume 90.6 fL (80-94); Mean Platelet Vol. 11.2 fl (6.2-12.0); Monocyte# 0.55 X10^3/uL; Monocyte% 10.4 % (0-10); NRBC Flagged by Analyzer 0 % (0-5); Neutrophil # 3.12 X10^3/uL (2.7-7.7); Neutrophil % 58.9 % (47-70); Platelet Count 152 K/mm3 (150-450); RBC Distribution Width CV 13.6 % (11.6-14.6); RBC Distribution Width SD 45.2 fl (35.1-43.9); Red Blood Count 4.14 M/mm3 (4.6-6.2); White Blood Count 5.3 K/mm3 (4.4-11.0)
[2022-08-20 08:26] LABS: ALB/GLOB Ratio 1.2 RATIO (0.9-2.4); AST(SGOT) 16 U/L (15-37); Alanine Aminotransfer ALT/SGPT 14 U/L (16-61); Albumin, Serum 3.3 g/dL (3.2-5.0); Alkaline Phosphatase 60 U/L (45-117); Anion Gap 2 (5-15); BUN 27 mg/dL (7-18); BUN/Creat Ratio 31.8 RATIO (10-20); Calcium,Total 8.7 mg/dL (8.5-10.1); Chloride 108 mmol/L (98-107); Cholesterol 112 mg/dL (200); Creatinine, Serum 0.85 mg/dL (0.70-1.30); EST Glomerular Filtration Rate 91 mL/min (>60); Est Glom Filt Rate - Afr Amer 110 mL/min (>60); Globulin 2.8 g/dL (2.2-4.2); Glucose 99 mg/dL (74-106); High Density Lipoprotein 55 mg/dL; Potassium 3.9 mmol/L (3.5-5.1); Protein, Total 6.1 g/dL (6.4-8.2); Sodium Level 142 mmol/L (136-145); Triglycerides 43 mg/dL; Very Low Density Lipoprotein 9 mg/dL (5-40)
== END ==
LOC: OLS.DANBUR 05:00
PROVIDERS: PCP Internal Medicine; Visit Provider Internal Medicine
DX: I10 Essential (primary) hypertension (principal); E78.5 Hyperlipidemia, unspecified
CPT/HCPCS: 36415; 80053; 80061; 85025

== ENCOUNTER 2022-11-21 15:04 | Emergency (ER) | payer MEDICARE, SELFPAY ==
[2022-11-21 15:05] VITALS: RESP 18; TEMP 37.1; O2SAT 100
[2022-11-21 15:07] VITALS: BP 91/60
--- NOTE | 2022-11-21 16:06 | EKG12_ITS ---
Test Reason : WEKNESS Blood Pressure : / mmHG Vent. Rate : 050 BPM Atrial Rate : 050 BPM P-R Int : 150 ms QRS Dur : 098 ms QT Int : 524 ms P-R-T Axes : 040 002 044 degrees QTc Int : 477 ms Sinus bradycardia Otherwise normal ECG When compared with ECG of 26-MAY-2022 18:51, Vent. rate has decreased BY 27 BPM Confirmed by DORIAN MELCHOR, ANJU ([id number]), videotape editor CATHY ANDERSON ([id number]) on 11/24/2022 10:56:29 AM Referred By: CARMEN Confirmed By:ANJU ALARCON MD
--- NOTE | 2022-11-21 16:14 | EDS_ITS ---
HPI History of Present Illness Chief Complaint: Weakness Informant: patient, family and SNF Onset/Context/Timing Onset: Today and Hours Context: Sudden Onset Timing: Continuous Quality: Low heart rate, high blood pressure and confusion Location: Nursing facility Current Severity: Mild Maximum Severity: Moderate Worsened by: Unknown Relieved by: Nothing Associated Symptoms Associated Symptoms: Unable to determine Narrative Narrative: Patient is an 82-year-old male with history of dementia, hallucinations, bladder cancer and Parkinson's disease. His blood pressure was noted to be low. Speaking with his daughter he apparently has autonomic dysfunction due to his Parkinson's disease and may be reason for low blood pressure since blood pressure was taken in triage when he was sitting. Patient had respiratory symptoms last weekend Wednesday, November 14 or November 15. He was seen on November 17 and tested for COVID. COVID test was positive. He was placed on Paxlovid. According to daughter there is history of prostate problems. There is no records of recent urinary tract infection. Patient had a CT of the head June [address] Abilio Ortiz in the emergency department. This revealed chronic changes. Of note there is no history of fall or head trauma. Patient is oriented to person, place and knows the year but not the month or day of the week. History is limited to what has been documented and supplemented by family members. Prior similar symptoms: No Recent Illness/Hospitalization: Yes [facility] Medical History Actinic keratosis Anemia Arthritis Atherosclerotic heart disease of [place] coronary artery without angina pectoris Back pain Basal cell carcinoma of skin, unspecified Blood disorder Cardiology follow-up encounter Discoloration of skin Easy bruising Eczema intertrigo Essential (primary) hypertension Former smoker History of ankle fracture History of echocardiogram History of hallucinations History of Holter monitoring History of stress test Hyperlipidemia, unspecified Impaired fasting glucose Leg cramps Legally blind Migraine headache Orthostatic hypotension Parkinson disease Parkinson's disease Personal history of colonic polyps Prostate cancer Redness of skin Schizophrenia Spondylosis without myelopathy or radiculopathy, lumbar region Syncope Thrombocytopenia, unspecified Unspecified abnormalities of gait and mobility Unspecified urinary incontinence Uses wheelchair Home Medications carbidopa 25 mg-levodopa 100 mg tablet 1.5 tab PO TIDAC Check with primary doctor 09/07/18 [History Last Taken 10/24/21 06:00] pravastatin 80 mg tablet 40 mg PO QHS cholesterol 09/07/18 [History Last Taken Unknown] vitamins A,C,X-ioxw-ybbdgs 2,148 mcg-113 mg-45 mg-17.4 mg tablet (PreserVision AREDS) 1 ea PO BID vitamin 09/07/18 [History Last Taken Unknown] cholecalciferol (vitamin D3) 25 mcg (1,000 unit) capsule (Vitamin D3) 50 mcg PO 1300 supplement 08/27/21 [History Last Taken Unknown] gabapentin 100 mg capsule 100 mg PO QHS Check with primary doctor 08/27/21 [History Last Taken Unknown] metoprolol tartrate 25 mg tablet 12.5 mg PO 1700 BP 08/27/21 [History Last Taken Unknown] nitroglycerin 0.4 mg sublingual tablet 0.4 mg sublingual PRN PRN Chest Pain 08/27/21 [History Last Taken Unknown] acetaminophen 500 mg tablet 1,000 mg PO TID pain 10/08/21 [History Last Taken Unknown] finasteride 5 mg tablet 5 mg PO 0900 prostate 04/10/22 [History Last Taken Unknown] tamsulosin 0.4 mg capsule (Flomax) 0.4 mg PO QHS prostate 04/10/22 [History Last Taken Unknown] meloxicam 15 mg tablet 15 mg PO DAILY PRN PRN Pain 05/24/22 [History Last Taken Unknown] quetiapine 25 mg tablet 12.5 mg PO QHS 05/24/22 [History Last Taken Unknown] tramadol 50 mg tablet 50 mg PO Q8H PRN Pain 05/24/22 [History Last Taken Unknown] docusate sodium 100 mg capsule (Colace) 100 mg PO BID 11/21/22 [History Last Taken Unknown] menthol 0.44 %-zinc oxide 20.6 % topical ointment (Calmoseptine) 1 applic topical DAILY 11/21/22 [History Last Taken Unknown] nirmatrelvir 300 mg (150 mg x2)-ritonavir 100 mg tablet,dose pack(EUA) (Paxlovid) 3 tab PO BID 11/21/22 [History Last Taken Unknown] Allergy/AdvReac Type Severity Reaction Status Date / Time Penicillins Allergy Hives Verified 11/21/22 15:08 Family History Mother Cancer Surgical History History of cardiac catheterization Hx of colonoscopy Hx of hernia repair Hx of inguinal hernia repair Hx of inguinal hernia repair Hx of left cataract extraction Hx of right cataract extraction Social History household members: spouse housing: assisted Smoking Status: Former smoker substance use type: does not use ROS ROS ED Constitutional Constitutional ED: Denies chills, fever(s), subjective or sweats Eyes Eyes: Denies blurry vision, change in vision or diplopia ENT ENT ED: Denies ear pain, rhinorrhea or sore throat Cardiovascular Cardiovascular: Denies chest pain or palpitations Respiratory/Chest Respiratory/Chest: Denies cough, dyspnea or dyspnea on exertion Gastrointestinal Gastrointestinal: Denies abdominal pain, diarrhea or vomiting Genitourinary Genitourinary ED: Denies dysuria, hematuria or urinary frequency Musculoskeletal Musculoskeletal: Denies arthralgias or myalgias Neurologic Neurologic: Reports weakness; Denies headache(s) Endocrine Endocrinology: Denies cold intolerance or heat intolerance Hematologic/Lymphatic Hematologic/Lymphatic: Reports systems reviewed and no addt'l complaints, except as documented EXAM Physical Exam Const Vital Signs: 11/21/22 15:05 11/21/22 15:07 11/21/22 16:33 Temperature 98.8 F Temperature Source Temporal Pulse Rate Respiratory Rate 18 Respiratory Pattern Blood Pressure 91/60 197/105 H Blood Pressure Mean 70 135 Pulse Ox 100 Oxygen Delivery Method Room Air 11/21/22 16:33 11/21/22 18:08 11/21/22 18:47 Temperature Temperature Source Pulse Rate 58 L Respiratory Rate Respiratory Pattern Normal Blood Pressure 207/99 H 202/107 H Blood Pressure Mean 135 138 Pulse Ox Oxygen Delivery Method Positive well nourished and well developed Constitutional Narrative: Blood pressure is low at 91/60. Mean arterial pressure 60. Patient is not febrile, tachypneic or hypoxic. Pulses pending. General Appearance ED: well developed and NAD; Negative for cyanotic, diaphoretic or pallor HEENT Reports dry mucous membranes HEENT Narrative: Head is atraumatic normocephalic. Ears are normal. Nares are patent. Posterior pharynx out erythema or exudate. Mouth ED: Yes dry mucous membranes Mouth: dry mucous membranes Eyes PERRL and EOMs intact bilaterally Eyes Narrative: There is no nystagmus. General Eye ED: Negative for pale conjunctiva or scleral icterus Neck no lymphadenopathy, supple and no JVD General: Negative for tenderness Chest Wall inspection of chest normal and palpation of chest normal Resp normal respiratory effort and No clear to auscultation bilaterally Auscultation: rales right lower Cardio regular rate, regular rhythm, S1 normal heart sound, S2 normal heart sound and no murmurs GI normal to inspection, nondistended, normoactive bowel sounds, non-tender, non- distended and no masses; Negative for hepatosplenomegaly GI Narrative: There is no palpable pulsatile mass. There is no abdominal bruit. Back/Spine no CVA tenderness Extremity normal to inspection General Extremety ED: Yes edema; Negative for tenderness General Extremity: edema Neuro No oriented x3, CN's II-XII intact bilaterally and no sensory deficits noted Neuro Narrative: There is no clonus or Babinski. DTRs are symmetric. Motor Exam: strength 5/5 throughout Psych Psych Narrative: Slow psychomotor skills. Mood & Affect: depressed Skin no rashes or lesions noted, no wounds and No skin turgor normal General Skin Exam: Negative for elasticity normal, jaundice or pallor MDM MDM MDM Narrative Medical decision making narrative: Patient presents with altered mental status. Need to evaluate for metabolic or infectious etiology. Suspect this may represent COVID encephalopathy. This also may be related to his Parkinson's disease. Will obtain UA, CBC and electrolyte panel. Because there were abnormal auscultatory findings on the right chest x-ray was obtained. Patient's repeat blood pressure was markedly elevated. He had several repeat blood pressure readings. Daughter states he did not take his antihypertensive meds prior to arrival. He was administered his antihypertensive meds. History & Record Review Discussion w/independent historian: Patient and Family Additional record(s) reviewed:: Prior outpatient record (Recent records from [facility] nurse practitioner and PCP November 17 and ), Prior ED visit (June 2022) and Prior labs Lab Data Attestation: I reviewed the patient's lab results. Lab results narrative: Patient is neutropenic due to COVID. Patient is anemic. Patient's prior labs indicate that he has been anemic in the past. Electrolyte panel is unremarkable. Creatinine is slight elevated 1.20 with a GFR of 61. Lactate is normal. Hepatic profile was unremarkable. CO2 is elevated 145 with a normal CO2 anion gap. UA is negative. Labs: Laboratory Results - last 24 hr 11/21/22 11/21/22 11/21/22 16:34 16:34 16:34 WBC 3.8 L RBC 4.27 L Hgb 12.0 L Hct 37.5 L MCV 87.8 MCH 28.1 MCHC 32.0 RDW Std Deviation 41.2 RDW Coeff of Buck 12.8 Plt Count 127 L MPV 10.6 Immature Gran % (Auto) 0.500 Neut % (Auto) 63.8 Lymph % (Auto) 22.8 [place] % (Auto) 10.8 H Eos % (Auto) 1.6 Baso % (Auto) 0.5 Absolute Neuts (auto) 2.4 Absolute Lymphs (auto) 0.86 Nucleated RBC % 0 Sodium 140 Potassium 3.7 Chloride 105 Carbon Dioxide 29.0 Anion Gap 6 BUN 34 H Creatinine 1.20 Estim Creat Clear Calc 41.35 Est GFR (MDRD) Af Amer 74 Est GFR (MDRD) Non-Af 61 BUN/Creatinine Ratio 28.3 H Glucose 145 H Lactic Acid 1.7 Calcium 8.8 Total Bilirubin 0.60 AST 14 L ALT 8 L Alkaline Phosphatase 50 Total Protein 6.7 Albumin 3.7 Globulin 3.0 Albumin/Globulin Ratio 1.2 Urine Color Urine Clarity Urine pH Ur Specific [place] Urine Protein Urine Glucose (UA) Urine Ketones Urine Occult Blood Urine Nitrite Urine Bilirubin Urine Urobilinogen Ur Leukocyte Esterase Urine RBC Urine WBC Ur Squamous Epith Cells Urine Bacteria Hyaline Casts Urine Mucus 11/21/22 17:29 WBC RBC Hgb Hct MCV MCH MCHC RDW Std Deviation RDW Coeff of [place] Plt Count MPV Immature Gran % (Auto) Neut % (Auto) Lymph % (Auto) [place] % (Auto) Eos % (Auto) Baso % (Auto) Absolute Neuts (auto) Absolute Lymphs (auto) Nucleated RBC % Sodium Potassium Chloride Carbon Dioxide Anion Gap BUN Creatinine Estim Creat Clear Calc Est GFR (MDRD) Af Amer Est GFR (MDRD) Non-Af BUN/Creatinine Ratio Glucose Lactic Acid Calcium Total Bilirubin AST ALT Alkaline Phosphatase Total Protein Albumin Globulin Albumin/Globulin Ratio Urine Color Yellow Urine Clarity Clear Urine pH 7.0 Ur Specific [place] 1.010 Urine Protein 30 H Urine Glucose (UA) Normal Urine Ketones Negative Urine Occult Blood 10 H Urine Nitrite Negative Urine Bilirubin Negative Urine Urobilinogen 1 H Ur Leukocyte Esterase Negative Urine RBC 0-5 SEEN Urine WBC 0-5 SEEN Ur Squamous Epith Cells 0-5 SEEN Urine Bacteria 0 SEEN Hyaline Casts 0-5 SEEN Urine Mucus 0 SEEN Radiography Chest X-Ray - ED: 2 View and Read by ED Physician (2 view chest x-ray independent reviewed interpreted by me at 1804 as negative for any acute process. Cardiac silhouette size unremarkable. Perihilar instructions unremarkable. There is no infiltrate, effusion or congestion noted on the x- ray. Osseous structures are unremarkable.) Diagnostic Testing: Clinical Impression(s) from Imaging Studies Chest X-Ray 11/21/22 17:45 IMPRESSION: No acute cardiopulmonary disease or major interval change. Electronically Signed: James Castellano DO at 18:10 EST Reading Location ID and State: [address] [place] [address] Tel [phone], Service support , EKG Initial EKG: Attestation: I personally reviewed and interpreted this EKG as follows: Interpretation: Sinus Bradycardia (Sinus bradycardia otherwise unremarkable. Rate is 50. CO interval is 150 ms. Cures duration 98 ms. QT duration 524 ms with a QTc of 477 ms. [place] is normal.) Treatment and Re-Evaluation :: Son and patient were informed of chest x-ray and laboratory results. He was able to produce urine specimen. Awaiting for urine results. They were informed the white count is low and due to COVID. Suspect patient had delirium due to his COVID-19 infection. Patient and family were informed of urinary results. Plan is discharged back to the assisted. His blood pressure still elevated most likely because he missed a dose of his blood pressure med today. He was just given doses. Discharge Plan Triage Chief Complaint: Weakness ED Provider: Jr Segundo Dx/Rx/DC Orders Clinical Impression: Transient confusion, Bladder cancer, Bradycardia, sinus, Hypertension, COVID-19 virus infection Instructions: ED Confusion, ED Hypertension, To Be Confirmed Prescriptions: No Action pravastatin 80 MG tablet 40 mg PO QHS carbidopa-levodopa 1 TABLET tablet 1.5 tab PO TIDAC Rx Instructions: 25/100 PreserVision AREDS 1 EACH tablet 1 ea PO BID nitroglycerin 0.4 mg tablet, sublingual 0.4 mg sublingual PRN PRN (Reason: Chest Pain) gabapentin 100 mg capsule 100 mg PO QHS cholecalciferol (vitamin D3) [Vitamin D3] 25 mcg (1,000 unit) Capsule 50 mcg PO DAILY metoprolol tartrate 25 mg Tablet 12.5 mg PO 1700 Rx Instructions: hold if sbp<100 acetaminophen 500 mg Tablet 1,000 mg PO TID tamsulosin [Flomax] 0.4 mg Capsule 0.4 mg PO QHS finasteride 5 mg Tablet 5 mg PO 0900 meloxicam 15 mg Tablet 15 mg PO DAILY PRN PRN (Reason: Pain) tramadol 50 mg Tablet 50 mg PO Q8H PRN (Reason: Pain) quetiapine 25 mg tablet 12.5 mg PO QHS docusate sodium [Colace] 100 mg capsule 100 mg PO BID menthol-zinc oxide [Calmoseptine] 0.44-20.6 % Ointment 1 applic TOPICAL DAILY Rx Instructions: apply to groin and oracio area Paxlovid (EUA) 300 mg (150 mg x 2)-100 mg tablets,dose pack 3 tab PO BID Label Comments: take 2 NIRMATRELVIR tablets with 1 RITONAVIR tablet twice a day for 5 days Primary Care Provider: Scotty Hernández Referrals: Scotty Hernández MD [Primary Care Provider] - Activity Restrictions/Additional Instructions: If Marcelino's blood pressure is still elevated at bedtime recommend giving an additional dose of metoprolol. If blood pressure is elevated after 2 to [address] Hernández or add additional antihypertensive medication if no symptoms. Disposition Disposition: Home, Self Care
[2022-11-21 16:33] VITALS: BP 197/105
[2022-11-21 16:35] VITALS: BMI 24.8
[2022-11-21 16:51] LABS: Absolute Lymphocyte Count 0.86 X10^3/uL (0.83-4.51); Absolute Neutrophil Count 2.4 X10^3/uL (2.0-7.7); Basophil# 0.02 X10^3/uL; Basophil% 0.5 % (0-1); Eosinophil# 0.06 X10^3/uL; Eosinophils% 1.6 % (0-5); Hematocrit 37.5 % (40-54); Lymphocyte # 0.86 X10^3/ul (0.83-4.51); Lymphocyte % 22.8 % (19-41); Mean Corpuscular Hgb 28.1 pg (27.0-32.0); Mean Corpuscular Volume 87.8 fL (80-94); Mean Platelet Vol. 10.6 fl (6.2-12.0); Monocyte# 0.41 X10^3/uL; Monocyte% 10.8 % (0-10); NRBC Flagged by Analyzer 0 % (0-5); Neutrophil # 2.41 X10^3/uL (2.7-7.7); Neutrophil % 63.8 % (47-70); Platelet Count 127 K/mm3 (150-450); RBC Distribution Width CV 12.8 % (11.6-14.6); RBC Distribution Width SD 41.2 fl (35.1-43.9); Red Blood Count 4.27 M/mm3 (4.6-6.2); White Blood Count 3.8 K/mm3 (4.4-11.0)
[2022-11-21 17:10] LABS: ALB/GLOB Ratio 1.2 RATIO (0.9-2.4); AST(SGOT) 14 U/L (15-37); Alanine Aminotransfer ALT/SGPT 8 U/L (16-61); Albumin, Serum 3.7 g/dL (3.2-5.0); Alkaline Phosphatase 50 U/L (45-117); Anion Gap 6 (5-15); BUN 34 mg/dL (7-18); BUN/Creat Ratio 28.3 RATIO (10-20); Calcium,Total 8.8 mg/dL (8.5-10.1); Chloride 105 mmol/L (98-107); EST Glomerular Filtration Rate 61 mL/min (>60); Est Glom Filt Rate - Afr Amer 74 mL/min (>60); Estimated Creatinine Clearance 41.35 ml/min; Glucose 145 mg/dL (74-106); Potassium 3.7 mmol/L (3.5-5.1); Protein, Total 6.7 g/dL (6.4-8.2); Sodium Level 140 mmol/L (136-145)
[2022-11-21 17:15] LABS: Lactic Acid 1.7 mmol/L (0.4-1.9)
[2022-11-21 17:35] LABS: Bacteria 0 SEEN /hpf (None Seen); Mucous, Urine 0 SEEN /hpf (<or=2+)
--- NOTE | 2022-11-21 17:45 | RAD_ITS ---
STUDY: X-RAY CHEST REASON FOR EXAM: Male, 82 years old. Rales at the right base. Positive COVID 7 days ago. Increased weakness confusion and jaundice. TECHNIQUE: PA and lateral views of the chest. COMPARISON: May 26, 2022. FINDINGS: The lungs are clear and expanded. There is no demonstrated pleural abnormality. Normal size heart. Normal mediastinum and loco. Normal visualized pulmonary arteries. Normal visualized aortic arch and descending thoracic aorta. There are diffuse degenerative changes of the visualized thoracic spine. There is degenerative osteoarthritis of the bilateral shoulders. There is no demonstrated abnormality of the visualized soft tissue structures of the upper abdomen. RAD/Chest PA and Lateral IMPRESSION: No acute cardiopulmonary disease or major interval change. Electronically Signed: James Castellano DO at 18:10 EST ,
[2022-11-21 17:57] LABS: Color, Urine Yellow (Yellow); Glucose, Dipstick Normal (Normal); Ketone-Dipstick Negative (Negative); Leukocyte Esterase-Dipstick Negative /ul (Negative); Nitrite-Dipstick Negative (Negative); Occult Blood-Urine 10 /ul (Negative); Protein-Dipstick 30 mg/dl (Negative); Urine Bilirubin Dipstick Negative (Negative); Urine Clarity Clear (Clear); Urine Urobilinogen 1 mg/dl (Normal)
[2022-11-21] MEDS: Metoprolol Tartrate 25 MG Tablet 12.5 MG PO (18:06)
[2022-11-21 18:08] VITALS: BP 207/99; PULSE 58
[2022-11-21 18:23] LABS: Hyaline Cast 0-5 SEEN /lpf (0-5); Red Blood Cells-Urine 0-5 SEEN /hpf (0-5); Squamous Epithelial Cells - UA 0-5 SEEN /hpf (0-5); White Blood Cells 0-5 SEEN /hpf (0-5)
[2022-11-21 18:47] VITALS: BP 202/107
[2022-11-21 19:19] VITALS: BP 170/132; O2SAT 98
== END 2022-11-21 19:29 | disposition home or self-care (01) ==
PROVIDERS: Emergency Provider Emergency Medicine; PCP Internal Medicine; Visit Provider Emergency Medicine
DX: R41.0 Disorientation, unspecified (principal); G20 Parkinson's disease; F03.90 Unspecified dementia, unspecified severity, without behavioral disturbance, psychotic disturbance, mood disturbance, and anxiety; C67.9 Malignant neoplasm of bladder, unspecified; U07.1 COVID-19; E78.5 Hyperlipidemia, unspecified; I25.10 Atherosclerotic heart disease of native coronary artery without angina pectoris; I10 Essential (primary) hypertension; Z87.891 Personal history of nicotine dependence; R00.1 Bradycardia, unspecified
CPT/HCPCS: 71046; 80053; 81001; 83605; 85025; 93005; 96360; 99285; J7040; J7050; A4216

== ENCOUNTER 2023-04-05 19:58 | Emergency (ER) | payer MEDICARE, SELFPAY ==
[2023-04-05 20:00] VITALS: BP 205/118; PULSE 61; RESP 14; TEMP 36.6; O2SAT 100; BMI 24.7
[2023-04-05 20:25] VITALS: BP 226/130
[2023-04-05] MEDS: cloNIDine HCl 0.2 MG Tablet 0.200000000000000011 MG PO (21:12)
[2023-04-05] MEDS: Diphth,Pertuss(Acell),Tet Vac 0.5 ML Vial IM (21:12)
--- NOTE | 2023-04-05 21:15 | EDS_ITS ---
HPI History of Present Illness Chief Complaint: Laceration Detail of Chief Complaint: Patient tripped and sustained contusion and laceration occiput Informant: patient, family, EMS and SNF Limited: dementia Onset/Context/Timing Onset: Today Mechanism/Context: Blunt Injury and Fall Quality of Pain: Dull PFSH PFS Medical History Actinic keratosis Anemia Arthritis Atherosclerotic heart disease of [place] coronary artery without angina pectoris Back pain Basal cell carcinoma of skin, unspecified Blood disorder Cardiology follow-up encounter Discoloration of skin Easy bruising Eczema intertrigo Essential (primary) hypertension Former smoker History of ankle fracture History of echocardiogram History of hallucinations History of Holter monitoring History of stress test Hyperlipidemia, unspecified Impaired fasting glucose Leg cramps Legally blind Migraine headache Orthostatic hypotension Parkinson disease Parkinson's disease Personal history of colonic polyps Prostate cancer Redness of skin Schizophrenia Spondylosis without myelopathy or radiculopathy, lumbar region Syncope Thrombocytopenia, unspecified Unspecified abnormalities of gait and mobility Unspecified urinary incontinence Uses wheelchair Home Medications carbidopa 25 mg-levodopa 100 mg tablet 1.5 tab PO TIDAC Check with primary doctor 09/07/18 [History Last Taken 10/24/21 06:00] pravastatin 80 mg tablet 40 mg PO QHS cholesterol 09/07/18 [History Last Taken Unknown] vitamins A,C,X-vcom-ummfmf 2,148 mcg-113 mg-45 mg-17.4 mg tablet (PreserVision AREDS) 1 ea PO BID vitamin 09/07/18 [History Last Taken Unknown] cholecalciferol (vitamin D3) 25 mcg (1,000 unit) capsule (Vitamin D3) 50 mcg PO DAILY supplement 08/27/21 [History Last Taken Unknown] gabapentin 100 mg capsule 100 mg PO QHS Check with primary doctor 08/27/21 [History Last Taken Unknown] metoprolol tartrate 25 mg tablet 12.5 mg PO 1700 BP 08/27/21 [History Last Taken Unknown] nitroglycerin 0.4 mg sublingual tablet 0.4 mg sublingual PRN PRN Chest Pain 08/27/21 [History Last Taken Unknown] acetaminophen 500 mg tablet 1,000 mg PO TID pain 10/08/21 [History Last Taken Unknown] finasteride 5 mg tablet 5 mg PO 0900 prostate 04/10/22 [History Last Taken Unknown] tamsulosin 0.4 mg capsule (Flomax) 0.4 mg PO QHS prostate 04/10/22 [History Last Taken Unknown] meloxicam 15 mg tablet 15 mg PO DAILY PRN PRN Pain 05/24/22 [History Last Taken Unknown] quetiapine 25 mg tablet 12.5 mg PO QHS 05/24/22 [History Last Taken Unknown] tramadol 50 mg tablet 50 mg PO Q8H PRN Pain 05/24/22 [History Last Taken Unknown] docusate sodium 100 mg capsule (Colace) 100 mg PO BID 11/21/22 [History Last Taken Unknown] menthol 0.44 %-zinc oxide 20.6 % topical ointment (Calmoseptine) 1 applic topical DAILY 11/21/22 [History Last Taken Unknown] nirmatrelvir 300 mg (150 mg x2)-ritonavir 100 mg tablet,dose pack (Paxlovid) 3 tab PO BID 11/21/22 [History Last Taken Unknown] Allergy/AdvReac Type Severity Reaction Status Date / Time Penicillins Allergy Hives Verified 04/05/23 20:00 Family History Mother Cancer Surgical History History of cardiac catheterization Hx of colonoscopy Hx of hernia repair Hx of inguinal hernia repair Hx of inguinal hernia repair Hx of left cataract extraction Hx of right cataract extraction Social History household members: spouse housing: longterm Smoking Status: Former smoker substance use type: does not use EXAM Physical Exam Const Vital Signs: 04/05/23 20:00 04/05/23 20:25 Temperature 98 F Temperature Source Temporal Pulse Rate 61 Respiratory Rate 14 Blood Pressure 205/118 H 226/130 H Blood Pressure Mean 147 162 Pulse Ox 100 Oxygen Delivery Method Room Air MDM MDM MDM Narrative Medical decision making narrative: She has a laceration which is 1 cm in length. Since patient is hospice not on anticoagulant imaging was not obtained. Patient's hypertension was treated with p.o. clonidine. Treatment and Re-Evaluation Narrative: Patient received clonidine. IV was not established since he has end-stage Parkinson in hospice. Blood pressure is less than 200. Plan is to discharge back to the facility. Discharge Plan Triage Chief Complaint: Laceration ED Provider: Jr Segundo Dx/Rx/DC Orders Clinical Impression: Laceration of scalp, Dementia with behavioral disturbance, Contusion of scalp, Injury due to fall, Parkinsons disease, Accelerated hypertension Instructions: ED Hypertension, Established, ED Laceration Scalp Stitches or Alex Prescriptions: No Action pravastatin 80 MG tablet 40 mg PO QHS carbidopa-levodopa 1 TABLET tablet 1.5 tab PO TIDAC Rx Instructions: 25/100 PreserVision AREDS 1 EACH tablet 1 ea PO BID nitroglycerin 0.4 mg tablet, sublingual 0.4 mg sublingual PRN PRN (Reason: Chest Pain) gabapentin 100 mg capsule 100 mg PO QHS cholecalciferol (vitamin D3) [Vitamin D3] 25 mcg (1,000 unit) Capsule 50 mcg PO DAILY metoprolol tartrate 25 mg Tablet 12.5 mg PO 1700 Rx Instructions: hold if sbp<100 acetaminophen 500 mg Tablet 1,000 mg PO TID tamsulosin [Flomax] 0.4 mg Capsule 0.4 mg PO QHS finasteride 5 mg Tablet 5 mg PO 0900 meloxicam 15 mg Tablet 15 mg PO DAILY PRN PRN (Reason: Pain) tramadol 50 mg Tablet 50 mg PO Q8H PRN (Reason: Pain) quetiapine 25 mg tablet 12.5 mg PO QHS docusate sodium [Colace] 100 mg capsule 100 mg PO BID menthol-zinc oxide [Calmoseptine] 0.44-20.6 % Ointment 1 applic TOPICAL DAILY Rx Instructions: apply to groin and oracio area Paxlovid 300 mg (150 mg x 2)-100 mg tablets,dose pack 3 tab PO BID Patient Comments: take 2 NIRMATRELVIR tablets with 1 RITONAVIR tablet twice a day for 5 days Primary Care Provider: Scotty Hernández Referrals: Scotty Hernández MD [Primary Care Provider] - 10 Day for suture removal Disposition Disposition: Home, Self Care
--- OUTSIDE RECORDS SUMMARY | 2023-04-05 21:17 | XMS RPT_ITS | CCD ---
Author Name Unknown Address [address] [place] [address] Organization [facility] Care Team Providers Care Labor Standards Director Name Role Phone ADRIAN, ANDRE E Unavailable Unavailable ADRIAN, ANDRE E Unavailable Unavailable ADRIAN, ANDRE Unavailable Unavailable ADRIAN, ANDRE Unavailable Unavailable Edgar Scotty Unavailable Unavailable ADRIAN, ANDRE Unavailable Unavailable ADRIAN, ANDRE Unavailable Unavailable Scotty Overton Unavailable Unavailable Scotty Overton MD Primary Care Provider Sara Mujica MD Unavailable [place], Andre E (Hist) Unavailable Fer RN, Frances Unavailable Unavailable Ander MELCHOR MD, Elsie Unavailable Adrian, Andre E (Hist) Unavailable Fer RN, Frances Unavailable Unavailable Denice Ventura RN Unavailable Unavailable William FOLEY.LINE INSPECTOR, Delmy Unavailable Scotty Overton MD Primary Care Provider Sara Mujica MD Unavailable Ander MELCHOR MD, Dareeseung Unavailable Scotty Overton MD Primary Care Provider Sara Mujica MD Unavailable Ander MELCHOR MD, Dareeseung Unavailable SCOTTY OVERTON Primary Care Unavailable SURESH, GIOVANNA Attending Unavailable SCOTTY OVERTON Attending Unavailable EDGAR, SCOTTY Primary Care Unavailable SARA MUJICA Attending Unavailable SCOTTY OVERTON Primary Care Unavailable SCOTTY OVERTON Attending Unavailable SCOTTY OVERTON Primary Care Unavailable SCOTTY OVERTON Primary Care Unavailable OLDER, GIOVANNA Attending Unavailable OLDER, GIOVANNA Referring Unavailable Allergies Allergy Classification Reported Allergen(s) Allergy Type Date of Onset Reaction(s) Facility (20 sources) Penicillins; Translations: [PENICILLINS] Propensity to adverse reactions to drug (disorder) 6 Rash [facility] Other [place] [facility] Medications Current Medications Medication Drug Class(es) Dates Sig (Normalized) Sig (Original) carbidopa 25 mg / levodopa 100 mg oral tablet (20 sources) Aromatic Amino Acid Decarboxylation Inhibitor, Aromatic Amino Acid Start: 04-23-2021 End: 05-27-2023 take 1.5 tablets by mouth three times daily carbidopa-levodopa (SINEMET 25-100) 25-100 mg per tablet Indications: parkinsonism Take 1.5 tablets by mouth three times daily. Take around mealtimes. 405 tablet 3 05/27/2022 05/27/2023 Active Completed/Discontinued Medications Medication Drug Class(es) Dates Sig (Normalized) Sig (Original) acetaminophen 500 mg oral tablet (20 sources) take 2 tablets by mouth three times daily acetaminophen (TYLENOL) 500 mg tablet Take 1,000 mg by mouth three times daily. 0 Active Problems Active Problems Problem Classification Problem Date Documented Da te Episodic/Chronic Anxiety disorders (1 source) Anxiety; Translations: [Other specified anxiety disorders] Chronic Cancer of bladder (20 sources) Malignant neoplasm, overlapping lesion of bladder; Translations: [Malignant neoplasm of overlapping sites of bladder] Onset: 11-03-2021 Chronic Coagulation and hemorrhagic disorders (20 sources) Platelet count below reference range; Translations: [Thrombocytopenia, unspecified] Onset: 02-08-2016 2016 Chronic Coronary atherosclerosis and other heart disease (20 sources) Atherosclerotic heart disease of [place] coronary artery without angina pectoris; Translations: [Coronary arteriosclerosis] Onset: 02-07-2016 02-07-2016 Chronic Disorders of lipid metabolism (20 sources) Hyperlipidemia; Translations: [Hyperlipidemia, unspecified] Onset: 02-07-2016 02-07-2016 Chronic Essential hypertension (20 sources) Essential (primary) hypertension; Translations: [Essential hypertension] Onset: 02-07-2016 09-03-2021 Chronic Genitourinary symptoms and ill-defined conditions (20 sources) Mixed urinary incontinence; Translations: [Mixed incontinence] Onset: 01-23-2021 01-23-2021 Chronic Other circulatory disease (20 sources) Orthostatic hypotension; Translations: [Orthostatic hypotension] Onset: 03-23-2018 03-23-2018 Episodic Other connective tissue disease (2 sources) Recurrent falls ; Translations: [Repeated falls] Episodic Other gastrointestinal disorders (2 sources) Constipation; Translations: [Constipation, unspecified] Episodic Other nervous system disorders (1 source) Impairment of balance; Translations: [Other abnormalities of gait and mobility] Episodic Other nutritional; endocrine; and metabolic disorders (20 sources) Obese class I; Translations: [Obesity, unspecified] Onset: 01-02-2019 01-02-2019 Chronic Parkinson`s disease (20 sources) Parkinsonism; Translations: [Parkinson's disease] Onset: 10-07-2017 10-07-2017 Chronic Spondylosis; intervertebral disc disorders; other back problems (20 sources) Lumbar spondylosis; Translations: [Spondylosis without myelopathy or radiculopathy, lumbar region] Onset: 11-04-2016 11-04-2016 Chronic Unclassified (1 source) Unknown / UNK(Unknown) Onset: 11-30-2017 Viral infection (1 source) Disease caused by 2019-nCoV; Translations: [COVID-19] Episodic Past or Other Problems Problem Classification Problem Date Documented Date Episodic/Chronic Deficiency and other anemia (20 sources) Anemia; Translations: [Anemia, unspecified] Onset: 07-06-2021 07-06-2021 Episodic Diabetes mellitus without complication (20 sources) Impaired fasting glycemia; Translations: [Impaired fasting glucose] Onset: 02-08-2016 2016 Episodic Genitourinary symptoms and ill-defined conditions (20 sources) Martín hematuria; Translations: [Gross hematuria] Onset: 10-07-2021 Episodic Open wounds of extremities (2 sources) Open wound of hand; Translations: [Laceration without foreign body of right hand, initial encounter] Onset: 05-25-2022 Episodic Other aftercare (20 sources) Patient encounter status; Translations: [Encounter for palliative care] Onset: 10-06-2021 10-06-2021 Episodic Other and unspecified benign neoplasm (20 sources) Polyp of colon; Translations: [Polyp of colon] Onset: 03-07-2016 03-07-2016 Episodic Other connective tissue disease (1 source) Repeated falls; Translations: [Multiple falls] Onset: 05-25-2022 Episodic Other inflammatory condition of skin (20 sources) Intertrigo; Translations: [Erythema intertrigo] Onset: 01-23-2021 01-23-2021 Episodic Other nervous system disorders (20 sources) Abnormal gait; Translations: [Unspecified abnormalities of gait and mobility] Onset: 09-21-2017 09-21-2017 Episodic Other non-epithelial cancer of skin (20 sources) History of malignant basal cell neoplasm of skin; Translations: [Personal history of other malignant neoplasm of skin] Onset: 09-20-2017 09-20-2017 Episodic Other skin disorders (20 sources) Actinic keratosis; Translations: [Actinic keratosis] Onset: 06-08-2016 06-08-2016 Episodic Results Test Name Value Interpretation Reference Range Facil ity Vital Signs Date Time Vital Sign Value Performing Clinician Faci lity 02-25-2023 14:45-0400 Body height 164.1 cm Scotty Overton MD Work Phone: [facility] 02-25-2023 14:45-0400 Body weight 73.44 kg Scotty Overton MD Work Phone: [facility] 02-25-2023 14:45-0400 Diastolic blood pressure 80 mm[Hg] Scotty Overton MD Work Phone: [facility] 02-25-2023 14:45-0400 Heart rate 68 /min Scotty Overton MD Work Phone: [facility] 02-25-2023 14:45-0400 Respiratory rate 16 /min Scotty Overton MD Work Phone: [facility] 02-25-2023 14:45-0400 Systolic blood pressure 150 mm[Hg] Scotty Overton MD Work Phone: [facility] 12-02-2022 09:57-0400 Diastolic blood pressure 98 mm[Hg] Sara Mujica MD Work Phone: [facility] 12-02-2022 09:57-0400 Heart rate 70 /min Sara Mujica MD Work Phone: [facility] 12-02-2022 09:57-0400 SaO2% (BldA) [Mass fraction] 98 % Sara Mujica MD Work Phone: [facility] 12-02-2022 09:57-0400 Systolic blood pressure 161 mm[Hg] Sara Mujica MD Work Phone: [facility] 08-27-2022 13:55-0500 Body temperature 97.9 [degF] Giovanna Older RADIOLOGY INTERVENTIONAL PHYSICIAN.LINE INSPECTOR Work Phone: [facility] 08-27-2022 13:55-0500 Body weight 64.86 kg Giovanna Older RADIOLOGY INTERVENTIONAL PHYSICIAN.LINE INSPECTOR Work Phone: [facility] 08-27-2022 13:55-0500 Diastolic blood pressure 80 mm[Hg] Giovanna Older RADIOLOGY INTERVENTIONAL PHYSICIAN.LINE INSPECTOR Work Phone: [facility] 08-27-2022 13:55-0500 Heart rate 65 /min Giovanna Older RADIOLOGY INTERVENTIONAL PHYSICIAN.LINE INSPECTOR Work Phone: [facility] 08-27-2022 13:55-0500 Respiratory rate 16 /min Giovanna Older RADIOLOGY INTERVENTIONAL PHYSICIAN.LINE INSPECTOR Work Phone: [facility] 08-27-2022 13:55-0500 SaO2% (BldA) [Mass fraction] 98 % Giovanna Older RADIOLOGY INTERVENTIONAL PHYSICIAN.LINE INSPECTOR Work Phone: [facility] 08-27-2022 13:55-0500 Systolic blood pressure 136 mm[Hg] Giovanna Older RADIOLOGY INTERVENTIONAL PHYSICIAN.LINE INSPECTOR Work Phone: [facility] 05-25-2022 11:39-0400 Diastolic blood pressure 62 mm[Hg] Giovanna Older RADIOLOGY INTERVENTIONAL PHYSICIAN.LINE INSPECTOR Work Phone: [facility] 05-25-2022 11:39-0400 Heart rate 64 /min Giovanna Older RADIOLOGY INTERVENTIONAL PHYSICIAN.LINE INSPECTOR Work Phone: [facility] 05-25-2022 11:39-0400 Respiratory rate 16 /min Giovanna Older RADIOLOGY INTERVENTIONAL PHYSICIAN.LINE INSPECTOR Work Phone: [facility] 05-25-2022 11:39-0400 Systolic blood pressure 112 mm[Hg] Giovanna Prince APRN.CNP Work Phone: [facility] 02-03-2022 15:29-0400 Body temperature 97.39 [degF] Elsie Han MD, MD Work Phone: [facility] 02-03-2022 15:29-0400 Diastolic blood pressure 76 mm[Hg] Elsie Han MD, MD Work Phone: [facility] 02-03-2022 15:29-0400 Heart rate 60 /min Elsie Han MD, MD Work Phone: [facility] 02-03-2022 15:29-0400 SaO2% (BldA) [Mass fraction] 99 % Elsie Han MD, MD Work Phone: [facility] 02-03-2022 15:29-0400 Systolic blood pressure 127 mm[Hg] Elsie Han MD, MD Work Phone: [facility] 01-29-2022 10:54-0400 Body temperature 96.8 [degF] Elsie Han MD, MD Work Phone: [facility] 01-29-2022 10:54-0400 Diastolic blood pressure 50 mm[Hg] Elsie Han MD, MD Work Phone: [facility] 01-29-2022 10:54-0400 Heart rate 71 /min Elsie Han MD, MD Work Phone: [facility] 01-29-2022 10:54-0400 Respiratory rate 15 /min Elsie Han MD, MD Work Phone: [facility] 01-29-2022 10:54-0400 SaO2% (BldA) [Mass fraction] 98 % Elsie Han MD, MD Work Phone: [facility] 01-29-2022 10:54-0400 Systolic blood pressure 76 mm[Hg] Elsie Han MD, MD Work Phone: [facility] 01-27-2022 10:32-0400 Body temperature 97.39 [degF] Elsie Han MD, MD Work Phone: [facility] 01-27-2022 10:32-0400 Diastolic blood pressure 60 mm[Hg] Elsie Han MD, MD Work Phone: [facility] 01-27-2022 10:32-0400 Heart rate 68 /min Elsie Han MD, MD Work Phone: [facility] 01-27-2022 10:32-0400 Respiratory rate 15 /min Elsie Han MD, MD Work Phone: [facility] 01-27-2022 10:32-0400 SaO2% (BldA) [Mass fraction] 97 % Elsie Han MD, MD Work Phone: [facility] 01-27-2022 10:32-0400 Systolic blood pressure 89 mm[Hg] Elsie Han MD, MD Work Phone: [facility] 01-08-2022 13:27-0400 Body temperature 98.01 [degF] Elsie Han MD, MD Work Phone: [facility] 01-08-2022 13:27-0400 Body weight 75.75 kg Elsie Han MD, MD Work Phone: [facility] 01-08-2022 13:27-0400 Diastolic blood pressure 76 mm[Hg] Elsie Han MD, MD Work Phone: [facility] 01-08-2022 13:27-0400 Heart rate 65 /min Elsie Han MD, MD Work Phone: [facility] 01-08-2022 13:27-0400 Respiratory rate 15 /min Elsie Han MD, MD Work Phone: [facility] 01-08-2022 13:27-0400 SaO2% (BldA) [Mass fraction] 98 % Elsie Han MD, MD Work Phone: [facility] 01-08-2022 13:27-0400 Systolic blood pressure 132 mm[Hg] Elsie Han MD, MD Work Phone: [facility] 12-26-2021 13:56-0400 Body temperature 97.81 [degF] Hossein Ventura MD, PhD Work Phone: [facility] 12-26-2021 13:56-0400 Body weight 75.03 kg Hossein Ventura MD, PhD Work Phone: [facility] 12-26-2021 13:56-0400 Diastolic blood pressure 83 mm[Hg] Hossein Ventura MD, PhD Work Phone: [facility] 12-26-2021 13:56-0400 Heart rate 60 /min Hossein Ventura MD, PhD Work Phone: [facility] 12-26-2021 13:56-0400 Respiratory rate 14 /min Hossein Ventura MD, PhD Work Phone: [facility] 12-26-2021 13:56-0400 SaO2% (BldA) [Mass fraction] 100 % Hossein Ventura MD, PhD Work Phone: [facility] 12-26-2021 13:56-0400 Systolic blood pressure 143 mm[Hg] Hossein Ventura MD, PhD Work Phone: [facility] 12-04-2021 12:46-0400 Body temperature 97.39 [degF] Ashutosh Murray MD Work Phone: [facility] 12-04-2021 12:46-0400 Diastolic blood pressure 89 mm[Hg] Ashutosh Murray MD Work Phone: [facility] 12-04-2021 12:46-0400 Heart rate 57 /min Ashutosh Murray MD Work Phone: [facility] 12-04-2021 12:46-0400 Respiratory rate 20 /min Ashutosh Murray MD Work Phone: [facility] 12-04-2021 12:46-0400 SaO2% (BldA) [Mass fraction] 99 % Ashutosh Murray MD Work Phone: [facility] 12-04-2021 12:46-0400 Systolic blood pressure 181 mm[Hg] Ashutosh Murray MD Work Phone: [facility] Encounters Encounter Date Encounter Type Care Provider Facility Start: 03-25-2023 Telephone encounter Scotty daniels MD Work Phone: [facility] Plan of Treatment Date Care Activity Detail Author Start: 12-04-2024 DIABETES SCREEN DIABETES SCREEN [facility] Start: 03-02-2024 Urine microalbumin profile DTAP,TDAP,TD (2 - Td or Tdap) [facility] Start: 05-14-2023 Influenza vaccination INFLUENZA (#1) [facility] Start: 10-10-2022 COVID-19 VACCINE (7 - Moderna series) COVID-19 VACCINE (7 - Moderna series) [facility] Start: 09-13-2022 ADVANCE DIRECTIVE DISCUSSION ADVANCE DIRECTIVE DISCUSSION [facility] Start: 08-13-2022 End: 10-13-2022 CBC W Auto Differential panel - Blood CBC + DIFF Lab Routine Essential hypertension with goal blood pressure less than 150/90 Expected: 08/13/2022 (Approximate), Expires: 10/13/2022 [facility] Work Phone: Immunizations Immunization Date Immunization Notes Care Provider Kaylyn victoria 06-17-2022 influenza, high dose seasonal, preservative-free Scotty Overton MD Work Phone: [facility] Work Phone: 06-10-2022 COVID-19 booster vaccine, age 12+ yr, bivalent (PFIZER-BIONTECH) Scotty Overton MD Work Phone: [facility] Work Phone: 07-11-2021 COVID-19 vaccine, fu ll dose (MODERNA) Ashutosh Murray MD Work Phone: [facility] Work Phone: 06-18-2021 influenza (aIIV4) vaccine, age 65+ yr, quadrivalent, PF (FLUAD QUADRIVALENT) Ashutosh Murray MD Work Phone: [facility] 10-31-2020 COVID-19 vaccine, fu ll dose (MODERNA) Ashutosh Murray MD Work Phone: [facility] Work Phone: 10-03-2020 COVID-19 vaccine, fu ll dose (MODERNA) Ashutosh Murray MD Work Phone: [facility] Work Phone: 06-19-2020 influenza, high-dose , quadrivalent vaccine (FLUZONE HIGH DOSE QUADRIVALENT) Ashutosh Murray MD Work Phone: [facility] 06-15-2019 influenza, high dose seasonal, preservative-free Ashutosh Murray MD Work Phone: [facility] Work Phone: 06-11-2018 influenza, high dose seasonal, preservative-free Ashutosh Murray MD Work Phone: [facility] 06-19-2017 influenza, high dose seasonal, preservative-free Ashutosh Murray MD Work Phone: [facility] 06-05-2016 influenza, high dose seasonal, preservative-free Ashutosh Murray MD Work Phone: [facility] Work Phone: 04-16-2015 pneumococcal conjuga te vaccine, 13 valent Ashutosh Murray MD Work Phone: [facility] Work Phone: 04-24-2014 pneumococcal polysaccharide vaccine, 23 valent Ashutosh Murray MD Work Phone: [facility] Work Phone: 03-02-2014 tetanus toxoid, redu alyssa diphtheria toxoid, and acellular pertussis vaccine, adsorbed Ashutosh Murray MD Work Phone: [facility] Work Phone: Payers Date Payer Category Payer Medicare [employer] MEDICARE A ETNA MEDICARE PPO [id number] 2021-Present [phone] [address] [place] [address] PPO [id number] 2021 Medicare [employer] MEDICARE A ETNA MEDICARE PPO [id number] 2021-Present [phone] [address] [place] [address] PPO [id number] 2021 Medicare [id number] Medicare [id number] Social History Date Type Detail Facility Start: 02-07-2016 End: 12-02-2022 Tobacco smoking status NHIS Ex-smoker [facility] End: 03-10-1973 History of tobacco use Current smoker [facility] Start: 02-07-2016 End: 02-25-2023 Cigarettes smoked current (pack per day) - Reported 1 [facility] Start: 02-07-2016 End: 12-02-2022 Tobacco use and exposure Smokeless tobacco non-user [facility] Start: 11-03-2021 End: 12-02-2022 Alcohol intake Current drinker of alcohol (finding) [facility] Start: 10-14-2018 History SDOH Alcohol Comment occasionally a sip of wine [facility] Start: 02-07-2016 End: 12-02-2022 Tobacco Comment quit 40 years ago [facility] Start: 1940 Sex Assigned At Not on file [facility] Start: 11-24-2021 End: 04-15-2022 Exposure to SARS-CoV-2 (event) Not sure [facility] Start: 12-19-2021 End: 05-25-2022 Exposure to SARS-CoV-2 (event) Unable to assess [facility] End: 03-10-1973 History of tobacco use Cigarette Smoker [facility] Start: 02-25-2023 Alcohol intake Ex-drinker (finding) [facility] Start: 11-30-2018 End: 02-25-2023 Tobacco use panel [facility] Adult Depression Screening Assessment 0 [facility] Goals Date Patient Goal Desired Activity /State Personal health goal Personal health goal Clinical Notes 07-29-2020 to 03-25-2023 Telephone Encounter - Rosalind Torrez MA - 03/25/2023 6:25 PM EDTTelephone Encounter - Scotty Overton MD - 03/25/2023 4:32 PM EDTScotty Overton MD - 02/25/2023 3:48 PM EDT Note Date & Type Note Facility 03-25-2023 Miscellaneous Notes Order faxed. Rosalind Torrez MA Fax order please. Rec'd and to pcp to review. Julien from Hospice calling asking if PCP had received fax sent to office about 1230 pm today. Concerning patient blood pressure being very low and symptomatic, patient had fallen. Please advise documented in this encounter [facility] 02-25-2023 Note HNO ID: [id number] Author: Scotty Overton MD Service: ? Author Type: Physician Type: Progress Notes Filed: 02/25/2023 4:19 PM Note Text: This note was created using whistleBoxriter. Subjective Andre Parrish is a 82 year old male seen with Yelitza. Overall health has been in decline with frequent falls, hallucinations, elopements. Hospice was started 2 weeks ago, and the increase in quetiapine seemed to be helping. Blood pressure was labile. Weight was stable. Parkinsons was stable. Bladder cancer was inactive at this time. Back and joint pain may need improved management, given intolerances to tramadol. We will wait for further recommendations from Hospice. Constipation was generally controlled. Review of Systems Constitutional: Negative for fever and unexpected weight change. HENT: Negative. Respiratory: Negative for cough and shortness of breath. Cardiovascular: Negative. Gastrointestinal: Negative for abdominal distention, nausea and vomiting. Genitourinary: Positive for urgency. Musculoskeletal: Positive for arthralgias, back pain and gait problem. Neurological: Positive for tremors. Negative for dizziness and syncope. Psychiatric/Behavioral: Positive for agitation, confusion and hallucinations. Negative for self-injury and suicidal ideas. 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 traMADol (ULTRAM) 50 mg tablet Take 1 tablet by mouth three times daily as needed for pain. finasteride (PROSCAR) 5 mg tablet Take 1 tablet by mouth once daily. metoprolol tartrate, short acting, (LOPRESSOR) 25 mg tablet Take 0.5 tablets by mouth every evening. HOLD for SBP <100. guaifenesin/dextromethorphan (MUCINEX DM ORAL) Take by mouth. Every 12 hrs as needed loperamide HCl (LOPERAMIDE ORAL) Take by mouth. PRN gabapentin (NEURONTIN) 100 mg capsule Take 1 capsule by mouth daily at bedtime for 180 days. tamsulosin (FLOMAX) 0.4 mg Take 1 capsule by mouth once daily. carbidopa-levodopa (SINEMET 25-100) 25-100 mg per tablet Take 1.5 tablets by mouth three times daily. Take around mealtimes. cholecalciferol (VITAMIN D) 1,000 unit tab tablet Take 2 tablets by mouth once daily. nitroglycerin sublingual (NITROSTAT) 0.4 mg SL tablet Dissolve 1 tablet under the tongue every 5 minutes as needed. WALKER ROLLATOR SEAT WITH 6 WHEELS - RED 1 Each once daily. Use walker as directed. Parkinsonism, unspecified Parkinsonism type (HCC) - ICD9: 332.0, ICD10: G20; Gait abnormality - ICD9: 781.2, ICD10: R26.9; Fall, initial encounter - ICD9: E888.9, ICD10: W19.XXXA acetaminophen (TYLENOL) 500 mg tablet Take 1,000 mg by mouth three times daily. QUEtiapine (SEROQUEL) 25 mg tablet Take 0.5 tablets by mouth daily after lunch AND 1 tablet daily at bedtime. polyethylene glycol 3350 (MIRALAX) 17 gram/dose powder Take 17 g by mouth once daily as needed for constipation (If no BM in 3 days. Give daily until patient has BM.). PRN MENTHOL-ZINC OXIDE TOPICAL Apply to affected area once daily. No current facility-administered medications for this visit. Objective BP 150/80 (BP Site: Left Arm, BP Position: Sitting, BP Cuff Size: Large Adult) Pulse 68 Resp 16 Ht 164.1 cm (5' 4.6 ) Wt 73.4 kg (161 lb 14.4 oz) BMI 27.28 kg/m? Physical Exam Constitutional: General: He is not in acute distress. HENT: Head: Atraumatic. Eyes: Conjunctiva/sclera: Conjunctivae normal. Neck: Comments: 2 skin nodules of the right neck 2 mm each, non inflamed, non tender. Cardiovascular: Rate and Rhythm: Normal rate and regular rhythm. Pulmonary: Breath sounds: Normal breath sounds. Abdominal: General: Bowel sounds are normal. There is no distension. Tenderness: There is no abdominal tenderness. Musculoskeletal: General: No swelling or tenderness. Right lower leg: No edema. Left lower leg: No edema. Skin: Comments: Senile purpura in hands, arms. Neurological: General: No focal deficit present. Mental Status: He is alert. He is disoriented. Comments: On wheelchair. Psychiatric: Attention and Perception: Attention and perception normal. Mood and Affect: Affect is flat. Speech: Speech normal. Behavior: Behavior is cooperative. Thought Content: Thought content is p (more content not included)... [facility] 02-25-2023 Note HNO ID: [id number] Author: Scotty Overton MD Service: ? Author Type: Physician Type: Progress Notes Filed: 02/25/2023 4:19 PM Note Text: Andre Parrish is a 82 year old male here for a Medicare Subsequent Annual Wellness Visit Health Risk Assessment In general, health is: Poor Concerns with balance:Nearly every day Concerns with teeth or dentures:Not at all Concerns with sexual function:Not at all Young anxious, stressed, angry, irritable, lonely, isolated, or had thoughts of hurting themself: Several days Has little interest or pleasure in doing things: More than half the days Bothered by feeling down, depressed, or hopeless: More than half the days Needs help with grocery shopping, cooking, housework, bathing, grooming, dressing, eating, sitting or standing, walking, using the toilet, handling finances, taking medications, using the telephone, or driving: Yes Following safety precautions in the home environment and vehicle: removed throw rugs from floors, installed grab bars in the bathroom, handrails in stairwells, having adequate lighting, wearing seatbelt at all times?: No Smokes cigarettes, vapes, or chew tobacco: No Eats healthy foods including fruits, vegetables, whole grains, and fiber-rich foods: More than half the days Number of days per week engages in exercise: 0 days Average alcohol consumption: Never Current Providers Specialists: I have reviewed specialist-related care of the patient in the medical record. Current care team: Patient Care Team: Scotty Overton MD as PCP - General (Internal Medicine) [facility] Ignacio dental. Juan Meier, dermatology. Ester Monahan, ophthalmology. [facility]. Medical/Family history review Reviewed and updated problem list, medical/surgical/family/social history, medications, and allergies. Opioid use review Patient is currently using opioids. Prescribed tramadol HCl (last 90 days) Does patient have risk factors for opioid abuse?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 Pertinent Studies Brain MRI 09/10/20 Acute Change: No evidence of restricted diffusion to suggest an acute infarct. Hemorrhage: No evidence of prior parenchymal hemorrhage on the gradient echo sequence. Mass Lesion/ Mass Effect: No evidence of an intracranial mass or extra-axial fluid collection. No significant mass effect. Chronic Change: Minimal supratentorial chronic microvascular ischemic changes. Parenchyma: Mild-moderate generalized parenchymal volume loss, slightly progressed since 2016. Ventricles: Commensurate with volume loss. Skull Base: Hypothalamic and pituitary region are grossly normal. Craniocervical junction is normal. No significant marrow replacement process. Vasculature: Major intracranial arteries and dural venous sinuses demonstrate typical flow voids, suggesting patency by spin echo criteria. Other: Small mucosal polyp in the right maxillary antrum. Trace retained fluid within isolated right mastoid air cell. The orbits and extracranial soft tissues are unremarkable. Bilateral cataract surgery. EXTRACRANIAL MRA: Carotid Stenosis: Right Common: No significant stenosis. Right Internal Plaque: No significant plaque formation. Right Internal Carotid Stenosis (% by NASCET Criteria): 0% Left Common: No significant stenosis. Left Internal Carotid Plaque: No significant plaque formation. Left Internal Carotid Stenosis (% by NASCET Criteria): 0% Cervical Vertebral Arteries: Patency: Bilateral Dominance: Codominant INTRACRANIAL MRA: Anterior circulation: Distal ICAs, ACAs and MCAs are normal in caliber. A1 segments are codominant. Posterior circulation: Again noted is persistent right trigeminal artery with smooth diminished caliber of the mid-proximal basilar trunk below the insertion. Distal vertebral arteries, basilar trunk and button sewer hand are otherwise normal in caliber. No vessel cutoff, filling defect, significant focal stenosis or evidence of aneurysm. IMPRESSION: No acute intracranial findings, specifically no evidence of an acute infarct. Chronic changes, as detailed. Unremarkable intracranial/extracranial MRA. Assessment and Plan: Assessment Mr. Parrish is a right-handed 82 year old year old male with asymmetric parkinsonism, suspected Parkinson's disease, more recently developed dementia. Last seen March 2021. Abruptly worse since Covid earlier this month which, in combination with his not being seen by neurology for so long, prompted today's urgent visit. Discussed how medical illness exacerbates Parkinson's symptoms and improvement in the neurological symptoms lags behind infection clearance. He is experiencing gait freezing with falls, labile BP, no known motor fluctuations. On exam his rigidity and bradykinesia are mild. Freezing often does not respond to levodopa. However, his dose is low and reasonable to try increasing. Will not increase at this time since would expect him to improve at least some on his own s/p Covid. Low BP and hallucinations can worsen with more Sinemet. The following are the current problems noted and addressed during this visit: Parkinson disease (hcc) (primary encounter diagnosis) Plan 12/02/2022 Visit: Continue current Sinemet regimen - PT - Updated Movement Disorders Medication Schedule: Medications b-fast lunch dinner Sinemet 25/100 1.5 1.5 1.5 Return at or around: 03/04/23 Level of service : 13285 (40-54 min). Time spent 43 min on the day of service, which included preparing to see the patient, kpyk-vc-yztu patient care, completing clinical documentation, performing a medically appropriate examination, and counseling and educating the patient/family/caregiver. Thank you for allowing me to be part of the clinical care of this patient! I look forward to continued participation in the patient s care with you. Please do not hesitate to call with any questions. Sincerely, Sara Mujica MD documented in this encounter [facility] 11-30-2022 Miscellaneous Notes Please triage. Why does he need to be seen SAL? Had Covid 11/18. Laura (pt's daughter) called to schedule OV with Dr. Mujica in [facility] assisted living facility requesting pt be seen SAL to adjust medications. Ideally appointment should be after 10:00 am. Slots available on 12/03 & pt's not available and next established visit is in June. [phone] documented in this encounter [facility] 11-23-2022 Miscellaneous Notes Fax back to facility with notification rx was sent to the pharmacy. Rec'd fax from [facility] requesting refills. They would like a fax back with this is completed. documented in this encounter [facility] 11-18-2022 Instructions Scotty Overton MD - 11/18/2022 2:24 PM EST FACT SHEET FOR PATIENTS, PARENTS, AND CAREGIVERS EMERGENCY USE AUTHORIZATION (EUA) OF PAXLOVID FOR CORONAVIRUS DISEASE 2019 (COVID-19) You are being given this Fact Sheet because your healthcare provider believes it is necessary to provide you with PAXLOVID for the treatment of uxqq-jj-wnoiwqmv coronavirus disease (COVID-19) caused by the SARS-CoV-2 virus. This Fact Sheet contains information to help you understand the risks and benefits of taking the PAXLOVID you have received or may receive. The U.S. Food and Drug Administration (FDA) has issued an Emergency Use Authorization (EUA) to make PAXLOVID available during the COVID-19 pandemic (for more details about an EUA please see What is an Emergency Use Authorization? at the end of this document). PAXLOVID is not an FDA-approved medicine in the [place]. Read this Fact Sheet for information about PAXLOVID. Talk to your healthcare provider about your options or if you have any questions. It is your choice to take PAXLOVID. What is COVID-19? COVID-19 is caused by a virus called a coronavirus. You can get COVID-19 through close contact with another person who has the virus. COVID-19 illnesses have ranged from very ordw-up-winjug, including illness resulting in . While information so far suggests that most COVID-19 illness is mild, serious illness can happen and may cause some of your other medical conditions to become worse. Older people and people of all ages with severe, long lasting (chronic) medical conditions like heart disease, lung disease, and diabetes, for example seem to be at higher risk of being hospitalized for COVID-19. What is PAXLOVID? PAXLOVID is an investigational medicine used to treat bhff-dm-dwfhahow COVID-19 in adults and children [12 years of age and older weighing at least 88 pounds (40 kg)] with positive results of direct SARS-CoV-2 viral testing, and who are at high risk for progression to severe COVID-19, including hospitalization or . PAXLOVID is investigational because it is still being studied. There is limited information about the safety and effectiveness of using PAXLOVID to treat people with ddyr-ex-sofsdvyq COVID-19. The FDA has authorized the emergency use of PAXLOVID for the treatment of pqkp-yh-azgsvtfv COVID-19 in adults and children [12 years of age and older weighing at least 88 pounds (40 kg)] with a positive test for the virus that causes COVID-19, and who are at high risk for progression to severe COVID-19, including hospitalization or , under an EUA. 1 Revised: 28 November 2021 What should I tell my healthcare provider before I take PAXLOVID? Tell your healthcare provider if you: Have any allergies Have liver or kidney disease Are or plan to become Are a child Have any serious illnesses Tell your healthcare provider about all the medicines you take, including prescription and qvwi-pbo-fzibyxi medicines, vitamins, and herbal supplements. Some medicines may interact with PAXLOVID and may cause serious side effects. Keep a list of your medicines to show your healthcare provider and pharmacist when you get a new medicine. You can ask your healthcare provider or pharmacist for a list of medicines that interact with PAXLOVID. Do not start taking a new medicine without telling your healthcare provider. Your healthcare provider can tell you if it is safe to take PAXLOVID with other medicines. Tell your healthcare provider if you are taking combined hormonal contraceptive. PAXLOVID may affect how your control pills work. Females who are able to become should use another effective alternative form of contraception or an additional barrier method of contraception. Talk to your healthcare provider if you have any questions about contraceptive methods that might be right for you. How do I take PAXLOVID? PAXLOVID consists of 2 medicines: nirmatrelvir and ritonavir. Take 2 pink tablets of nirmatrelvir with 1 white tablet of ritonavir by mouth 2 times each day (in the morning and in the evening) for 5 days. For each dose, take all 3 tablets at the same time. If you have kidney disease, talk to your healthcare provider. You may need a different dose. Swallow the tablets whole. Do not chew, break, or crush the tablets. Take PAXLOVID with or without food. Do not stop taking PAXLOVID without talking to your healthcare provider, even if you feel better. If you miss a dose of PAXLOVID within 8 hours of the time it is usually taken, take it as soon as you remember. If you miss a dose by more than 8 hours, skip the missed dose and take the next dose at your regular time. Do not take 2 doses of PAXLOVID at the same time. If you take too much PAXLOVID, call your healthcare provider or go to the nearest hospital emergency room right away. If you are taking a ritonavir-or cobicistat-containing medicine to treat hepatitis C or Human Immunodeficiency Virus (HIV), you should continue to take your medicine as prescribed by your healthcare provider. Talk to your healthcare provider if you do not feel better or if you feel worse after 5 days. Who should generally not take PAXLOVID? Do not take PAXLOVID if: You are allergic to nirmatrelvir, ritonavir, or any of the ingredients in PAXLOVID You are taking any of the following medicines: Alfuzosin Pethidine, propoxyphene Ranolazine Amiodarone, dronedarone, flecainide, propafenone, quinidine Colchicine Lurasidone, pimozide, clozapine Dihydroergotamine, ergotamine, methylergonovine Lovastatin, simvastatin Sildenafil (Revatio ) for pulmonary arterial hypertension (PAH) Triazolam, oral midazolam Apalutamide Carbamazepine, phenobarbital, phenytoin Rifampin Erie s Wort (hypericum perforatum) Taking PAXLOVID with these medicines may cause serious or life-threatening side effects or affect how PAXLOVID works. These are not the only medicines that may cause serious side effects if taken with PAXLOVID. PAXLOVID may increase or decrease the levels of multiple other medicines. It is very important to tell your healthcare provider about all of the medicines you are taking because additional laboratory tests or changes in the dose of your other medicines may be necessary while you are taking PAXLOVID. Your healthcare provider may also tell you about specific symptoms to watch out for that may indicate that you need to stop or decrease the dose of some of your other medicines. What are the important possible side effects of PAXLOVID? Possible side effects of PAXLOVID are: Allergic Reactions. Allergic reactions can happen in people taking PAXLOVID, even after only 1 dose. Stop taking PAXLOVID and call your healthcare provider right away if you get any of the following symptoms of an allergic reaction: hives trouble swallowing or breathing swelling of the mouth, lips, or face throat tightness hoarseness skin rash Liver Problems. Tell your healthcare provider right away if you have any of these signs and symptoms of liver problems: loss of appetite, yellowing of your skin and the whites of eyes (jaundice), dark-colored urine, pale colored stools and itchy skin, stomach area (abdominal) pain. Resistance to HIV Medicines. If you have untreated HIV infection, PAXLOVID may lead to some HIV medicines not working as well in the future. Other possible side effects include: altered sense of taste diarrhea high blood pressure muscle aches These are not all the possible side effects of PAXLOVID. Not many people have taken PAXLOVID. Serious and unexpected side effects may happen. PAXLOVID is still being studied, so it is possible that all of the risks are not known at this time. What other treatment choices are there? Veklury (remdesivir) is FDA-approved for the treatment of hcjg-sg-zygwfcha COVID-19 in certain adults and children. Talk with your doctor to see if Veklury is appropriate for you. Like PAXLOVID, FDA may also allow for the emergency use of other medicines to treat people with COVID-19. Go to https://www.fda.gov/emergency-pre paredness-andresponse/mcm-legal-r uuuwolwit-axm-bmuthu-framework/em ujwfefa-ysd-wxugtzdriqvqo for information on the emergency use of other medicines that are authorized by FDA to treat people with COVID-19. Your healthcare provider may talk with you about clinical trials for which you may be eligible. It is your choice to be treated or not to be treated with PAXLOVID. Should you decide not to receive it or for your child not to receive it, it will not change your standard medical care. What if I am or ? There is caregivers non medical treating women or mothers with PAXLOVID. For a mother and unborn baby, the benefit of taking PAXLOVID may be greater than the risk from the treatment. If you are , discuss your options and specific situation with your healthcare provider. It is recommended that you use effective barrier contraception or do not have sexual activity while taking PAXLOVID. If you are , discuss your options and specific situation with your healthcare provider. How do I report side effects with PAXLOVID? Contact your healthcare provider if you have any side effects that bother you or do not go away. Report side effects to [employer] at www.fda.gov/medwatch or call 4-319-XVI1841 or you can report side effects to [place] at the contact information provided below. Website Fax number Telephone number [employer] How should I store PAXLOVID? Store PAXLOVID tablets at room temperature, between 68?F to 77?F (20?C to 25?C). How can I learn more about COVID-19? Ask your healthcare provider. Visit https://www.cdc.gov/COVID19. Contact your local or state public health department. What is an Emergency Use Authorization (EUA)? The [place] FDA has made PAXLOVID available under an emergency access mechanism called an Emergency Use Authorization (EUA). The EUA is supported by a Non Profit Job [employer]les of Health and Human Service (HHS) declaration that circumstances exist to justify the emergency use of drugs and biological products during the COVID-19 pandemic. PAXLOVID for the treatment of jkje-un-kapzezik COVID-19 in adults and children [12 years of age and older weighing at least 88 pounds (40 kg)] with positive results of direct SARS-CoV-2 viral testing, and who are at high risk for progression to severe COVID-19, including hospitalization or , has not undergone the same type of review as an FDA-approved product. In issuing an EUA under the COVID-19 public health emergency, the FDA has determined, among other things, that based on the total amount of scientific evidence available including data from adequate and well-controlled clinical trials, if available, it is reasonable to believe that the product may be effective for diagnosing, treating, or preventing COVID-19, or a serious or life-threatening disease or condition caused by COVID-19; that the known and potential benefits of the product, when used to diagnose, treat, or prevent such disease or condition, outweigh the known and potential risks of such product; and that there are no adequate, approved, and available alternatives. All of these criteria must be met to allow for the product to be used in the treatment of patients during the COVID-19 pandemic. The EUA for PAXLOVID is in effect for the duration of the COVID-19 declaration justifying emergency use of this product, unless terminated or revoked (after which the products may no longer be used under the EUA). Additional Information For general questions, visit the website or call the telephone number provided below. Website Telephone number www.[employer] (5-906-M86-BRUI) You can also go to www.[employer] or call for more information. Pfizer Distributed by [employer] [place] [address] [id number] Revised: 28 November 2021 documented in this encounter [facility] 11-18-2022 Note HNO ID: [id number] Author: Scotty Overton MD Service: ? Author Type: Physician Type: Progress Notes Filed: 11/27/2022 1:53 PM Note Text: Telemedicine Evaluation for COVID-19 Infection Audio only was used for evaluation of this patient. Location of patient: [facility] Andre Parrish is a 82 year old male who presents with 2 days of symptoms that are improving. I spoke to his nurse, Laura. Rapid test positive. Confirmatory PCR pending, expected to result this afternoon. Patient has dementia, so I called spouse Yelitza. She was recovering from knee surgery, so she asked I contact patient's daughter Laura. I left a message at [facility] [employer] [phone] and left my work cell number. I'll wait for her call back. Symptoms include: Fever (?100.4F): No or Chills: No Cough: No Shortness of breath: No or Difficulty breathing: No Fatigue: Yes Muscle aches: Yes Headache: Yes New loss of smell or taste: No Sore throat: Yes Nasal congestion: Yes or Rhinorrhea: No Nausea: No or Vomiting: No Diarrhea: No High risk category assessment Age > 60 years old Hypertension Coronary artery disease Exposures: Sick contacts? Yes. Assisted living aides with Covid. Family or close contacts with confirmed/probable COVID-19 in last 14 days? No He reports that he quit smoking about 49 years ago. He has a 5.00 pack-year smoking history. He has never used smokeless tobacco. OBJECTIVE See nursing triage note. O2 sat 97%. T. 97.8. ASSESSMENT/PLAN (U07.1) COVID-19 (primary encounter diagnosis) - Discussed symptom monitoring and supportive care Nirmatrelvir/Ritonavir (Paxlovid) Eligibility and Patient Discussion [facility] Formulary Restriction Criteria: Adult outpatients 18 years and older with ALL of the following: [x] Patient has positive SARS-COV-2 viral test (PCR or antigen test) during current illness [x] Patient has symptoms for 5 days or less [x] Not requiring hospitalization at any time for management of COVID-19 [x] Not requiring supplemental oxygen or a change in baseline supplemental oxygen [x] Not utilized for pre-exposure or post-exposure prophylaxis for prevention of COVID-19 [x] Patient does not have severe renal impairment (eGFR < 30 mL/min) or severe hepatic impairment (Child-Belle Class C) [] Meeting at least one of the criteria for high risk of progression to severe COVID-19: [x] Age over 65 years [] Cancer [] Chronic kidney disease [] Chronic liver disease [] Chronic lung diseases, including cystic fibrosis [x] Dementia or other neurological conditions [] Diabetes (type 1 or type 2) [] Disabilities, including Down syndrome and neurodevelopmental disorders [x] Heart conditions [] HIV infection [] Immunocompromised state [] Mental health conditions [] Medical related technological dependence (tracheostomy, gastrostomy, or positive pressure ventilation (not related to COVID) [] Overweight and obesity (BMI greater or equal to 25 for adults) [x] Physical inactivity [] [] Sickle cell disease or thalassemia [] Smoking, current or former [] Solid organ or blood stem cell transplant [] Stroke or cerebrovascular disease [] Substance use disorders [] Tuberculosis [] People from racial and ethnic minority groups Criteria above are met: Yes Date of Positive Test:11/17/2022 Date of Symptom Onset: 11/16/2022 Patient received COVID vaccine: Yes Drug-Drug interactions reviewed: Yes. No drug interactions were identified. With SEROQUEL. November 18, 2022 1356. I spoke to daughter Laura. We discussed EUA, first line treatment with Paxlovid with medication interaction; and 2nd line treatment with Lagevrio. We agreed to Paxlovid and holding Seroquel while on Paxlovid. We will act based on the PCR test which is expected today. I have discussed the use of the investigational therapeutic, nirmatrelvir/ritonavir, for the treatment of mild to moderate COVID-19 and its use under Emergency Use Authorization with the patient. The patient/advocate was informed that nirmatrelvir/ritonavir is not an FDA approved drug and that it is authorized for use under this Emergency Use Authorization. The patient was also informed of the significant known benefits and potential risks of nirmatrelvir/ritonavir, and the extent to which such potential risks and benefits are unknown. The patient was informed that there is mandatory reporting of all medication errors and serious adverse events potentially related to nirmatrelvir/ritonavir treatment within 7 calendar days from the onset of the event and that events up to 28 days after completion of therapy need to be reported. The discussion included alternatives to receiving nirmatrelvir/ritonavir, including clinical trials, and potential the risks and benefits of those alternatives. The patient was provided electronically with the Fact Sheet for Patients, Parents and Caregiv (more content not included)... [facility] 11-18-2022 History of Present illness Narrative Telemedicine Evaluation for COVID-19 Infection Audio only was used for evaluation of this patient. Location of patient: [facility] Andre Parrish is a 82 year old male who presents with 2 days of symptoms that are improving. I spoke to his nurse, Laura. Rapid test positive. Confirmatory PCR pending, expected to result this afternoon. Patient has dementia, so I called spouse Yelitza. She was recovering from knee surgery, so she asked I contact patient's daughter Laura. I left a message at [facility] [employer] [phone] and left my work cell number. I'll wait for her call back. Symptoms include: Fever (?100.4F): No or Chills: No Cough: No Shortness of breath: No or Difficulty breathing: No Fatigue: Yes Muscle aches: Yes Headache: Yes New loss of smell or taste: No Sore throat: Yes Nasal congestion: Yes or Rhinorrhea: No Nausea: No or Vomiting: No Diarrhea: No High risk category assessment Age > 60 years old Hypertension Coronary artery disease Exposures: Sick contacts? Yes. Assisted living aides with Covid. Family or close contacts with confirmed/probable COVID-19 in last 14 days? No He reports that he quit smoking about 49 years ago. He has a 5.00 pack-year smoking history. He has never used smokeless tobacco. OBJECTIVE See nursing triage note. O2 sat 97%. T. 97.8. ASSESSMENT/PLAN (U07.1) COVID-19 (primary encounter diagnosis) - Discussed symptom monitoring and supportive care Nirmatrelvir/Ritonavir (Paxlovid) Eligibility and Patient Discussion [facility] Formulary Restriction Criteria: Adult outpatients 18 years and older with ALL of the following: [x] Patient has positive SARS-COV-2 viral test (PCR or antigen test) during current illness [x] Patient has symptoms for 5 days or less [x] Not requiring hospitalization at any time for management of COVID-19 [x] Not requiring supplemental oxygen or a change in baseline supplemental oxygen [x] Not utilized for pre-exposure or post-exposure prophylaxis for prevention of COVID-19 [x] Patient does not have severe renal impairment (eGFR < 30 mL/min) or severe hepatic impairment (Child-Belle Class C) [] Meeting at least one of the criteria for high risk of progression to severe COVID-19: [x] Age over 65 years [] Cancer [] Chronic kidney disease [] Chronic liver disease [] Chronic lung diseases, including cystic fibrosis [x] Dementia or other neurological conditions [] Diabetes (type 1 or type 2) [] Disabilities, including Down syndrome and neurodevelopmental disorders [x] Heart conditions [] HIV infection [] Immunocompromised state [] Mental health conditions [] Medical related technological dependence (tracheostomy, gastrostomy, or positive pressure ventilation (not related to COVID) [] Overweight and obesity (BMI greater or equal to 25 for adults) [x] Physical inactivity [] [] Sickle cell disease or thalassemia [] Smoking, current or former [] Solid organ or blood stem cell transplant [] Stroke or cerebrovascular disease [] Substance use disorders [] Tuberculosis [] People from racial and ethnic minority groups Criteria above are met: Yes Date of Positive Test:11/17/2022 Date of Symptom Onset: 11/16/2022 Patient received COVID vaccine: Yes Drug-Drug interactions reviewed: Yes. No drug interactions were identified. With SEROQUEL. November 18, 2022 1356. I spoke to daughter Laura. We discussed EUA, first line treatment with Paxlovid with medication interaction; and 2nd line treatment with Lagevrio. We agreed to Paxlovid and holding Seroquel while on Paxlovid. We will act based on the PCR test which is expected today. I have discussed the use of the investigational therapeutic, nirmatrelvir/ritonavir, for the treatment of mild to moderate COVID-19 and its use under Emergency Use Authorization with the patient. The patient/advocate was informed that nirmatrelvir/ritonavir is not an FDA approved drug and that it is authorized for use under this Emergency Use Authorization. The patient was also informed of the significant known benefits and potential risks of nirmatrelvir/ritonavir, and the extent to which such potential risks and benefits are unknown. The patient was informed that there is mandatory reporting of all medication errors and serious adverse events potentially related to nirmatrelvir/ritonavir treatment within 7 calendar days from the onset of the event and that events up to 28 days after completion of therapy need to be reported. The discussion included alternatives to receiving nirmatrelvir/ritonavir, including clinical trials, and potential the risks and benefits of those alternatives. The patient was provided electronically with the Fact Sheet for Patients, Parents and Caregivers . The patient/advocate was also instructed that in addition to the treatment with nirmatrelvir/ritonavir, he/she should continue to self-isolate and use infection control measures (e.g., wear mask, isolate, social distance, avoid sharing personal items, clean and disinfect high touch surfaces, and frequent handwashing) according to CDC guidelines. The patient/advocate stated understanding and gave verbal consent to proceeding with nirmatrelvir/ritonavir treatment. Scotty Overton MD November 18, 2022 12:35 PM November 18, 2022 1406 Verbal report from [facility] PCR positive., Requested Prescriptions Signed Prescriptions Disp Refills nirmatrelvir tablet 300 mg (150 mg x 2) and ritonavir tablet 100 mg in a dose pack (PAXLOVID) 30 tablet 0 Sig: Administer TWO pink nirmatrelvir 150 mg tablets and ONE white ritonavir 100 mg tablet for a total of three tablets twice daily. Hold SEROQUEL while on PAXLOVID. Scotty Overton MD documented in this encounter [facility] 11-17-2022 Miscellaneous Notes Called [facility] back and phone call appt arranged for 11/18/22 at 1120 am. He will need a phone or virtual visit for Paxlovivance Prince APRN.ALISA Mary with [facility] in [place] calls and states the following: COVID 19 positive. COVID -19 DIAGNOSIS: dx with rapid test today 11-17-22 at 1:30 pm [facility] has sent out a PCR test also. 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 Also increased confusion WORST SYMPTOM: fatigue, talking to him he falls a sleep and he is so tired he can't think clearly COUGH: off and on not bad FEVER: no 97.9 RESPIRATORY STATUS: lungs are clear [id number]: worse today HIGH RISK DISEASE: yes VACCINE: yes and boosters They are requesting treatment with Paxlovid. (patient not very cooperative because he does not feel good) Please advise Mary. Denice Hickey LPN documented in this encounter [facility] 10-17-2022 Miscellaneous Notes Last Office Visit: 08/27/2022 Future Office Visit: None Requested Prescriptions Pending Prescriptions Disp Refills pravastatin (PRAVACHOL) 40 mg tablet 90 tablet 3 Sig: Take 1 tablet by mouth daily at bedtime. Please let [facility] know when prescription sent. - Pspyw documented in this encounter [facility] 09-15-2022 Miscellaneous Notes [facility] website checked and validated. All prescriptions have been APPROPRIATELY filled. No suspicious activity was identified. 09/15/2022 by Jenn Prince APRN.ALISA Spoke to Yelitza/, willing to try. Uses [facility]. Raven Duke LPN We could try a very low dose anxiety medicine called Ativan if is okay with this. Give it to him at least one hour prior to appointment Jenn Prince APRN.ALISA Patient's Yelitza calling and states patient is having a root canal procedure performed tomorrow. Per , pt has advanced Parkinson's and asked if an antianxiety medication could be ordered for him to take 1 hour prior to procedure. Yelitza states she discussed this with pt's dentist who said he did not feel comfortable prescribing such medication and also felt antianxiety medication was not necessarily needed for this procedure. reports her concern for pt becoming weak or not being able to [facility] if takes antianxiety medication prior to procedure. wanted PCP advise. Thank you. documented in this encounter [facility] 09-03-2022 Miscellaneous Notes Labs printed and sent to scanning. Bethanie please print lab work from [facility], have them scanned in for Dr. Overton to review and mail copy to patient as requested. Thank you Giovanna Prince APRN.CNP documented in this encounter [facility] 08-27-2022 Note HNO ID: [id number] Author: Giovanna Prince APRN.CNP Service: ? Author Type: Nurse Practitioner Type: Progress Notes Filed: 09/02/2022 8:55 AM Note Text: CC: Patient presents with: Medicare Wellness Exam: Annual Medicare Wellness HPI Andre Parrish is a 82 year old male established patient of Dr. Overton who presents today for medicare wellness exam, but unable to be completed during this visit. Patient and daughter present with questions about recent order for hospice. Patient is currently living at [facility] and has multiple comorbid conditions including bladder cancer, parkinsons, CAD, and multiple other conditions as well. Patient personally without any concerns at this time. with concerns on patients bowel habits. Per patient, he has a large bowel movement every 4-5 days as he has done this since childhood without issue. concerned because this past weekend he had multiple large bowel movements that were soft, urgent, and with slight incontinence. Patient is on stool softeners twice daily and she is concerned if this is the cause. Per patient his last BM was Wednesday and was very large. He feels he will go to the bathroom soon which is normal for him so unconcerned. Patient denies abdominal pain, nausea, vomiting, fever, or any other concern. Labs completed at [facility] and reviewed in visit. Labs within acceptable ranges and similar to past readings. Anemia is stable. Multiple questions on Hospice care, communications with PCP, and benefits of Hospice. 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 Juan Meier HTN (hypertension) Hyperlipidemia 02/07/2016 Macular degeneration Malignant neoplasm of overlapping sites of bladder (HCC) 11/03/2021 Orthostatic hypertension Parkinson's disease (HCC) Prostate cancer (HCC) 2006 has had radiation Shingles outbreak 2010 left flank Snoring PAST SURGICAL HISTORY Procedure Laterality Date ANES TRANSURETHRAL RESECTION OF BLADDER TUMOR 10/24/2021 TUR bladder tumor COLONOSCOPY FLX DX W/COLLJ SPEC WHEN PFRMD 10/03/20141996,1997,2000,2007 COLONOSCOPY FLX DX W/COLLJ SPEC WHEN PFRMD 05/07/2016 Colonoscopy LAP CYSTORRHAPHY W/ RESECTION BLADDER 10/24/2021 REPAIR OF ANKLE FRACTURE Left 09/13/2009 RPR 1ST INGUN HRNA AGE 5 YRS/> REDUCIBLE Left 09/13/1981 Hernia repair, inguinal RPR 1ST INGUN HRNA AGE 5 YRS/> REDUCIBLE Right 1992; 2005 Hernia repair, inguinal ALLERGIES Penicillins MEDICATIONS tamsulosin (FLOMAX) 0.4 mg Take 1 capsule by mouth once daily. docusate sodium (COLACE) 100 mg capsule Take 1 capsule by mouth twice daily. carbidopa-levodopa (SINEMET 25-100) 25-100 mg per tablet Take 1.5 tablets by mouth three times daily. Take around mealtimes. QUEtiapine (SEROQUEL) 25 mg tablet Take 0.5 tablets by mouth daily at bedtime. traMADol (ULTRAM) 50 mg tablet Take 1 tablet by mouth three times daily as needed for pain. gabapentin (NEURONTIN) 100 mg capsule Take 1 capsule by mouth daily at bedtime for 180 days. finasteride (PROSCAR) 5 mg tablet Take 5 mg by mouth once daily. cholecalciferol (VITAMIN D) 1,000 unit tab tablet Take 2 tablets by mouth once daily. metoprolol tartrate, short acting, (LOPRESSOR) 25 mg tablet Take 0.5 tablets by mouth every evening. HOLD for SBP <100. pravastatin (PRAVACHOL) 40 mg tablet Take 1 tablet by mouth daily at bedtime. acetaminophen (TYLENOL EXTRA STRENGTH) 500 mg tablet Take 1,000 mg by mouth three times daily. vit C,E,Zn,Hr-yromh4-yqs-zeax (PRESERVISION AREDS 2, OMEGA-3,) 250-2.5-0.5 mg cap Take 1 capsule by mouth twice daily. nitroglycerin sublingual (NITROSTAT) 0.4 mg SL tablet Dissolve 1 tablet under the tongue every 5 minutes as needed. WALKER ROLLATOR SEAT WITH 6 WHEELS - RED 1 Each once daily. Use walker as directed. Parkinsonism, unspecified Parkinsonism type (HCC) - ICD9: 332.0, ICD10: G20; Gait abnormality - ICD9: 781.2, ICD10: R26.9; Fall, initial encounter - ICD9: E888.9, ICD10: W19.XXXA FAMILY HISTORY Problem Relation Age of Onset other (migraine) Mother other (lung cancer) Mo (more content not included)... [facility] 08-27-2022 History of Present illness Narrative CC: Patient presents with: Medicare Wellness Exam: Annual Medicare Wellness HPI Andre Parrish is a 82 year old male established patient of Dr. Overton who presents today for medicare wellness exam, but unable to be completed during this visit. Patient and daughter present with questions about recent order for hospice. Patient is currently living at [facility] and has multiple comorbid conditions including bladder cancer, parkinsons, CAD, and multiple other conditions as well. Patient personally without any concerns at this time. with concerns on patients bowel habits. Per patient, he has a large bowel movement every 4-5 days as he has done this since childhood without issue. concerned because this past weekend he had multiple large bowel movements that were soft, urgent, and with slight incontinence. Patient is on stool softeners twice daily and she is concerned if this is the cause. Per patient his last BM was Wednesday and was very large. He feels he will go to the bathroom soon which is normal for him so unconcerned. Patient denies abdominal pain, nausea, vomiting, fever, or any other concern. Labs completed at [facility] and reviewed in visit. Labs within acceptable ranges and similar to past readings. Anemia is stable. Multiple questions on Hospice care, communications with PCP, and benefits of Hospice. 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 Juan Meier HTN (hypertension) Hyperlipidemia 02/07/2016 Macular degeneration Malignant neoplasm of overlapping sites of bladder (HCC) 11/03/2021 Orthostatic hypertension Parkinson's disease (HCC) Prostate cancer (HCC) 2006 has had radiation Shingles outbreak 2010 left flank Snoring PAST SURGICAL HISTORY Procedure Laterality Date ANES TRANSURETHRAL RESECTION OF BLADDER TUMOR 10/24/2021 TUR bladder tumor COLONOSCOPY FLX DX W/COLLJ SPEC WHEN PFRMD 10/03/2014 1997,1997,2000,2007 COLONOSCOPY FLX DX W/COLLJ SPEC WHEN PFRMD 05/07/2016 Colonoscopy LAP CYSTORRHAPHY W/ RESECTION BLADDER 10/24/2021 REPAIR OF ANKLE FRACTURE Left 09/13/2009 RPR 1ST INGUN HRNA AGE 3 YRS/> REDUCIBLE Left 09/13/1981 Hernia repair, inguinal RPR 1ST INGUN HRNA AGE 5 YRS/> REDUCIBLE Right 1992; 2005 Hernia repair, inguinal ALLERGIES Penicillins MEDICATIONS tamsulosin (FLOMAX) 0.4 mg Take 1 capsule by mouth once daily. docusate sodium (COLACE) 100 mg capsule Take 1 capsule by mouth twice daily. carbidopa-levodopa (SINEMET 25-100) 25-100 mg per tablet Take 1.5 tablets by mouth three times daily. Take around mealtimes. QUEtiapine (SEROQUEL) 25 mg tablet Take 0.5 tablets by mouth daily at bedtime. traMADol (ULTRAM) 50 mg tablet Take 1 tablet by mouth three times daily as needed for pain. gabapentin (NEURONTIN) 100 mg capsule Take 1 capsule by mouth daily at bedtime for 180 days. finasteride (PROSCAR) 5 mg tablet Take 5 mg by mouth once daily. cholecalciferol (VITAMIN D) 1,000 unit tab tablet Take 2 tablets by mouth once daily. metoprolol tartrate, short acting, (LOPRESSOR) 25 mg tablet Take 0.5 tablets by mouth every evening. HOLD for SBP <100. pravastatin (PRAVACHOL) 40 mg tablet Take 1 tablet by mouth daily at bedtime. acetaminophen (TYLENOL EXTRA STRENGTH) 500 mg tablet Take 1,000 mg by mouth three times daily. vit C,E,Zn,Ck-hozxc2-vdk-zeax (PRESERVISION AREDS 2, OMEGA-3,) 250-2.5-0.5 mg cap Take 1 capsule by mouth twice daily. nitroglycerin sublingual (NITROSTAT) 0.4 mg SL tablet Dissolve 1 tablet under the tongue every 5 minutes as needed. WALKER ROLLATOR SEAT WITH 6 WHEELS - RED 1 Each once daily. Use walker as directed. Parkinsonism, unspecified Parkinsonism type (HCC) - ICD9: 332.0, ICD10: G20; Gait abnormality - ICD9: 781.2, ICD10: R26.9; Fall, initial encounter - ICD9: E888.9, ICD10: W19.XXXA FAMILY HISTORY Problem Relation Age of Onset other (migraine) Mother other (lung cancer) Mother No Ocular Disease No Family History Parkinsonism No Family History Diabetes No Family History Thyroid No Family History Hypertension No Family History Hyperlipidemia No Family History Blood Disease No Family History Blood Clots No Family History Factor 5 Leiden No Family History Stroke No Family History DVT No Family History Systemic Lupus Erythematosus No Family History Multiple Sclerosis No Family History Alzheimer's Disease No Family History Dementia No Family History Parkinson s Disease No Family History Bipolar disorder No Family History Schizophrenia No Family History Aneurysm No Family History Social History Tobacco Use Smoking status: Former Packs/day: 1.00 Years: 5.00 Pack years: 5.00 Types: Cigarettes Quit date: 03/10/1973 Years since quittin.4 Smokeless tobacco: Never Tobacco comments: quit 40 years ago Substance Use Topics Alcohol use: Yes Comment: occasionally a sip of wine Drug use: No PHYSICAL EXAM BP 136/80 Pulse 65 Temp 36.6 C (97.9 F) (Temporal) Resp 16 Wt 64.9 kg (143 lb) SpO2 98% BMI 23.08 kg/m General Appearance: well appearing, in no acute distress, alert Pysch: mood and affect broad and appropriate Eyes: conjunctiva pink and moist, no icterus, sclera white, non-injected Health maintenance reviewed with patient: SHINGRIX VACCINE(1 of 2) Never done ADVANCE DIRECTIVE DISCUSSION Never done LDL CHOLESTEROL due on 07/06/2022 DTAP,TDAP,TD(2 - Td or Tdap) due on 03/02/2024 DIABETES SCREEN due on 12/04/2024 INFLUENZA Completed COVID-19 VACCINE Completed PNEUMOCOCCAL: 65+ Completed DATA REVIEWED: Outside chart from [facility] reviewed. appointment not fully completed as family and patient had to leave prior to finishing questions and assessments. Per family no other questions or concerns at this time. Patient needs to schedule a follow up with Dr Overton for further discussion and medicare wellness ASSESSMENT/PLAN: 1. Hospice care - ICD9: V66.7, ICD10: Z51.5 (primary diagnosis) - discussed hospice benefit for patient comfort and that for PCP role in hospice care, they would need to discuss with Dr. Overton his PCP for his input. 2. Constipation, unspecified constipation type - ICD9: 564.00, ICD10: K59.00 - patient with chronic constipation and in no acute distress. Patient unconcerned with this. - Discussed importance of keeping record of bowel movements and that yes, stool softners can cause urgency but if he has not had a BM in days, these should be continued at this time. - discussed severe constipation with liquid stool leaking out around impaction, but patient denies this being the case at this time. - patient to monitor stools and update if no BM within the next day or if soft urgent stools increase. Prescription instructions reviewed with patient as applicable. Potential red flag symptoms discussed with the patient. Reviewed appropriate action plan to take if red flag symptoms occur. Patient agreeable to treatment plan. Giovanna Prince APRN.ALISA documented in this encounter [facility] 08-12-2022 Miscellaneous Notes Patient has been identified by name and date of : Yes [facility] phones for refill(s): Requested Prescriptions Pending Prescriptions Disp Refills tamsulosin (FLOMAX) 0.4 mg 90 capsule 3 Sig: Take 1 capsule by mouth once daily. Date of last office visit in primary care: NP05/25/22 Last 2 Encounter Wt Readings: Date: Wt: 01/27/2022 0 kg () 01/08/2022 75.8 kg (167 lb). Thank you. Michell Acosta LPN documented in this encounter [facility] 08-05-2022 Miscellaneous Notes Fax received from [facility] re: family requesting Hospice Referral. Dr. Overton agreed, faxed back to [facility]. Raven Duke LPN Left message to call office. 08/05/2022 10:45 AM Left message to call & speak to nurse. Raven Duke LPN TC to Linda - Unable to leave message. Will try again later. Okay for hospice evaluation Jenn Prince APRN.CNP jd Mckeon @ [facility] calling to let PCP know patient's spouse has requested referral to hospice. Patient is in [facility]. Linda is requesting verbal order for okay for hospice evaluation. Her phone @ [phone]. Rashida Phillips RN documented in this encounter [facility] 06-08-2022 Miscellaneous Notes See message. documented in this encounter [facility] 06-01-2022 Miscellaneous Notes Addressed in another encounter Jenn Prince APRN.CNP documented in this encounter [facility] 05-29-2022 Miscellaneous Notes Advised daughter. Please let daughter know I am sorry they are going through such a rough time. I unfortunately do not have any recommendations as this would need to be something discussed with their primary care provider. Thank you Giovanna Prince APRN.CNP Carlyn notified and states that his walker is an oversized walker and she will make note of message. Spoke with daughter Felicia, states dad fell again and was lethargic and almost unresponsive, daughter took dad to ER, had labs, CT of brain, urinalysis to rule out UTI, chest XR, all tests negative. Patient perked up while in ER but as soon as returned to [facility] went back to not getting out of bed, nurse had to put medication in shake. Daughter states is suggesting palliative or hospice but daughter thinks its too sudden. Daughter asking if Giovanna has any recommendations? New PT order placed. Also please let [facility] know that patient reported at visit that his walker does not fit his bathroom door. Being in the bathroom without his walker was cause of recent fall. Can someone please verify this and if it does fit work with patient on how to maneuver through the bathroom door. Thank you Giovanna Prince APRN.CNP SPoke with Carlyn, could not verify if patient was or was not still receiving PT? It has been at least 2 weeks since last PT visit for patient. long term orders for right hand care and D/C MOM placed on your desk please send to assisted and if needed give verbal order over the phone. Also I need to know if he is still getting physical therapy. If so what would be the best way for me to contact them to discuss patient's recurrent falls and need for walker usage in bathroom. Thank you Giovanna Prince APRN.CNP documented in this encounter [facility] 05-27-2022 Miscellaneous Notes Rec'd fax from [facility] for refill. documented in this encounter [facility] 05-25-2022 Note HNO ID: [id number] Author: Giovanna Prince APRN.CNP Service: ? Author Type: Nurse Practitioner Type: Progress Notes Filed: 05/26/2022 10:32 AM Note Text: CC: Patient presents with: Recheck: 6 month follow up HPI Andre Parrish is a 82 year old male who is an established patient of Dr. Overton presents today for routine follow up. Patient majority of visit very concerned with 's mental health as a result of his health. Further discussed and addressed in telephone encounter in 's record. Was recently hospitalized with cellulitis, was in TCU for rehab, and was discharged a few weeks ago. Fell at [facility] yesterday on right side. Wound has healed and is finished with antibiotic regimen. Denies fever chills, or other concerns. Has fallen 4 times in the past 3 months. All falls were while patient was turning whether he had his walker or not. Most recent fall was yesterday where he was able to catch himself on the doorway and lower down onto his right side. This occurred as a result of him not taking his walker to the bathroom as he states the door is not wide enough. Went to [facility] after fall and had various xrays that did not show any fractures. Daughter is with patient and wants a full skin assessment completed on his right side to evaluate for any points of possible infection. HTN: Mr. Parrish indicates that he is feeling well and denies any symptoms referable to elevated blood pressure. Specifically denies headache, chest pain, palpitations, dyspnea, and peripheral edema. Patient denies any side effects of his medication(s) and is compliant with their regimen. Blood Pressure is checked daily at [facility] prior to medication administration and is labile varying for low to high. Per daughter metoprolol is held if BP is too low . Andre denies regular aerobic exercise but has physical therapy once a week for falls. He watches his diet for sodium, low fat and low cholesterol most of the time. Last 3 Encounter BP Readings: Date: BP: 05/25/2022 112/62 02/03/2022 127/76 01/29/2022 76/50 Parkinsons: Sees Neurology for this. Symptoms are currenly controlled. Has intentional tremors but able to still successfully feed himself without assistance. Also uses a walker for his shuffling gait. REVIEW OF SYSTEMS General: no fevers, no chills, no night sweats, no recurrent infections, no change in appetite, no change in energy, and no significant changes in weight Respiratory: no cough, no wheezing, no shortness of breath, no hemoptysis Cardiovascular: no chest pain, no chest pressure, no palpitations, and no swelling Skin: reports a red scabbed area to right hand Neurologic: No headache, dizziness, syncope. 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 Juan Meier HTN (hypertension) Hyperlipidemia 02/07/2016 Macular degeneration Malignant neoplasm of overlapping sites of bladder (HCC) 11/03/2021 Orthostatic hypertension Parkinson's disease (HCC) Prostate cancer (HCC) 2006 has had radiation Shingles outbreak 2010 left flank Snoring PAST SURGICAL HISTORY Procedure Laterality Date ANES TRANSURETHRAL RESECTION OF BLADDER TUMOR 10/24/2021 TUR bladder tumor COLONOSCOPY FLX DX W/COLLJ SPEC WHEN PFRMD 10/03/20141996,1997,2000,2007 COLONOSCOPY FLX DX W/COLLJ SPEC WHEN PFRMD 05/07/2016 Colonoscopy LAP CYSTORRHAPHY W/ RESECTION BLADDER 10/24/2021 REPAIR OF ANKLE FRACTURE Left 09/13/2009 RPR 1ST INGUN HRNA AGE 5 YRS/> REDUCIBLE Left 09/13/1981 Hernia repair, inguinal RPR 1ST INGUN HRNA AGE 5 YRS/> REDUCIBLE Right 1992; 2005 Hernia repair, inguinal ALLERGIES Penicillins MEDICATIONS QUEtiapine (SEROQUEL) 25 mg tablet Take 0.5 tablets by mouth daily at bedtime. traMADol (ULTRAM) 50 mg tablet Take 1 tablet by mouth three times daily as needed for pain. docusate sodium (COLACE) 100 mg capsule Take 1 capsule by mouth once daily. gabapentin (NEURONTIN) 100 mg capsule Take 1 capsule by mouth daily at bedtime for 180 days. finasteride (PROSCAR) 5 mg tablet Take 5 mg by mouth once daily. tamsulosin (FLOMAX) 0.4 mg Take 0.4 mg by mouth once daily. cholecalciferol (VITAMIN D) 1,000 unit tab tablet Take 2 tablets by mouth once daily. metoprolol tartrate, short acting, (LOPRESSOR) 25 mg tablet Take 0.5 tablets by mouth every evening. HOLD for SBP <100. pravastatin (PRAVACHOL) 40 mg tablet Take 1 tablet by mouth daily at bedtime. carbidopa-l (more content not included)... [facility] 05-25-2022 History of Present illness Narrative CC: Patient presents with: Recheck: 6 month follow up HPI Andre Parrish is a 82 year old male who is an established patient of Dr. Overton presents today for routine follow up. Patient majority of visit very concerned with 's mental health as a result of his health. Further discussed and addressed in telephone encounter in 's record. Was recently hospitalized with cellulitis, was in TCU for rehab, and was discharged a few weeks ago. Fell at [facility] yesterday on right side. Wound has healed and is finished with antibiotic regimen. Denies fever chills, or other concerns. Has fallen 4 times in the past 3 months. All falls were while patient was turning whether he had his walker or not. Most recent fall was yesterday where he was able to catch himself on the doorway and lower down onto his right side. This occurred as a result of him not taking his walker to the bathroom as he states the door is not wide enough. Went to [facility] ER after fall and had various xrays that did not show any fractures. Daughter is with patient and wants a full skin assessment completed on his right side to evaluate for any points of possible infection. HTN: Mr. Parrish indicates that he is feeling well and denies any symptoms referable to elevated blood pressure. Specifically denies headache, chest pain, palpitations, dyspnea, and peripheral edema. Patient denies any side effects of his medication(s) and is compliant with their regimen. Blood Pressure is checked daily at [facility] prior to medication administration and is labile varying for low to high. Per daughter metoprolol is held if BP is too low . Andre denies regular aerobic exercise but has physical therapy once a week for falls. He watches his diet for sodium, low fat and low cholesterol most of the time. Last 3 Encounter BP Readings: Date: BP: 05/25/2022 112/62 02/03/2022 127/76 01/29/2022 76/50 Parkinsons: Sees Neurology for this. Symptoms are currenly controlled. Has intentional tremors but able to still successfully feed himself without assistance. Also uses a walker for his shuffling gait. REVIEW OF SYSTEMS General: no fevers, no chills, no night sweats, no recurrent infections, no change in appetite, no change in energy, and no significant changes in weight Respiratory: no cough, no wheezing, no shortness of breath, no hemoptysis Cardiovascular: no chest pain, no chest pressure, no palpitations, and no swelling Skin: reports a red scabbed area to right hand Neurologic: No headache, dizziness, syncope. 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 Juan Meier HTN (hypertension) Hyperlipidemia 02/07/2016 Macular degeneration Malignant neoplasm of overlapping sites of bladder (HCC) 11/03/2021 Orthostatic hypertension Parkinson's disease (HCC) Prostate cancer (HCC) 2006 has had radiation Shingles outbreak 2010 left flank Snoring PAST SURGICAL HISTORY Procedure Laterality Date ANES TRANSURETHRAL RESECTION OF BLADDER TUMOR 10/24/2021 TUR bladder tumor COLONOSCOPY FLX DX W/COLLJ SPEC WHEN PFRMD 10/03/20141996,1997,2000,2007 COLONOSCOPY FLX DX W/COLLJ SPEC WHEN PFRMD 05/07/2016 Colonoscopy LAP CYSTORRHAPHY W/ RESECTION BLADDER 10/24/2021 REPAIR OF ANKLE FRACTURE Left 09/13/2009 RPR 1ST INGUN HRNA AGE 5 YRS/> REDUCIBLE Left 09/13/1981 Hernia repair, inguinal RPR 1ST INGUN HRNA AGE 5 YRS/> REDUCIBLE Right 1992; 2005 Hernia repair, inguinal ALLERGIES Penicillins MEDICATIONS QUEtiapine (SEROQUEL) 25 mg tablet Take 0.5 tablets by mouth daily at bedtime. traMADol (ULTRAM) 50 mg tablet Take 1 tablet by mouth three times daily as needed for pain. docusate sodium (COLACE) 100 mg capsule Take 1 capsule by mouth once daily. gabapentin (NEURONTIN) 100 mg capsule Take 1 capsule by mouth daily at bedtime for 180 days. finasteride (PROSCAR) 5 mg tablet Take 5 mg by mouth once daily. tamsulosin (FLOMAX) 0.4 mg Take 0.4 mg by mouth once daily. cholecalciferol (VITAMIN D) 1,000 unit tab tablet Take 2 tablets by mouth once daily. metoprolol tartrate, short acting, (LOPRESSOR) 25 mg tablet Take 0.5 tablets by mouth every evening. HOLD for SBP <100. pravastatin (PRAVACHOL) 40 mg tablet Take 1 tablet by mouth daily at bedtime. carbidopa-levodopa (SINEMET 25-100) 25-100 mg per tablet Take 1.5 tablets by mouth three times daily. Take around mealtimes. (Patient taking differently: Take 1.5 tablets by mouth three times daily. Takes (1.5) tablet/tablets at 8:00 am , 12:00 pm , 5:00 pm ) nitroglycerin sublingual (NITROSTAT) 0.4 mg SL tablet Dissolve 1 tablet under the tongue every 5 minutes as needed. WALKER ROLLATOR SEAT WITH 6 WHEELS - RED 1 Each once daily. Use walker as directed. Parkinsonism, unspecified Parkinsonism type (HCC) - ICD9: 332.0, ICD10: G20; Gait abnormality - ICD9: 781.2, ICD10: R26.9; Fall, initial encounter - ICD9: E888.9, ICD10: W19.XXXA acetaminophen (TYLENOL EXTRA STRENGTH) 500 mg tablet Take 1,000 mg by mouth three times daily. vit C,E,Zn,Om-mgxiw2-xhk-zeax (PRESERVISION AREDS 2, OMEGA-3,) 250-2.5-0.5 mg cap Take 1 capsule by mouth twice daily. FAMILY HISTORY Problem Relation Age of Onset other (migraine) Mother other (lung cancer) Mother No Ocular Disease No Family History Parkinsonism No Family History Diabetes No Family History Thyroid No Family History Hypertension No Family History Hyperlipidemia No Family History Blood Disease No Family History Blood Clots No Family History Factor 5 Leiden No Family History Stroke No Family History DVT No Family History Systemic Lupus Erythematosus No Family History Multiple Sclerosis No Family History Alzheimer's Disease No Family History Dementia No Family History Parkinson s Disease No Family History Bipolar disorder No Family History Schizophrenia No Family History Aneurysm No Family History Social History Tobacco Use Smoking status: Former Packs/day: 1.00 Years: 5.00 Pack years: 5.00 Types: Cigarettes Quit date: 03/10/1973 Years since quittin.2 Smokeless tobacco: Never Tobacco comments: quit 40 years ago Substance Use Topics Alcohol use: Yes Comment: occasionally a sip of wine Drug use: No PHYSICAL EXAM BP 112/62 Pulse 64 Resp 16 General Appearance: well appearing, in no acute distress, alert Pysch: mood and affect broad and appropriate Skin: two small light reddened areas to right scapular region. NO increased warmth, tenderness, or open areas. Right had with dark reddened scabbed area. No tenderness edema red streaking, or drainage. Eyes: conjunctiva pink and moist, no icterus, sclera white, non-injected Lungs: Lungs clear to auscultation. No wheezing, rhonchi, rales. Heart: RRR without murmur, gallop, or rubs. No ectopy BUE Extremities: No deformities, edema, skin discoloration, clubbing or cyanosis. Good capillary refill. Health maintenance reviewed with patient: SHINGRIX VACCINE(1 of 2) Never done ADVANCE DIRECTIVE DISCUSSION Never done COVID-19 VACCINE(4 - Booster for Moderna series) due on 11/10/2021 INFLUENZA(1) due on 05/14/2022 LDL CHOLESTEROL due on 07/06/2022 DTAP,TDAP,TD(2 - Td or Tdap) due on 03/02/2024 DIABETES SCREEN due on 12/04/2024 PNEUMOCOCCAL: 65+ Completed DATA REVIEWED: Outside chart from [facility] reviewed. ASSESSMENT/PLAN: 1. Multiple falls - ICD9: V15.88, ICD10: R29.6 (primary diagnosis) - patient needs to continue with physical therapy and usage of walker into bathroom, if walker is too large to navigate through door then other options need evaluated. 2. Skin tear of right hand without complication, initial encounter - ICD9: 882.0, ICD10: S61.411A No signs of infection, keep wound clean and dry and apply 3le antibiotic ointment BID for any opening. Follow up for any increase in redness, drainage, or pain. - This order will be sent to [facility] 3. Essential hypertension with goal blood pressure less than 150/90 - ICD9: 401.9, ICD10: I10 - good control except per patient and daughter report, very labile - Continue current medication(s) with current parameters. - Recommended regular aerobic exercise. - Recommend home blood pressure monitoring, to bring results in on next visit - Goal of BP <130/80 - COMP METABOLIC PANEL - CBC + DIFF 4. Parkinsonism, unspecified Parkinsonism type (HCC) - ICD9: 332.0, ICD10: G20 - stable at this time - continue with current treatment and following up with neurology as directed by them. - gait unsteady at time and needs to use walker and continue with PT for turning appropriately with walker and usage when going to the bathroom 5. Hyperlipidemia, unspecified hyperlipidemia type - ICD9: 272.4, ICD10: E78.5 - to be determined upon return of lab results - LIPID PANEL BASIC - COMP METABOLIC PANEL Prescription instructions reviewed with patient as applicable. Potential red flag symptoms discussed with the patient. Reviewed appropriate action plan to take if red flag symptoms occur. Patient agreeable to treatment plan. Giovanna Prince APRN.CNP documented in this encounter [facility] 05-19-2022 Miscellaneous Notes Rec'd fax from [facility] asking for new rx [facility] for seroquel 25 mg taking 1/2 tablets by mouth every 8 hours for anxiety. documented in this encounter [facility] 05-14-2022 Miscellaneous Notes Noted. His BP is labile. Fanta with [facility] OT calling to update provider that patient's BP at the end of today's visit was 154/98, pulse 67. Pt asymptomatic. Patient lives at [facility] and the nurse was informed there as well. Thank you. documented in this encounter [facility] 05-08-2022 Miscellaneous Notes Ajit Prince APRN.LINE INSPECTOR Marisabel from [facility] speech therapy called to state that she evaluate patient for a 1 x visit. Patient verbalized appropriate problem solving and safety awareness. Voice was audible. He will call speech therapy if there is any changes. documented in this encounter [facility] 05-06-2022 Miscellaneous Notes Okbang. Fanta with [facility] PT calling with plan of care for patient: PT plans to see patient 1x/week for 1 week then 2x/week for 2 weeks for ADLs,transfers and strengthening. No call back needed if provider agreeable. Thank you. documented in this encounter [facility] 05-04-2022 Miscellaneous Notes Ajit Prince APRN.LINE INSPECTOR COLETTE Conroy @ [facility] calling with plan of care. PT will see patient 2 x/week for three weeks for functional mobility. Rashida Phillips RN documented in this encounter [facility] 04-13-2022 Miscellaneous Notes Pt had appt with pcp this week. It was cancelled. Notes he is in the hospital. Xray right elbow at facility. Laura BANDA from [facility] calling to state patient fell on 04/04/22 and acquired a small skin tear about the tip of a pen to his right elbow. Today there is swelling to his right elbow about the size of a 50 cent piece. No redness but right elbow slightly warmer than left elbow. Patient also complaining of right elbow pain. Laura asking if provider would order an xray for patient's right elbow to be done in facility? Please call Laura or Afshan at [phone]. Thank you. documented in this encounter [facility] 04-07-[address] Han aware. No further instructions. Tried contacting patient's to reschedule let her know would really prefer to follow up with the patient, felt that rescheduling it now is just not necessary And would not be prooductive as the patient states there in nothing to follow up with about at the moment. Let her know I would be relaying this message to and his nurses, patient's wanted to thank as well. Ly Rosenthal Appt canceled. Will try calling next week to reschedule. PSS's Please wait a few days and call back and attempt to reschedule with Dr Han. He would really like to make contact with patient for f/u. Also please cancel today's appointment. Pts called. She is ill herself today and not able to be with pt at the time of the call today. She has asked that the appt be canceled. She stated that her did not have anything he needed to talk to Dr. Han about at this point and would likely not be able to talk today since she is not there with him at [facility]. documented in this encounter [facility] 02-19-2022 Miscellaneous Notes Completed. Thank you I spoke with Jos and rescheduled phone follow up for 03/12 at 3:30pm. Please reschedule as above. Thank you. Contacted ,pt said she will call back soon to get pt rescheduled. Ly Rosenthal Left message for pt;s to return call, 4wk phone call needs to be with , first available 03/11. If pt returns call please advise. Ly Rosenthal documented in this encounter [facility] 02-19-2022 Miscellaneous Notes Called and left a detailed voicemail notifying patient's nurse Marivel of providers message. Hospital phone number was left in case she had any questions. Manisha Hicks RN Patient's request for medication is as follows Signed Prescriptions Disp Refills ciprofloxacin HCl (CIPRO) 500 mg tablet 14 tablet 0 Sig: Take 1 tablet by mouth twice daily for 7 days. Authorizing Provider: SCOTTY OVERTON Tizaro. Scotty Overton MD Marivel nurse from [facility] states, pt has been taking radiation for bladder cancer. This has ended and pt was having pain when urinating so called in got order for UA. Results were that it was contaminated. Since then been trying to get another sample. She states pt is very behavioral will not let anyone near him to get sample. Very incontinent, in a lot of pain with taking his tramadol and pyridium as needed. Daughter is angry that he is in pain and its taking this long for them to try to get a sample. Marivel is asking if there is anyway they could try an antibiotic to see if this would be any help.She believes if they keep trying to get this he is going to get combative. Please advise. documented in this encounter [facility] 02-06-2022 Miscellaneous Notes Pt has been scheduled. Left message for patient's to return call. When she calls, please advise below and then schedule the following appointment on 03/04/22 in any open 30 minute appt time: DEPT: [facility] APPT NOTE: [phone] - 4 WK FOLLOW UP APPT TYPE: PROVIDER PHONE CALL PROVIDER: ELSIE HAN Once scheduled, document and route to P WSTR HEM/ONC PSR. Naina Nieves Pt needs a 4 week phone call follow up with Dr Han, about 4 weeks from today. Please arrange with Yelitza. I attempted to call (Yelitza) and no answer. Please tell her that I spoke with Marcelino's daughter Laura and we decided it was not necessary for Laura to miss work to be a part of the phone call. So it is ok for Yelitza to be there with Marcelino when ever it is scheduled. So appointment date and time needs to suite Yelitza and Marcelino. I can talk to her if she needs clarification. documented in this encounter [facility] 02-04-2022 Nurse Note Written discharge instructions given and reviewed with patient. Patient verbalizes understanding. Encouraged to call with any questions or concerns. Instruction for 4 week phone call follow up appointment given per Dr. Han's instructions. I have entered a phone note asking PSS's to coordinate this appointment with who is also at [facility] and can be with pt at time of phone call. Daughter Laura in agreement with this plan. 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 DELIVERED DOSE: 3000 cGy in 10 fractions treating to the 97% isodose line with 10 MV and 2 vmat dave ELAPSED TIME: 13 days. TOLERANCE/ RESPONSE: He is doing well without any specific new complaints related to radiation treatment. He denies any hematuria REMARKS: He tolerated radiation treatment well. [facility] with [facility] Staff Physician ELSIE HAN M.D. 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 COURSE: palliative AREA TREATED: Bladder CURRENT DOSE: 2700 cGy in 9 fx PLANNED DOSE: 3000 cGy in 10 fx SUBJECTIVE: He is doing well without any specific new complaints. He denies any hematuria. EXAM: KPS: 60 General Appearance: Alert. No acute distress. IMAGING/LAB RESULTS: None Treatment chart checked: Yes Patient treatment site reviewed and verified:Yes CBCTs reviewed and current:Yes Medications started: None ASSESSMENT/PLAN: Clinically stable. Toxicity within expected parameters. Continue radiation treatment as planned. Elsie Han MD documented in this encounter [facility] 02-03-2022 Nurse Note Radiation Therapy - Nursing Note (OTV) PATIENT NAME: Andre Parrish PATIENT February 03, 2022 [facility] FACILITY/LOCATION: [facility] NURSING NOTE TYPE: PROSTATE - MALE PELVIS Subjective Data no new complaints Additional Data Do you want to see a Utility Bag Assembler? No Status: Patient is male Stress Scale: On a scale of 0 to 10, what number best describes how much distress you have experienced in the past week?(0 being no distress and 10 being extreme distress) 6 Social work notified: no Nursing Assessment Fatigue: yes but stable, he is up a lot at night due to parkinsons Appetite: good Nutritional Intake: Regular oral intake. Weight Gain/Loss: No Ambulatory weight history: Last 6 Encounter Wt Readings: Date: Wt: 01/27/2022 0 kg () 01/08/2022 75.8 kg (167 lb) 12/26/2021 75 kg (165 lb 6.4 oz) 08/06/2021 73.9 kg (163 lb) 06/19/2021 73.5 kg (162 lb) 04/28/2021 71.6 kg (157 lb 12.8 oz) Nausea:None Vomiting: None Bowel Function: normal bowel movements Erythema/Hyperpigmentation:none Desquamation:none Rash:none Skin Care: None Skin Sensation: Within Normal Limits Focused Assessment PROSTATE - MALE PELVIS: Rectal bleeding: No. Rectal pain: No. Bladder function: no problems. Urinary frequency (D/N): multiple/4-5. SIGNED by: Michell Singleton RN documented in this encounter [facility] 01-29-2022 Nurse Note Pt was lightheaded after sitting up from treatment. BP 76/50. Dr Han advised pt to go to ED for evaluation. Pt's son will take him. I called [facility] ED and gave a brief report. documented in this encounter [facility] 01-28-2022 Miscellaneous Notes rec'd fax from [facility] for refills. Last seen pcp 08/06/21. Next appt with pcp 02/05/22. documented in this encounter [facility] 01-27-2022 Nurse Note Radiation Therapy - Nursing Note (OTV) PATIENT NAME: Andre Parrish PATIENT January 27, 2022 [facility] FACILITY/LOCATION: [facility] NOTE TYPE: bladder Subjective Data Increased urination at night, usually 2 times recently 3 Additional Data Do you want to see a Utility Bag Assembler? No Status: Patient is male Stress Scale: On a scale of 0 to 10, what number best describes how much distress you have experienced in the past week?(0 being no distress and 10 being extreme distress) 7 Social work notified: Pt denied need to see social sciences research scientist at this time. Nursing Assessment Fatigue: none Appetite: good Nutritional Intake: Regular oral intake. Weight Gain/Loss: No Ambulatory weight history: Last 6 Encounter Wt Readings: Date: Wt: 01/27/2022 0 kg () 01/08/2022 75.8 kg (167 lb) 12/26/2021 75 kg (165 lb 6.4 oz) 08/06/2021 73.9 kg (163 lb) 06/19/2021 73.5 kg (162 lb) 04/28/2021 71.6 kg (157 lb 12.8 oz) Nausea:None Vomiting: None Bowel Function: constipation 1 - bowel movement every 2 - 3 days Erythema/Hyperpigmentation:none Desquamation:none Rash:none Skin Care: Aquaphor Skin Sensation: Within Normal Limits Focused Assessment PROSTATE - MALE PELVIS: Rectal bleeding: No. Rectal pain: No. Bladder function: no problems, incontinence. Urinary frequency (D/N): same /increased once more than usual. 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 COURSE: palliative AREA TREATED: Bladder CURRENT DOSE: 1200 cGy in 4 fx PLANNED DOSE: 3000 cGy in 10 fx SUBJECTIVE: He noticed increased urinary incontinence. No hematuria. EXAM: KPS: 60 General Appearance: Alert. No acute distress. IMAGING/LAB RESULTS: None Treatment chart checked: Yes Patient treatment site reviewed and verified:Yes CBCTs reviewed and current:Yes Medications started: None ASSESSMENT/PLAN: Clinically stable. Toxicity within expected parameters. Continue radiation treatment as planned. Elsie Han MD documented in this encounter [facility] 01-23-2022 Miscellaneous Notes Info relayed to facility Discontinue COLACE. Please inform [facility]. documented in this encounter [facility] 01-15-2022 Nurse Note Radiation Therapy - Patient Education Note PATIENT NAME: Andre Parrish PATIENT January 15, 2022 [facility] FACILITY/LOCATION: [place] READINESS TO LEARN Cognitive Ability: Alert and oriented hx of parkinsons with some Dementia features Motivation to learn: Interested Family Support: High - Very involved in pt care Instruction provide to: Patient and Daughter, pt resides in independent assisted, extra copies given to daughter to give to nursing and post in his room. Patient learns best by: Individual Instruction Written Instruction - Hand-outs Verbal Instruction Factors effecting learning: None Physical limitations effecting learning: Other Limitations mild forgetfulness, pt does remember having radiation treatment for prostate cancer in 2007 and feels familiar with process. LEARNING RESPONSE Diagnosis: Pt simulated today for radiation therapy to bladder. Education Topic/Teaching Points: Radiation therapy, Side effects and OTV: Method of instruction: Teach Back skin care Individual instruction Written instruction - handouts Verbal instruction Patient /Family response: Patient and family verbalized understanding of radiation treatments, side effects, OTV, and transportation. Follow-up plan: Patient instructed to call with any further issues Reinforce - Repeat previous content Contact information given. Supplemental material: Informational handouts on Bladder function, Diarrhea, Fatigue and Skin changes. 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 Daughter and her will be providing transportation for pt. Signed by: Michell Singleton RN documented in this encounter [facility] 01-15-2022 History of Present illness Narrative LILY ANDRE B [id number] 01/15/2022 [facility] Department of Radiation Oncology 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 AREA:Bladder PATIENT POSITION: Supine. CONTRAST: None PROTOCOL: None BLOCKING: Custom blocking to be determined at treatment planning. FIXATION DEVICE: In order to achieve accurate and reproducible treatments, the patient is to be immobilized with a custom vacbag. PROCEDURE: A time-out was conducted and recorded by the therapist. Patient was simulated on the CT scanner for external beam radiation therapy. Treatment site was marked by the simulation therapist. ASSESSMENT/PLAN: Patient tolerated simulation procedure well. Treatments will be initiated after treatment planning. The patient is scheduled for a verification simulation on the treatment machine to ensure proper set-up and field arrangement is correct prior to the first treatment of primary and boost dave if applicable. Electronically Signed Elsie Han M.D./keyana 21:57 PM documented in this encounter [facility] 01-15-2022 History of Present illness Narrative ANDRE PARRISH [id number] 01/15/2022 [facility] Department of Radiation Oncology Treatment Planning Note For reasons stated in the consult note, Andre Parrish is a candidate for radiation therapy. Based on review and interpretation of the relevant diagnostic studies together with the exam findings, Andre Parrish was simulated on 01/15/2022 at which time the target volume and/or requisite dave were delineated, as indicated in the simulation note, to be treated according to the prescription. After reviewing the treatment plan with dosimetry, the plan was approved to deliver the prescribed course of radiation to the target area to allow for the best isodose distribution, treating to the 97% isodose line with 10 MV and 2 vmat dave. Custom MLC for IMRT were the treatment device(s) used to shape/modify the beams. Special consideration to these and other structures was given in light of the potential for increased toxicities of re-treatment of a previously irradiated site. IMRT planning was used because it best met the dose/volume constraints for the organs at risk for this patient, better than what could be achieved using conventional or 3D planning. The specific dose requirements for the PTV, organs at risk and dose-volume histograms are contained in this treatment plan and/or elsewhere in the medical record. A completed summary of this plan dated 01/16/22 incorporated herein by reference includes dose, beam arrangements, energy, blocking, isodose distribution, and/or ports and DVH. Electronically Signed Elsie Han M.D. 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 HPI: 81 year old male who presents with above diagnosis, for an opinion regarding the role of radiation therapy in the management of the patient's disease. Final recommendations will be communicated back to the requesting physician by way of the shared medical record, or letter to requesting physician via US mail. 81 year old man with history of Parkinson's disease with dementia features residing in an assisted living facility. He has history of prostate cancer in 2007 treated with radiation treatment. He was treated at a facility in [place] and he received 43 treatments then. The most recent PSA on our record was 0.59 on 03/18/2016. He had gross hematuria in September. CT abdomen/pelvis on 10/08/21 showed heterogenous high attenuation at the posterior inferior bladder which may be partially attributable to an enlarged prostate. There is questionable bladder thickening. US showed a 9 mm nodule lesion extending into the urinary bladder lumen off the base. This has soft tissue echogenicity. He underwent cystoscopy on 10/26/21. He was found to have multiple tumor within the bladder involving the bladder neck, the trigone, the posterior wall and right lateral wall. TURBT was done and all visible tumors were removed according to the operative report. Pathology showed invasive high-grade papillary urothelial carcinoma. The neoplasm invades into the muscularis propria. CT chest on 12/24/21 showed indeterminate solitary 3 mm subpleural nodule in the LEFT lower lobe. CT abdomen/pelvis showed no metastatic disease. He reports that he no longer has gross hematuria. He denies any pain in the pelvis. He has had urinary incontinence for more than a year and that hasn't changed significantly after TURBT. He also has some stool incontinence. 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 Juan Meier HTN (hypertension) Hyperlipidemia 02/07/2016 Macular degeneration Malignant neoplasm of overlapping sites of bladder (HCC) 11/03/2021 Orthostatic hypertension Parkinson's disease (HCC) Prostate cancer (HCC) 2006 has had radiation Shingles outbreak 2010 left flank Snoring Prior radiation therapy, collagen vascular disease, or inflammatory bowel disease: Yes, previous radiation treatment to the prostate in 2007 as above. PAST SURGICAL HISTORY Procedure Laterality Date ANES TRANSURETHRAL RESECTION OF BLADDER TUMOR 10/24/2021 TUR bladder tumor COLONOSCOPY FLX DX W/COLLJ SPEC WHEN PFRMD 10/03/2014 1997,1998,2000,2008 COLONOSCOPY FLX DX W/COLLJ SPEC WHEN PFRMD 05/07/2016 Colonoscopy LAP CYSTORRHAPHY W/ RESECTION BLADDER 10/24/2021 REPAIR OF ANKLE FRACTURE Left 09/13/2009 RPR 1ST INGUN HRNA AGE 5 YRS/> REDUCIBLE Left 09/13/1981 Hernia repair, inguinal RPR 1ST INGUN HRNA AGE 5 YRS/> REDUCIBLE Right 1992; 2005 Hernia repair, inguinal FAMILY HISTORY Problem Relation Age of Onset other (migraine) Mother other (lung cancer) Mother No Ocular Disease No Family History Parkinsonism No Family History Diabetes No Family History Thyroid No Family History Hypertension No Family History Hyperlipidemia No Family History Blood Disease No Family History Blood Clots No Family History Factor 5 Leiden No Family History Stroke No Family History DVT No Family History Systemic Lupus Erythematosus No Family History Multiple Sclerosis No Family History Alzheimer's Disease No Family History Dementia No Family History Parkinson s Disease No Family History Bipolar disorder No Family History Schizophrenia No Family History Aneurysm No Family History Social History Tobacco Use Smoking status: Former Smoker Packs/day: 1.00 Years: 5.00 Pack years: 5.00 Quit date: 03/10/1973 Years since quittin.8 Smokeless tobacco: Never Used Tobacco comment: quit 40 years ago Substance Use Topics Alcohol use: Yes Comment: occasionally a sip of wine Drug use: No COMPLETE REVIEW OF SYSTEMS: GENERAL: feeling well without fatigue, no recent change in weight HEENT: bilateral macular degeneration and legally blind. NECK: denies swelling or pain in neck RESPIRATORY: shortness of breath with exertion CARDIOVASCULAR: no chest pain, no palpitations GI: constipation/diarrhea. : see HPI MUSCULOSKELETAL: denies any painful or swollen joints, no muscle aches SKIN: h/o shingles HEMATOLOGY/LYMPHOLOGY: negative for prolonged bleeding, no swollen lymph nodes NEURO: occasional dizziness. PHYSICAL EXAM: VS: BP 132/76 Pulse 65 Temp 36.7 C (98 F) (Temporal) Resp 15 Wt 75.8 kg (167 lb) SpO2 98% BMI 26.95 kg/m KPS: 60 General Appearance: Alert. No acute distress. HEENT: NCAT. Sclera anicteric. EOMI. Neck: Normal ROM. Chest: No respiratory distress. Musculoskeletal: No edema. Normal ROM in extremities. Neuro: No focal deficits. Hematologic: No signs of active bleeding. 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 He has history of Parkinson's disease with dementia features residing in an assisted living facility. He was seen by Dr. Ventura and Dr. Murray at the main [place]. Because of his previous history of prostate cancer receiving definitive dose, he is not a candidate for definitive radiation treatment to the bladder as he had multiple large tumors at the bladder neck/triagone at the time of TURBT. He is a candidate for palliative radiation treatment. I went over the rationale, benefits and potential complications of radiation treatment with him and his family ( and daughter) in detail. I went over pros and cons of upfront palliative radiation treatment vs. later palliative radiation treatment when he gets symptomatic. I answered all their questions. They wish to think over and will let us know of their decision. Thank you very much for allowing us to participate in his care. Signed by: Elsie Han MD cc: Scotty Overton [address] [place] [address] Hossein Ventura [address] [facility] [address] documented in this encounter [facility] 01-08-2022 Nurse Note Radiation Therapy - Nursing Note (Consult) PATIENT NAME: Andre Parrish PATIENT January 08, 2022 [facility] FACILITY/LOCATION: [place] Chief Complaint: consult Reason for visit: Consult. Referring physician: Internal provider Dr Ventura Subjective Data: no c/o Additional Data Do you want to see a Utility Bag Assembler? No Are you interested in information about fertility? No Status: Patient is male Stress Scale: On a scale of 0 to 10, what number best describes how much distress you have experienced in the past week?(0 being no distress and 10 being extreme distress) 4 Social work notified: no Radiation therapy teaching initiated. [facility] external beam radiation therapy handout given. Department phone numbers given & patient encouraged to verbalize questions. SIGNED by: Penny Alvarez RN documented in this encounter [facility] 01-05-2022 Miscellaneous Notes I spoke with and she gave me information on [facility] in [place] ([phone]), I faxed request to medical records ([phone]). but medical records said their normal retention is only 10 years so it may not be available. They will let us know if that is the case. Mrs Parrish does have some records and will bring with her to appointment. Pt had previous radiation treatments to the prostate in 2007. I contacted pt's daughter to get details on where that was given to try to get records. Pt was [place] in [place] and daughter recommended I speak with his to get further details. I called pt's spouse at [phone] to get further details but had to leave a message. If she returns call please get these details from her and a contact number if she has one if unable to reach me. Thanks. documented in this encounter [facility] 12-30-2021 Miscellaneous Notes Spoke with patient's daughter, Laura, and scheduled for 01/15/22. Naina Nieves I called the facility that the patient is currently residing in and was told that pt is not under skilled care there. Pt's daughter, Laura Winn, can be contacted to set up consult with Dr Han at . documented in this encounter [facility] 12-29-2021 History of Present illness Narrative Images from the original note were not included. Radiation Oncology - New Patient/Consult Note PATIENT NAME: Andre Parrish PATIENT PROVIDER: Hossein Ventura MD, PhD REQUESTING PROVIDER: Dr. Ashutosh Murray Dear Dr. Murray, thank you for allowing me to participate in the care of your patient, Mr. Parrish, whom I saw in the radiation oncology clinic at the main campus of the [facility] on 12/26/2021. DIAGNOSIS: 81 yo with history of Parkinson's, prior external beam radiotherapy for prostate cancer 2007, and new dx of HG-MIBC, s/p TURBT HPI: Mr. Parrish is a pleasant 81 year old male who is seeing me for initial consultation at the kind request of Dr. Murray for an opinion regarding the role of radiation therapy in the management of his disease. He is accompanied today by his and daughter. In summary, he has a history notable for Parkinson's disease with dementia features residing in an assisted living facility. He also has a history of prostate cancer treated with external beam radiation therapy in 2007, 44 fractions by report, no records available for that today. He developed gross hematuria in September. Imaging (renal US and CT A/P) showed a bladder mass in late September and he had a TURBT on 10/28/2021 with pathology revealing high-grade papillary urothelial carcinoma, small amount of micropapillary differentiation noted on [facility] review, invading muscularis propria, cT2. He has since met with Dr. Coy and Dr. Murray and discussed treatment options. He is not a radical cystectomy candidate. In terms of symptoms, his hematuria has resolved though he does pass occaisional clots (pencil eraser size). He is incontinent of urine (chronic) and has ongoing pelvic pain, spasms, and urgency since the TURBT. He uses a wheelchair and resides in assisted living at present. Review of Systems: The patient denied any fever, chills, night sweats or weight loss. Energy level diminished. No headache, nausea, vomiting, vertigo. Does have diminished vision (legally blind) 2/2 macular degeneration. No seizures, syncope. Does have gait difficulty and instability 2/2 Parkinsons..No baseline shortness of breath at rest or progressive dyspnea on exertion. He denies any cough. No dyphagia or odynophagia. No hemoptysis. He is eating, drinking, as per usual. Per records also has insomnia and constipation. A complete 12 system review was otherwise negative except as noted in the HPI above. Has had prior pelvic radiation therapy. No collagen vascular disease, or inflammatory bowel disease. 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 Juan Meier HTN (hypertension) Hyperlipidemia 02/07/2016 Macular degeneration Malignant neoplasm of overlapping sites of bladder (HCC) 11/03/2021 Orthostatic hypertension Parkinson's disease (HCC) Prostate cancer (HCC) 2006 has had radiation Shingles outbreak 2010 left flank Snoring PAST SURGICAL HISTORY Procedure Laterality Date ANES TRANSURETHRAL RESECTION OF BLADDER TUMOR 10/24/2021 TUR bladder tumor COLONOSCOPY FLX DX W/COLLJ SPEC WHEN PFRMD 10/03/20141996,1997,2000,2007 COLONOSCOPY FLX DX W/COLLJ SPEC WHEN PFRMD 05/07/2016 Colonoscopy LAP CYSTORRHAPHY W/ RESECTION BLADDER 10/24/2021 REPAIR OF ANKLE FRACTURE Left 09/13/2009 RPR 1ST INGUN HRNA AGE 5 YRS/> REDUCIBLE Left 09/13/1981 Hernia repair, inguinal RPR 1ST INGUN HRNA AGE 5 YRS/> REDUCIBLE Right 1992; 2005 Hernia repair, inguinal FAMILY HISTORY Problem Relation Age of Onset other (migraine) Mother other (lung cancer) Mother No Ocular Disease No Family History Parkinsonism No Family History Diabetes No Family History Thyroid No Family History Hypertension No Family History Hyperlipidemia No Family History Blood Disease No Family History Blood Clots No Family History Factor 5 Leiden No Family History Stroke No Family History DVT No Family History Systemic Lupus Erythematosus No Family History Multiple Sclerosis No Family History Alzheimer's Disease No Family History Dementia No Family History Parkinson s Disease No Family History Bipolar disorder No Family History Schizophrenia No Family History Aneurysm No Family History Social History Tobacco Use Smoking status: Former Smoker Packs/day: 1.00 Years: 5.00 Pack years: 5.00 Quit date: 03/10/1973 Years since quittin.8 Smokeless tobacco: Never Used Tobacco comment: quit 40 years ago Substance Use Topics Alcohol use: Yes Comment: occasionally a sip of wine Drug use: No 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 In assisted living close to [facility]. ALLERGIES: ALLERGIES Allergen Reactions Penicillins Rash MEDICATIONS: Current Outpatient Medications Medication Sig amLODIPine (NORVASC) 2.5 mg tablet Take 1 tablet by mouth every other day. Hold for systolic BP <90 finasteride (PROSCAR) 5 mg tablet Take 5 mg by mouth once daily. tamsulosin (FLOMAX) 0.4 mg Take 0.4 mg by mouth once daily. docusate sodium (COLACE) 100 mg capsule Take 1 capsule by mouth three times daily. (Patient taking differently: Take 100 mg by mouth twice daily. ) cholecalciferol (VITAMIN D) 1,000 unit tab tablet Take 2 tablets by mouth once daily. metoprolol tartrate, short acting, (LOPRESSOR) 25 mg tablet Take 0.5 tablets by mouth every evening. HOLD for SBP <100. gabapentin (NEURONTIN) 100 mg capsule Take 1 capsule by mouth daily at bedtime for 180 days. pravastatin (PRAVACHOL) 40 mg tablet Take 1 tablet by mouth daily at bedtime. nitroglycerin sublingual (NITROSTAT) 0.4 mg SL tablet Dissolve 1 tablet under the tongue every 5 minutes as needed. WALKER ROLLATOR SEAT WITH 6 WHEELS - RED 1 Each once daily. Use walker as directed. Parkinsonism, unspecified Parkinsonism type (HCC) - ICD9: 332.0, ICD10: G20; Gait abnormality - ICD9: 781.2, ICD10: R26.9; Fall, initial encounter - ICD9: E888.9, ICD10: W19.XXXA acetaminophen (TYLENOL EXTRA STRENGTH) 500 mg tablet Take 1,000 mg by mouth three times daily. vit C,E,Zn,[id number] (PRESERVISION AREDS 2, OMEGA-3,) 250-2.5-0.5 mg cap Take 1 capsule by mouth twice daily. carbidopa-levodopa (SINEMET 25-100) 25-100 mg per tablet Take 1.5 tablets by mouth three times daily. Take around mealtimes. (Patient taking differently: Take 1.5 tablets by mouth three times daily. Takes (1.5) tablet/tablets at 8:00 am , 12:00 pm , 5:00 pm ) No current facility-administered medications for this visit. PHYSICAL EXAM: VS: BP 143/83 Pulse 60 Temp 36.6 C (97.8 F) (Oral) Resp 14 Wt 75 kg (165 lb 6.4 oz) SpO2 100% BMI 26.70 kg/m KPS: 60 General: alert and appropriate, in no distress. Accompanied today by his and daughter Skin: no rash noted Head: normocephalic, no abnormality or lesion noted Eyes: no injection, visual acuity diminished Neck: full ROM, no cervical LNs noted Respiratory: breathing non-labored and no grunting/flaring/retractions Chest: well perfulsed, equal chest rise with normal respiratory effort Abdomen: soft and non-tender by report Neurologic: gait not tested, wheelchair, unstable and fall risk by report, sensation grossly intact and no obvious deficit LABORATORY DATA: Lab Results Component Value Date WBC 6.13 12/04/2021 HCT 35.1 (L) 12/04/2021 PLT 141 (L) 12/04/2021 Lab Results Component Value Date NA 140 12/04/2021 K 4.0 12/04/2021 BUN 22 12/04/2021 CO2 26 12/04/2021 Lab Results Component Value Date CHOL 106 07/12/2020 HDL 42 07/12/2020 ALT <5 (L) 12/04/2021 AST 11 (L) 12/04/2021 ALKPHOS 50 12/04/2021 TSH 2.880 02/08/2016 PSA 0.49 10/01/2017 PATHOLOGY: FINAL DIAGNOSIS Bladder, transurethral resection ([id number], 10/26/21): - Invasive high-grade papillary urothelial carcinoma (with small amount of micropapillary differentiation). - The neoplasm invades into the muscularis propria. - Angiolymphatic invasion is not present. DAMON/andrew 11/25/2021 RADIOLOGY: CT Abd/Pelvis 12/24/21 IMPRESSION: NO METASTATIC DISEASE; THE PROMINENT LEFT PARAAORTIC LYMPH NODE IS LIKELY INFLAMMATORY OR HYPERPLASTIC CT Chest 12/24/21 IMPRESSION: Indeterminate solitary 3 mm subpleural nodule in the LEFT lower lobe. Otherwise, no suspicious pulmonary nodules or thoracic lymphadenopathy to suggest metastatic disease. Comparison with prior studies if available, otherwise follow-up CT as per clinical protocol is suggested to ensure stability in this patient with known malignancy. ASSESSMENT AND PLAN: In summary, Mr. Parrish is a 81 year old gentleman with multiple co-morbidities notable for a history of Parkinson's with dementia features, prior external beam radiotherapy for prostate cancer 2007, and new dx of invasive high grade papillary urothelial carcinoma, cT2 with micropapillary differentiation, s/p TURBT 10/28/21. No definitive evidence of locoregional or distant metastatic disease. I had a detailed discussion with Mr. Parrish regarding the role of radiation therapy in the management of his disease. We reviewed the natural history of MIBC and treatment options in general terms. He has met with Dr. Coy and Dr. Murray, discussed NAC+surgery (very high risk) and immunotherapy. In his particular case the following specific plans were discussed: - He is not a candidate for definitive dose chemoradiation based on his history of prior pelvic external beam radiotherapy. - We discussed the option of palliative radiotherapy with the goal of resolving his hematuria and delaying further symptomatic progression - The more conservative approach of observation with the option of palliative treatment at the time of symptomatic progression could also be considered - The patient and his family are considering options and would prefer referral for treatment closer to home in [place] if he elects to proceed. - has follow up today with Dr. Murray to discuss systemic therapy options, e.g., role of immunotherapy, ICI monotherapy. We discussed the rationale, logisitics, side effects, and toxicity of radiation therapy in detail as it pertains to the patient's diagnosis. Our contact information was provided and we asked the patient to be in touch with any questions or should any new symptoms arise in the interim before he is seen next. I will reach out to Dr. Han in [place] to see if he can assume the patients care there. I personally spent a total of 80 minutes on the date of the service which included preparing to see the patient, [id number] patient care, completing clinical documentation, obtaining and/or reviewing separately obtained history, performing a medically appropriate examination, counseling and educating the patient/family/caregiver, ordering medications, tests, or procedures, communicating with other HCPs, independently interpreting results, communicating results to the patient/family/caregiver and care coordination. Signed by: Hossein Ventura MD PhD Associate Staff, Radiation Oncology Translational Hematology and Oncology Research cc: Scotty Overton [address] [place] [id number] Ashutosh Murray [address] [facility] [id number] Elsie Han MD - Radiation Oncology [facility] documented in this encounter [facility] 12-26-2021 History of Present illness Narrative [facility] PROGRESS NOTE SERVICE DATE: December 26, 2021 CHIEF COMPLAINT: MIBC ONCOLOGIC HISTORY: Oncology History Malignant neoplasm of overlapping sites of bladder (HCC) 10/08/2021 Initial Diagnosis Gross hematuria - renal US and CT A/P performed demonstrating bladder mass 10/28/2021 Biopsy TURBT: 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 He is accompanied by his and daughter. During a workup for gross hematuria, imaging showed a bladder mass in late September 2021. 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 He met with Dr. Coy who discussed cystectomy, TMT, vs systemic therapy alone. When I met with him a few weeks ago we discussed the lack of evidence regarding immunotherapy and outcomes in Stage II bladder cancer. I referred him to Dr. Ventura in rad onc to discuss potential opportunities for radiation to the bladder. As a background, he has Parkinson's disease with dementia and resides in an assisted living facility. 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 REVIEW OF SYSTEMS: Review of Systems Genitourinary: Positive for bladder incontinence and frequency. Past medical, surgical, family, social histories reviewed and updated as needed Medications and allergies reviewed and updated as needed PHYSICAL EXAM: ECO- Capable of only limited selfcare, confined to bed/chair > 50% of waking hrs. There were no vitals taken for this visit. No weight on file for this encounter. Physical Exam Neurological: Mental Status: Mental status is at baseline. Coordination: Coordination abnormal. LABS: No new labs URINALYSIS No results found for: PH, SPGR, UGLUC, UBILI, UKET, UHB, UPROT, UROBIL, UWBC, SSA IMAGING: CT C/A/P 12/24/21 - no evidence of metastatic disease IMPRESSION AND PLAN: #MIBC 81 y.o. M with MIBC here for follow-up. I spoke with Dr. Ventura on the phone. Given history of prior radiation to the pelvis, trimodality therapy would be difficult. We had previously decided that he would be a very high-risk surgical candidate. Thus, curative therapy for his MIBC may be too risky. Although we could consider immunotherapy alone, there lack good data supporting its use in MIBC. We know that the objective response rate for patients not eligible for chemotherapy in metastatic bladder cancer is around only 30% and disease control rate (including stable disease) is around 50%, based on the KEYNOTE-052 data with pembrolizumab. Thus, it is unclear whether treating in this setting will improve outcomes vs treating if disease progresses to metastatic disease. Alternatively, palliative radiation has a higher likelihood of being successful at achieving disease control for at least some time, including potentially preventing or delaying onset of symptomatic hematuria. Thus, I think it is reasonable to consider palliative RT at this time. Patient and family will think about it and let us know what they decide. PLAN: 1) recommend consideration of palliative radiation to bladder 2) consider immunotherapy if metastatic disease develops. I spent a total of 30 minutes on the date of the service which included preparing to see the patient, [id number] patient care, completing clinical documentation, counseling and educating the patient/family/caregiver and communicating with other HCPs (not separately reported). Ashutosh Murray MD Associate Staff, Genitourinary Medical Oncology December 26, 2021 7:38 PM cc: Ashutosh Overton MD documented in this encounter [facility] 12-26-2021 Nurse Note Reviewed and confirmed with patient that there were no changes in the the nursing assessment and vitals that were completed on December 26, 2021 during previous provider appointment. Fernanda Treviño RN documented in this encounter [facility] 12-04-2021 History and physical note [facility] INITIAL CONSULT SERVICE DATE: December 04, 2021 CHIEF COMPLAINT: MIBC ONCOLOGIC HISTORY: Oncology History Malignant neoplasm of overlapping sites of bladder (HCC) 10/08/2021 Initial Diagnosis Gross hematuria - renal US and CT A/P performed demonstrating bladder mass 10/28/2021 Biopsy TURBT: High grade papillary UC with muscle invasion HISTORY OF PRESENT ILLNESS: Andre Parrish is a 81 year old male here for initial consult regarding muscle-invasive bladder cancer. He is accompanied by his and daughter. During a workup for gross hematuria, imaging showed a bladder mass in late September 2021. 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 He met with Dr. Coy who discussed cystectomy, TMT, vs systemic therapy alone. Symptomatically speaking, he has urinary incontinence, though it is unclear whether that is related to the bladder cancer, since he also has an enlarged prostate and that has been going on for awhile. As a background, he has Parkinson's disease with dementia and resides in an assisted living facility. 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 REVIEW OF SYSTEMS: Review of Systems Genitourinary: Positive for bladder incontinence and hematuria. 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 Juan Meier HTN (hypertension) Hyperlipidemia 02/07/2016 Macular degeneration Malignant neoplasm of overlapping sites of bladder (HCC) 11/03/2021 Orthostatic hypertension Parkinson's disease (HCC) Prostate cancer (HCC) 2006 has had radiation Shingles outbreak 2010 left flank Snoring PAST SURGICAL HISTORY: PAST SURGICAL HISTORY Procedure Laterality Date ANES TRANSURETHRAL RESECTION OF BLADDER TUMOR 10/24/2021 TUR bladder tumor COLONOSCOPY FLX DX W/COLLJ SPEC WHEN PFRMD 10/03/20141996,1997,2000,2007 COLONOSCOPY FLX DX W/COLLJ SPEC WHEN PFRMD 05/07/2016 Colonoscopy REPAIR OF ANKLE FRACTURE Left 09/13/2009 RPR 1ST INGUN HRNA AGE 5 YRS/> REDUCIBLE Left 09/13/1981 Hernia repair, inguinal RPR 1ST INGUN HRNA AGE 5 YRS/> REDUCIBLE Right 1992; 2005 Hernia repair, inguinal FAMILY HISTORY: FAMILY HISTORY Problem Relation Age of Onset other (migraine) Mother other (lung cancer) Mother No Ocular Disease No Family History Parkinsonism No Family History Diabetes No Family History Thyroid No Family History Hypertension No Family History Hyperlipidemia No Family History Blood Disease No Family History Blood Clots No Family History Factor 5 Leiden No Family History Stroke No Family History DVT No Family History Systemic Lupus Erythematosus No Family History Multiple Sclerosis No Family History Alzheimer's Disease No Family History Dementia No Family History Parkinson s Disease No Family History Bipolar disorder No Family History Schizophrenia No Family History Aneurysm No Family History SOCIAL HISTORY: Social History Tobacco Use Smoking status: Former Smoker Packs/day: 1.00 Years: 5.00 Pack years: 5.00 Quit date: 03/10/1973 Years since quittin.7 Smokeless tobacco: Never Used Tobacco comment: quit 40 years ago Substance Use Topics Alcohol use: Yes Comment: occasionally a sip of wine Drug use: No Employer And Job Title: None on file Years Of Education Completed: Not specified Marital Status: with 2 children ALLERGIES/INTOLERANCES: ALLERGIES Allergen Reactions Penicillins Rash CURRENT MEDICATIONS: amLODIPine (NORVASC) 2.5 mg tablet Take 1 tablet by mouth once daily. finasteride (PROSCAR) 5 mg tablet Take 5 mg by mouth once daily. tamsulosin (FLOMAX) 0.4 mg Take 0.4 mg by mouth once daily. docusate sodium (COLACE) 100 mg capsule Take 1 capsule by mouth three times daily. cholecalciferol (VITAMIN D) 1,000 unit tab tablet Take 2 tablets by mouth once daily. metoprolol tartrate, short acting, (LOPRESSOR) 25 mg tablet Take 0.5 tablets by mouth every evening. HOLD for SBP <100. gabapentin (NEURONTIN) 100 mg capsule Take 1 capsule by mouth daily at bedtime for 180 days. pravastatin (PRAVACHOL) 40 mg tablet Take 1 tablet by mouth daily at bedtime. carbidopa-levodopa (SINEMET 25-100) 25-100 mg per tablet Take 1.5 tablets by mouth three times daily. Take around mealtimes. nitroglycerin sublingual (NITROSTAT) 0.4 mg SL tablet Dissolve 1 tablet under the tongue every 5 minutes as needed. WALKER ROLLATOR SEAT WITH 6 WHEELS - RED 1 Each once daily. Use walker as directed. Parkinsonism, unspecified Parkinsonism type (HCC) - ICD9: 332.0, ICD10: G20; Gait abnormality - ICD9: 781.2, ICD10: R26.9; Fall, initial encounter - ICD9: E888.9, ICD10: W19.XXXA acetaminophen (TYLENOL EXTRA STRENGTH) 500 mg tablet Take 1,000 mg by mouth three times daily. vit C,E,Zn,[id number] (PRESERVISION AREDS 2, OMEGA-3,) 250-2.5-0.5 mg cap Take 1 capsule by mouth twice daily. PHYSICAL EXAM: ECO- Capable of only limited selfcare, confined to bed/chair > 50% of waking hrs. BP 181/89 Pulse (!) 57 Temp 36.3 C (97.4 F) Resp 20 SpO2 99% No weight on file for this encounter. Physical Exam Vitals reviewed. Cardiovascular: Rate and Rhythm: Bradycardia present. Neurological: Mental Status: He is alert. Motor: Tremor present. Psychiatric: Attention and Perception: He is attentive. Cognition and Memory: Memory is impaired. LABS: No recent labs IMAGING: personally reviewed CT AP from October 08 - bladder wall thickening noted IMPRESSION AND PLAN: #MIBC #Parkinson's #Dementia 81 y.o. M with PMH of Parkinson's and Dementia here to discuss medical oncology role of MIBC I discussed that the two primary definitive strategies are surgery (with neoadjuvant chemo, if possible) or trimodal therapy with maximal TURBT and chemoradiation. I agree with Dr. Coy and am concerned that given his baseline comorbidities and performance status that surgery may not be a great option for him. The patient and family are very focused on quality of life. I discussed that the only potential curative therapy is likely chemoradiation (trimodal therapy). Discussed role of radiosensitizing chemo, which can delay local recurrence, but hasn't been shown to improve overall survival. Discussed components of trimodal therapy, including maximal TURBT and surveillance cystoscopies. He had a very bad experience during last TURBT, and would like to avoid unnecessary procedures, which is understandable. One could consider palliative strategies, such as Discussed the option of palliative strategies, such as RT alone, to delay or prevent recurrence of hematuria. Outside of hematuria, however, he doesn't have many symptoms other than incontinence, which may not be related to the bladder cancer. Therefore, he could consider observation alone (regardless of whether or not he gets palliative RT). I would scan him regularly and start palliative immunotherapy (not a chemo candidate) should metastatic disease appear in an attempt to delay disease progression/symptoms and prolong survival. I discussed why I would not recommend starting immunotherapy right now in the Stage II setting - it is not clear this would improve quality of life or prolong overall survival, and there are toxicity risks. PLAN: 1) CT C/A/P 2) Referral to rad onc for discussion of palliative RT vs TMT 3) if patient decides on palliative strategies alone, will continue with surveillance scans if BUDDY on CT. Will consider palliative immunotherapy if metastatic disease visualized I spent a total of 80 minutes on the date of the service which included preparing to see the patient, [id number] patient care, completing clinical documentation, obtaining and/or reviewing separately obtained history, counseling and educating the patient/family/caregiver, ordering medications, tests, or procedures and communicating with other HCPs (not separately reported). Ashutosh Murray MD Associate Staff, Genitourinary Medical Oncology December 04, 2021 11:32 AM cc: Estuardo Overton MD documented in this encounter [facility] 12-04-2021 Nurse Note Additional intake questions: Has the patient had fever, nausea, vomiting, diarrhea, constipation, fatigue for > 1 week? Yes, fatigue Does the patient have a decreased appetite? No Does patient want to see a Utility Bag Assembler? No (yes to any of above refer patient to schedulers for dietitian appointment) ) Does patient have any new or increased numbness or tingling of extremities? No Is patient interested in fertility information? No Does patient need any prescription refills? No Does patient have an advanced directive in place? No, Patient referred to [facility] Electronically Signed By: Fernanda Treviño RN documented in this encounter [facility] documented as of this encounter (statuses as of 02/26/2023) [facility] History of Past illness Narrative* Problem Noted Date Resolved Date Gross hematuria 10/07/2021 02/25/2023 Palliative care encounter 10/06/20212022 Abnormality of gait 07/29/2020 01/23/2021 DDD (degenerative disc disease), lumbar 11/04/19 17 09/20/2017 Chronic midline low back pain without sciatica 0 03/18/2016 06/27/2018 Vertigo 03/10/2016 09/17/2016 documented as of this encounter (statuses as of 02/28/2023) [facility] History of Past illness Narrative* Problem Noted Date Resolved Date Gross hematuria 10/07/2021 02/25/2023 Palliative care encounter 10/06/[id number] Abnormality of gait 07/29/2020 01/23/2021 DDD (degenerative disc disease), lumbar 11/04/19 17 09/20/2017 Chronic midline low back pain without sciatica 0 03/18/2016 06/27/2018 Vertigo 03/10/2016 09/17/2016 documented as of this encounter (statuses as of 03/03/2023) [facility] History of Past illness Narrative* Problem Noted Date Diagnosed Date Resolved Date Gross hematuria 10/07/2021 02/25/2023 Palliative care encounter 10/06/2021 Abnormality of gait 07/29/2020 01/24/20 21 DDD (degenerative disc disease), lumbar 11/04/2016 09/20/2017 Chronic midline low back ruiz n without sciatica 03/18/2016 06/27/2018 Vertigo 03/10/2016 09/17/2016 documented as of this encounter (statuses as of 03/26/2023) [facility] History of Past illness Narrative* Problem Noted Date Resolved Date Abnormality of gait 07/29/2020 01/23/2021 DDD (degenerative disc disease), lumbar 11/04/19 17 09/20/2017 Chronic midline low back pain without sciatica 0 03/18/2016 06/27/2018 Vertigo 03/10/2016 09/17/2016 documented as of this encounter (statuses as of 12/04/2021) [place] [address] History of Past illness Narrative* Problem Noted Date Resolved Date Abnormality of gait 07/29/2020 01/23/2021 DDD (degenerative disc disease), lumbar 11/04/19 17 09/20/2017 Chronic midline low back pain without sciatica 0 03/18/2016 06/27/2018 Vertigo 03/10/2016 09/17/2016 documented as of this encounter (statuses as of 12/09/2021) [place] [address] History of Past illness Narrative* Problem Noted Date Resolved Date Abnormality of gait 07/29/2020 01/23/2021 DDD (degenerative disc disease), lumbar 11/04/19 17 09/20/2017 Chronic midline low back pain without sciatica 0 03/18/2016 06/27/2018 Vertigo 03/10/2016 09/17/2016 documented as of this encounter (statuses as of 12/19/2021) [place] [address] History of Past illness Narrative* Problem Noted Date Resolved Date Abnormality of gait 07/29/2020 01/23/2021 DDD (degenerative disc disease), lumbar 11/04/19 17 09/20/2017 Chronic midline low back pain without sciatica 0 03/18/2016 06/27/2018 Vertigo 03/10/2016 09/17/2016 documented as of this encounter (statuses as of 12/25/2021) [place] [address] History of Past illness Narrative* Problem Noted Date Resolved Date Abnormality of gait 07/29/2020 01/23/2021 DDD (degenerative disc disease), lumbar 11/04/19 17 09/20/2017 Chronic midline low back pain without sciatica 0 03/18/2016 06/27/2018 Vertigo 03/10/2016 09/17/2016 documented as of this encounter (statuses as of 12/27/2021) [place] [address] History of Past illness Narrative* Problem Noted Date Resolved Date Abnormality of gait 07/29/2020 01/23/2021 DDD (degenerative disc disease), lumbar 11/04/19 17 09/20/2017 Chronic midline low back pain without sciatica 0 03/18/2016 06/27/2018 Vertigo 03/10/2016 09/17/2016 documented as of this encounter (statuses as of 12/29/2021) [place] [address] History of Past illness Narrative* Problem Noted Date Resolved Date Abnormality of gait 07/29/2020 01/23/2021 DDD (degenerative disc disease), lumbar 11/04/19 17 09/20/2017 Chronic midline low back pain without sciatica 0 03/18/2016 06/27/2018 Vertigo 03/10/2016 09/17/2016 documented as of this encounter (statuses as of 12/30/2021) [place] [address] History of Past illness Narrative* Problem Noted Date Resolved Date Abnormality of gait 07/29/2020 01/23/2021 DDD (degenerative disc disease), lumbar 11/04/19 17 09/20/2017 Chronic midline low back pain without sciatica 0 03/18/2016 06/27/2018 Vertigo 03/10/2016 09/17/2016 documented as of this encounter (statuses as of 01/05/2022) [place] [address] History of Past illness Narrative* Problem Noted Date Resolved Date Abnormality of gait 07/29/2020 01/23/2021 DDD (degenerative disc disease), lumbar 11/04/19 17 09/20/2017 Chronic midline low back pain without sciatica 0 03/18/2016 06/27/2018 Vertigo 03/10/2016 09/17/2016 documented as of this encounter (statuses as of 01/09/2022) [place] [address] History of Past illness Narrative* Problem Noted Date Resolved Date Abnormality of gait 07/29/2020 01/23/2021 DDD (degenerative disc disease), lumbar 11/04/19 17 09/20/2017 Chronic midline low back pain without sciatica 0 03/18/2016 06/27/2018 Vertigo 03/10/2016 09/17/2016 documented as of this encounter (statuses as of 01/15/2022) [place] [address] History of Past illness Narrative* Problem Noted Date Resolved Date Abnormality of gait 07/29/2020 01/23/2021 DDD (degenerative disc disease), lumbar 11/04/19 17 09/20/2017 Chronic midline low back pain without sciatica 0 03/18/2016 06/27/2018 Vertigo 03/10/2016 09/17/2016 documented as of this encounter (statuses as of 01/16/2022) [place] [address] History of Past illness Narrative* Problem Noted Date Resolved Date Abnormality of gait 07/29/2020 01/23/2021 DDD (degenerative disc disease), lumbar 11/04/19 17 09/20/2017 Chronic midline low back pain without sciatica 0 03/18/2016 06/27/2018 Vertigo 03/10/2016 09/17/2016 documented as of this encounter (statuses as of 01/17/2022) [place] [address] History of Past illness Narrative* Problem Noted Date Resolved Date Abnormality of gait 07/29/2020 01/23/2021 DDD (degenerative disc disease), lumbar 11/04/19 17 09/20/2017 Chronic midline low back pain without sciatica 0 03/18/2016 06/27/2018 Vertigo 03/10/2016 09/17/2016 documented as of this encounter (statuses as of 01/23/2022) [place] [address] History of Past illness Narrative* Problem Noted Date Resolved Date Abnormality of gait 07/29/2020 01/23/2021 DDD (degenerative disc disease), lumbar 11/04/19 17 09/20/2017 Chronic midline low back pain without sciatica 0 03/18/2016 06/27/2018 Vertigo 03/10/2016 09/17/2016 documented as of this encounter (statuses as of 01/27/2022) [place] [address] History of Past illness Narrative* Problem Noted Date Resolved Date Abnormality of gait 07/29/2020 01/23/2021 DDD (degenerative disc disease), lumbar 11/04/19 17 09/20/2017 Chronic midline low back pain without sciatica 0 03/18/2016 06/27/2018 Vertigo 03/10/2016 09/17/2016 documented as of this encounter (statuses as of 01/27/2022) [place] [address] History of Past illness Narrative* Problem Noted Date Resolved Date Abnormality of gait 07/29/2020 01/23/2021 DDD (degenerative disc disease), lumbar 11/04/19 17 09/20/2017 Chronic midline low back pain without sciatica 0 03/18/2016 06/27/2018 Vertigo 03/10/2016 09/17/2016 documented as of this encounter (statuses as of 01/29/2022) [place] [address] History of Past illness Narrative* Problem Noted Date Resolved Date Abnormality of gait 07/29/2020 01/23/2021 DDD (degenerative disc disease), lumbar 11/04/19 17 09/20/2017 Chronic midline low back pain without sciatica 0 03/18/2016 06/27/2018 Vertigo 03/10/2016 09/17/2016 documented as of this encounter (statuses as of 01/31/2022) [place] [address] History of Past illness Narrative* Problem Noted Date Resolved Date Abnormality of gait 07/29/2020 01/23/2021 DDD (degenerative disc disease), lumbar 11/04/19 17 09/20/2017 Chronic midline low back pain without sciatica 0 03/18/2016 06/27/2018 Vertigo 03/10/2016 09/17/2016 documented as of this encounter (statuses as of 02/03/2022) [place] [address] History of Past illness Narrative* Problem Noted Date Resolved Date Abnormality of gait 07/29/2020 01/23/2021 DDD (degenerative disc disease), lumbar 11/04/19 17 09/20/2017 Chronic midline low back pain without sciatica 0 03/18/2016 06/27/2018 Vertigo 03/10/2016 09/17/2016 documented as of this encounter (statuses as of 02/04/2022) [place] [address] History of Past illness Narrative* Problem Noted Date Resolved Date Abnormality of gait 07/29/2020 01/23/2021 DDD (degenerative disc disease), lumbar 11/04/19 17 09/20/2017 Chronic midline low back pain without sciatica 0 03/18/2016 06/27/2018 Vertigo 03/10/2016 09/17/2016 documented as of this encounter (statuses as of 02/06/2022) [place] [address] History of Past illness Narrative* Problem Noted Date Resolved Date Abnormality of gait 07/29/2020 01/23/2021 DDD (degenerative disc disease), lumbar 11/04/19 17 09/20/2017 Chronic midline low back pain without sciatica 0 03/18/2016 06/27/2018 Vertigo 03/10/2016 09/17/2016 documented as of this encounter (statuses as of 02/07/2022) [place] [address] History of Past illness Narrative* Problem Noted Date Resolved Date Abnormality of gait 07/29/2020 01/23/2021 DDD (degenerative disc disease), lumbar 11/04/19 17 09/20/2017 Chronic midline low back pain without sciatica 0 03/18/2016 06/27/2018 Vertigo 03/10/2016 09/17/2016 documented as of this encounter (statuses as of 02/11/2022) [place] [address] History of Past illness Narrative* Problem Noted Date Resolved Date Abnormality of gait 07/29/2020 01/23/2021 DDD (degenerative disc disease), lumbar 11/04/19 17 09/20/2017 Chronic midline low back pain without sciatica 0 03/18/2016 06/27/2018 Vertigo 03/10/2016 09/17/2016 documented as of this encounter (statuses as of 02/11/2022) [place] [address] History of Past illness Narrative* Problem Noted Date Resolved Date Abnormality of gait 07/29/2020 01/23/2021 DDD (degenerative disc disease), lumbar 11/04/19 17 09/20/2017 Chronic midline low back pain without sciatica 0 03/18/2016 06/27/2018 Vertigo 03/10/2016 09/17/2016 documented as of this encounter (statuses as of 02/12/2022) [place] [address] History of Past illness Narrative* Problem Noted Date Resolved Date Abnormality of gait 07/29/2020 01/23/2021 DDD (degenerative disc disease), lumbar 11/04/19 17 09/20/2017 Chronic midline low back pain without sciatica 0 03/18/2016 06/27/2018 Vertigo 03/10/2016 09/17/2016 documented as of this encounter (statuses as of 02/13/2022) [place] [address] History of Past illness Narrative* Problem Noted Date Resolved Date Abnormality of gait 07/29/2020 01/23/2021 DDD (degenerative disc disease), lumbar 11/04/19 17 09/20/2017 Chronic midline low back pain without sciatica 0 03/18/2016 06/27/2018 Vertigo 03/10/2016 09/17/2016 documented as of this encounter (statuses as of 02/19/2022) [place] [address] History of Past illness Narrative* Problem Noted Date Resolved Date Abnormality of gait 07/29/2020 01/23/2021 DDD (degenerative disc disease), lumbar 11/04/19 17 09/20/2017 Chronic midline low back pain without sciatica 0 03/18/2016 06/27/2018 Vertigo 03/10/2016 09/17/2016 documented as of this encounter (statuses as of 02/20/2022) [place] [address] History of Past illness Narrative* Problem Noted Date Resolved Date Abnormality of gait 07/29/2020 01/23/2021 DDD (degenerative disc disease), lumbar 11/04/19 17 09/20/2017 Chronic midline low back pain without sciatica 0 03/18/2016 06/27/2018 Vertigo 03/10/2016 09/17/2016 documented as of this encounter (statuses as of 04/07/2022) [place] [address] History of Past illness Narrative* Problem Noted Date Resolved Date Abnormality of gait 07/29/2020 01/23/2021 DDD (degenerative disc disease), lumbar 11/04/19 17 09/20/2017 Chronic midline low back pain without sciatica 0 03/18/2016 06/27/2018 Vertigo 03/10/2016 09/17/2016 documented as of this encounter (statuses as of 04/13/2022) [place] [address] History of Past illness Narrative* Problem Noted Date Resolved Date Abnormality of gait 07/29/2020 01/23/2021 DDD (degenerative disc disease), lumbar 11/04/19 17 09/20/2017 Chronic midline low back pain without sciatica 0 03/18/2016 06/27/2018 Vertigo 03/10/2016 09/17/2016 documented as of this encounter (statuses as of 05/04/2022) [place] [address] History of Past illness Narrative* Problem Noted Date Resolved Date Abnormality of gait 07/29/2020 01/23/2021 DDD (degenerative disc disease), lumbar 11/04/19 17 09/20/2017 Chronic midline low back pain without sciatica 0 03/18/2016 06/27/2018 Vertigo 03/10/2016 09/17/2016 documented as of this encounter (statuses as of 05/06/2022) [place] [address] History of Past illness Narrative* Problem Noted Date Resolved Date Abnormality of gait 07/29/2020 01/23/2021 DDD (degenerative disc disease), lumbar 11/04/19 17 09/20/2017 Chronic midline low back pain without sciatica 0 03/18/2016 06/27/2018 Vertigo 03/10/2016 09/17/2016 documented as of this encounter (statuses as of 05/08/2022) [place] [address] History of Past illness Narrative* Problem Noted Date Resolved Date Abnormality of gait 07/29/2020 01/23/2021 DDD (degenerative disc disease), lumbar 11/04/19 17 09/20/2017 Chronic midline low back pain without sciatica 0 03/18/2016 06/27/2018 Vertigo 03/10/2016 09/17/2016 documented as of this encounter (statuses as of 05/14/2022) [place] [address] History of Past illness Narrative* Problem Noted Date Resolved Date Abnormality of gait 07/29/2020 01/23/2021 DDD (degenerative disc disease), lumbar 11/04/19 17 09/20/2017 Chronic midline low back pain without sciatica 0 03/18/2016 06/27/2018 Vertigo 03/10/2016 09/17/2016 documented as of this encounter (statuses as of 05/19/2022) [place] [address] History of Past illness Narrative* Problem Noted Date Resolved Date Abnormality of gait 07/29/2020 01/23/2021 DDD (degenerative disc disease), lumbar 11/04/19 17 09/20/2017 Chronic midline low back pain without sciatica 0 03/18/2016 06/27/2018 Vertigo 03/10/2016 09/17/2016 documented as of this encounter (statuses as of 05/26/2022) [place] [address] History of Past illness Narrative* Problem Noted Date Resolved Date Abnormality of gait 07/29/2020 01/23/2021 DDD (degenerative disc disease), lumbar 11/04/19 17 09/20/2017 Chronic midline low back pain without sciatica 0 03/18/2016 06/27/2018 Vertigo 03/10/2016 09/17/2016 documented as of this encounter (statuses as of 05/27/2022) [place] [address] History of Past illness Narrative* Problem Noted Date Resolved Date Abnormality of gait 07/29/2020 01/23/2021 DDD (degenerative disc disease), lumbar 11/04/19 17 09/20/2017 Chronic midline low back pain without sciatica 0 03/18/2016 06/27/2018 Vertigo 03/10/2016 09/17/2016 documented as of this encounter (statuses as of 05/29/2022) [place] [address] History of Past illness Narrative* Problem Noted Date Resolved Date Abnormality of gait 07/29/2020 01/23/2021 DDD (degenerative disc disease), lumbar 11/04/19 17 09/20/2017 Chronic midline low back pain without sciatica 0 03/18/2016 06/27/2018 Vertigo 03/10/2016 09/17/2016 documented as of this encounter (statuses as of 06/01/2022) [place] [address] History of Past illness Narrative* Problem Noted Date Resolved Date Abnormality of gait 07/29/2020 01/23/2021 DDD (degenerative disc disease), lumbar 11/04/19 17 09/20/2017 Chronic midline low back pain without sciatica 0 03/18/2016 06/27/2018 Vertigo 03/10/2016 09/17/2016 documented as of this encounter (statuses as of 06/10/2022) [place] [address] History of Past illness Narrative* Problem Noted Date Resolved Date Abnormality of gait 07/29/2020 01/23/2021 DDD (degenerative disc disease), lumbar 11/04/19 17 09/20/2017 Chronic midline low back pain without sciatica 0 03/18/2016 06/27/2018 Vertigo 03/10/2016 09/17/2016 documented as of this encounter (statuses as of 08/05/2022) [place] [address] History of Past illness Narrative* Problem Noted Date Resolved Date Abnormality of gait 07/29/2020 01/23/2021 DDD (degenerative disc disease), lumbar 11/04/19 17 09/20/2017 Chronic midline low back pain without sciatica 0 03/18/2016 06/27/2018 Vertigo 03/10/2016 09/17/2016 documented as of this encounter (statuses as of 08/12/2022) [place] [address] History of Past illness Narrative* Problem Noted Date Resolved Date Abnormality of gait 07/29/2020 01/23/2021 DDD (degenerative disc disease), lumbar 11/04/19 17 09/20/2017 Chronic midline low back pain without sciatica 0 03/18/2016 06/27/2018 Vertigo 03/10/2016 09/17/2016 documented as of this encounter (statuses as of 08/28/2022) [place] [address] History of Past illness Narrative* Problem Noted Date Resolved Date Abnormality of gait 07/29/2020 01/23/2021 DDD (degenerative disc disease), lumbar 11/04/19 17 09/20/2017 Chronic midline low back pain without sciatica 0 03/18/2016 06/27/2018 Vertigo 03/10/2016 09/17/2016 documented as of this encounter (statuses as of 09/04/2022) [place] [address] History of Past illness Narrative* Problem Noted Date Resolved Date Abnormality of gait 07/29/2020 01/23/2021 DDD (degenerative disc disease), lumbar 11/04/19 17 09/20/2017 Chronic midline low back pain without sciatica 0 03/18/2016 06/27/2018 Vertigo 03/10/2016 09/17/2016 documented as of this encounter (statuses as of 09/17/2022) [place] [address] History of Past illness Narrative* Problem Noted Date Resolved Date Abnormality of gait 07/29/2020 01/23/2021 DDD (degenerative disc disease), lumbar 11/04/19 17 09/20/2017 Chronic midline low back pain without sciatica 0 03/18/2016 06/27/2018 Vertigo 03/10/2016 09/17/2016 documented as of this encounter (statuses as of 10/19/2022) [place] [address] History of Past illness Narrative* Problem Noted Date Resolved Date Abnormality of gait 07/29/2020 01/23/2021 DDD (degenerative disc disease), lumbar 11/04/19 17 09/20/2017 Chronic midline low back pain without sciatica 0 03/18/2016 06/27/2018 Vertigo 03/10/2016 09/17/2016 documented as of this encounter (statuses as of 11/18/2022) [place] [address] History of Past illness Narrative* Problem Noted Date Resolved Date Abnormality of gait 07/29/2020 01/23/2021 DDD (degenerative disc disease), lumbar 11/04/19 17 09/20/2017 Chronic midline low back pain without sciatica 0 03/18/2016 06/27/2018 Vertigo 03/10/2016 09/17/2016 documented as of this encounter (statuses as of 11/18/2022) [place] [address] History of Past illness Narrative* Problem Noted Date Resolved Date Abnormality of gait 07/29/2020 01/23/2021 DDD (degenerative disc disease), lumbar 11/04/19 17 09/20/2017 Chronic midline low back pain without sciatica 0 03/18/2016 06/27/2018 Vertigo 03/10/2016 09/17/2016 documented as of this encounter (statuses as of 11/23/2022) [place] [address] History of Past illness Narrative* Problem Noted Date Resolved Date Abnormality of gait 07/29/2020 01/23/2021 DDD (degenerative disc disease), lumbar 11/04/19 17 09/20/2017 Chronic midline low back pain without sciatica 0 03/18/2016 06/27/2018 Vertigo 03/10/2016 09/17/2016 documented as of this encounter (statuses as of 12/01/2022) [place] [address] History of Past illness Narrative* Problem Noted Date Resolved Date Abnormality of gait 07/29/2020 01/23/2021 DDD (degenerative disc disease), lumbar 11/04/19 17 09/20/2017 Chronic midline low back pain without sciatica 0 03/18/2016 06/27/2018 Vertigo 03/10/2016 09/17/2016 documented as of this encounter (statuses as of 12/03/2022) [place] [address] History of Past illness Narrative* Problem Noted Date Resolved Date Abnormality of gait 07/29/2020 01/23/2021 DDD (degenerative disc disease), lumbar 11/04/19 17 09/20/2017 Chronic midline low back pain without sciatica 0 03/18/2016 06/27/2018 Vertigo 03/10/2016 09/17/2016 documented as of this encounter (statuses as of 12/08/2022) [address]2020 History of Past illness Narrative* Problem Noted Date Resolved Date Abnormality of gait 07/29/2020 01/23/2021 DDD (degenerative disc disease), lumbar 11/04/19 17 09/20/2017 Chronic midline low back pain without sciatica 0 03/18/2016 06/27/2018 Vertigo 03/10/2016 09/17/2016 documented as of this encounter (statuses as of 12/09/2022) [address] History of Past illness Narrative* Problem Noted Date Resolved Date Abnormality of gait 07/29/2020 01/23/2021 DDD (degenerative disc disease), lumbar 11/04/19 17 09/20/2017 Chronic midline low back pain without sciatica 0 03/18/2016 06/27/2018 Vertigo 03/10/2016 09/17/2016 documented as of this encounter (statuses as of 12/31/2022) [address] History of Past illness Narrative* Problem Noted Date Resolved Date Abnormality of gait 07/29/2020 01/23/2021 DDD (degenerative disc disease), lumbar 11/04/19 17 09/20/2017 Chronic midline low back pain without sciatica 0 03/18/2016 06/27/2018 Vertigo 03/10/2016 09/17/2016 documented as of this encounter (statuses as of 02/18/2023) [facility] Diagnosis Malignant neoplasm of urinary bladder, unspecified site (HCC)- Primary Malignant neoplasm of overlapping sites of bladder (HCC) Malignant neoplasm of other specified sites of bladder Gross hematuria [facility] Diagnosis Essential hypertension with goal blood pressure less than 150/90 [facility] Malignant neoplasm of urinary bladder, unspecified site (HCC) [facility] Malignant neoplasm of overlapping sites of bladder (HCC)- Primary Malignant neoplasm of other specified sites of bladder [facility] Diagnosis Malignant neoplasm of overlapping sites of bladder (HCC)- Primary Malignant neoplasm of other specified sites of bladder [facility] Diagnosis Malignant neoplasm of overlapping sites of bladder (HCC)- Primary Malignant neoplasm of other specified sites of bladder [facility] Diagnosis Malignant neoplasm of overlapping sites of bladder (HCC)- Primary Malignant neoplasm of other specified sites of bladder [facility] Diagnosis Parkinsonism, unspecified Parkinsonism type (HCC) [facility] Diagnosis Malignant neoplasm of overlapping sites of bladder (HCC)- Primary Malignant neoplasm of other specified sites of bladder [facility] Diagnosis Malignant neoplasm of overlapping sites of bladder (HCC)- Primary Malignant neoplasm of other specified sites of bladder [facility] Diagnosis Gross hematuria- Primary Malignant neoplasm of overlapping sites of bladder (HCC) Malignant neoplasm of other specified sites of bladder [facility] Diagnosis Multiple falls- Primary Personal history of fall Skin tear of right hand without complication, initial encounter Essential hypertension with goal blood pressure less than 150/90 Parkinsonism, unspecified Parkinsonism type (HCC) Hyperlipidemia, unspecified hyperlipidemia type [facility] Diagnosis Abnormal gait- Primary Abnormality of gait Balance disorder Other symptoms involving nervous and musculoskeletal systems Multiple falls Personal history of fall [facility] Diagnosis Constipation, unspecified constipation type- Primary [facility] Diagnosis Hospice care- Primary Encounter for palliative care Constipation, unspecified constipation type Anemia, unspecified type [facility] Diagnosis Situational anxiety- Primary Other anxiety states [facility]* Diagnosis Hyperlipidemia, unspecified hyperlipidemia type [facility] Diagnosis COVID-19- Primary [facility]* Diagnosis Parkinson disease (HCC)- Primary Paralysis agitans [facility] Diagnosis Malignant neoplasm of overlapping sites of bladder (HCC) Malignant neoplasm of other specified sites of bladder Essential hypertension with goal blood pressure less than 130/80 [facility] Diagnosis Dementia associated with Parkinson's disease (HCC) [facility] Diagnosis Medicare annual wellness visit, subsequent- Primary Routine general medical examination at a [facility] care facility Dementia associated with Parkinson's disease (HCC) Malignant neoplasm of overlapping sites of bladder (HCC) Malignant neoplasm of other specified sites of bladder Thrombocytopenia (HCC) Thrombocytopenia, unspecified Parkinsonism, unspecified Parkinsonism type (HCC) 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 History of basal cell carcinoma of skin Personal history of other malignant neoplasm of skin [facility] Orthostatic hypotension- Primary documented in this [facility] Summary Purpose Family History No Family History Records FoundNo Family History Records FoundNo Family History Records Found Advance Directives No Advanced Directives Records FoundDocuments on File Type Date Recorded 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 Advance Directive(s) 05/07/2016 11:24 AM Documents on File Type Date Recorded 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 Advance Directive(s) 05/07/2016 11:24 AM Documents on File Type Date Recorded 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 Advance Directive(s) 03/03/2023 2:00 PM Reason for Referral Specialty Diagnoses / Procedures Referred By Contac t Referred To Contact CT IMAGING Diagnoses Malignant neoplasm of urinary bladder, unspecified site (HCC) Procedures CT CHEST W IVCON DIAGNOSTIC COMPUTED TOMOGRAPHY THORAX W/CONTRAST Ashutosh Murray MD [address] [place] [address] Ct Imaging Referral ID Status Reason Start Date Expiration Date Visits Requested Visits Authorized [id number] Authorized Auto-Generat ed Referral 12/04/2021 01/03/2023 1 1 Specialty Diagnoses / Procedures Referred By Contac t Referred To Contact CT IMAGING Diagnoses Malignant neoplasm of urinary bladder, unspecified site (HCC) Procedures CT ABD/PEL W IVCON CT ABD & PELVIS W/CONTRAST Ashutosh Murray MD [address] [place] [address] Ct Imaging Referral ID Status Reason Start Date Expiration Date Visits Requested Visits Authorized [id number] Authorized Auto-Generat ed Referral 12/04/2021 01/03/2023 1 1 Specialty Diagnoses / Procedures Referred By Contac t Referred To Contact Radiation Oncology Diagnoses Malignant neoplasm of urinary bladder, unspecified site (HCC) Procedures RAD/ONC CONSULT OFFICE/OUTPATIENT [facility] 60-74 MINUTES Ashutosh Murray MD [address] [place] [address] Referral ID Status Reason Start Date Expiration Date Visits Requested Visits Authorized [id number] Pending Review PCP Requested Referral 12/11/2021 12/04/2022 1 1 Specialty Diagnoses / Procedures Referred By Contac t Referred To Contact Radiation Oncology Diagnoses Malignant neoplasm of overlapping sites of bladder (HCC) Procedures RAD/ONC CONSULT OFFICE/OUTPATIENT [facility] MDM 60-74 MINUTES Hossein Ventura MD, PhD [address] [place] [address] Referral ID Status Reason Start Date Expiration Date Visits Requested Visits Authorized [id number] Pending Review PCP Requested Referral 12/29/2021 12/29/2022 1 1 Specialty Diagnoses / Procedures Referred By Contac t Referred To Contact [facility] Diagnoses Abnormal gait Balance disorder Multiple falls Procedures CONSULT TO PHYSICAL THERAPY PHYSICAL THERAPY EVALUATION HIGH COMPLEX 45 MINS Suresh, OG [place].LINE INSPECTOR [address] [place] [address] [facility] [address] [address] Referral ID Status Reason Start Date Expiration Date Visits Requested Visits Authorized [id number] Pending Review Auto-Generat ed Referral 05/27/2022 05/27/2023 1 1 Specialty Diagnoses / Procedures Referred By Contac t Referred To Contact Diagnoses Parkinson disease (HCC) Procedures PROVIDER ORDERED FOLLOW UP OFFICE/OUTPATIENT [facility] MDM 60-74 MINUTES Sara Mujica MD [address] [address] Referral ID Status Reason Start Date Expiration Date Visits Requested Visits Authorized [id number] Pending Review PCP Requested Referral 03/04/2023 12/02/2023 1 1 Specialty Diagnoses / Procedures Referred By Contac t Referred To Contact Diagnoses Malignant neoplasm of overlapping sites of bladder (HCC) Scotty Overton MD [address] [place] [address] Referral ID Status Reason Start Date Expiration Date Visits Re quested Visits Authorized [id number] Closed 1 1 Additional Source Comments (unrecognized sect ion and content) No Status Records FoundNo Status Records FoundNo Status Records Found INFORMATION SOURCE (unrecogn ized section and content) DATE CREATED AUTHOR AUTHOR'S ORGANIZ ATION 03/04/2018 [facility] DATE CREATED AUTHOR AUTHOR'S ORGANIZ ATION 03/26/2023 [facility] Source Comments (unrecognize d section and content) In the event this informatio n is protected by the Federal Confidentiality of Alcohol and Drug Abuse Patient Records regulations: The Federal rules restrict any use of the information to criminally investigate or prosecute any alcohol or drug abuse patient.[facility] event this information is protected by the Federal Confidentiality of Alcohol and Drug Abuse Patient Records regulations: The Federal rules restrict any use of the information to criminally investigate or prosecute any alcohol or drug abuse patient.[facility] the event this information is protected by the Federal Confidentiality of Alcohol and Drug Abuse Patient Records regulations: The Federal rules restrict any use of the information to criminally investigate or prosecute any alcohol or drug abuse patient.[facility] the event this information is protected by the Federal Confidentiality of Alcohol and Drug Abuse Patient Records regulations: The Federal rules restrict any use of the information to criminally investigate or prosecute any alcohol or drug abuse patient.[facility] the event this information is protected by the Federal Confidentiality of Alcohol and Drug Abuse Patient Records regulations: The Federal rules restrict any use of the information to criminally investigate or prosecute any alcohol or drug abuse patient.[facility] the event this information is protected by the Federal Confidentiality of Alcohol and Drug Abuse Patient Records regulations: The Federal rules restrict any use of the information to criminally investigate or prosecute any alcohol or drug abuse patient.[facility] the event this information is protected by the Federal Confidentiality of Alcohol and Drug Abuse Patient Records regulations: The Federal rules restrict any use of the information to criminally investigate or prosecute any alcohol or drug abuse patient.[facility] the event this information is protected by the Federal Confidentiality of Alcohol and Drug Abuse Patient Records regulations: The Federal rules restrict any use of the information to criminally investigate or prosecute any alcohol or drug abuse patient.[facility] the event this information is protected by the Federal Confidentiality of Alcohol and Drug Abuse Patient Records regulations: The Federal rules restrict any use of the information to criminally investigate or prosecute any alcohol or drug abuse patient.[facility] the event this information is protected by the Federal Confidentiality of Alcohol and Drug Abuse Patient Records regulations: The Federal rules restrict any use of the information to criminally investigate or prosecute any alcohol or drug abuse patient.[facility] the event this information is protected by the Federal Confidentiality of Alcohol and Drug Abuse Patient Records regulations: The Federal rules restrict any use of the information to criminally investigate or prosecute any alcohol or drug abuse patient.[facility] HospitalIn the event this information is protected by the Federal Confidentiality of Alcohol and Drug Abuse Patient Records regulations: The Federal rules restrict any use of the information to criminally investigate or prosecute any alcohol or drug abuse patient.[facility] HospitalIn the event this information is protected by the Federal Confidentiality of Alcohol and Drug Abuse Patient Records regulations: The Federal rules restrict any use of the information to criminally investigate or prosecute any alcohol or drug abuse patient.[facility] HospitalIn the event this information is protected by the Federal Confidentiality of Alcohol and Drug Abuse Patient Records regulations: The Federal rules restrict any use of the information to criminally investigate or prosecute any alcohol or drug abuse patient.[facility] HospitalIn the event this information is protected by the Federal Confidentiality of Alcohol and Drug Abuse Patient Records regulations: The Federal rules restrict any use of the information to criminally investigate or prosecute any alcohol or drug abuse patient.[facility] HospitalIn the event this information is protected by the Federal Confidentiality of Alcohol and Drug Abuse Patient Records regulations: The Federal rules restrict any use of the information to criminally investigate or prosecute any alcohol or drug abuse patient.[facility] HospitalIn the event this information is protected by the Federal Confidentiality of Alcohol and Drug Abuse Patient Records regulations: The Federal rules restrict any use of the information to criminally investigate or prosecute any alcohol or drug abuse patient.[facility] HospitalIn the event this information is protected by the Federal Confidentiality of Alcohol and Drug Abuse Patient Records regulations: The Federal rules restrict any use of the information to criminally investigate or prosecute any alcohol or drug abuse patient.[facility] HospitalIn the event this information is protected by the Federal Confidentiality of Alcohol and Drug Abuse Patient Records regulations: The Federal rules restrict any use of the information to criminally investigate or prosecute any alcohol or drug abuse patient.[facility] HospitalIn the event this information is protected by the Federal Confidentiality of Alcohol and Drug Abuse Patient Records regulations: The Federal rules restrict any use of the information to criminally investigate or prosecute any alcohol or drug abuse patient.[facility] HospitalIn the event this information is protected by the Federal Confidentiality of Alcohol and Drug Abuse Patient Records regulations: The Federal rules restrict any use of the information to criminally investigate or prosecute any alcohol or drug abuse patient.[facility] HospitalIn the event this information is protected by the Federal Confidentiality of Alcohol and Drug Abuse Patient Records regulations: The Federal rules restrict any use of the information to criminally investigate or prosecute any alcohol or drug abuse patient.[facility] HospitalIn the event this information is protected by the Federal Confidentiality of Alcohol and Drug Abuse Patient Records regulations: The Federal rules restrict any use of the information to criminally investigate or prosecute any alcohol or drug abuse patient.[facility] HospitalIn the event this information is protected by the Federal Confidentiality of Alcohol and Drug Abuse Patient Records regulations: The Federal rules restrict any use of the information to criminally investigate or prosecute any alcohol or drug abuse patient.[facility] HospitalIn the event this information is protected by the Federal Confidentiality of Alcohol and Drug Abuse Patient Records regulations: The Federal rules restrict any use of the information to criminally investigate or prosecute any alcohol or drug abuse patient.[facility] HospitalIn the event this information is protected by the Federal Confidentiality of Alcohol and Drug Abuse Patient Records regulations: The Federal rules restrict any use of the information to criminally investigate or prosecute any alcohol or drug abuse patient.[facility] HospitalIn the event this information is protected by the Federal Confidentiality of Alcohol and Drug Abuse Patient Records regulations: The Federal rules restrict any use of the information to criminally investigate or prosecute any alcohol or drug abuse patient.[facility] HospitalIn the event this information is protected by the Federal Confidentiality of Alcohol and Drug Abuse Patient Records regulations: The Federal rules restrict any use of the information to criminally investigate or prosecute any alcohol or drug abuse patient.[facility] HospitalIn the event this information is protected by the Federal Confidentiality of Alcohol and Drug Abuse Patient Records regulations: The Federal rules restrict any use of the information to criminally investigate or prosecute any alcohol or drug abuse patient.[facility] HospitalIn the event this information is protected by the Federal Confidentiality of Alcohol and Drug Abuse Patient Records regulations: The Federal rules restrict any use of the information to criminally investigate or prosecute any alcohol or drug abuse patient.[facility] HospitalIn the event this information is protected by the Federal Confidentiality of Alcohol and Drug Abuse Patient Records regulations: The Federal rules restrict any use of the information to criminally investigate or prosecute any alcohol or drug abuse patient.[facility] HospitalIn the event this information is protected by the Federal Confidentiality of Alcohol and Drug Abuse Patient Records regulations: The Federal rules restrict any use of the information to criminally investigate or prosecute any alcohol or drug abuse patient.[facility] HospitalIn the event this information is protected by the Federal Confidentiality of Alcohol and Drug Abuse Patient Records regulations: The Federal rules restrict any use of the information to criminally investigate or prosecute any alcohol or drug abuse patient.[facility] HospitalIn the event this information is protected by the Federal Confidentiality of Alcohol and Drug Abuse Patient Records regulations: The Federal rules restrict any use of the information to criminally investigate or prosecute any alcohol or drug abuse patient.[facility] HospitalIn the event this information is protected by the Federal Confidentiality of Alcohol and Drug Abuse Patient Records regulations: The Federal rules restrict any use of the information to criminally investigate or prosecute any alcohol or drug abuse patient.[facility] HospitalIn the event this information is protected by the Federal Confidentiality of Alcohol and Drug Abuse Patient Records regulations: The Federal rules restrict any use of the information to criminally investigate or prosecute any alcohol or drug abuse patient.[facility] HospitalIn the event this information is protected by the Federal Confidentiality of Alcohol and Drug Abuse Patient Records regulations: The Federal rules restrict any use of the information to criminally investigate or prosecute any alcohol or drug abuse patient.[facility] HospitalIn the event this information is protected by the Federal Confidentiality of Alcohol and Drug Abuse Patient Records regulations: The Federal rules restrict any use of the information to criminally investigate or prosecute any alcohol or drug abuse patient.[facility] HospitalIn the event this information is protected by the Federal Confidentiality of Alcohol and Drug Abuse Patient Records regulations: The Federal rules restrict any use of the information to criminally investigate or prosecute any alcohol or drug abuse patient.[facility] HospitalIn the event this information is protected by the Federal Confidentiality of Alcohol and Drug Abuse Patient Records regulations: The Federal rules restrict any use of the information to criminally investigate or prosecute any alcohol or drug abuse patient.[facility] HospitalIn the event this information is protected by the Federal Confidentiality of Alcohol and Drug Abuse Patient Records regulations: The Federal rules restrict any use of the information to criminally investigate or prosecute any alcohol or drug abuse patient.[facility] HospitalIn the event this information is protected by the Federal Confidentiality of Alcohol and Drug Abuse Patient Records regulations: The Federal rules restrict any use of the information to criminally investigate or prosecute any alcohol or drug abuse patient.[facility] HospitalIn the event this information is protected by the Federal Confidentiality of Alcohol and Drug Abuse Patient Records regulations: The Federal rules restrict any use of the information to criminally investigate or prosecute any alcohol or drug abuse patient.[facility] HospitalIn the event this information is protected by the Federal Confidentiality of Alcohol and Drug Abuse Patient Records regulations: The Federal rules restrict any use of the information to criminally investigate or prosecute any alcohol or drug abuse patient.[facility] HospitalIn the event this information is protected by the Federal Confidentiality of Alcohol and Drug Abuse Patient Records regulations: The Federal rules restrict any use of the information to criminally investigate or prosecute any alcohol or drug abuse patient.[facility] HospitalIn the event this information is protected by the Federal Confidentiality of Alcohol and Drug Abuse Patient Records regulations: The Federal rules restrict any use of the information to criminally investigate or prosecute any alcohol or drug abuse patient.[facility] HospitalIn the event this information is protected by the Federal Confidentiality of Alcohol and Drug Abuse Patient Records regulations: The Federal rules restrict any use of the information to criminally investigate or prosecute any alcohol or drug abuse patient.[facility] HospitalIn the event this information is protected by the Federal Confidentiality of Alcohol and Drug Abuse Patient Records regulations: The Federal rules restrict any use of the information to criminally investigate or prosecute any alcohol or drug abuse patient.[facility] HospitalIn the event this information is protected by the Federal Confidentiality of Alcohol and Drug Abuse Patient Records regulations: The Federal rules restrict any use of the information to criminally investigate or prosecute any alcohol or drug abuse patient.[facility] HospitalIn the event this information is protected by the Federal Confidentiality of Alcohol and Drug Abuse Patient Records regulations: The Federal rules restrict any use of the information to criminally investigate or prosecute any alcohol or drug abuse patient.[facility] HospitalIn the event this information is protected by the Federal Confidentiality of Alcohol and Drug Abuse Patient Records regulations: The Federal rules restrict any use of the information to criminally investigate or prosecute any alcohol or drug abuse patient.[facility] HospitalIn the event this information is protected by the Federal Confidentiality of Alcohol and Drug Abuse Patient Records regulations: The Federal rules restrict any use of the information to criminally investigate or prosecute any alcohol or drug abuse patient.[facility] HospitalIn the event this information is protected by the Federal Confidentiality of Alcohol and Drug Abuse Patient Records regulations: The Federal rules restrict any use of the information to criminally investigate or prosecute any alcohol or drug abuse patient.[facility] HospitalIn the event this information is protected by the Federal Confidentiality of Alcohol and Drug Abuse Patient Records regulations: The Federal rules restrict any use of the information to criminally investigate or prosecute any alcohol or drug abuse patient.[facility] HospitalIn the event this information is protected by the Federal Confidentiality of Alcohol and Drug Abuse Patient Records regulations: The Federal rules restrict any use of the information to criminally investigate or prosecute any alcohol or drug abuse patient.[facility] HospitalIn the event this information is protected by the Federal Confidentiality of Alcohol and Drug Abuse Patient Records regulations: The Federal rules restrict any use of the information to criminally investigate or prosecute any alcohol or drug abuse patient.[facility] HospitalIn the event this information is protected by the Federal Confidentiality of Alcohol and Drug Abuse Patient Records regulations: The Federal rules restrict any use of the information to criminally investigate or prosecute any alcohol or drug abuse patient.[facility] HospitalIn the event this information is protected by the Federal Confidentiality of Alcohol and Drug Abuse Patient Records regulations: The Federal rules restrict any use of the information to criminally investigate or prosecute any alcohol or drug abuse patient.[facility] HospitalIn the event this information is protected by the Federal Confidentiality of Alcohol and Drug Abuse Patient Records regulations: The Federal rules restrict any use of the information to criminally investigate or prosecute any alcohol or drug abuse patient.[facility] Reason for Visit (unrecogniz ed section and content) Specialty Diagnoses / Procedures Referred By Mery koehler Referred To Contact Oncology Diagnoses Malignant neoplasm of overlapping sites of bladder (HCC) Gross hematuria Procedures CONSULT TO ONCOLOGY OFFICE/OUTPATIENT NEW HIGH MDM 60-74 MINUTES Estuardo Coy MD [address] [employer] [place] [address] Referral ID Status Reason Start Date Expiration Date Visits Requested Visits Authorized [id number] Pending Review PCP Requested Referral 11/12/2021 11/12/2022 1 1 Specialty Diagnoses / Procedures Referred By Mery koehler Referred To Contact CT IMAGING Diagnoses Malignant neoplasm of urinary bladder, unspecified site (HCC) Procedures CT CHEST W IVCON DIAGNOSTIC COMPUTED TOMOGRAPHY THORAX W/CONTRAST Ashutosh Murray MD [address] [employer] [address] Ct Imaging Referral ID Status Reason Start Date Expiration Date V isits Requested Visits Authorized [id number] Closed Auto-Generate d Referral 12/04/2021 01/03/2023 1 1 Reason Comments Consult Specialty Diagnoses / Procedures Referred By Mery t Referred To Contact Radiation Oncology Diagnoses Malignant neoplasm of urinary bladder, unspecified site (HCC) Procedures RAD/ONC CONSULT OFFICE/OUTPATIENT NEW HIGH MDM 60-74 MINUTES Ashutosh Murray MD [address] [place] [address] Referral ID Status Reason Start Date Expiration Date Visits Requested Visits Authorized [id number] Pending Review PCP Requested Referral 12/11/2021 12/04/2022 1 1 Reason Comments Consult Reason Comments Request Outside Medical Records Reason Comments Patient Education Reason Onset Date Comments Simulation Request Form 01/14/2022 Reason Comments Radiotherapy On-treatment Visit Reason Comments Patient Update Reason Onset Date Comments Refill Request 01/28/2022 Reason Comments Future Appointment Reason Comments requesting atb Reason Comments Appointment Rescheduled Reason Comments Appointment Cancelled Reason Comments Patient Update Patient Request Reason Comments FYI-PT plan of care Reason Comments Home Health PT Plan of Care Reason Onset Date Comments Refill Request 05/19/2022 Reason Comments Recheck 6 month follow up Reason Onset Date Comments Refill Request 05/27/2022 Reason Comments Patient Question Reason Comments Hospice Referral Reason Onset Date Comments Refill Request 08/12/2022 Reason Comments Medicare Wellness Exam Annual Medicare W ellness Reason Onset Date Comments Patient Question 09/15/2022 Reason Onset Date Comments Refill Request 10/17/2022 Reason Comments Covid Positive [place] resident Reason Comments Covid19 Concern Reason Onset Date Comments Refill Request 11/23/2022 Reason Comments Patient Request Reason Comments Follow Up Reason Comments Agree to follow [facility] PT Reason Comments plan of care Reason Onset Date Comments Refill Request 12/21/2022 Refill Request 12/30/2022 Reason Comments Medicare Wellness Exam Reason Comments checking to see if PCP had recieved fax Care Teams (unrecognized sec tion and content) Labor Standards Director Relationship Specialty Start Date End Date Scotty Overton MD [address] [place] [address] PCP - General Internal Medicine 03/18/16 Sara Mujica MD [address] [address] Specialty Rehabilitation Therapy Aide Neurology 04/22/18 Andre Mccarty (Hist) [address] [place] [address] Specialty Rehabilitation Therapy Aide Cardiology 09/23/18 Frances Monroe, JUAN LUIS Specialty [employer]working [employer]orer HOSPICE & PALLIATIVE MEDICINE 02/12/21 Labor Standards Director Relationship Specialty Start Date End Date Scotty Overton MD [address] [place] [address] PCP - General Internal Medicine 03/18/16 Sara Mujica MD [address] [address] Specialty Rehabilitation Therapy Aide Neurology 04/22/18 Andre Mccarty (Hist) [address] [place] [address] Specialty Rehabilitation Therapy Aide Cardiology 09/23/18 Frances Monroe RN Specialty [employer]working [employer]orer HOSPICE & PALLIATIVE MEDICINE 02/12/21 Labor Standards Director Relationship Specialty Start Date End Date Scotty Overton MD [address] [place] [address] PCP - General Internal Medicine 03/18/16 Sara Mujica MD [address] [address] Specialty Rehabilitation Therapy Aide Neurology 04/22/18 Andre Mccarty (Hist) [address] [place] [address] Specialty Rehabilitation Therapy Aide Cardiology 09/23/18 Frances Monroe, JUAN LUIS Specialty [employer]working [employer] HOSPICE & PALLIATIVE MEDICINE 02/12/21 Labor Standards Director Relationship Specialty Start Date End Date Scotty Overton MD [address] [place] [address] PCP - General Internal Medicine 03/18/16 Sara Mujica MD [address] [address] Specialty Rehabilitation Therapy Aide Neurology 04/22/18 Andre Mccarty (Hist) [address] [place] [address] Specialty Rehabilitation Therapy Aide Cardiology 09/23/18 Frances Monroe, RN Specialty [employer]working [employer] HOSPICE & PALLIATIVE MEDICINE 02/12/21 Labor Standards Director Relationship Specialty Start Date End Date Scotty Overton MD [address] [place] [address] PCP - General Internal Medicine 03/18/16 Sara Mujica MD [address] [address] Specialty Rehabilitation Therapy Aide Neurology 04/22/18 Andre Mccarty (Hist) [address] [place] [address] Specialty Rehabilitation Therapy Aide Cardiology 09/23/18 Frances Monroe, JUAN LUIS Specialty [employer]working [employer] HOSPICE & PALLIATIVE MEDICINE 02/12/21 Labor Standards Director Relationship Specialty Start Date End Date Scotty Overton MD [address] [place] [address] PCP - General Internal Medicine 03/18/16 Sara Mujica MD [address] [address] Specialty Rehabilitation Therapy Aide Neurology 04/22/18 Andre Mccarty (Hist) [address] [place] [address] Specialty Rehabilitation Therapy Aide Cardiology 09/23/18 Frances Monroe, JUAN LUIS Specialty [employer]working [employer]orer HOSPICE & PALLIATIVE MEDICINE 02/12/21 Elsie Han MD, [address] [place] [address] Radiation Oncology 01/02/22 Labor Standards Director Relationship Specialty Start Date End Date Scotty Overton MD [address] [facility] [place] [address] PCP - General Internal Medicine 03/18/16 Sara Mujica MD [address] [address] Specialty Rehabilitation Therapy Aide Neurology 04/22/18 Andre Mccarty (Hist) [address] [place] [address] Specialty Rehabilitation Therapy Aide Cardiology 09/23/18 Frances Monroe, RN Specialty [employer]working [employer]orer HOSPICE & PALLIATIVE MEDICINE 02/12/21 Elsie Han MD, [address] [place] [address] Radiation Oncology 01/02/22 Labor Standards Director Relationship Specialty Start Date End Date Scotty Overton MD [address] [facility] [place] [address] PCP - General Internal Medicine 03/18/16 Sara Mujica MD [address] [address] Specialty Rehabilitation Therapy Aide Neurology 04/22/18 Andre Mccarty (Hist) [address] [place] [address] Specialty Rehabilitation Therapy Aide Cardiology 09/23/18 Frances Monroe, RN Specialty [employer]working [employer] Laborer HOSPICE & PALLIATIVE MEDICINE 02/12/21 Elsie Han MD, [address] [place] [address] Radiation Oncology 01/02/22 Labor Standards Director Relationship Specialty Start Date End Date Scotty Overton MD [address] [facility] [place] [address] PCP - General Internal Medicine 03/18/16 Sara Mujica MD [address] [place] [address] Specialty Rehabilitation Therapy Aide Neurology 04/22/18 Andre Mccarty (Hist) [address] [place] [address] Specialty Rehabilitation Therapy Aide Cardiology 09/23/18 Frances Monroe, RN Specialty [employer]working [employer]orer HOSPICE & PALLIATIVE MEDICINE 02/12/21 Elsie Han MD, MD [address] [place] [address] Radiation Oncology 01/02/22 Labor Standards Director Relationship Specialty Start Date End Date Scotty Overton MD [address] [facility] [place] [address] PCP - General Internal Medicine 03/18/16 Sara Mujica MD [address] [place] [address] Specialty Rehabilitation Therapy Aide Neurology 04/22/18 Andre Mccarty (Hist) [address] [place] [address] Specialty Rehabilitation Therapy Aide Cardiology 09/23/18 Frances Monroe, RN Specialty [employer]working [employer]orer HOSPICE & PALLIATIVE MEDICINE 02/12/21 Elsie Han MD, MD [address] [place] [address] Radiation Oncology 01/02/22 Labor Standards Director Relationship Specialty Start Date End Date Scotty Ovetron MD [address] [facility] [place] [address] PCP - General Internal Medicine 03/18/16 Sara Mujica MD [address] [facility] [address] [place] [address] Specialty Rehabilitation Therapy Aide Neurology 04/22/18 Andre Mccarty (Hist) [address] [place] [address] Specialty Rehabilitation Therapy Aide Cardiology 09/23/18 Frances Monroe, RN Specialty [employer]working [employer] HOSPICE & PALLIATIVE MEDICINE 02/12/21 Elsie Han MD, MD [address] [place] [address] Radiation Oncology 01/02/22 Labor Standards Director Relationship Specialty Start Date End Date Scotty Overton MD [address] [place] [address] PCP - General Internal Medicine 03/18/16 Sara Mujica MD [address] [place] [address] Specialty Rehabilitation Therapy Aide Neurology 04/22/18 Andre Mccarty (Hist) [address] [facility] [place] [address] Specialty Rehabilitation Therapy Aide Cardiology 09/23/18 Frances Monroe, RN Specialty [employer]working [employer] Laborer HOSPICE & PALLIATIVE MEDICINE 02/12/21 Elsie Han MD, MD [address] [place] [address] Radiation Oncology 01/02/22 Labor Standards Director Relationship Specialty Start Date End Date Scotty Overton MD [address] [place] [address] PCP - General Internal Medicine 03/18/16 Sara Mujica MD [address] [place] [address] Specialty Rehabilitation Therapy Aide Neurology 04/22/18 Andre Mccarty (Hist) [address] [place], [place] [address] Specialty Rehabilitation Therapy Aide Cardiology 09/23/18 Frances Monroe, RN Specialty [employer]working [employer] Laborer HOSPICE & PALLIATIVE MEDICINE 02/12/21 Elsie Han MD, [address] [place], [place] [address] Radiation Oncology 01/02/22 Labor Standards Director Relationship Specialty Start Date End Date Scotty Overton MD [address] [place], [place] [id number] PCP - General Internal Medicine 03/18/16 Sara Mujica MD [address] [id number] Specialty Rehabilitation Therapy Aide Neurology 04/22/18 Andre Mccarty (Hist) [address] [place], [place] [address] Specialty Rehabilitation Therapy Aide Cardiology 09/23/18 02/04/22 Frances Monroe, RN Specialty [employer]working [employer] Laborer HOSPICE & PALLIATIVE MEDICINE 02/12/21 02/04/22 Elsie Han MD, [address] [place], [place] [id number] Radiation Oncology 01/02/22 Denice Ventura, RN Specialty Woodworking Shop Laborer HOSPICE & PALLIATIVE MEDICINE 02/05/22 02/05/22 Delmy Thomas, RADIOLOGY INTERVENTIONAL PHYSICIAN.LINE INSPECTOR [address] [facility], [address] [place] [address] Palliative Medicine Home Provider HOSPICE & PALLIATIVE MEDICINE 02/05/22 02/05/22 Labor Standards Director Relationship Specialty Start Date End Date Scotty Overton MD [address] [place], [place] [id number] PCP - General Internal Medicine 03/18/16 Sara Mujica MD [address] [address] Specialty Rehabilitation Therapy Aide Neurology 04/22/18 Andre Mccarty (Hist) [address] [place] [address] (Fax) Specialty Rehabilitation Therapy Aide Cardiology 09/23/18 02/04/22 Frances Monroe, RN Specialty Woodworking Shop Laborer HOSPICE & PALLIATIVE MEDICINE 02/12/21 02/04/22 Elsie Han MD, [address] [place] [address] Radiation Oncology 01/02/22 Denice Ventura, JUAN LUIS Specialty Woodworking Shop Laborer HOSPICE & PALLIATIVE MEDICINE 02/05/22 02/05/22 Delmy Thomas, RADIOLOGY INTERVENTIONAL PHYSICIAN.LINE INSPECTOR [address] [facility], [address] [place] [address] Palliative Medicine Home Provider HOSPICE & PALLIATIVE MEDICINE 02/05/22 02/05/22 Labor Standards Director Relationship Specialty Start Date End Date Scotty Overton MD [address] [place] [address] PCP - General Internal Medicine 03/18/16 Sara Mujica MD [address] [address] Specialty Rehabilitation Therapy Aide Neurology 04/22/18 Andre Mccarty (Hist) [address] [facility] [place] [address] (Fax) Specialty Rehabilitation Therapy Aide Cardiology 09/23/18 02/04/22 Frances Monroe, RN Specialty Woodworking Shop Laborer HOSPICE & PALLIATIVE MEDICINE 02/12/21 02/04/22 Elsie Han MD, [address] [place] [place] [address] Radiation Oncology 01/02/22 Denice Ventura, RN Specialty Woodworking Shop Laborer HOSPICE & PALLIATIVE MEDICINE 02/05/22 02/05/22 Delmy Thomas, RADIOLOGY INTERVENTIONAL PHYSICIAN.LINE INSPECTOR [address] [facility], [address] [place] [address] Palliative Medicine Home Provider HOSPICE & PALLIATIVE MEDICINE 02/05/22 02/05/22 Labor Standards Director Relationship Specialty Start Date End Date Scotty Overton MD [address] [place] [address] PCP - General Internal Medicine 03/18/16 Sara Mujica MD [address] [address] Specialty Rehabilitation Therapy Aide Neurology 04/22/18 Elsie Han MD, [address] [place] [address] Radiation Oncology 01/02/22 Labor Standards Director Relationship Specialty Start Date End Date Scotty Overton MD [address] [place] [address] PCP - General Internal Medicine 03/18/16 Sara Mujica MD [address] [address] Specialty Rehabilitation Therapy Aide Neurology 04/22/18 Elsie Han MD, [address] [place] [address] Radiation Oncology 01/02/22 Labor Standards Director Relationship Specialty Start Date End Date Scotty Overton MD [address] [place] [address] PCP - General Internal Medicine 03/18/16 Sara Mujica MD [address] [address] Specialty Rehabilitation Therapy Aide Neurology 04/22/18 Elsie Han MD, [address] [place] [address] Radiation Oncology 01/02/22 Labor Standards Director Relationship Specialty Start Date End Date Scotty Overton MD [address] [facility] [place] [address] PCP - General Internal Medicine 03/18/16 Sara Mujica MD [address] [place] [address] Specialty Rehabilitation Therapy Aide Neurology 04/22/18 Elsie Han MD, [address] [place] [address] Radiation Oncology 01/02/22 Labor Standards Director Relationship Specialty Start Date End Date Scotty Overton MD [address] [place] [address] PCP - General Internal Medicine 03/18/16 Sara Mujica MD [address] [place] [address] Specialty Rehabilitation Therapy Aide Neurology 04/22/18 Elsie Han MD, [address] [place] [address] Radiation Oncology 01/02/22 Labor Standards Director Relationship Specialty Start Date End Date Scotty Overton MD [address] [facility] [place] [address] PCP - General Internal Medicine 03/18/16 Sara Mujica MD [address] [place] [address] Specialty Rehabilitation Therapy Aide Neurology 04/22/18 Elsie Han MD, [address] [place] [address] Radiation Oncology 01/02/22 Labor Standards Director Relationship Specialty Start Date End Date Scotty Overton MD [address] [facility] [place] [address] PCP - General Internal Medicine 03/18/16 Sara Mujica MD [address] [place] [address] Specialty Rehabilitation Therapy Aide Neurology 04/22/18 Elsie Han MD, [address] [place] [address] Radiation Oncology 01/02/22 Labor Standards Director Relationship Specialty Start Date End Date Scotty Overton MD [address] [facility] [place] [address] PCP - General Internal Medicine 03/18/16 Sara Mujica MD [address] [place] [address] Specialty Rehabilitation Therapy Aide Neurology 04/22/18 Elsie Han MD, [address] [facility] [place] [address] Radiation Oncology 01/02/22 Labor Standards Director Relationship Specialty Start Date End Date Scotty Overton MD [address] [facility] [place] [place] [address] PCP - General Internal Medicine 03/18/16 Sara Mujica MD [address] [place] [address] Specialty Rehabilitation Therapy Aide Neurology 04/22/18 Elsie Han MD, [address] [facility] [place] [address] Radiation Oncology 01/02/22 Labor Standards Director Relationship Specialty Start Date End Date Scotty Overton MD [address] [facility] [place] [address] PCP - General Internal Medicine 03/18/16 Sara Mujica MD [address] [place] [address] Specialty Rehabilitation Therapy Aide Neurology 04/22/18 Elsie Han MD, MD [address] [facility] [place] [address] Radiation Oncology 01/02/22 Labor Standards Director Relationship Specialty Start Date End Date Scotty Overton MD [address] [facility] [place] [address] PCP - General Internal Medicine 03/18/16 Sara Mujica MD [address] [place] [address] Specialty Rehabilitation Therapy Aide Neurology 04/22/18 Elsie Han MD, MD [address] [facility] [place] [address] Radiation Oncology 01/02/22 Labor Standards Director Relationship Specialty Start Date End Date Scotty Overton MD [address] [facility] [place] [address] PCP - General Internal Medicine 03/18/16 Sara Mujiac MD [address] [place] [address] Specialty Rehabilitation Therapy Aide Neurology 04/22/18 Elsie Han MD, [address] [facility] [place] [address] Radiation Oncology 01/02/22 Labor Standards Director Relationship Specialty Start Date End Date Scotty Overton MD [address] [facility] [place] [place] [address] PCP - General Internal Medicine 03/18/16 Sara Mujica MD [address] [place] [address] Specialty Rehabilitation Therapy Aide Neurology 04/22/18 Elsie Han MD, [address] [place] [facility] [place] [address] Radiation Oncology 01/02/22 Labor Standards Director Relationship Specialty Start Date End Date Scotty Overton MD [address] [facility] [place] [address] PCP - General Internal Medicine 03/18/16 Sara Mujica MD [address] [place] [address] Specialty Rehabilitation Therapy Aide Neurology 04/22/18 Elsie Han MD, [address] [place] [facility] [place] [address] Radiation Oncology 01/02/22 Labor Standards Director Relationship Specialty Start Date End Date Scotty Overton MD [address] [facility] [place] [address] PCP - General Internal Medicine 03/18/16 Sara Mujica MD [address] [place] [address] Specialty Rehabilitation Therapy Aide Neurology 04/22/18 Elsie Han MD, [address] [facility] [place] [address] Radiation Oncology 01/02/22 Labor Standards Director Relationship Specialty Start Date End Date Scotty Overton MD [address] [facility] [place] [address] PCP - General Internal Medicine 03/18/16 Sara Mujica MD [address] [place] [address] Specialty Rehabilitation Therapy Aide Neurology 04/22/18 Elsie Han MD, [address] [facility] [place] [address] Radiation Oncology 01/02/22 Labor Standards Director Relationship Specialty Start Date End Date Scotty Overton MD [address] [facility] [place] [address] PCP - General Internal Medicine 03/18/16 Sara Mujica MD [address] [place] [address] Specialty Rehabilitation Therapy Aide Neurology 04/22/18 Elsie Han MD, [address] [place] [facility] [place] [address] Radiation Oncology 01/02/22 Labor Standards Director Relationship Specialty Start Date End Date Scotty Overton MD [address] [facility] [place] [address] PCP - General Internal Medicine 03/18/16 Sara Mujica MD [address] [place] [address] Specialty Rehabilitation Therapy Aide Neurology 04/22/18 Elsie Han MD, [address] [facility] [place] [address] Radiation Oncology 01/02/22 Labor Standards Director Relationship Specialty Start Date End Date Scotty Overton MD [address] [facility] [place] [address] PCP - General Internal Medicine 03/18/16 Sara Mujica MD [address] [place] [address] Specialty Rehabilitation Therapy Aide Neurology 04/22/18 Elsie Han MD, [address] [place] [address] Radiation Oncology 01/02/22 Labor Standards Director Relationship Specialty Start Date End Date Scotty Overton MD [address] [place] [address] PCP - General Internal Medicine 03/18/16 Sara Mujica MD [address] [place] [address] Specialty Rehabilitation Therapy Aide Neurology 04/22/18 Elsie Han MD, [address] [place] [address] Radiation Oncology 01/02/22 Labor Standards Director Relationship Specialty Start Date End Date Scotty Overton MD [address] [place] [address] PCP - General Internal Medicine 03/18/16 Sara Mujica MD [address] [place] [address] Specialty Rehabilitation Therapy Aide Neurology 04/22/18 Elsie Han MD, [address] [place] [address] Radiation Oncology 01/02/22 Labor Standards Director Relationship Specialty Start Date End Date Scotty Overton MD [address] [place] [address] PCP - General Internal Medicine 03/18/16 Sara Mujica MD [address] [place] [address] Specialty Rehabilitation Therapy Aide Neurology 04/22/18 Elsie Han MD, [address] [place] [address] Radiation Oncology 01/02/22 FOR RECORDS PERTAINING TO PATIENTS WHO ARE OR HAVE BEEN ENROLLED IN A CHEMICAL DEPENDENCY/SUBSTANCEABUSE PROGRAM, SOME INFORMATION MAY BE OMITTED. This clinical summary was aggregated from multiple sources. Caution should be exercised in using it in the provision of clinical care. This summary normalizes information from multiple sources, and as a consequence, information in this document may materially change the coding, format and clinical context of patient data. In addition, data may be omitted in some cases. CLINICAL DECISIONS SHOULD BE BASED ON THE PRIMARY CLINICAL RECORDS. [employer] [facility]. provides no warranty or guarantee of the accuracy or completeness of information in this document.
[2023-04-05 22:00] VITALS: BP 196/103
== END 2023-04-05 22:35 | disposition home or self-care (01) ==
PROVIDERS: Emergency Provider Emergency Medicine; PCP Internal Medicine; Visit Provider Emergency Medicine
DX: S01.01XA Laceration without foreign body of scalp, initial encounter (principal); G20 Parkinson's disease; F20.9 Schizophrenia, unspecified; F03.918 Unspecified dementia, unspecified severity, with other behavioral disturbance; I10 Essential (primary) hypertension; E78.5 Hyperlipidemia, unspecified; Z87.891 Personal history of nicotine dependence; I25.10 Atherosclerotic heart disease of native coronary artery without angina pectoris; Z79.899 Other long term (current) drug therapy; Z85.46 Personal history of malignant neoplasm of prostate; Z98.42 Cataract extraction status, left eye; W01.10XA Fall on same level from slipping, tripping and stumbling with subsequent striking against unspecified object, initial encounter; Z98.41 Cataract extraction status, right eye; Z23 Encounter for immunization
CPT/HCPCS: 90471; 90715; 99285

== ENCOUNTER → 2023-04-15 | Outpatient (REF) | payer OTHER, SELFPAY ==
[2023-04-16 08:54] LABS: Color, Urine Yellow (Yellow); Glucose, Dipstick Normal (Normal); Ketone-Dipstick Negative (Negative); Leukocyte Esterase-Dipstick 25 /ul (Negative); Nitrite-Dipstick Negative (Negative); Occult Blood-Urine 250 /ul (Negative); Protein-Dipstick 30 mg/dl (Negative); Specific Gravity, Urine 1.015 (1.002-1.030); Urine Bilirubin Dipstick Negative (Negative); Urine Clarity Sl. Cloudy (Clear); Urine Urobilinogen Normal (Normal); Urine pH 6.5 (5.0 - 8.0)
== END ==
LOC: OLS.DANBUR 16:50
PROVIDERS: PCP Internal Medicine
DX: N39.0 Urinary tract infection, site not specified (principal)
CPT/HCPCS: 81002; 87086

== ENCOUNTER → 2023-04-30 | Outpatient (REF) | payer MEDICARE, SELFPAY ==
[2023-04-30 08:18] LABS: Hemoglobin 10.8 g/dL (13.0-16.5)
== END ==
LOC: OLS.DANBUR 05:00
PROVIDERS: PCP Internal Medicine; Visit Provider Family Medicine
DX: R31.9 Hematuria, unspecified (principal)
CPT/HCPCS: 36415; 85014; 85018

== ENCOUNTER 2023-05-02 10:33 | Emergency (ER) | payer MEDICARE, SELFPAY ==
[2023-05-02 10:36] VITALS: BP 178/113; PULSE 66; RESP 16; TEMP 35.7; O2SAT 99; BMI 27.0
--- NOTE | 2023-05-02 10:53 | CT_ITS ---
HISTORY: fall, right hip pain, frequent fall. TECHNIQUE: Routine noncontrast bone CT protocol was performed of the pelvis. 2-D reformats were performed by the technologist. A radiation dose optimization technique was used for this scan. 552 images. COMPARISON: 10/08/2021 FINDINGS: BONES:No acute fracture or femoral head avascular necrosis identified. Lucency possible small hemangioma and S3. JOINTS: No dislocation.Degenerative changes. SOFT TISSUES: No fluid collections. PELVIC CONTENTS: Horseshoe kidney. Ectatic 1.9 cm right and 1.7 cm left common iliac arteries. Right bladder wall thickening with small calcification. Dependent density in the urinary bladder with mild stranding in the pelvis. CT/Pelvis without IV Contrast IMPRESSION: No evidence of acute fracture or dislocation. Right bladder wall thickening with small calcification, suspicious for bladder mass. Dependent density in the bladder suspicious for hemorrhage. Mild edema or inflammation in the pelvis. Electronically Signed: Keri Dooley MD at 12:11 EDT ,
--- NOTE | 2023-05-02 10:55 | CT_ITS ---
HISTORY: Trauma. TECHNIQUE: Multiple axial images were obtained of the head without intravenous contrast. A radiation dose optimization technique was used for this scan. 258 images. COMPARISON: 06/13/2022. FINDINGS: BRAIN PARENCHYMA: Multiple foci and zones of low attenuation in the bilateral cerebral white matter compatible with chronic small vessel ischemic gliosis. No acute intra-axial hemorrhage identified. CSF SPACES: Generalized volume loss. No midline shift or other significant mass effect. No acute extra-axial hemorrhage seen. OTHER: Intact calvarium. Small right maxillary sinus mucous retention cyst. Bilateral lens resections. CT/Brain/Head without Contrast IMPRESSION: No acute intracranial process identified. Chronic involutional and white matter changes. Electronically Signed: Keri Dooley MD at 11:58 EDT ,
--- NOTE | 2023-05-02 10:55 | RAD_ITS ---
HISTORY: Trauma. TECHNIQUE: XR Chest 1 View. COMPARISON: 11/21/2022. FINDINGS: CARDIOMEDIASTINAL BORDERS: Cardiac silhouette within normal limits in size. Mediastinal contour unremarkable with calcification of the aortic knob. LUNGS: Radiographically clear. PLEURA: No pleural effusion or pneumothorax seen. OSSEOUS STRUCTURES: Degenerative change. RAD/Chest 1 View (Portable) IMPRESSION: No acute cardiopulmonary process identified. Electronically Signed: Keri Dooley MD at 11:55 EDT ,
--- NOTE | 2023-05-02 10:56 | CT_ITS ---
HISTORY: Trauma. TECHNIQUE: Helically acquired images were obtained of the cervical spine without contrast. 2D reformatted images were reviewed. A radiation dose optimization technique was used for this scan. 408 images. COMPARISON: 05/26/2022. FINDINGS: VERTEBRAE: Vertebral body heights maintained. No acute fracture identified. ALIGNMENT: Chronic 2 mm anterolisthesis of C4-5. Straightening of the cervical lordosis. INTERVERTEBRAL DISCS: Multilevel degenerative changes with posterior disc bulge osteophyte complexes as well as uncovertebral and facet arthropathy. Chronic intervertebral disc space narrowing with endplate change of C6-7. No critical central canal stenosis. SOFT TISSUES: No prevertebral soft tissue swelling. CT/Spine Cervical without Contras IMPRESSION: No evidence for acute fracture or dislocation in the cervical spine. Multilevel degenerative change. Electronically Signed: Keri Dooley MD at 12:13 EDT ,
--- NOTE | 2023-05-02 11:00 | EX.ED.GENINJ ---
HPI History of Present Illness Chief Complaint: Fall Narrative Narrative: Patient is a 82-year-old male who is presenting from local half-way with chief complaint of a unwitnessed fall. Patient arrived to the ER with no cervical collar in place, patient was on a vacuum Arellano backboard. It was initially reported that patient is alert and oriented x1. This is not accurate. Patient knows his name, knows that he is at [facility], also knows that it is April in the summertime. He was confused about the year. Patient has mild headache, he does have right-sided neck pain, cervical collar was placed when I initially started performing HPI secondary to unwitnessed fall. Patient is reported to be on no blood thinners. Patient does have a history of bladder cancer, also has history of Parkinson's. Patient has had frequent falls recently. Patient lives at a local half-way. Patient has no chest pain or shortness of breath. Patient is complaining of some right-sided hip pain. Patient also has mild left shoulder pain, before range of motion of extremities no significant difficulty. Patient has had no nausea vomiting. Patient does want anything for pain at this time. [facility] Medical History Actinic keratosis Anemia Arthritis Atherosclerotic heart disease of [place] coronary artery without angina pectoris Back pain Basal cell carcinoma of skin, unspecified Blood disorder Cardiology follow-up encounter Discoloration of skin Easy bruising Eczema intertrigo Essential (primary) hypertension Former smoker History of ankle fracture History of echocardiogram History of hallucinations History of Holter monitoring History of stress test Hyperlipidemia, unspecified Impaired fasting glucose Leg cramps Legally blind Migraine headache Orthostatic hypotension Parkinson disease Parkinson's disease Personal history of colonic polyps Prostate cancer Redness of skin Schizophrenia Spondylosis without myelopathy or radiculopathy, lumbar region Syncope Thrombocytopenia, unspecified Unspecified abnormalities of gait and mobility Unspecified urinary incontinence Uses wheelchair Home Medications carbidopa 25 mg-levodopa 100 mg tablet 1.5 tab PO TIDAC Check with primary doctor 09/07/18 [History Last Taken 10/24/21 06:00] pravastatin 80 mg tablet 40 mg PO QHS cholesterol 09/07/18 [History Last Taken Unknown] vitamins A,C,P-iguz-udrgvf 2,148 mcg-113 mg-45 mg-17.4 mg tablet (PreserVision AREDS) 1 ea PO BID vitamin 09/07/18 [History Last Taken Unknown] cholecalciferol (vitamin D3) 25 mcg (1,000 unit) capsule (Vitamin D3) 50 mcg PO DAILY supplement 08/27/21 [History Last Taken Unknown] gabapentin 100 mg capsule 100 mg PO QHS Check with primary doctor 08/27/21 [History Last Taken Unknown] metoprolol tartrate 25 mg tablet 12.5 mg PO 1700 BP 08/27/21 [History Last Taken Unknown] nitroglycerin 0.4 mg sublingual tablet 0.4 mg sublingual PRN PRN Chest Pain 08/27/21 [History Last Taken Unknown] acetaminophen 500 mg tablet 1,000 mg PO TID pain 10/08/21 [History Last Taken Unknown] finasteride 5 mg tablet 5 mg PO 0900 prostate 04/10/22 [History Last Taken Unknown] tamsulosin 0.4 mg capsule (Flomax) 0.4 mg PO QHS prostate 04/10/22 [History Last Taken Unknown] meloxicam 15 mg tablet 15 mg PO DAILY PRN PRN Pain 05/24/22 [History Last Taken Unknown] quetiapine 25 mg tablet 12.5 mg PO QHS 05/24/22 [History Last Taken Unknown] tramadol 50 mg tablet 50 mg PO Q8H PRN Pain 05/24/22 [History Last Taken Unknown] docusate sodium 100 mg capsule (Colace) 100 mg PO BID 11/21/22 [History Last Taken Unknown] menthol 0.44 %-zinc oxide 20.6 % topical ointment (Calmoseptine) 1 applic topical DAILY 11/21/22 [History Last Taken Unknown] nirmatrelvir 300 mg (150 mg x2)-ritonavir 100 mg tablet,dose pack (Paxlovid) 3 tab PO BID 11/21/22 [History Last Taken Unknown] Allergy/AdvReac Type Severity Reaction Status Date / Time Penicillins Allergy Hives Verified 05/02/23 10:42 Family History Mother Cancer Surgical History History of cardiac catheterization Hx of colonoscopy Hx of hernia repair Hx of inguinal hernia repair Hx of inguinal hernia repair Hx of left cataract extraction Hx of right cataract extraction Social History household members: spouse housing: half-way Smoking Status: Former smoker substance use type: does not use ROS ROS ED ROS Narrative REVIEW OF SYSTEMS: Unless otherwise stated in this report the patient's positive and negative responses for review of systems for constitutional, eyes, ENT, cardiovascular, respiratory, gastrointestinal, neurological, , musculoskeletal, and integument systems and related systems to the presenting problem are either stated in the history of present illness or were not pertinent or were negative for the symptoms and/or complaints related to the presenting medical problem. EXAM Physical Exam Narrative Exam Narrative: Vital signs reviewed and patient is not hypoxic. Primary survey. Patient is in no spinal precautions with no c-collar and no C-spine immobilization. patient's airway is intact, patient is talking without difficulty. Patient was placed in a c-collar appropriately. The patient's breathing is equal bilateral, trachea midline, equal chest rise. Patient's circulation: his heart rate is regular rate and rhythm, patient has equal radial and dorsalis pedis pulses, equal, symmetrical. Patient has no obvious distracting injury, no deformity. No disability or environmental issue. With C-spine immobilization held by nursing staff at all times, the patient was log rolled off the backboard. Patient has no midline CT LS pain. Patient has no paraspinal tenderness to palpation. Patient has no rash, laceration, or abrasion. Patient was log rolled back into the supine position, lying flat. See secondary survey. General: The patient appears well and in no apparent distress. Patient is resting comfortably on cart. Not toxic, lethargic, or listless. Skin: Warm, dry, no pallor noted. There is no rash noted. Head: Normocephalic, atraumatic; cervical collar intact. Eye: Normal conjunctiva, no drainage, EOMI. PERRL. 3/2, equal, bilateral. Ears, Nose, Mouth, and Throat: oral mucosa is moist. Nares patent. Mouth without vesicles. Cardiovascular: Regular Rate and Rhythm, no murmurs, gallops, or rubs Respiratory: Patient is in no distress, no accessory muscle use, lungs are clear to auscultation, no wheezing, rales or rhonchi Back: non-tender, no CVA tenderness bilaterally to percussion. NO CTLS midline or paraspinal tenderness to palpation. GI: Soft, no tenderness to palpation, no masses appreciated. No rebound, guarding, or rigidity noted. Musculoskeletal: The patient has full range of motion of all extremities and joints with no difficulty except with mild pain with flexion extension of the right hip. Patient has no pain with internal/external rotation of the right hip, patient has mild pain of the right greater trochanter with flexion of the right hip. Patient has no pelvic bony tenderness palpation. Full range of motion of the left lower extremity no difficulty. Full range of motion of bilateral upper extremities with no pain, difficulty. Patient has no motor, no sensory deficits. Neurological: A&O x2, patient knows that it is April and , he is confused about the year; soft-spoken speech, no focal neurological deficits. Psychiatric: Cooperative Const Vital Signs: 05/02/23 10:36 05/02/23 10:55 05/02/23 12:00 Temperature 96.3 F L Temperature Source Temporal Pulse Rate 66 Respiratory Rate 16 Respiratory Effort Normal Non-Labored Respiratory Depth Normal Respiratory Pattern Normal Blood Pressure 178/113 H 177/110 H Blood Pressure Mean 134 132 Pulse Ox 99 Oxygen Delivery Method Room Air Room Air MDM MDM MDM Narrative Medical decision making narrative: Over 20 minutes has been spent with patient's daughter, and then his at bedside answering multiple questions. Patient may be having progressing Parkinson's symptoms. There is a caregiver who has been at bedside as well. Patient CT the brain and cervical spine and pelvis showed no acute findings. Patient has known bladder cancer. Patient does feel better after 1 L of IV fluid. Patient has perked up, more pinkish, more responsive. Patient hemoglobin was 11. This was discussed with patient's daughter and as well. They will follow-up with PCP and also hospice to has been helping take care have him at the nursing facility. They will also touch base with neurologist who is helping treat his Parkinson's as well. Hospice is also trying to get him a wheelchair that will be heavier and harder for him to fall out of her flip over. They will be going back to nursing facility. No indication for admission at this time. Patient looks better, is thankful for all help today. Despite the multiple falls in the last week, patient has no obvious signs of fractures. Lab Data Attestation: I reviewed the patient's lab results. Labs: Laboratory Results - last 24 hr 05/02/23 11:05 WBC 7.8 RBC 3.88 L Hgb 11.7 L Hct 35.2 L MCV 90.7 MCH 30.2 MCHC 33.2 RDW Std Deviation 43.1 RDW Coeff of Buck 13.0 Plt Count 172 MPV 9.8 Immature Gran % (Auto) 0.400 Neut % (Auto) 74.0 H Lymph % (Auto) 14.5 L Coles % (Auto) 9.3 Eos % (Auto) 1.4 Baso % (Auto) 0.4 Absolute Neuts (auto) 5.8 Absolute Lymphs (auto) 1.13 Nucleated RBC % 0 Sodium 137 Potassium 4.1 Chloride 108 H Carbon Dioxide 25.0 Anion Gap 4 L BUN 22 H Creatinine 1.19 Estim Creat Clear Calc 41.70 Est GFR (MDRD) Af Amer 75 Est GFR (MDRD) Non-Af 62 BUN/Creatinine Ratio 18.5 Glucose 102 Calcium 8.9 Radiography Chest X-Ray - ED: Read by ED Physician (Chest x-ray shows no acute cardiopulmonary disease, no infiltrate, no effusion.) Diagnostic Testing: Clinical Impression(s) from Imaging Studies Pelvis CT 05/02/23 10:53 IMPRESSION: No evidence of acute fracture or dislocation. Right bladder wall thickening with small calcification, suspicious for bladder mass. Dependent density in the bladder suspicious for hemorrhage. Mild edema or inflammation in the pelvis. Electronically Signed: Keri Dooley MD at 12:11 EDT Reading Location ID and State: [facility] / [place] Tel , Service support , Brain CT 05/02/23 10:55 IMPRESSION: No acute intracranial process identified. Chronic involutional and white matter changes. Electronically Signed: Keri Dooley MD at 11:58 EDT , Chest X-Ray 05/02/23 10:55 IMPRESSION: No acute cardiopulmonary process identified. Electronically Signed: Keri Dooley MD at 11:55 EDT , Cervical Spine CT 05/02/23 10:56 IMPRESSION: No evidence for acute fracture or dislocation in the cervical spine. Multilevel degenerative change. Electronically Signed: Keri Dooley MD at 12:13 EDT , EKG Initial EKG: Attestation: I personally reviewed and interpreted this EKG as follows: Comments: EKG interpretation. Normal sinus rhythm at 66 beats a minute. Left axis deviation. No acute ST elevation, no acute ectopy. QTc of 480. Discharge Plan Triage Chief Complaint: Fall ED Provider: Alexander Peña Dx/Rx/DC Orders Clinical Impression: CHI (closed head injury), Multiple falls, Dehydration, mild, Cervical pain (neck) Instructions: Exercises to Prevent Falls, ED Dehydration (Adult), ED Head Injury (Adult), ED Neck Pain Prescriptions: No Action pravastatin 80 MG tablet 40 mg PO QHS carbidopa-levodopa 1 TABLET tablet 1.5 tab PO TIDAC Rx Instructions: 25/100 PreserVision AREDS 1 EACH tablet 1 ea PO BID nitroglycerin 0.4 mg tablet, sublingual 0.4 mg sublingual PRN PRN (Reason: Chest Pain) gabapentin 100 mg capsule 100 mg PO QHS cholecalciferol (vitamin D3) [Vitamin D3] 25 mcg (1,000 unit) Capsule 50 mcg PO DAILY metoprolol tartrate 25 mg Tablet 12.5 mg PO 1700 Rx Instructions: hold if sbp<100 acetaminophen 500 mg Tablet 1,000 mg PO TID tamsulosin [Flomax] 0.4 mg Capsule 0.4 mg PO QHS finasteride 5 mg Tablet 5 mg PO 0900 meloxicam 15 mg Tablet 15 mg PO DAILY PRN PRN (Reason: Pain) tramadol 50 mg Tablet 50 mg PO Q8H PRN (Reason: Pain) quetiapine 25 mg tablet 12.5 mg PO QHS docusate sodium [Colace] 100 mg capsule 100 mg PO BID menthol-zinc oxide [Calmoseptine] 0.44-20.6 % Ointment 1 applic TOPICAL DAILY Rx Instructions: apply to groin and oracio area Paxlovid 300 mg (150 mg x 2)-100 mg tablets,dose pack 3 tab PO BID Patient Comments: take 2 NIRMATRELVIR tablets with 1 RITONAVIR tablet twice a day for 5 days Primary Care Provider: Scotty Hernández Referrals: Scotty Hernández MD [Primary Care Provider] - Disposition Disposition: Assisted Living Discharge Location: [facility] Discharge Date/Time: 05/02/23 14:55
[2023-05-02 11:10] LABS: Absolute Lymphocyte Count 1.13 X10^3/uL (0.83-4.51); Absolute Neutrophil Count 5.8 X10^3/uL (2.0-7.7); Basophil# 0.03 X10^3/uL; Basophil% 0.4 % (0-1); Eosinophil# 0.11 X10^3/uL; Eosinophils% 1.4 % (0-5); Hematocrit 35.2 % (40-54); Hemoglobin 11.7 g/dL (13.0-16.5); Lymphocyte # 1.13 X10^3/ul (0.83-4.51); Lymphocyte % 14.5 % (19-41); Mean Corp Hgb Conc 33.2 g/dL (32-36); Mean Corpuscular Hgb 30.2 pg (27.0-32.0); Mean Corpuscular Volume 90.7 fL (80-94); Mean Platelet Vol. 9.8 fl (6.2-12.0); Monocyte# 0.73 X10^3/uL; Monocyte% 9.3 % (0-10); NRBC Flagged by Analyzer 0 % (0-5); Neutrophil # 5.79 X10^3/uL (2.7-7.7); Platelet Count 172 K/mm3 (150-450); RBC Distribution Width SD 43.1 fl (35.1-43.9); Red Blood Count 3.88 M/mm3 (4.6-6.2); White Blood Count 7.8 K/mm3 (4.4-11.0)
[2023-05-02] MEDS: 0.9% Normal Saline 1,000 ML 999 ML IV (11:11)
[2023-05-02 11:22] LABS: Anion Gap 4 (5-15); BUN 22 mg/dL (7-18); BUN/Creat Ratio 18.5 RATIO (10-20); Calcium,Total 8.9 mg/dL (8.5-10.1); Chloride 108 mmol/L (98-107); Creatinine, Serum 1.19 mg/dL (0.70-1.30); EST Glomerular Filtration Rate 62 mL/min (>60); Est Glom Filt Rate - Afr Amer 75 mL/min (>60); Glucose 102 mg/dL (74-106); Potassium 4.1 mmol/L (3.5-5.1); Sodium Level 137 mmol/L (136-145)
[2023-05-02 12:00] VITALS: BP 177/110
--- NOTE | 2023-05-02 13:29 | NURSING ---
Report given to Jos MCKNIGHT. [place] gem expert notified of patient pickup time of [id number]
== END 2023-05-02 14:55 | disposition home or self-care (01) ==
PROVIDERS: Emergency Provider Emergency Medicine; PCP Internal Medicine; Visit Provider Emergency Medicine
DX: S09.8XXA Other specified injuries of head, initial encounter (principal); G20 Parkinson's disease; E86.0 Dehydration; M54.2 Cervicalgia; Z87.891 Personal history of nicotine dependence; I25.10 Atherosclerotic heart disease of native coronary artery without angina pectoris; I10 Essential (primary) hypertension; E78.5 Hyperlipidemia, unspecified; Z85.51 Personal history of malignant neoplasm of bladder; Z79.899 Other long term (current) drug therapy; R29.6 Repeated falls; W19.XXXA Unspecified fall, initial encounter; Y92.129 Unspecified place in nursing home as the place of occurrence of the external cause
CPT/HCPCS: 70450; 71045; 72125; 72192; 80048; 85025; 93005; 96360; 96361; 99284; J7030